=== PATIENT | female | born 1975 | race Caucasian/White ===

== ENCOUNTER 2021-06-25 20:56 | Inpatient (IN) | payer OTHER ==
[~2021-06-25] VITALS: Ht 157.4 cm; Wt 84.7 kg
--- NOTE | 2021-06-25 21:33 | ED Dyspnea ---
General Stated Complaint: COVID POSITIVE Source of Information: Patient Exam Limitations: No Limitations History of Present Illness Date Seen by Provider: Jun 25, 2021 Time Seen by Provider: 21:10 Initial Comments Patient is a 46-year-old female who states that she is Covid positive for the last week and a half presents to the emergency room with increasing shortness of breath, fatigue and weakness. Patient states that she saw her primary care physician, was diagnosed positive and sent home with 2 L of oxygen on a oxygen concentrator. Patient states over the last 2 to 3 days she has had worsening symptoms of shortness of breath. She has had increasing oxygen requirements. She tells me she has a history of diabetes and hyperthyroidism. She apparently has been on prednisone. She has not been checking her blood sugars routinely and does not know what it was today. She denies fevers or chills. She has had a little diarrhea. Mild headache. No earache sore throat or runny nose. Denies chest pain. Does feel profoundly short of breath. As she was being transferred onto a simple facemask she dropped her sats with a good Pleth into the 30 range. Increased work of breathing noted/respiratory distress. Patient states she is allergic to Augmentin. I did discuss intubation with her should that become necessary and she states she would like to try everything prior to that if possible. This will be an option though. All other review of systems reviewed and negative except as stated. Timing/Duration: 1 Week Severity: Severe Prior Episodes/Possible Cause: Illness Exposure Modifying Factors: Improves With Coughing Associated Symptoms: Anxiety, Cough, Lightheadedness Allergies and Home Medications Allergies Coded Allergies: amoxicillin (Verified Allergy, Unknown, 06/25/21) clavulanic acid (Verified Allergy, Unknown, 06/25/21) Patient Home Medication List Home Medication List Reviewed: Yes Review of Systems Review of Systems Constitutional: see HPI EENTM: no symptoms reported Respiratory: cough, short of breath Cardiovascular: no symptoms reported Gastrointestinal: diarrhea Genitourinary: no symptoms reported : No Musculoskeletal: muscle pain (muscle aches) Skin: no symptoms reported Psychiatric/Neurological: Anxiety All Other Systems Reviewed Negative Unless Noted: Yes Physical Exam Vital Signs Vital Signs - First Documented 06/25/21 21:01 Temp 37.2 Pulse 95 Resp 32 B/P (MAP) 176/104 (128) Pulse Ox 34 O2 Delivery Nasal Cannula O2 Flow Rate 5.00 Capillary Refill : Height, Weight, BMI Height: '" Weight: lbs. oz. 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 Norm as Tested Skin: Warm/Dry, Pallor Focused Exam Sepsis Stage: Sepsis Lactate Level 06/25/21 21:20: Lactic Acid Level 2.14*H Time of Focused Exam: 22:00 Respiratory: Lungs Clear, Normal Breath Sounds, Accessory Muscle Use Cardiovascular: Regular Rate, Rhythm, No Murmur Capillary Refill: Less Than 3 Seconds Peripheral Pulses: 2+ Radial Pulses (R), 2+ Radial Pulses (L) Skin: warm/dry, pallor Lactic Acid Level Laboratory Tests Test 06/25/21 21:20 Lactic Acid Level 2.14 MMOL/L (0.50-2.00) *H Within 3hrs of presentation: Admin fluids, Blood cultures prior to ABX's, Lactate level Progress/Results/Core Measures Results/Orders Lab Results Laboratory Tests Test 06/25/21 21:20 06/25/21 21:32 Range/Units White Blood Count 17.4 H 4.3-11.0 10^3/uL Red Blood Count 4.52 3.80-5.11 10^6/uL Hemoglobin 13.2 11.5-16.0 g/dL Hematocrit 41 35-52 % Mean Corpuscular Volume 91 80-99 fL Mean Corpuscular Hemoglobin 29 25-34 pg Mean Corpuscular Hemoglobin Concent 32 32-36 g/dL Red Cell Distribution Width 13.2 10.0-14.5 % Platelet Count 373 130-400 10^3/uL Mean Platelet Volume 10.5 9.0-12.2 fL Immature Granulocyte % (Auto) 5 % Neutrophils (%) (Auto) 87 H 42-75 % Lymphocytes (%) (Auto) 5 L 12-44 % Monocytes (%) (Auto) 3 0-12 % Eosinophils (%) (Auto) 0 0-10 % Basophils (%) (Auto) 0 0-10 % Neutrophils # (Auto) 15.0 H 1.8-7.8 10^3/uL Lymphocytes # (Auto) 0.9 L 1.0-4.0 10^3/uL Monocytes # (Auto) 0.5 0.0-1.0 10^3/uL Eosinophils # (Auto) 0.0 0.0-0.3 10^3/uL Basophils # (Auto) 0.1 0.0-0.1 10^3/uL Immature Granulocyte # (Auto) 0.8 H 0.0-0.1 10^3/uL Neutrophils % (Manual) 91 % Lymphocytes % (Manual) 6 % Monocytes % (Manual) 2 % Eosinophils % (Manual) 1 % Blood Morphology Comment NORMAL D-Dimer >= 20.00 H 0.00-0.49 UG/ML Sodium Level 129 L 135-145 MMOL/L Potassium Level 5.0 3.6-5.0 MMOL/L Chloride Level 92 L 98-107 MMOL/L Carbon Dioxide Level 20 L 21-32 MMOL/L Anion Gap 17 H 5-14 MMOL/L Blood Urea Nitrogen 22 H 7-18 MG/DL Creatinine 1.35 H 0.60-1.30 MG/DL Estimat Glomerular Filtration Rate 42 BUN/Creatinine Ratio 16 Glucose Level 620 *H 70-105 MG/DL Lactic Acid Level 2.14 *H 0.50-2.00 MMOL/L Calcium Level 9.8 8.5-10.1 MG/DL Corrected Calcium 10.2 H 8.5-10.1 MG/DL Total Bilirubin 0.6 0.1-1.0 MG/DL Direct Bilirubin 0.3 0.0-0.3 MG/DL Indirect Bilirubin 0.3 MG/DL Aspartate Amino Transf (AST/SGOT) 23 5-34 U/L Alanine Aminotransferase (ALT/SGPT) 33 0-55 U/L Alkaline Phosphatase 115 40-136 U/L Lactate Dehydrogenase 522 H 125-220 U/L C-Reactive Protein High Sensitivity 20.19 H 0.00-0.50 MG/DL Total Protein 7.0 6.4-8.2 GM/DL Albumin 3.5 3.2-4.5 GM/DL Beta-Hydroxybutyrate (Chem panel) 2.10 H 0.00-0.27 MMOL/L Procalcitonin 0.16 H <0.10 NG/ML Blood Gas Puncture Site R RADIAL Blood Gas Patient Temperature 36 Arterial Blood pH 7.40 7.37-7.43 Arterial Blood Partial Pressure CO2 35 35-45 MMHG Arterial Blood Partial Pressure O2 130 H 79-93 MMHG Arterial Blood HCO3 22 L 23-27 MMOL/L Arterial Blood Total CO2 23.0 21.0-31.0 MMOL/L Arterial Blood Oxygen Saturation 97 94-100 % Arterial Blood Base Excess -2.3 -2.5-2.5 MMOL/L Audi Test NA Blood Gas Ventilator Setting NO Blood Gas Inspired Oxygen NA My Orders Orders - PRISCA OLIVA MD Beta Hydroxybutyrate (06/25/21 22:22) Ns Iv 1000 Ml (Sodium Chloride 0.9%) (06/25/21 22:30) Insulin (Regular) Human (Novolin R (Per (06/25/21 22:22) Insulin (Regular) Human (Novolin R (Per (06/25/21 22:22) Lorazepam Injection (Ativan Injection) (06/25/21 22:34) Accucheck Q1hr Q1HR (06/25/21 22:34) Accucheck Q2hr Q2HR (06/25/21 22:34) Accucheck Q4hr Q4HR (06/25/21 22:34) Insulin Regular Drip (Myxredlin 100 Unit (06/25/21 22:45) Insulin (Regular) Human (Novolin R (Per (06/25/21 22:45) Fsbs Less Than 50mg/Dl (06/25/21 22:34) Fsbs 50-69mg/Dl (06/25/21 22:34) Fsbs Greater Than 70mg/Dl (06/25/21 22:34) Follow Hypoglycemia Protocol (06/25/21 22:34) Enoxaparin Injection (Lovenox Injection) (06/25/21 23:00) Medications Given in ED Current Medications Medications Dose Ordered Sig/Joanne Route Start Time Stop Time Status Last Admin Dose Admin Enoxaparin Sodium 100 mg ONCE ONCE SC 06/25/21 23:00 06/25/21 23:01 DC 8/17/21 23:29 100 MG Insulin Human Regular Bolus and Initial Infus... ONCE ONCE IV 06/25/21 22:45 06/25/21 22:46 DC 06/25/21 22:53 5 UNIT Vital Signs/I&O 06/25/21 06/25/21 21:01 22:28 Temp 37.2 Pulse 95 89 Resp 32 B/P (MAP) 176/104 (128) Pulse Ox 34 92 O2 Delivery Nasal Cannula O2 Flow Rate 5.00 100.00 Progress Progress Note : Time: 22:58 Progress Note Patient's D-dimer is noted to be greater than 20. Will start her on Lovenox at 1 mg per kg subcu twice daily. First dose given in the emergency department. Patient is given 5 units of insulin both IV and subcu and started on the non-DKA insulin drip protocol. She is fluid resuscitated with 2 L of normal saline. She is given half a milligram of Ativan for anxiety while on the BiPAP. Blood gas actually looks really good. Anion gap is 17. She likely will need a CTA once her renal function improves, her GFR is 41. Significant Covid pneumonia noted on her chest x-ray. Case was discussed with Dr. Apple. I did not know her D-dimer at the time of that discussion but we will start her on the Lovenox. Patient looks much much improved on reevaluation with better color, less respiratory distress, good oxygen saturations, not tachycardic not hypotensive. Will be admitted to the intensive care unit for further treatment and management. Initial ECG Impression Date: Jun 25, 2021 Initial ECG Impression Time: 21:41 Initial ECG Rate: 85 Initial ECG Rhythm: Normal Sinus Initial ECG Intervals AL 137 QRS 115 QTc 444 Critical Care Note Critical Care Start Time: 21:10 Stop Time: 23:00 Total Time (minutes) 40 minutes critical care time in the evaluation and management of this patient with profound hypoxia, respiratory distress, Covid pneumonia. Time includes initial evaluation and management, fluid resuscitation, discussion with the patient discussion with family, discussion with admitting physician; starting the insulin drip Departure Communication (Admissions) Time/Spoke to Admitting Phy: 22:[address] Apple accept patient for admission to the ICU, inpatient, request non-DKA insulin drip protocol Impression Primary Impression: Pneumonia due to COVID-19 virus Disposition: ADMITTED INPATIENT Condition: Critical Admissions Decision to Admit Reason: Admit from ER (General) Decision to Admit/Date: Jun 25, 2021 Time/Decision to Admit Time: 22:35 PRISCA OLIVA MD Jun 25, 2021 21:32
[2021-06-25 21:42] LABS: ABG BASE EXCESS -2.3 MMOL/L (-2.5-2.5); ABG OXYGEN SATURATION 97 % (94-100); ABG PCO2 35 MMHG (35-45); ABG PO2 130 MMHG (79-93)
[2021-06-25 21:47] LABS: PATIENT TEMP 36; VENTILATOR NO
[2021-06-25 22:06] LABS: BASOPHILS # (AUTO) 0.1 10^3/uL (0.0-0.1); BASOPHILS % (AUTO) 0 % (0-10); EOSINOPHILS % (AUTO) 0 % (0-10); HEMATOCRIT 41 % (35-52); HEMOGLOBIN 13.2 g/dL (11.5-16.0); LYMPHOCYTES # (AUTO) 0.9 10^3/uL (1.0-4.0); LYMPHOCYTES % (AUTO) 5 % (12-44); MEAN CORPUSCULAR HEMOGLOBIN 29 pg (25-34); MEAN CORPUSCULAR HGB CONC 32 g/dL (32-36); MEAN CORPUSCULAR VOLUME 91 fL (80-99); MEAN PLATELET VOLUME 10.5 fL (9.0-12.2); MONOCYTES # (AUTO) 0.5 10^3/uL (0.0-1.0); MONOCYTES % (AUTO) 3 % (0-12); NEUTROPHILS % (AUTO) 87 % (42-75); PLATELET COUNT 373 10^3/uL (130-400); WHITE BLOOD COUNT 17.4 10^3/uL (4.3-11.0)
[2021-06-25 22:09] LABS: ALBUMIN 3.5 GM/DL (3.2-4.5); BILIRUBIN,DIRECT 0.3 MG/DL (0.0-0.3); BILIRUBIN,INDIRECT 0.3 MG/DL; BILIRUBIN,TOTAL 0.6 MG/DL (0.1-1.0); CALCIUM 9.8 MG/DL (8.5-10.1); CREATININE SERUM 1.35 MG/DL (0.60-1.30)
--- NOTE | 2021-06-25 22:11 | Diagnostic Imaging Report ---
INDICATION: Lower respiratory infection. EXAM: Portable chest at 10:01 PM There are dense patchy alveolar infiltrates scattered throughout both lungs. There are no effusions or pneumothoraces. IMPRESSION: Severe alveolar infiltrates consistent with pneumonia. Dictated by: Dictated on workstation # [id number]
[2021-06-25] MEDS ORDERED: inSUlin (REGULAR) HUMAN 1 UNIT/0.01 ML (CHARGE PER UNIT) IV STA (22:22)
[2021-06-25] MEDS ORDERED: inSUlin (REGULAR) HUMAN 1 UNIT/0.01 ML (CHARGE PER UNIT) SC STA (22:22)
[2021-06-25] MEDS ORDERED: LORazepam INJ 2 MG/ML (ATIVAN) VIAL IVP STA (22:34)
[2021-06-25 22:36] LABS: EOSINOPHILS % (MANUAL) 1 %; LYMPHOCYTES % (MANUAL) 6 %; MONOCYTES % (MANUAL) 2 %; NEUTROPHILS % (MANUAL) 91 %; RBC MORPH NORMAL
[2021-06-25] MEDS ORDERED: inSUlin (REGULAR) HUMAN 1 UNIT/0.01 ML (CHARGE PER UNIT) IV ONE (22:45)
[2021-06-25] MEDS: NS IV 1000 ML 1,000 ML IV SCH (22:53)
[2021-06-25] MEDS ORDERED: ENOXAPARIN 100 MG/1 ML (LOVENOX) SYR SC ONE (23:00)
[2021-06-25] MEDS ORDERED: LORazepam INJ 2 MG/ML (ATIVAN) VIAL IVP PRN (23:45)
[2021-06-26] VITALS (7 sets, daily range): BP systolic 127–176; BP diastolic 68–104
[2021-06-26] MEDS ORDERED: DEXTROSE 50% 50 ML (IMS) SYR IV PRN ×2 (00:15)
[2021-06-26] MEDS ORDERED: RT-ALBUTEROL HFA 8.5 GM INHALER IH PRN (00:15)
--- NOTE | 2021-06-26 00:37 | Tele-ICU Consult ---
History of Present Illness History of Present Illness Date Seen by Provider: Jun 26, 2021 Time Seen by Provider: 00:32 Date of Admission Reason for Visit: NEW ICU ADMISSION ACUTE RESPIRATORY FAILURE History of Present Illness 46 yo F new admit to ICU via ED for acute hypoxemic respiratory failure due to severe COVID19 infection. Requiring NIV. COVID + test approx 1.5 weeks ago complicated by worsening dyspnea and fatigue, was started on prednisone as outpatient. + diarrhea + FERNANDO ? vaccination status Allergies and Home Medications Allergies Coded Allergies: amoxicillin (Verified Allergy, Unknown, 06/25/21) clavulanic acid (Verified Allergy, Unknown, 06/25/21) Past Medical/Social/Family Hx Patient Social History Tobacco Use?: No Smoking Status: Never a Smoker Smokeless Tobacco Frequency: Never a User Use of E-Cig and/or Vaping dev: No Substance use?: No Alcohol Use?: No Pt stated abuse/neglect: No Immunizations Up To Date Influenza Vaccine Up-to-Date: No; Not Current Tetanus Booster (TDap): Less Than 5 Years Hepatitis A: No Hepatitis B: No TB Skin Test: None Current Status status: No status: No Advance Directives: No Communicates: Verbally Primary Language: Mauritanian Preferred Spoken Language: Mauritanian Is interpretation needed?: No Implanted or Applied Medical D: None Past Medical History Obesity DM Hypothyroidism Review of Systems Constitutional: see HPI Respiratory: cough, dyspnea on exertion, short of breath Gastrointestinal: diarrhea Psychiatric/Neurological: Headache Sepsis Event Evaluation Sepsis Stage: Sepsis Possible Source: Other Height, Weight, BMI Height: '" Weight: lbs. oz. kg; 37.82 BMI Method: Exam Exam Patient acknowledged, consented, and participated in this virtual visit which was conducted using real time audio/video Vital Signs Date Time Temp Pulse Resp B/P (MAP) Pulse Ox O2 Delivery O2 Flow Rate FiO2 06/26/21 00:10 87 28 156/85 94 NIV Bilevel 80.00 06/26/21 00:09 37.2 92 35 50 06/26/21 00:05 87 93 80.00 06/26/21 00:00 36.8 85 31 126/72 (90) 96 NIV Bilevel 80.00 06/25/21 22:28 89 92 100.00 06/25/21 21:01 37.2 95 32 176/104 (128) 34 Nasal Cannula 5.00 Height & Weight Height: '" Weight: lbs. oz. 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 Zechariah evans ED note Critical Care: Critically Ill Patient Time spent with patient (mins): 25 ANATOLIY CHEN MD Jun 26, 2021 00:37
[2021-06-26] MEDS: NS IV 1000 ML 1,000 ML IV SCH ×5 (00:42→23:16)
[2021-06-26] MEDS: methylPREDNISolone 40 MG/ML (Solu-MEDROL) VIAL IV SCH ×4 (01:17→20:36)
[2021-06-26] MEDS: PANTOPRAZOLE 40 MG (PROTONIX) VIAL IV SCH ×2 (01:17→08:21)
[2021-06-26 01:32] LABS: BASOPHILS % (AUTO) 0 % (0-10); EOSINOPHILS % (AUTO) 0 % (0-10); HEMATOCRIT 33 % (35-52); HEMOGLOBIN 10.5 g/dL (11.5-16.0); LYMPHOCYTES # (AUTO) 0.9 10^3/uL (1.0-4.0); LYMPHOCYTES % (AUTO) 5 % (12-44); MEAN CORPUSCULAR HEMOGLOBIN 30 pg (25-34); MEAN CORPUSCULAR HGB CONC 32 g/dL (32-36); MEAN CORPUSCULAR VOLUME 92 fL (80-99); MEAN PLATELET VOLUME 10.3 fL (9.0-12.2); MONOCYTES # (AUTO) 0.6 10^3/uL (0.0-1.0); MONOCYTES % (AUTO) 4 % (0-12); NEUTROPHILS # (AUTO) 15.2 10^3/uL (1.8-7.8); NEUTROPHILS % (AUTO) 88 % (42-75); PLATELET COUNT 259 10^3/uL (130-400); WHITE BLOOD COUNT 17.3 10^3/uL (4.3-11.0)
[2021-06-26 01:43] LABS: POTASSIUM 4.1 MMOL/L (3.6-5.0)
[2021-06-26 01:44] LABS: ALBUMIN 2.9 GM/DL (3.2-4.5); CALCIUM 8.3 MG/DL (8.5-10.1)
[2021-06-26 01:47] LABS: TOTAL PROTEIN 5.5 GM/DL (6.4-8.2)
[2021-06-26 01:49] LABS: BILIRUBIN,TOTAL 0.4 MG/DL (0.1-1.0); CREATININE SERUM 1.14 MG/DL (0.60-1.30); PHOSPHORUS 3.3 MG/DL (2.3-4.7)
[2021-06-26 01:51] LABS: MAGNESIUM 1.6 MG/DL (1.6-2.4)
[2021-06-26 01:52] LABS: BILIRUBIN,DIRECT 0.2 MG/DL (0.0-0.3); BILIRUBIN,INDIRECT 0.2 MG/DL
[2021-06-26] MEDS: RT-ALBUTEROL HFA 8.5 GM INHALER IH SCH ×5 (02:08→22:53)
[2021-06-26] MEDS: KCL 20 MEQ TAB (K-DUR) PO SCH (03:40)
[2021-06-26] MEDS: POTASSIUM CL 10MEQ/50ML IVPB 50 ML IV SCH (03:40)
[2021-06-26] MEDS: MAGNESIUM 1 GM/100 ML IVPB 100 ML IV SCH ×2 (03:40→04:17)
[2021-06-26 04:28] LABS: ABG BASE EXCESS 0.1 MMOL/L (-2.5-2.5); ABG OXYGEN SATURATION 94 % (94-100); ABG PCO2 40 MMHG (35-45); ABG PO2 83 MMHG (79-93); ABG TCO2 25.6 MMOL/L (21.0-31.0)
[2021-06-26 04:37] LABS: ALLENS TEST YES-POS; INSPIRED O2 80%; VENTILATOR NO
[2021-06-26 04:38] LABS: PATIENT TEMP 37
[2021-06-26] MEDS ORDERED: REMDESIVIR INJ 200 MG in NS (IVPB) 210 ML IV NR (08:00)
[2021-06-26] MEDS ORDERED: ENOXAPARIN 60 MG/0.6 ML (LOVENOX) SYR SC NR (09:00)
[2021-06-26] MEDS ORDERED: TOCILIZUMAB INJECTION (NON-FOR 800 MG in NS (IVPB) 60 ML IV ONE (09:00)
[2021-06-26] MEDS ORDERED: dexAMETHasone INJECTION 20 MG in NS (IVPB) 50 ML IV SCH (09:00)
[2021-06-26] MEDS ORDERED: ENOXAPARIN 40 MG/0.4 ML (LOVENOX) SYR SC SCH (09:00)
[2021-06-26] MEDS ORDERED: NS 100 ML (IVPB) BAG IV ONE (09:15)
[2021-06-26] MEDS ORDERED: HOLD METFORMIN - RECEIVED CONTRAST 20 ML VIAL IV SCH (09:15)
[2021-06-26] MEDS ORDERED: CATHETER FLUSH 10 ML SYR IV PRN (09:15)
[2021-06-26] MEDS ORDERED: IOHEXOL 350 MG/ML 100 ML (OMNIPAQUE 350) VIAL IV ONE (09:15)
--- NOTE | 2021-06-26 10:12 | Tele-ICU Progress Note ---
Subjective Date Seen by a Provider: Jun 26, 2021 Time Seen by a Provider: 10:12 Sepsis Event Evaluation Height, Weight, BMI Height: '" Weight: lbs. oz. kg; 37.82 BMI Method: Focused Exam Lactate Level 06/25/21 21:20: Lactic Acid Level 2.14*H 06/25/21 23:37: Lactic Acid Level 1.82 Time of Focused Exam: 22:00 Exam Exam Patient acknowledged, consented, and participated in this virtual visit which was conducted using real time audio/video Vital Signs Date Time Temp Pulse Resp B/P (MAP) Pulse Ox O2 Delivery O2 Flow Rate FiO2 06/26/21 10:00 93 141/74 (96) 96 NIV Bilevel 100.00 06/26/21 09:58 NIV Bilevel 100.00 06/26/21 09:55 92 30 92 100.00 06/26/21 09:52 Vapotherm 06/26/21 09:00 81 129/89 (102) 96 Vapotherm 35.00 85.00 06/26/21 08:41 37.2 Vapotherm 35.00 85.00 06/26/21 08:00 74 121/76 (91) 95 Vapotherm 35.00 85.00 06/26/21 07:44 71 06/26/21 07:00 84 130/86 (101) 94 Vapotherm 35.00 85.00 06/26/21 06:00 75 119/87 (98) 93 Vapotherm 35.00 85.00 06/26/21 05:27 Vapotherm 35.00 85.00 06/26/21 05:24 Vapotherm 40.00 90.00 06/26/21 05:00 81 140/78 (98) 94 NIV Bilevel 80.00 06/26/21 04:00 76 147/85 (118) 97 NIV Bilevel 80.00 06/26/21 03:20 37.5 NIV Bilevel 80.00 06/26/21 03:20 94 NIV Bilevel 80 06/26/21 03:00 80 148/87 (109) 94 NIV Bilevel 80.00 06/26/21 02:08 82 28 94 80.00 06/26/21 02:00 75 140/82 (94) 93 NIV Bilevel 80.00 06/26/21 01:00 75 131/71 (100) 93 NIV Bilevel 80.00 06/26/21 01:00 74 06/26/21 00:30 77 96/79 (87) 95 NIV Bilevel 80.00 06/26/21 00:15 85 140/60 (74) 96 NIV Bilevel 80.00 06/26/21 00:10 87 28 156/85 94 NIV Bilevel 80.00 06/26/21 00:09 37.2 92 35 50 06/26/21 00:05 87 93 80.00 06/26/21 00:04 82 06/26/21 00:00 36.8 85 31 126/72 (90) 96 NIV Bilevel 80.00 06/26/21 00:00 NIV Bilevel 80 06/25/21 22:28 89 92 100.00 06/25/21 21:01 37.2 95 32 176/104 (128) 34 Nasal Cannula 5.00 I & O 06/26/21 07:00 Intake Total 3225 ml Output Total 1350 ml Balance 1875 ml Height & Weight Height: '" Weight: lbs. oz. 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 as outpatient ) -Remdesivir- as per local MD ( given sever dz no major clinical benefit ) -Steroids IV - started on high dose -Hypercoagulable state , elev DDIMER -> lovenox full dose , CTA 06/26 pending monitor for superimposed bact PNA -PCT negative , OFF abx - will review CT chest latter Diabetes Mellitus , severe hyperglycemia - insulin gtt , long acting insulin - lose f/up on steroids Lines : (Central Line Necessity Reviewed) Asencio: OG: Nutrition: Po Analgesia: Anxiety/ delirium VTE Prophylaxis: full dose lovenox Stress Ulcer Prophylaxis: ppi Plans in collaboration with bedside consultants and IM MDs. Discussed with RN to reach out if any questions or concerns A total of 35 minutes of critical care time was devoted to this patient today, required to treat and/or prevent further deterioration of critical care condition ( as above) . AZUL DRAPER MD Jun 26, 2021 10:12
[2021-06-26] MEDS ORDERED: ENOXAPARIN 60 MG/0.6 ML (LOVENOX) SYR SC SCH (11:00)
--- NOTE | 2021-06-26 12:04 | Diagnostic Imaging Report ---
PROCEDURE: CT angiography Chest. TECHNIQUE: After intravenous administration of contrast, thin section axial CT angiography of the chest was performed. 3D MIP reconstructions were made. All CT scans use one or more of the following dose optimizing techniques: automated exposure control, MA and/or KvP adjustment based on a patient size and exam type, or iterative reconstruction. INDICATION: COVID pneumonia, hypoxia. COMPARISON: Chest radiograph from 06/25/2021. FINDINGS: Vasculature: No pulmonary emboli. No CT evidence of pulmonary hypertension or right ventricular strain. Thoracic aorta is normal in caliber. No aortic dissection or pseudoaneurysm. Heart and mediastinum: Visualized thyroid is normal. No supraclavicular, axillary, or intra-thoracic lymphadenopathy. The heart is normal in size without pericardial effusion. Pleura: Trace right pleural effusion. No pneumothorax. Lungs and airway: No endoluminal lesion in the trachea or central bronchi. Mixture of bilateral groundglass opacities and consolidations is present. Upper abdomen: Allowing for the phase of contrast, no acute abnormality in the upper abdomen is seen. Musculoskeletal: No concerning osseous lesion. IMPRESSION: 1. No pulmonary emboli or acute aortic syndrome. 2. Bilateral multifocal organizing consolidations are most compatible with multifocal pneumonia secondary to COVID-19. 3. Trace right pleural effusion. Dictated by: Dictated on workstation # [id number]
[2021-06-26 15:24] LABS: POTASSIUM 3.7 MMOL/L (3.6-5.0)
[2021-06-26] MEDS ORDERED: CHOL-34 PO (15:24)
[2021-06-26] MEDS ORDERED: SITA1TAB2 PO (15:24)
[2021-06-26] MEDS ORDERED: ZINC50TA58 PO (15:24)
[2021-06-26] MEDS ORDERED: INSU100I10 SC (15:24)
[2021-06-26] MEDS ORDERED: GUAI600T28 PO (15:24)
[2021-06-26] MEDS ORDERED: PRD50T PO (15:24)
[2021-06-26] MEDS ORDERED: ACET-2267 PO (15:24)
[2021-06-26] MEDS ORDERED: PARO30TA3 PO (15:24)
[2021-06-26] MEDS ORDERED: GLIP10TA13 PO (15:24)
[2021-06-26] MEDS ORDERED: IBUP-2473 PO (15:24)
[2021-06-26] MEDS ORDERED: LEVO175C PO (15:24)
[2021-06-26 15:26] LABS: CALCIUM 8.2 MG/DL (8.5-10.1)
[2021-06-26 15:30] LABS: CREATININE SERUM 0.83 MG/DL (0.60-1.30)
[2021-06-26] MEDS: BARICITINIB 2 MG (OLUMIANT)TABLET PO SCH (16:04)
--- NOTE | 2021-06-26 20:02 | History & Physical-Hospitalist ---
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 She first started having symptoms two weeks ago. A week and a half ago she tested positive for COVID-19. She was not vaccinated. She was started on Prednisone. She continued to worsen with shortness of breath and cough and presented to the ER. Source: patient Exam Limitations: no limitations Date Seen 06/26/21 Time Seen by a Provider: 08:50 Attending Physician Paulette Apple John M MD Referring Physician Date of Admission Jun 25, 2021 at 23:08 Home Medications & Allergies Home Medications Reviewed patient Home Medication Reconciliation performed by pharmacy medication reconciliations textile science technician and/or nursing. Patients Allergies have been reviewed. Allergies Allergies Coded Allergies amoxicillin (Verified Allergy, Unknown, 06/25/21) clavulanic acid (Verified Allergy, Unknown, 06/25/21) Past [id number]-[id number] Hx Patient Social History Tobacco Use?: No Smoking Status: Never a Smoker Smokeless Tobacco Frequency: Never a User Use of E-Cig and/or Vaping dev: No Substance use?: No Alcohol Use?: No Pt feels they are or have been: No Immunizations Up To Date Tetanus Booster (TDap): Less Than 5 Years Hepatitis A: No Hepatitis B: No Current Status status: No status: No Advance Directives: No Communicates: Verbally Primary Language: [place]er Preferred Spoken Language: [place]er Is interpretation needed?: No Implanted or Applied Medical D: None Past Medical History Diabetes, Insulin dep, Hypothyroidsim Obesity DM Hypothyroidism Family Medical History No Pertinent Family Hx Review of Systems Constitutional: no symptoms reported, see HPI Respiratory: cough, short of breath Physical Exam Physical Exam Vital Signs Vital Signs - First Documented 06/25/21 06/26/21 21:01 00:00 Temp 37.2 Pulse 95 Resp 32 B/P (MAP) 176/104 (128) Pulse Ox 34 O2 Delivery Nasal Cannula O2 Flow Rate 5.00 FiO2 80 Capillary Refill : Less Than 3 Seconds Height, Weight, BMI Height: '" Weight: lbs. oz. kg; 37.82 BMI Method: General Appearance: No Apparent Distress, Obese HEENT: PERRL/EOMI, Pharynx Normal Neck: Normal Inspection, Supple Respiratory: Lungs Clear, No Respiratory Distress Cardiovascular: Regular Rate, Rhythm, No Edema, No Murmur Gastrointestinal: Normal Bowel Sounds, Non Tender, Soft Extremity: Normal Inspection, Non Tender, No Pedal Edema Neurologic/Psychiatric: Alert, Oriented x3, No Motor/Sensory Deficits, Normal Mood/Affect Skin: Normal Color, Warm/Dry Lymphatic: No Adenopathy Results Results/Procedures Labs Laboratory Tests 06/25/21 21:20 06/26/21 01:15 06/26/21 15:03 Patient resulted labs reviewed. Imaging: Reviewed Imaging Report Assessment/Plan Admission Diagnosis Acute respiratory failure due to COVID-19 Admission Status: Inpatient Order (span 2 midnights) Reason for Inpatient Admission: Respiratory failure DKA Assessment and Plan Acute respiratory failure due to COVID-19 Hypercoagulable state associated with COVID-19 COVID positive at outside facility Chest xray with diffuse infiltrates D-dimer >20 Procal negative x2 Requiring Vapotherm Obtain CT Chest to rule out PE Started on therapeutic Lovenox IV Solumedrol Started on Remdesivir, stop due to high flow oxygen requirement and two weeks since symptoms began Actemra unavailable Begin Barcitinib, discussed risks/benefits/EUA use and patient agrees TeleICU consulted, appreciate assistance Type 2 diabetes mellitus with ketoacidosis Blood sugar >600 on arrival Beta hydroxybutyrate elevated Started on insulin gtt, DKA protocol Begin Levemir to transition off insulin drip DVT prophylaxis: already receiving therapeutic anticoagulation Diagnosis/Problems Diagnosis/Problems (1) Acute respiratory failure due to COVID-19 Status: Acute (2) Hypercoagulable state associated with COVID-19 Status: Acute (3) T2DM (type 2 diabetes mellitus) Status: Acute Qualifiers: Diabetes mellitus prison insulin use: with prison use Diabetes mellitus complication status: with ketoacidosis Diabetes mellitus complication detail: without coma Qualified Codes: E11.10 - Type 2 diabetes mellitus with ketoacidosis without coma; Z79.4 - snf (current) use of insulin ROXANNA BLEDSOE MD Jun 26, 2021 20:02
[2021-06-26] MEDS: ENOXAPARIN 100 MG/1 ML (LOVENOX) SYR SC SCH (20:36)
[2021-06-26] MEDS: inSUlin ASPART (NovoLOG) 1 UNIT/0.01 ML (CHARGE PER UNIT) SQ SCH (20:37)
[2021-06-27] MEDS ORDERED: REMDESIVIR INJ 100 MG in NS (IVPB) 230 ML IV SCH ×2 (00:45→08:00)
[2021-06-27] MEDS: RT-ALBUTEROL HFA 8.5 GM INHALER IH SCH ×6 (02:39→22:26)
[2021-06-27 02:40] VITALS: BP 152/96
[2021-06-27] MEDS: methylPREDNISolone 40 MG/ML (Solu-MEDROL) VIAL IV SCH ×3 (03:56→21:41)
[2021-06-27 04:49] LABS: BASOPHILS # (AUTO) 0.1 10^3/uL (0.0-0.1); BASOPHILS % (AUTO) 0 % (0-10); EOSINOPHILS % (AUTO) 0 % (0-10); HEMATOCRIT 31 % (35-52); LYMPHOCYTES # (AUTO) 1.5 10^3/uL (1.0-4.0); LYMPHOCYTES % (AUTO) 6 % (12-44); MEAN CORPUSCULAR HEMOGLOBIN 29 pg (25-34); MEAN CORPUSCULAR HGB CONC 32 g/dL (32-36); MEAN CORPUSCULAR VOLUME 92 fL (80-99); MEAN PLATELET VOLUME 10.7 fL (9.0-12.2); MONOCYTES # (AUTO) 0.9 10^3/uL (0.0-1.0); MONOCYTES % (AUTO) 4 % (0-12); NEUTROPHILS # (AUTO) 21.3 10^3/uL (1.8-7.8); NEUTROPHILS % (AUTO) 88 % (42-75); PLATELET COUNT 286 10^3/uL (130-400); WHITE BLOOD COUNT 24.2 10^3/uL (4.3-11.0)
[2021-06-27 04:52] LABS: POTASSIUM 4.1 MMOL/L (3.6-5.0)
[2021-06-27 04:53] LABS: CALCIUM 8.1 MG/DL (8.5-10.1)
[2021-06-27 04:57] LABS: PHOSPHORUS 2.7 MG/DL (2.3-4.7)
[2021-06-27 04:58] LABS: CREATININE SERUM 0.84 MG/DL (0.60-1.30)
[2021-06-27 05:00] LABS: MAGNESIUM 2.1 MG/DL (1.6-2.4)
[2021-06-27] MEDS: POTASSIUM CL 10MEQ/50ML IVPB 50 ML IV SCH (05:14)
[2021-06-27] MEDS: MAGNESIUM 1 GM/100 ML IVPB 100 ML IV SCH (05:15)
[2021-06-27] MEDS: KCL 20 MEQ TAB (K-DUR) PO SCH (05:15)
[2021-06-27] MEDS: inSUlin ASPART (NovoLOG) 1 UNIT/0.01 ML (CHARGE PER UNIT) SQ SCH (05:53)
[2021-06-27 07:30] VITALS: BP 117/67
[2021-06-27] MEDS: PANTOPRAZOLE 40 MG (PROTONIX) VIAL IV SCH (08:03)
[2021-06-27] MEDS: ENOXAPARIN 100 MG/1 ML (LOVENOX) SYR SC SCH ×2 (08:03→21:41)
--- NOTE | 2021-06-27 09:37 | Tele-ICU Progress Note ---
Subjective Date Seen by a Provider: Jun 27, 2021 Time Seen by a Provider: 09:37 Sepsis Event Evaluation Height, Weight, BMI Height: '" Weight: lbs. oz. kg; 37.82 BMI Method: Focused Exam Lactate Level 06/25/21 21:20: Lactic Acid Level 2.14*H 06/25/21 23:37: Lactic Acid Level 1.82 Time of Focused Exam: 22:00 Exam Exam Patient acknowledged, consented, and participated in this virtual visit which was conducted using real time audio/video Vital Signs Date Time Temp Pulse Resp B/P (MAP) Pulse Ox O2 Delivery O2 Flow Rate FiO2 06/27/21 08:40 95 Vapotherm 40.00 100 06/27/21 08:12 Vapotherm 40.00 100.00 06/27/21 08:05 37.2 06/27/21 08:00 81 20 162/88 (112) 93 NIV Bilevel 75.00 06/27/21 07:30 83 22 92 65.00 06/27/21 07:00 78 06/27/21 07:00 78 18 117/67 (84) 95 NIV Bilevel 75.00 06/27/21 06:00 74 22 126/81 (96) 95 NIV Bilevel 75.00 06/27/21 05:00 72 22 111/69 (83) 94 NIV Bilevel 75.00 06/27/21 04:00 73 24 91/56 (68) 95 NIV Bilevel 75.00 06/27/21 03:55 93 NIV Bilevel 75 06/27/21 03:50 36.7 NIV Bilevel 75.00 06/27/21 03:00 74 24 140/87 (104) 94 NIV Bilevel 75.00 06/27/21 02:40 74 23 96 75.00 06/27/21 02:00 80 26 152/93 (112) 96 NIV Bilevel 75.00 06/27/21 01:55 NIV Bilevel 75.00 06/27/21 01:00 76 24 148/96 (113) 92 NIV Bilevel 80.00 06/27/21 01:00 76 06/27/21 00:36 NIV Bilevel 80.00 06/27/21 00:00 77 21 148/86 (106) 97 Vapotherm 40.00 100.00 06/26/21 23:20 Vapotherm 40.00 100.00 06/26/21 23:20 97 Vapotherm 40.00 100 06/26/21 23:17 36.8 NIV Bilevel 80.00 06/26/21 23:00 90 164/96 (118) 92 NIV Bilevel 60.00 06/26/21 22:53 88 29 96 80.00 06/26/21 22:00 93 141/74 (96) 96 NIV Bilevel 60.00 06/26/21 21:33 NIV Bilevel 60.00 06/26/21 21:30 NIV Bilevel 70.00 06/26/21 21:00 81 129/89 (102) 96 NIV Bilevel 80.00 06/26/21 20:00 74 121/76 (91) 95 NIV Bilevel 80.00 06/26/21 19:25 91 NIV Bilevel 80 06/26/21 19:20 36.9 86 28 143/83 (103) 94 NIV Bilevel 80.00 06/26/21 19:18 88 NIV Bilevel 65.00 06/26/21 19:04 73 26 94 65.00 06/26/21 19:00 74 NIV Bilevel 65.00 06/26/21 19:00 84 130/86 (101) 94 NIV Bilevel 65.00 06/26/21 19:00 106 06/26/21 18:54 91 Vapotherm 40.00 90 06/26/21 18:00 85 5 100 Vapotherm 40.00 90.00 06/26/21 17:44 Vapotherm 40.00 90.00 06/26/21 17:00 36.1 06/26/21 16:50 96 NIV Bilevel 70 06/26/21 16:04 97 NIV Bilevel 60.00 06/26/21 16:00 93 12 127/68 (87) 95 NIV Bilevel 70.00 06/26/21 15:54 35.9 89 94 70 06/26/21 15:00 89 94 NIV Bilevel 70.00 06/26/21 14:17 73 26 93 70.00 06/26/21 14:08 99 NIV Bilevel 70.00 06/26/21 14:00 85 91 NIV Bilevel 80.00 06/26/21 13:52 NIV Bilevel 80.00 06/26/21 13:00 74 92 NIV Bilevel 90.00 06/26/21 12:34 NIV Bilevel 90.00 06/26/21 12:17 77 06/26/21 12:04 95 NIV Bilevel 80 06/26/21 12:00 77 97 NIV Bilevel 100.00 06/26/21 11:57 35.9 06/26/21 11:00 90 141/74 (96) 99 NIV Bilevel 100.00 06/26/21 10:00 93 141/74 (96) 96 NIV Bilevel 100.00 06/26/21 09:58 NIV Bilevel 100.00 06/26/21 09:55 92 30 92 100.00 06/26/21 09:52 Vapotherm I & O 06/27/21 07:00 Intake Total 2810 ml Output Total 1725 ml Balance 1085 ml Height & Weight Height: '" Weight: lbs. oz. kg; 37.82 BMI Method: General Appearance: No Apparent Distress, Obese HEENT: PERRL/EOMI, Pharynx Normal Neck: Normal Inspection, Supple Respiratory: Lungs Clear, No Respiratory Distress Cardiovascular: Regular Rate, Rhythm, No Edema, No Murmur Capillary Refill: Less Than 3 Seconds Peripheral Pulses: 2+ Radial Pulses (R), 2+ Radial Pulses (L) Extremity: Normal Inspection, Non Tender, No Pedal Edema Neurologic/Psychiatric: Alert, Oriented x3, No Motor/Sensory Deficits, Normal Mood/Affect Skin: Normal Color, Warm/Dry Lymphatic: No Adenopathy Results Lab Laboratory Tests 06/25/21 21:20 06/26/21 01:15 06/26/21 15:03 06/27/21 04:20 Assessment/Plan Assessment/Plan Tele-ICU Physician , Progress Note ) Available chart/ vitals / labs / Images reviewed Video assessment done using teleICU camera, rest of exam as per RN Discussed wth RN Events overnight : Afebrile I/O = pos 3L Drips: Pressors: , hemodynamically stable EXAM PER RN Consultants: Hospital course: 06/25 to ICU - COVID-NIV.. 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 as outpatient ) -not on Remdesivir -Steroids IV - started on high dose - seems improving - CONSIDER TO TAPER DOWN EVERY DAY - Barcitinib 06/26 -Hypercoagulable state , elev DDIMER -> lovenox full dose , CTA 06/26 neg for PE monitor for superimposed bact PNA -PCT negative , no dense infiltrate on CTchest - OFF abx Diabetes Mellitus , severe hyperglycemia - insulin gtt to stop, long acting insulin -close f/up on steroids Lines : periph (Central Line Necessity Reviewed) Asencio: OG: Nutrition: Po Analgesia: Anxiety/ delirium na VTE Prophylaxis: full dose lovenox Stress Ulcer Prophylaxis: ppi Plans in collaboration with bedside consultants and IM MDs. Discussed with RN to reach out if any questions or concerns A total of 35 minutes of critical care time was devoted to this patient today, required to treat and/or prevent further deterioration of critical care condition ( as above) . AZUL DRAPER MD Jun 27, 2021 09:37
--- NOTE | 2021-06-27 09:54 | Diagnostic Imaging Report ---
INDICATION: Pneumonia. Comparison is made with prior examination from 06/25/2021. FINDINGS: There is diffuse bilateral airspace disease. Heart size is normal. There is no pleural effusion or pneumothorax. The mediastinum is unremarkable. IMPRESSION: Diffuse bilateral airspace disease suspect for pneumonia, possibly Covid. Recommend clinical correlation. Dictated by: Dictated on workstation # [id number]
[2021-06-27 10:42] VITALS: BP 138/79
[2021-06-27] MEDS: inSUlin ASPART (NovoLOG) 1 UNIT/0.01 ML (CHARGE PER UNIT) SC SCH ×3 (11:47→21:41)
--- NOTE | 2021-06-27 14:25 | Progress Note - Hospitalist ---
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 She first started having symptoms two weeks ago. A week and a half a go she tested positive for COVID-19. She was not vaccinated. She was started on Prednisone. She continued to worsen with shortness of breath and cough and presented to the ER. Subjective/Events-last exam She is feeling a bit worse today. She is more short of breath. She feels anxious. She has been eating and drinking. She denies pain. Focused Exam Lactate Level 06/25/21 21:20: Lactic Acid Level 2.14*H 06/25/21 23:37: Lactic Acid Level 1.82 Time of Focused Exam: 22:00 Objective Exam Vital Signs Vital Signs Date Time Temp Pulse Resp B/P (MAP) Pulse Ox O2 Delivery O2 Flow Rate FiO2 06/27/21 14:17 NIV Bilevel 80.00 06/27/21 12:14 36.3 06/27/21 12:00 82 13 156/100 (118) 90 06/27/21 08:40 100 Capillary Refill : Less Than 3 Seconds General Appearance: Mild Distress (Tachypnea), Obese Respiratory: Decreased Breath Sounds, Respiratory Distress (Tachypnea), Other (Wearing Vapotherm) Cardiovascular: Regular Rate, Rhythm, No Edema, No Murmur Gastrointestinal: Normal Bowel Sounds, Non Tender, Soft Extremity: Normal Inspection, Non Tender, No Pedal Edema Neurologic/Psychiatric: Alert, Oriented x3, No Motor/Sensory Deficits, Normal Mood/Affect Skin: Normal Color, Warm/Dry Results/Procedures Lab Laboratory Tests 06/26/21 15:03 06/27/21 04:20 Patient resulted labs reviewed. Imaging: Reviewed Imaging Report Assessment/Plan Assessment and Plan Assess & Plan/Chief Complaint Acute respiratory failure due to COVID-19 Hypercoagulable state associated with COVID-19 COVID positive at outside facility Chest xray with diffuse infiltrates D-dimer >20 Procal negative x2 repeat tomorrow Requiring BiPAP/Vapotherm CT Chest negative for PE Continue therapeutic Lovenox Decrease Solumedrol Remdesivir stopped due to high flow oxygen requirement and two weeks since sy mptoms began Actemra unavailable Continue Barcitinib, discussed risks/benefits/EUA use and patient agrees TeleICU consulted, appreciate assistance High risk for intubation Type 2 diabetes mellitus with ketoacidosis DKA resolved Continue Levemir Increase sliding scale DVT prophylaxis: already receiving therapeutic anticoagulation Critical Care Critically Ill Patient Diagnosis/Problems Diagnosis/Problems (1) Acute respiratory failure due to COVID-19 Status: Acute (2) Hypercoagulable state associated with COVID-19 Status: Acute (3) T2DM (type 2 diabetes mellitus) Status: Acute Qualifiers: Diabetes mellitus long lines operator insulin use: with long lines operator use Diabetes mellitus complication status: with ketoacidosis Diabetes mellitus complication detail: without coma Qualified Codes: E11.10 - Type 2 diabetes mellitus with ketoacidosis without coma; Z79.4 - [facility] (current) use of insulin ROXANNA BLEDSOE MD Jun 27, 2021 14:24
[2021-06-27] MEDS ORDERED: CEFEPIME INJECTION 1,000 MG in WATER (STERILE) FOR INJECTION 10 ML IV NR (14:30)
[2021-06-27 15:03] VITALS: BP 134/109
[2021-06-27] MEDS: BARICITINIB 2 MG (OLUMIANT)TABLET PO SCH (17:52)
[2021-06-27] MEDS: CEFEPIME INJECTION 1,000 MG in WATER (STERILE) FOR INJECTION 10 ML IV SCH (21:41)
[2021-06-27 22:26] VITALS: BP 134/109
[2021-06-28 03:46] VITALS: BP 127/70
[2021-06-28] MEDS: RT-ALBUTEROL HFA 8.5 GM INHALER IH SCH ×6 (03:48→21:57)
[2021-06-28 04:11] LABS: BASOPHILS % (AUTO) 0 % (0-10); EOSINOPHILS % (AUTO) 0 % (0-10); HEMATOCRIT 31 % (35-52); HEMOGLOBIN 9.9 g/dL (11.5-16.0); LYMPHOCYTES % (AUTO) 4 % (12-44); MEAN CORPUSCULAR HEMOGLOBIN 29 pg (25-34); MEAN CORPUSCULAR HGB CONC 32 g/dL (32-36); MEAN CORPUSCULAR VOLUME 92 fL (80-99); MEAN PLATELET VOLUME 10.3 fL (9.0-12.2); MONOCYTES # (AUTO) 0.7 10^3/uL (0.0-1.0); MONOCYTES % (AUTO) 3 % (0-12); NEUTROPHILS # (AUTO) 22.8 10^3/uL (1.8-7.8); NEUTROPHILS % (AUTO) 91 % (42-75); PLATELET COUNT 298 10^3/uL (130-400)
[2021-06-28] MEDS: methylPREDNISolone 40 MG/ML (Solu-MEDROL) VIAL IV SCH ×3 (04:22→21:06)
[2021-06-28] MEDS: CEFEPIME INJECTION 1,000 MG in WATER (STERILE) FOR INJECTION 10 ML IV SCH ×4 (04:23→21:06)
[2021-06-28 04:33] LABS: POTASSIUM 4.1 MMOL/L (3.6-5.0)
[2021-06-28 04:34] LABS: CALCIUM 8.6 MG/DL (8.5-10.1)
[2021-06-28 04:38] LABS: CREATININE SERUM 0.84 MG/DL (0.60-1.30); PHOSPHORUS 2.5 MG/DL (2.3-4.7)
[2021-06-28 04:41] LABS: MAGNESIUM 2.1 MG/DL (1.6-2.4)
[2021-06-28] MEDS: POTASSIUM CL 10MEQ/50ML IVPB 50 ML IV SCH (05:03)
[2021-06-28] MEDS: MAGNESIUM 1 GM/100 ML IVPB 100 ML IV SCH (05:03)
[2021-06-28] MEDS: inSUlin ASPART (NovoLOG) 1 UNIT/0.01 ML (CHARGE PER UNIT) SC SCH ×4 (05:04→21:07)
[2021-06-28] MEDS: KCL 20 MEQ TAB (K-DUR) PO SCH (05:04)
--- NOTE | 2021-06-28 07:10 | Diagnostic Imaging Report ---
EXAMINATION: Chest 1 view HISTORY: Pneumonia COMPARISON: 06/27/2021 FINDINGS: Stable enlargement of cardiac silhouette. Stable diffuse opacification with airspace opacities throughout both lungs. No obvious pleural effusion or pneumothorax. The osseous structures are intact. IMPRESSION: 1. Stable diffuse patchy interstitial and airspace opacities throughout both lungs compatible with history of pneumonia. Dictated by: Dictated on workstation # [id number]
[2021-06-28 07:32] VITALS: BP 133/85
[2021-06-28] MEDS: ENOXAPARIN 100 MG/1 ML (LOVENOX) SYR SC SCH ×2 (07:57→21:07)
[2021-06-28] MEDS: PANTOPRAZOLE 40 MG (PROTONIX) VIAL IV SCH (07:58)
[2021-06-28 10:51] VITALS: BP 139/78
--- NOTE | 2021-06-28 12:05 | Tele-ICU Progress Note ---
Subjective Date Seen by a Provider: Jun 28, 2021 Time Seen by a Provider: 11:25 Subjective/Events-last exam Patient with uncontrolled diabetes mellitus admitted with Covidpneumonia which is not amenable to treatment as an outpatient therapy. She is admitted with bilateral diffuse infiltrates along with a blood sugar of over 600. Currently she is on a long-acting insulin Levemir 60 mL 60 units subcu twice a day but her blood sugars are in the 80s hence her primary care physician today reduced with the Levemir to 30 units subcutaneously twice a day which is appropriate. She is still on IV steroids. Currently on Vapotherm for oxygenation. I have reviewed her chest x-ray which showed bilateral diffuse extensive infiltration. Review of Systems General: Other (per RN) Sepsis Event Evaluation Height, Weight, BMI Height: '" Weight: lbs. oz. kg; 37.82 BMI Method: Focused Exam Lactate Level 06/25/21 21:20: Lactic Acid Level 2.14*H 06/25/21 23:37: Lactic Acid Level 1.82 Time of Focused Exam: 22:00 Exam Exam Patient acknowledged, consented, and participated in this virtual visit which was conducted using real time audio/video Vital Signs Date Time Temp Pulse Resp B/P (MAP) Pulse Ox O2 Delivery O2 Flow Rate FiO2 06/28/21 11:20 36.0 06/28/21 11:00 96 30 141/79 (99) 88 NIV Bilevel 85.00 06/28/21 10:56 NIV Bilevel 85.00 06/28/21 10:51 98 29 88 85.00 06/28/21 10:37 88 Vapotherm 35.00 100 06/28/21 10:15 21 91 Vapotherm 35.00 100.00 06/28/21 10:00 87 27 139/78 (98) 93 Vapotherm 40.00 100.00 06/28/21 09:00 90 14 145/79 (101) 90 Vapotherm 40.00 100.00 06/28/21 08:54 35.8 Vapotherm 40.00 100.00 06/28/21 08:00 79 25 128/68 (110) 94 NIV Bilevel 85.00 06/28/21 08:00 95 NIV Bilevel 85 06/28/21 07:32 81 36 93 90.00 06/28/21 07:00 75 23 133/85 (100) 93 NIV Bilevel 100.00 06/28/21 07:00 73 06/28/21 06:00 89 20 140/82 (101) 94 NIV Bilevel 100.00 06/28/21 05:00 78 25 121/81 (94) 94 NIV Bilevel 100.00 06/28/21 04:00 99 25 141/81 (101) 93 NIV Bilevel 100.00 06/28/21 04:00 94 NIV Bilevel 100 06/28/21 03:46 82 23 97 100.00 06/28/21 03:00 81 21 127/70 (89) 94 NIV Bilevel 100.00 06/28/21 02:00 92 18 139/72 (94) 97 NIV Bilevel 100.00 06/28/21 01:00 86 19 122/87 (99) 95 NIV Bilevel 100.00 06/28/21 01:00 86 06/28/21 00:00 94 23 120/67 (84) 95 NIV Bilevel 100.00 06/27/21 23:59 96 NIV Bilevel 100 06/27/21 23:34 NIV Bilevel 100.00 06/27/21 23:00 89 23 141/71 (94) 100 Vapotherm 40.00 100.00 06/27/21 22:26 88 35 92 100.00 06/27/21 22:00 94 16 144/75 (98) 95 Vapotherm 40.00 100.00 06/27/21 21:00 92 18 140/87 (104) 97 Vapotherm 40.00 100.00 06/27/21 20:38 Vapotherm 40.00 100.00 06/27/21 20:07 36.8 06/27/21 20:00 86 8 127/66 (86) 90 Vapotherm 40.00 80.00 06/27/21 20:00 96 NIV Bilevel 100 06/27/21 19:00 106 17 143/83 (103) 80 Vapotherm 40.00 80.00 06/27/21 19:00 99 06/27/21 18:40 90 Vapotherm 40.00 100 06/27/21 18:27 Vapotherm 40.00 100.00 06/27/21 18:00 85 100 NIV Bilevel 80.00 06/27/21 17:00 81 12 134/66 (88) 98 NIV Bilevel 80.00 06/27/21 16:05 35.3 06/27/21 16:00 92 NIV Bilevel 80 06/27/21 16:00 10 95 NIV Bilevel 80.00 06/27/21 15:03 88 35 92 100.00 06/27/21 15:00 84 0 134/109 (117) 90 NIV Bilevel 80.00 06/27/21 14:17 NIV Bilevel 80.00 06/27/21 14:00 95 135/59 (84) 82 Vapotherm 40.00 100.00 06/27/21 13:00 83 06/27/21 13:00 76 16 127/60 (82) 96 Vapotherm 40.00 100.00 06/27/21 12:15 95 NIV Bilevel 40.00 70 06/27/21 12:14 36.3 I & O 06/28/21 06:59 Intake Total 800 ml Output Total 1700 ml Balance -900 ml Height & Weight Height: '" Weight: lbs. oz. kg; 37.82 BMI Method: General Appearance: Moderate Distress (on vapo therm), Obese HEENT: PERRL/EOMI, Pharynx Normal Neck: Normal Inspection, Supple Respiratory: Decreased Breath Sounds, Respiratory Distress (Tachypnea), Other (Wearing Vapotherm) Cardiovascular: Regular Rate, Rhythm, No Edema, No Murmur Capillary Refill: Less Than 3 Seconds Peripheral Pulses: 2+ Radial Pulses (R), 2+ Radial Pulses (L) Extremity: Normal Inspection, Non Tender, No Pedal Edema Neurologic/Psychiatric: Alert, Oriented x3, No Motor/Sensory Deficits, Normal Mood/Affect Skin: Normal Color, Warm/Dry Lymphatic: No Adenopathy Results Lab Laboratory Tests 06/26/21 15:03 06/27/21 04:20 06/28/21 04:00 Assessment/Plan Assessment/Plan 1. Acute hypoxic respiratory failure secondary to Covid pneumonia. 2. Uncontrolled diabetes mellitus currently controlled. 3. Obesity. 4. Covid19 pneumonia unvaccinated Recommendations agree with decreasing the Levemir insulin to 30 units twice daily 2. Continue oxygenation with Vapotherm 3. Continue IV Solu-Medrol 4. Cefepime IV for superadded bacterial pneumonia 5. DVT prophylaxis. 6. We will check hemoglobin A1c Critical Care: Critically Ill Patient Time spent with patient (mins): 25 GISELLE CATES MD Jun 28, 2021 12:05
[2021-06-28] MEDS: BARICITINIB 2 MG (OLUMIANT)TABLET PO SCH (15:29)
--- NOTE | 2021-06-28 19:03 | Progress Note - Hospitalist ---
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 She first started having symptoms two weeks ago. A week and a half a go she tested positive for COVID-19. She was not vaccinated. She was started on Prednisone. She continued to worsen with shortness of breath and cough and presented to the ER. Subjective/Events-last exam She is feeling a bit better today. She is not as short of breath today. She still has a cough. She still has a good appetite. Focused Exam Lactate Level 06/25/21 21:20: Lactic Acid Level 2.14*H 06/25/21 23:37: Lactic Acid Level 1.82 Time of Focused Exam: 22:00 Objective Exam Vital Signs Vital Signs Date Time Temp Pulse Resp B/P (MAP) Pulse Ox O2 Delivery O2 Flow Rate FiO2 06/28/21 18:00 87 19 141/76 (110) 91 NIV Bilevel 85.00 06/28/21 15:45 85 06/28/21 15:34 36.7 Capillary Refill : Less Than 3 Seconds General Appearance: No Apparent Distress, Obese Respiratory: Lungs Clear, No Respiratory Distress Cardiovascular: Regular Rate, Rhythm, No Edema, No Murmur Gastrointestinal: Normal Bowel Sounds, Non Tender, Soft Extremity: Normal Inspection, Non Tender, No Pedal Edema Neurologic/Psychiatric: Alert, Oriented x3, No Motor/Sensory Deficits, Normal Mood/Affect Skin: Normal Color, Warm/Dry Results/Procedures Lab Laboratory Tests 06/28/21 04:00 Patient resulted labs reviewed. Imaging: Reviewed Imaging Report Assessment/Plan Assessment and Plan Assess & Plan/Chief Complaint Acute respiratory failure due to COVID-19 Hypercoagulable state associated with COVID-19 Requiring BiPAP/Vapotherm Continue therapeutic Lovenox Decrease Solumedrol Continue Barcitinib, discussed risks/benefits/EUA use and patient agrees TeleICU consulted, appreciate assistance High risk for intubation Type 2 diabetes mellitus with ketoacidosis DKA resolved Decrease Levemir Continue sliding scale DVT prophylaxis: already receiving therapeutic anticoagulation Critical Care Critically Ill Patient Diagnosis/Problems Diagnosis/Problems (1) Acute respiratory failure due to COVID-19 Status: Acute (2) Hypercoagulable state associated with COVID-19 Status: Acute (3) T2DM (type 2 diabetes mellitus) Status: Acute Qualifiers: Diabetes mellitus intermediate project manager insulin use: with nursing home use Diabetes me llitus complication status: with ketoacidosis Diabetes mellitus complication detail: without coma Qualified Codes: E11.10 - Type 2 diabetes mellitus with ketoacidosis without coma; Z79.4 - terminal clerk (current) use of insulin ROXANNA BLEDSOE MD Jun 28, 2021 19:03
[2021-06-29] MEDS: RT-ALBUTEROL HFA 8.5 GM INHALER IH SCH ×6 (02:47→21:29)
[2021-06-29] MEDS: CEFEPIME INJECTION 1,000 MG in WATER (STERILE) FOR INJECTION 10 ML IV SCH ×4 (04:03→20:20)
[2021-06-29] MEDS: POTASSIUM CL 10MEQ/50ML IVPB 50 ML IV SCH (05:48)
[2021-06-29] MEDS: KCL 20 MEQ TAB (K-DUR) PO SCH (05:49)
[2021-06-29] MEDS: MAGNESIUM 1 GM/100 ML IVPB 100 ML IV SCH (05:49)
[2021-06-29 06:05] LABS: BASOPHILS % (AUTO) 0 % (0-10); EOSINOPHILS % (AUTO) 0 % (0-10); HEMATOCRIT 32 % (35-52); LYMPHOCYTES # (AUTO) 0.9 10^3/uL (1.0-4.0); LYMPHOCYTES % (AUTO) 4 % (12-44); MEAN CORPUSCULAR HEMOGLOBIN 29 pg (25-34); MEAN CORPUSCULAR HGB CONC 31 g/dL (32-36); MEAN CORPUSCULAR VOLUME 93 fL (80-99); MEAN PLATELET VOLUME 11.5 fL (9.0-12.2); MONOCYTES # (AUTO) 0.8 10^3/uL (0.0-1.0); MONOCYTES % (AUTO) 3 % (0-12); NEUTROPHILS # (AUTO) 20.1 10^3/uL (1.8-7.8); NEUTROPHILS % (AUTO) 91 % (42-75); PLATELET COUNT 288 10^3/uL (130-400); WHITE BLOOD COUNT 22.2 10^3/uL (4.3-11.0)
[2021-06-29 06:12] LABS: POTASSIUM 4.2 MMOL/L (3.6-5.0)
[2021-06-29 06:17] LABS: CREATININE SERUM 0.82 MG/DL (0.60-1.30); PHOSPHORUS 3.1 MG/DL (2.3-4.7)
[2021-06-29 06:20] LABS: MAGNESIUM 2.2 MG/DL (1.6-2.4)
[2021-06-29] MEDS: inSUlin ASPART (NovoLOG) 1 UNIT/0.01 ML (CHARGE PER UNIT) SC SCH ×4 (06:22→20:21)
--- NOTE | 2021-06-29 07:18 | Diagnostic Imaging Report ---
EXAMINATION: Chest 1 view HISTORY: COVID pneumonia COMPARISON: 06/28/2021 FINDINGS: There is severe bilateral airspace opacities consistent with COVID 19 pneumonia. No pleural effusion. Heart size is normal. IMPRESSION: 1. Severe COVID 19 pneumonia. Dictated by: Dictated on workstation # [id number]
[2021-06-29] MEDS: methylPREDNISolone 40 MG/ML (Solu-MEDROL) VIAL IV SCH ×2 (08:32→20:21)
[2021-06-29] MEDS: PANTOPRAZOLE 40 MG (PROTONIX) VIAL IV SCH (08:32)
[2021-06-29] MEDS: ENOXAPARIN 100 MG/1 ML (LOVENOX) SYR SC SCH ×2 (08:33→20:21)
--- NOTE | 2021-06-29 13:16 | Progress Note - Hospitalist ---
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 She first started having symptoms two weeks ago. A week and a half a go she tested positive for COVID-19. She was not vaccinated. She was started on Prednisone. She continued to worsen with shortness of breath and cough and presented to the ER. Subjective/Events-last exam She is now doing well this morning. She is very short of breath. Her oxygen saturations dropped when she turned in bed. She is currently on BiPAP. Focused Exam Time of Focused Exam: 22:00 Objective Exam Vital Signs Vital Signs Date Time Temp Pulse Resp B/P (MAP) Pulse Ox O2 Delivery O2 Flow Rate FiO2 06/29/21 12:00 87 36 145/81 (102) 92 Vapotherm 40.00 100.00 06/29/21 08:28 100 06/29/21 08:26 36.2 Capillary Refill : Less Than 3 Seconds General Appearance: Moderate Distress (Uncomfortable, tachypneic), Obese Respiratory: Decreased Breath Sounds, Respiratory Distress (Tachypneic), Other (Wearing BiPAP) Cardiovascular: Regular Rate, Rhythm, No Edema, No Murmur Gastrointestinal: Normal Bowel Sounds, Non Tender, Soft Extremity: Normal Inspection, Non Tender, No Pedal Edema Neurologic/Psychiatric: Alert, Depressed Affect Skin: Normal Color, Warm/Dry Results/Procedures Lab Laboratory Tests 06/29/21 03:40 Patient resulted labs reviewed. Imaging: Reviewed Imaging Report Assessment/Plan Assessment and Plan Assess & Plan/Chief Complaint Acute respiratory failure due to COVID-19 Hypercoagulable state associated with COVID-19 Requiring BiPAP/Vapotherm Continue therapeutic Lovenox Continue Solumedrol Continue Barcitinib TeleICU consulted, appreciate assistance High risk for intubation Type 2 diabetes mellitus with ketoacidosis DKA resolved Continue Levemir Continue sliding scale DVT prophylaxis: already receiving therapeutic anticoagulation Critical Care Critically Ill Patient Diagnosis/Problems Diagnosis/Problems (1) Acute respiratory failure due to COVID-19 Status: Acute (2) Hypercoagulable state associated with COVID-19 Status: Acute (3) T2DM (type 2 diabetes mellitus) Status: Acute Qualifiers: Diabetes mellitus forest logistics manager insulin use: with forest logistics manager use Diabetes me llitus complication status: with ketoacidosis Diabetes mellitus complication detail: without coma Qualified Codes: E11.10 - Type 2 diabetes mellitus with ketoacidosis without coma; Z79.4 - [facility] (current) use of insulin ROXANNA BLEDSOE MD Jun 29, 2021 13:16
[2021-06-29] MEDS: BARICITINIB 2 MG (OLUMIANT)TABLET PO SCH (15:26)
[2021-06-30] MEDS: RT-ALBUTEROL HFA 8.5 GM INHALER IH SCH ×6 (02:17→21:45)
[2021-06-30 03:48] LABS: BASOPHILS % (AUTO) 0 % (0-10); EOSINOPHILS % (AUTO) 0 % (0-10); HEMATOCRIT 33 % (35-52); HEMOGLOBIN 10.4 g/dL (11.5-16.0); LYMPHOCYTES # (AUTO) 1.1 10^3/uL (1.0-4.0); LYMPHOCYTES % (AUTO) 5 % (12-44); MEAN CORPUSCULAR HEMOGLOBIN 29 pg (25-34); MEAN CORPUSCULAR HGB CONC 32 g/dL (32-36); MEAN CORPUSCULAR VOLUME 92 fL (80-99); MEAN PLATELET VOLUME 10.8 fL (9.0-12.2); MONOCYTES # (AUTO) 0.6 10^3/uL (0.0-1.0); MONOCYTES % (AUTO) 3 % (0-12); NEUTROPHILS # (AUTO) 20.6 10^3/uL (1.8-7.8); NEUTROPHILS % (AUTO) 91 % (42-75); PLATELET COUNT 317 10^3/uL (130-400); WHITE BLOOD COUNT 22.7 10^3/uL (4.3-11.0)
[2021-06-30 03:57] LABS: ALBUMIN 3.2 GM/DL (3.2-4.5); POTASSIUM 4.3 MMOL/L (3.6-5.0)
[2021-06-30 03:59] LABS: CALCIUM 9.4 MG/DL (8.5-10.1)
[2021-06-30 04:00] LABS: TOTAL PROTEIN 6.4 GM/DL (6.4-8.2)
[2021-06-30 04:02] LABS: BILIRUBIN,TOTAL 0.7 MG/DL (0.1-1.0)
[2021-06-30 04:03] LABS: PHOSPHORUS 3.7 MG/DL (2.3-4.7)
[2021-06-30 04:04] LABS: CREATININE SERUM 0.82 MG/DL (0.60-1.30)
[2021-06-30 04:05] LABS: BILIRUBIN,DIRECT 0.3 MG/DL (0.0-0.3); BILIRUBIN,INDIRECT 0.4 MG/DL
[2021-06-30] MEDS: CEFEPIME INJECTION 1,000 MG in WATER (STERILE) FOR INJECTION 10 ML IV SCH ×4 (04:44→20:58)
[2021-06-30] MEDS: POTASSIUM CL 10MEQ/50ML IVPB 50 ML IV SCH (06:40)
[2021-06-30] MEDS: MAGNESIUM 1 GM/100 ML IVPB 100 ML IV SCH (06:40)
[2021-06-30] MEDS: inSUlin ASPART (NovoLOG) 1 UNIT/0.01 ML (CHARGE PER UNIT) SC SCH ×4 (06:41→21:08)
[2021-06-30] MEDS: KCL 20 MEQ TAB (K-DUR) PO SCH (06:41)
--- NOTE | 2021-06-30 07:50 | Diagnostic Imaging Report ---
Portable erect AP chest at 3:25 Indication: Respiratory distress The heart is stable in size when compared to the prior exam of 06/29/2021. As noted previously there are diffuse alveolar/interstitial infiltrates involving both lungs. Overall, there has been no significant change since the prior study. No new abnormality has developed. Impression: Stable chest. There is been no adverse change since the prior exam. A followup study would be recommended for continued evaluation. Dictated by: Dictated on workstation # [id number]
[2021-06-30] MEDS: ENOXAPARIN 100 MG/1 ML (LOVENOX) SYR SC SCH ×2 (08:01→20:58)
[2021-06-30] MEDS: methylPREDNISolone 40 MG/ML (Solu-MEDROL) VIAL IV SCH ×2 (08:01→20:58)
[2021-06-30] MEDS: PANTOPRAZOLE 40 MG (PROTONIX) VIAL IV SCH (08:01)
[2021-06-30 10:50] VITALS: BP 159/125
--- NOTE | 2021-06-30 11:12 | Tele-ICU Progress Note ---
Subjective Date Seen by a Provider: Jun 30, 2021 Time Seen by a Provider: 09:35 Subjective/Events-last exam This virtual visit was conducted using real time audio/video. Thank you for asking us to see this patient for respiratory insufficiency and distress due to Covid pna with respiratory failure. HPC: Recent events: Did not tolerate vapotherm on 2 attempts. PE: VSS O2 sat 93% on BiPAP 20/10. HEENT: No obvious masses, adenopathy or JVD. Chest: clear to auscultation. CV: RRR S1 S2 No murmur or added sounds. Abd: Non-tender. Bowel sounds Y. : Unremarkable. Asencio Y. 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 No obvious focal findings. Extremities: No edema. Capillary refill < 3 seconds. Skin: unremarkable. Results: Elevated WCC 22.7. Decreased Hb 10.4. CXR w B infilts. A/P: Respiratory insufficiency/distress: Cont BiPAP 20/10 with 70% O2. Available chart/ vitals / labs /images reviewed. Video assessment done using teleICU camera, rest of exam as per RN. Monitor for increasing oxygenation needs and/or need for intubation. Critical Care: critically ill patient. Cont Albut., S.medrol, Cefipime, Barb., Baricinitib. Discussed with RN Pilar. Asked RN to reach out to eICU if any questions or concerns later. Time spent with patient/family/coordination of care with other health professionals (mins): 20 Sepsis Event Evaluation Height, Weight, BMI Height: '" Weight: lbs. oz. kg; 37.82 BMI Method: Focused Exam Time of Focused Exam: 22:00 Exam Exam Patient acknowledged, consented, and participated in this virtual visit which was conducted using real time audio/video Vital Signs Date Time Temp Pulse Resp B/P (MAP) Pulse Ox O2 Delivery O2 Flow Rate FiO2 06/30/21 10:50 80 31 91 100.00 06/30/21 10:00 75 22 159/125 (136) 92 NIV Bilevel 95.00 06/30/21 09:00 79 9 145/93 (110) 90 NIV Bilevel 95.00 06/30/21 08:00 80 23 156/91 (112) 91 NIV Bilevel 95.00 06/30/21 07:58 36.0 06/30/21 07:50 87 NIV Bilevel 100 06/30/21 07:17 93 Vapotherm 40.00 100 06/30/21 07:00 72 13 154/92 (112) 92 NIV Bilevel 95.00 06/30/21 07:00 90 06/30/21 06:00 80 22 157/89 (111) 91 NIV Bilevel 95.00 06/30/21 05:00 79 18 151/91 (111) 91 NIV Bilevel 95.00 06/30/21 04:00 77 24 156/86 (109) 91 NIV Bilevel 95.00 06/30/21 04:00 92 NIV Bilevel 30.00 90 06/30/21 03:00 78 31 151/91 (111) 91 NIV Bilevel 95.00 06/30/21 02:13 80 27 93 95.00 06/30/21 02:00 81 32 141/84 (103) 92 NIV Bilevel 95.00 06/30/21 01:00 76 18 146/89 (108) 91 NIV Bilevel 95.00 06/30/21 01:00 80 06/30/21 00:03 36.7 91 NIV Bilevel 95.00 06/30/21 00:00 78 26 142/80 (100) 92 Vapotherm 40.00 100.00 06/29/21 23:58 94 NIV Bilevel 30.00 100 06/29/21 23:00 81 36 151/84 (106) 93 Vapotherm 40.00 100.00 06/29/21 22:00 81 29 151/80 (103) 90 Vapotherm 40.00 100.00 06/29/21 21:24 88 23 95 100.00 06/29/21 21:00 80 16 151/80 (103) 92 Vapotherm 40.00 100.00 06/29/21 20:20 36.6 06/29/21 20:00 82 28 140/64 (89) 92 Vapotherm 40.00 100.00 06/29/21 20:00 94 Vapotherm 30.00 100 06/29/21 19:00 85 14 136/75 (95) 91 Vapotherm 40.00 100.00 06/29/21 19:00 84 06/29/21 18:50 Vapotherm 40.00 100.00 06/29/21 18:12 91 Vapotherm 40.00 100 06/29/21 18:00 78 47 128/67 (75) 94 NIV Bilevel 100.00 06/29/21 17:00 83 11 134/59 (96) 94 NIV Bilevel 100.00 06/29/21 16:17 94 NIV Bilevel 100 06/29/21 16:08 NIV Bilevel 100.00 06/29/21 16:00 36.5 06/29/21 16:00 84 16 129/67 (87) 95 Vapotherm 40.00 100.00 06/29/21 15:04 84 31 93 100.00 06/29/21 15:00 80 21 92 Vapotherm 40.00 100.00 06/29/21 14:00 85 26 97 Vapotherm 40.00 100.00 06/29/21 13:00 83 06/29/21 13:00 89 26 150/81 (107) 94 Vapotherm 40.00 100.00 06/29/21 12:30 94 NIV Bilevel 100 06/29/21 12:00 87 36 145/81 (102) 92 Vapotherm 40.00 100.00 I & O 06/30/21 07:00 Intake Total 675 ml Output Total 2700 ml Balance -2025 ml Height & Weight Height: '" Weight: lbs. oz. kg; 37.82 BMI Method: General Appearance: Moderate Distress (Uncomfortable, tachypneic), Obese HEENT: PERRL/EOMI, Pharynx Normal Neck: Normal Inspection, Supple Respiratory: Decreased Breath Sounds, Respiratory Distress (Tachypneic), Other (Wearing BiPAP) Cardiovascular: Regular Rate, Rhythm, No Edema, No Murmur Capillary Refill: Less Than 3 Seconds Peripheral Pulses: 2+ Radial Pulses (R), 2+ Radial Pulses (L) Extremity: Normal Inspection, Non Tender, No Pedal Edema Neurologic/Psychiatric: Alert, Depressed Affect Skin: Normal Color, Warm/Dry Lymphatic: No Adenopathy Results Lab Laboratory Tests 06/29/21 03:40 06/30/21 03:38 Assessment/Plan Assessment/Plan See free text. Critical Care: Critically Ill Patient Time spent on discussion(mins): 0 MOHSEN BATRES MD Jun 30, 2021 11:12
[2021-06-30 14:51] VITALS: BP 127/76
[2021-06-30] MEDS: BARICITINIB 2 MG (OLUMIANT)TABLET PO SCH (16:09)
--- NOTE | 2021-06-30 18:43 | Progress Note - Hospitalist ---
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 She first started having symptoms two weeks ago. A week and a half a go she tested positive for COVID-19. She was not vaccinated. She was started on Prednisone. She continued to worsen with shortness of breath and cough and presented to the ER. Subjective/Events-last exam She is proning. She is not feeling well. She has been short of breath. Focused Exam Time of Focused Exam: 22:00 Objective Exam Vital Signs Vital Signs Date Time Temp Pulse Resp B/P (MAP) Pulse Ox O2 Delivery O2 Flow Rate FiO2 06/30/21 18:00 85 26 145/84 (104) 90 Vapotherm 40.00 100.00 06/30/21 16:33 36.8 06/30/21 16:32 100 Capillary Refill : Less Than 3 Seconds General Appearance: Moderate Distress (uncomfortable), Obese Respiratory: Decreased Breath Sounds, Respiratory Distress (tachypnea) Cardiovascular: Regular Rate, Rhythm, No Edema, No Murmur Gastrointestinal: Normal Bowel Sounds, Non Tender, Soft Extremity: Normal Inspection, Non Tender, No Pedal Edema Skin: Normal Color, Warm/Dry Results/Procedures Lab Laboratory Tests 06/30/21 03:38 Patient resulted labs reviewed. Imaging: Reviewed Imaging Report Assessment/Plan Assessment and Plan Assess & Plan/Chief Complaint Acute respiratory failure due to COVID-19 Hypercoagulable state associated with COVID-19 Requiring BiPAP/Vapotherm Continue therapeutic Lovenox Continue Solumedrol Continue Barcitinib TeleICU consulted, appreciate assistance High risk for intubation Type 2 diabetes mellitus with ketoacidosis DKA resolved Decrease Levemir Continue sliding scale Morbid obesity Clinically significant, no acute management needs DVT prophylaxis: already receiving therapeutic anticoagulation Critical Care Critically Ill Patient Diagnosis/Problems Diagnosis/Problems (1) Acute respiratory failure due to COVID-19 Status: Acute (2) Hypercoagulable state associated with COVID-19 Status: Acute (3) T2DM (type 2 diabetes mellitus) Status: Acute Qualifiers: Diabetes mellitus shelter insulin use: with shelter use Diabetes mellitus complication status: with ketoacidosis Diabetes mellitus complication detail: without coma Qualified Codes: E11.10 - Type 2 diabetes mellitus with ketoacidosis without coma; Z79.4 - intermediate manager (current) use of insulin (4) Morbid obesity Status: Acute ROXANNA BLEDSOE MD Jun 30, 2021 18:43
[2021-06-30 19:14] VITALS: BP 127/76
[2021-06-30 21:45] VITALS: BP 127/76
[2021-07-01] MEDS: CEFEPIME INJECTION 1,000 MG in WATER (STERILE) FOR INJECTION 10 ML IV SCH ×4 (02:34→21:17)
[2021-07-01 03:13] VITALS: BP 114/59
[2021-07-01] MEDS: RT-ALBUTEROL HFA 8.5 GM INHALER IH SCH ×6 (03:13→21:34)
[2021-07-01 03:48] LABS: BASOPHILS % (AUTO) 0 % (0-10); EOSINOPHILS % (AUTO) 0 % (0-10); HEMATOCRIT 33 % (35-52); HEMOGLOBIN 10.7 g/dL (11.5-16.0); LYMPHOCYTES # (AUTO) 0.8 10^3/uL (1.0-4.0); LYMPHOCYTES % (AUTO) 3 % (12-44); MEAN CORPUSCULAR HEMOGLOBIN 30 pg (25-34); MEAN CORPUSCULAR HGB CONC 33 g/dL (32-36); MEAN CORPUSCULAR VOLUME 91 fL (80-99); MEAN PLATELET VOLUME 10.8 fL (9.0-12.2); MONOCYTES # (AUTO) 0.7 10^3/uL (0.0-1.0); MONOCYTES % (AUTO) 3 % (0-12); NEUTROPHILS # (AUTO) 22.9 10^3/uL (1.8-7.8); NEUTROPHILS % (AUTO) 93 % (42-75); PLATELET COUNT 359 10^3/uL (130-400); WHITE BLOOD COUNT 24.7 10^3/uL (4.3-11.0)
[2021-07-01 04:04] LABS: POTASSIUM 4.6 MMOL/L (3.6-5.0)
[2021-07-01 04:06] LABS: CALCIUM 9.3 MG/DL (8.5-10.1)
[2021-07-01 04:10] LABS: CREATININE SERUM 0.97 MG/DL (0.60-1.30); PHOSPHORUS 3.3 MG/DL (2.3-4.7)
[2021-07-01 04:12] LABS: MAGNESIUM 1.9 MG/DL (1.6-2.4)
[2021-07-01] MEDS: POTASSIUM CL 10MEQ/50ML IVPB 50 ML IV SCH (06:12)
[2021-07-01] MEDS: MAGNESIUM 1 GM/100 ML IVPB 100 ML IV SCH (06:13)
[2021-07-01] MEDS: KCL 20 MEQ TAB (K-DUR) PO SCH (06:13)
[2021-07-01] MEDS: inSUlin ASPART (NovoLOG) 1 UNIT/0.01 ML (CHARGE PER UNIT) SC SCH ×4 (06:42→20:21)
[2021-07-01 07:32] VITALS: BP 137/86
--- NOTE | 2021-07-01 07:35 | Diagnostic Imaging Report ---
INDICATION: Pneumonia. Comparison is made with prior examination from 06/30/2021. FINDINGS: There is diffuse bilateral airspace disease. Heart size is stable. There is no pleural effusion or pneumothorax. IMPRESSION: Persistent diffuse bilateral airspace disease right slightly greater than left. Some underlying central pulmonary venous congestion cannot be excluded. Dictated by: Dictated on workstation # [id number]
[2021-07-01] MEDS: methylPREDNISolone 40 MG/ML (Solu-MEDROL) VIAL IV SCH ×3 (08:10→21:17)
[2021-07-01] MEDS: ENOXAPARIN 100 MG/1 ML (LOVENOX) SYR SC SCH ×2 (08:10→21:17)
[2021-07-01] MEDS: PANTOPRAZOLE 40 MG (PROTONIX) VIAL IV SCH (08:11)
[2021-07-01 10:46] VITALS: BP 105/62
--- NOTE | 2021-07-01 10:49 | Tele-ICU Progress Note ---
Subjective Date Seen by a Provider: Jul 01, 2021 Time Seen by a Provider: 10:48 Sepsis Event Evaluation Height, Weight, BMI Height: '" Weight: lbs. oz. kg; 37.82 BMI Method: Focused Exam Time of Focused Exam: 22:00 Exam Exam Patient acknowledged, consented, and participated in this virtual visit which was conducted using real time audio/video Vital Signs Date Time Temp Pulse Resp B/P (MAP) Pulse Ox O2 Delivery O2 Flow Rate FiO2 07/01/21 10:00 77 18 105/62 (76) 92 NIV Bilevel 100.00 07/01/21 09:00 88 15 152/91 (111) NIV Bilevel 100.00 07/01/21 08:00 35.3 07/01/21 08:00 78 39 147/92 (110) 93 NIV Bilevel 100.00 07/01/21 07:32 80 35 92 100.00 07/01/21 07:00 77 9 137/86 (103) 89 NIV Bilevel 100.00 07/01/21 06:40 80 07/01/21 06:00 74 19 122/81 (95) 94 NIV Bilevel 100.00 07/01/21 05:00 80 25 119/80 (93) 92 NIV Bilevel 100.00 07/01/21 04:00 80 22 128/71 (90) 91 NIV Bilevel 100.00 07/01/21 04:00 91 NIV Bilevel 100 07/01/21 03:33 82 96 100 07/01/21 03:13 82 29 96 100.00 07/01/21 03:00 86 21 114/59 (77) 96 NIV Bilevel 100.00 07/01/21 02:00 82 24 127/70 (89) 90 NIV Bilevel 100.00 07/01/21 01:00 87 24 125/72 (89) 94 NIV Bilevel 100.00 07/01/21 01:00 87 07/01/21 00:00 91 NIV Bilevel 100 07/01/21 00:00 93 41 140/69 (92) 92 NIV Bilevel 100.00 06/30/21 23:00 87 29 147/83 (104) 87 NIV Bilevel 100.00 06/30/21 22:00 89 45 166/78 (107) 91 NIV Bilevel 100.00 06/30/21 21:45 87 34 92 100.00 06/30/21 21:00 85 34 169/99 (122) 93 NIV Bilevel 100.00 06/30/21 20:00 85 25 166/89 (114) 92 NIV Bilevel 100.00 06/30/21 20:00 85 Vapotherm 30.00 100 06/30/21 19:37 36.6 06/30/21 19:14 80 26 91 100.00 06/30/21 19:00 88 06/30/21 19:00 89 28 165/89 (114) 86 NIV Bilevel 100.00 06/30/21 18:00 85 26 145/84 (104) 90 Vapotherm 40.00 100.00 06/30/21 17:00 85 21 142/77 (98) 90 Vapotherm 40.00 100.00 06/30/21 16:33 36.8 06/30/21 16:32 93 NIV Bilevel 100 06/30/21 16:00 83 21 125/73 (90) 93 Vapotherm 40.00 100.00 06/30/21 15:00 89 21 143/79 (100) 92 Vapotherm 40.00 100.00 06/30/21 14:55 Vapotherm 40.00 100.00 06/30/21 14:51 80 26 94 100.00 06/30/21 14:00 79 28 127/76 (93) 96 NIV Bilevel 95.00 06/30/21 13:00 76 20 141/78 (99) 92 NIV Bilevel 95.00 06/30/21 13:00 82 06/30/21 12:15 93 NIV Bilevel 100 06/30/21 12:00 81 24 154/83 (106) 94 NIV Bilevel 95.00 06/30/21 11:19 36.7 06/30/21 11:00 81 28 142/85 (104) 93 NIV Bilevel 95.00 06/30/21 10:50 80 31 91 100.00 I & O 07/01/21 07:00 Intake Total 700 ml Output Total 3125 ml Balance -2425 ml Height & Weight Height: '" Weight: lbs. oz. kg; 37.82 BMI Method: General Appearance: Moderate Distress (uncomfortable), Obese HEENT: PERRL/EOMI, Pharynx Normal Neck: Normal Inspection, Supple Respiratory: Decreased Breath Sounds, Respiratory Distress (tachypnea) Cardiovascular: Regular Rate, Rhythm, No Edema, No Murmur Capillary Refill: Less Than 3 Seconds Peripheral Pulses: 2+ Radial Pulses (R), 2+ Radial Pulses (L) Extremity: Normal Inspection, Non Tender, No Pedal Edema Neurologic/Psychiatric: Alert, Depressed Affect Skin: Normal Color, Warm/Dry Lymphatic: No Adenopathy Results Lab Laboratory Tests 06/30/21 03:38 07/01/21 03:35 Assessment/Plan Assessment/Plan Tele-ICU Physician , Progress Note ) Available chart/ vitals / labs / Images reviewed Video assessment done using teleICU camera, rest of exam as per RN Discussed wth RN Events overnight : disating on vapotherm Afebrile I/O = neg 2 l Drips: Pressors: , hemodynamically stable EXAM PER RN Consultants: Hospital course: 06/25 to ICU - COVID-NIV.. 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 -was started on prednisone as outpatient ) -not on Remdesivir -Steroids IV - started on high dose - SM 40 q 12 - will decrease , NO CLEAR - Barcitinib 06/26 -Hypercoagulable state , elev DDIMER -> lovenox full dose , CTA 06/26 neg for PE suspected superimposed bact PNA - cefepime 06/27 Diabetes Mellitus , severe hyperglycemia - insulin gtt to stop, long acting insulin -close f/up on steroids Lines : periph , WILL PLACE PICC (Central Line Necessity Reviewed) Asencio: + OG: Nutrition: Po Analgesia: Anxiety/ delirium na VTE Prophylaxis: full dose lovenox Stress Ulcer Prophylaxis: ppi Plans in collaboration with bedside consultants and IM MDs. Discussed with RN to reach out if any questions or concerns A total of 35 minutes of critical care time was devoted to this patient today, required to treat and/or prevent further deterioration of critical care condition ( as above) . AZUL DRAPER MD Jul 01, 2021 10:49
[2021-07-01 14:54] VITALS: BP 141/86
--- NOTE | 2021-07-01 15:56 | Progress Note - Hospitalist ---
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 She first started having symptoms two weeks ago. A week and a half a go she tested positive for COVID-19. She was not vaccinated. She was started on Prednisone. She continued to worsen with shortness of breath and cough and presented to the ER. Subjective/Events-last exam She is doing about the same. She thinks she might be getting better. She is proning. Focused Exam Time of Focused Exam: 22:00 Objective Exam Vital Signs Vital Signs Date Time Temp Pulse Resp B/P (MAP) Pulse Ox O2 Delivery O2 Flow Rate FiO2 07/01/21 14:54 80 27 95 100.00 07/01/21 12:00 36.7 07/01/21 12:00 101/53 (69) NIV Bilevel 07/01/21 08:00 100 Capillary Refill : Less Than 3 Seconds General Appearance: No Apparent Distress, Obese Respiratory: No Respiratory Distress, Decreased Breath Sounds, Other (Proning, wearing BiPAP) Cardiovascular: Regular Rate, Rhythm, No Edema, No Murmur Gastrointestinal: Normal Bowel Sounds, Non Tender, Soft Extremity: Normal Inspection, Non Tender, No Pedal Edema Neurologic/Psychiatric: Alert, Oriented x3, No Motor/Sensory Deficits Skin: Normal Color, Warm/Dry Results/Procedures Lab Laboratory Tests 07/01/21 03:35 Patient resulted labs reviewed. Imaging: Reviewed Imaging Report Assessment/Plan Assessment and Plan Assess & Plan/Chief Complaint Acute respiratory failure due to COVID-19 Hypercoagulable state associated with COVID-19 Requiring BiPAP/Vapotherm Continue therapeutic Lovenox Decreasing Solumedrol Continue Barcitinib TeleICU consulted, appreciate assistance High risk for intubation Type 2 diabetes mellitus with ketoacidosis DKA resolved Continue Levemir Continue sliding scale Morbid obesity Clinically significant, no acute management needs DVT prophylaxis: already receiving therapeutic anticoagulation Critical Care Critically Ill Patient Diagnosis/Problems Diagnosis/Problems (1) Acute respiratory failure due to COVID-19 Status: Acute (2) Hypercoagulable state associated with COVID-19 Status: Acute (3) T2DM (type 2 diabetes mellitus) Status: Acute Qualifiers: Diabetes mellitus half-way insulin use: with rodent exterminator use Diabetes mellitus complication status: with ketoacidosis Diabetes mellitus complication detail: without coma Qualified Codes: E11.10 - Type 2 diabetes mellitus with ketoacidosis without coma; Z79.4 - terminal makeup operator (current) use of insulin (4) Morbid obesity Status: Acute ROXANNA BLEDSOE MD Jul 01, 2021 15:56
[2021-07-01] MEDS: BARICITINIB 2 MG (OLUMIANT)TABLET PO SCH (16:20)
[2021-07-02] MEDS: KCL 20 MEQ TAB (K-DUR) PO SCH (01:35)
[2021-07-02] MEDS: POTASSIUM CL 10MEQ/50ML IVPB 50 ML IV SCH (01:35)
[2021-07-02] MEDS: MAGNESIUM 1 GM/100 ML IVPB 100 ML IV SCH (01:35)
[2021-07-02 02:11] VITALS: BP 119/57
[2021-07-02] MEDS: RT-ALBUTEROL HFA 8.5 GM INHALER IH SCH ×6 (02:11→21:17)
[2021-07-02] MEDS: CEFEPIME INJECTION 1,000 MG in WATER (STERILE) FOR INJECTION 10 ML IV SCH ×3 (03:45→15:29)
[2021-07-02 04:04] LABS: BASOPHILS % (AUTO) 0 % (0-10); EOSINOPHILS % (AUTO) 0 % (0-10); HEMATOCRIT 31 % (35-52); LYMPHOCYTES # (AUTO) 1.2 10^3/uL (1.0-4.0); LYMPHOCYTES % (AUTO) 6 % (12-44); MEAN CORPUSCULAR HEMOGLOBIN 30 pg (25-34); MEAN CORPUSCULAR HGB CONC 32 g/dL (32-36); MEAN CORPUSCULAR VOLUME 92 fL (80-99); MEAN PLATELET VOLUME 11.1 fL (9.0-12.2); MONOCYTES # (AUTO) 0.8 10^3/uL (0.0-1.0); MONOCYTES % (AUTO) 4 % (0-12); NEUTROPHILS # (AUTO) 17.6 10^3/uL (1.8-7.8); NEUTROPHILS % (AUTO) 89 % (42-75); PLATELET COUNT 348 10^3/uL (130-400); WHITE BLOOD COUNT 19.9 10^3/uL (4.3-11.0)
[2021-07-02 04:14] LABS: POTASSIUM 4.5 MMOL/L (3.6-5.0)
[2021-07-02 04:15] LABS: CALCIUM 9.2 MG/DL (8.5-10.1)
[2021-07-02 04:20] LABS: CREATININE SERUM 0.89 MG/DL (0.60-1.30); PHOSPHORUS 3.9 MG/DL (2.3-4.7)
[2021-07-02] MEDS: inSUlin ASPART (NovoLOG) 1 UNIT/0.01 ML (CHARGE PER UNIT) SC SCH ×4 (06:06→21:00)
[2021-07-02 07:29] VITALS: BP 101/65
[2021-07-02] MEDS: PANTOPRAZOLE 40 MG (PROTONIX) VIAL IV SCH (08:30)
[2021-07-02] MEDS: ENOXAPARIN 100 MG/1 ML (LOVENOX) SYR SC SCH ×2 (08:30→20:46)
[2021-07-02] MEDS: methylPREDNISolone 40 MG/ML (Solu-MEDROL) VIAL IV SCH ×2 (08:30→20:46)
--- NOTE | 2021-07-02 09:13 | Diagnostic Imaging Report ---
Indication: Pneumonia AP view of the chest is obtained with study compared to exam of one day earlier. There is extensive bilateral airspace disease which is slightly improved compared to previous study. No pneumothorax identified. Left upper extremity PICC is in place with tip projecting over the mid to lower superior vena cava. There is no evidence of pneumothorax. IMPRESSION: Bilateral airspace disease has shown mild improvement. Dictated by: Dictated on workstation # [id number]
--- NOTE | 2021-07-02 09:34 | Progress Note - Hospitalist ---
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 She first started having symptoms two weeks ago. A week and a half a go she tested positive for COVID-19. She was not vaccinated. She was started on Prednisone. She continued to worsen with shortness of breath and cough and presented to the ER. Subjective/Events-last exam Pt reports feeling welll. No complaints. Coming off of BiPAP to eat breakfast. Was able to prone all night per RN. Focused Exam Time of Focused Exam: 22:00 Objective Exam Vital Signs Vital Signs Date Time Temp Pulse Resp B/P (MAP) Pulse Ox O2 Delivery O2 Flow Rate FiO2 07/02/21 08:28 36.1 78 24 105/64 (78) 93 NIV Bilevel 80.00 07/02/21 04:00 85 Capillary Refill : NONE General Appearance: No Apparent Distress, Chronically ill, Obese Respiratory: No Accessory Muscle Use, Decreased Breath Sounds, Other (switched to Vapotherm while I was in room) Cardiovascular: Regular Rate, Rhythm, No Murmur Neurologic/Psychiatric: Alert, Oriented x3 Results/Procedures Lab Laboratory Tests 07/02/21 03:40 Patient resulted labs reviewed. Imaging: Reviewed Imaging Report Assessment/Plan Assessment and Plan Assess & Plan/Chief Complaint Acute respiratory failure due to COVID-19 Hypercoagulable state associated with COVID-19 Requiring BiPAP/Vapotherm Continue therapeutic Lovenox due to elevated d-dimer Tapering Solumedrol Continue Barcitinib TeleICU consulted, appreciate assistance High risk for intubation but doing better today, hopeful she will turn the corner Discussed with eICU Type 2 diabetes mellitus with ketoacidosis DKA resolved Continue Levemir Continue sliding scale Morbid obesity Clinically significant, no acute management needs DVT prophylaxis: already receiving therapeutic anticoagulation Critical Care Critically Ill Patient MARTIN HUNT MD Jul 02, 2021 09:34
[2021-07-02] MEDS ORDERED: SENNA W/DOCUSATE (SENOKOT S) TABLET PO PRN (09:45)
[2021-07-02 14:12] VITALS: BP 109/68
[2021-07-02] MEDS: BARICITINIB 2 MG (OLUMIANT)TABLET PO SCH (15:29)
[2021-07-03 02:30] VITALS: BP 120/73
[2021-07-03] MEDS: RT-ALBUTEROL HFA 8.5 GM INHALER IH SCH ×6 (02:30→22:49)
[2021-07-03 03:28] LABS: BASOPHILS % (AUTO) 0 % (0-10); EOSINOPHILS # (AUTO) 0.2 10^3/uL (0.0-0.3); EOSINOPHILS % (AUTO) 1 % (0-10); HEMATOCRIT 33 % (35-52); HEMOGLOBIN 10.5 g/dL (11.5-16.0); LYMPHOCYTES # (AUTO) 1.6 10^3/uL (1.0-4.0); LYMPHOCYTES % (AUTO) 7 % (12-44); MEAN CORPUSCULAR HEMOGLOBIN 29 pg (25-34); MEAN CORPUSCULAR HGB CONC 32 g/dL (32-36); MEAN CORPUSCULAR VOLUME 91 fL (80-99); MEAN PLATELET VOLUME 10.7 fL (9.0-12.2); MONOCYTES # (AUTO) 0.7 10^3/uL (0.0-1.0); MONOCYTES % (AUTO) 3 % (0-12); NEUTROPHILS # (AUTO) 19.2 10^3/uL (1.8-7.8); NEUTROPHILS % (AUTO) 88 % (42-75); PLATELET COUNT 428 10^3/uL (130-400); WHITE BLOOD COUNT 21.8 10^3/uL (4.3-11.0)
[2021-07-03 03:42] LABS: POTASSIUM 4.5 MMOL/L (3.6-5.0)
[2021-07-03 03:43] LABS: CALCIUM 9.4 MG/DL (8.5-10.1)
[2021-07-03 03:48] LABS: CREATININE SERUM 0.8 MG/DL (0.60-1.30); PHOSPHORUS 2.8 MG/DL (2.3-4.7)
[2021-07-03 03:50] LABS: MAGNESIUM 1.9 MG/DL (1.6-2.4)
[2021-07-03 03:51] LABS: EOSINOPHILS % (MANUAL) 1 %; LYMPHOCYTES % (MANUAL) 8 %; MONOCYTES % (MANUAL) 5 %; NEUTROPHILS % (MANUAL) 86 %; RBC MORPH NORMAL
[2021-07-03] MEDS: inSUlin ASPART (NovoLOG) 1 UNIT/0.01 ML (CHARGE PER UNIT) SC SCH ×4 (05:19→21:26)
[2021-07-03 06:33] VITALS: BP 127/81
--- NOTE | 2021-07-03 06:40 | Diagnostic Imaging Report ---
Indication: Pneumonia Portable chest shows normal heart size and vascularity. There has been partial clearing of the bilateral infiltrates since 07/02/2021. There is no effusion or pneumothorax. IMPRESSION: Improving infiltrates. Dictated by: Dictated on workstation # [id number]
[2021-07-03] MEDS: POTASSIUM CL 10MEQ/50ML IVPB 50 ML IV SCH (07:28)
[2021-07-03] MEDS: MAGNESIUM 1 GM/100 ML IVPB 100 ML IV SCH (07:28)
[2021-07-03] MEDS: KCL 20 MEQ TAB (K-DUR) PO SCH (07:28)
--- NOTE | 2021-07-03 08:19 | Tele-ICU Progress Note ---
Subjective Date Seen by a Provider: Jul 02, 2021 Time Seen by a Provider: 10:04 Sepsis Event Evaluation Height, Weight, BMI Height: '" Weight: lbs. oz. kg; 37.82 BMI Method: Focused Exam Time of Focused Exam: 22:00 Exam Exam Patient acknowledged, consented, and participated in this virtual visit which was conducted using real time audio/video Vital Signs Date Time Temp Pulse Resp B/P (MAP) Pulse Ox O2 Delivery O2 Flow Rate FiO2 07/03/21 06:33 69 35 92 95.00 07/03/21 06:31 75 07/03/21 06:00 75 20 127/81 (96) 93 NIV Bilevel 95.00 07/03/21 05:00 72 28 137/96 (108) 96 NIV Bilevel 95.00 07/03/21 04:00 36.2 96 NIV Bilevel 95.00 07/03/21 04:00 91 NIV Bilevel 100 07/03/21 04:00 71 18 129/85 (97) 93 NIV Bilevel 95.00 07/03/21 03:00 78 134/92 (98) 94 NIV Bilevel 100.00 07/03/21 02:30 84 32 92 100.00 07/03/21 02:00 73 19 120/73 (86) 95 NIV Bilevel 100.00 07/03/21 01:00 77 07/03/21 01:00 77 35 126/70 (86) 95 NIV Bilevel 100.00 07/03/21 00:00 82 10 134/73 (93) 95 NIV Bilevel 100.00 07/03/21 00:00 36.1 07/02/21 23:59 93 NIV Bilevel 100 07/02/21 23:00 92 25 111/64 (80) 89 NIV Bilevel 100.00 07/02/21 22:04 80 36 128/96 (103) 93 NIV Bilevel 100.00 07/02/21 21:17 84 30 97 100.00 07/02/21 21:00 76 29 95 NIV Bilevel 100.00 07/02/21 20:32 NIV Bilevel 100.00 07/02/21 20:00 35.6 07/02/21 20:00 93 NIV Bilevel 95 07/02/21 20:00 77 18 111/93 (105) 94 NIV Bilevel 80.00 07/02/21 19:00 79 11 119/77 (91) 94 NIV Bilevel 80.00 07/02/21 19:00 79 07/02/21 18:40 97 Vapotherm 40.00 100 07/02/21 18:00 78 24 106/81 (89) 98 NIV Bilevel 80.00 07/02/21 17:00 72 26 122/78 (93) 95 NIV Bilevel 80.00 07/02/21 16:37 96 NIV Bilevel 85 07/02/21 16:00 75 25 132/79 (96) 95 NIV Bilevel 80.00 07/02/21 15:58 36.4 07/02/21 15:00 74 32 115/65 (82) 96 NIV Bilevel 80.00 07/02/21 14:12 79 32 94 80.00 07/02/21 14:00 73 18 109/68 (82) 96 NIV Bilevel 80.00 07/02/21 13:00 77 27 130/67 (88) 96 NIV Bilevel 80.00 07/02/21 12:35 96 NIV Bilevel 85 07/02/21 12:28 77 07/02/21 12:00 80 27 130/65 (86) 95 NIV Bilevel 80.00 07/02/21 11:10 NIV Bilevel 80.00 07/02/21 11:00 84 26 159/80 (106) 89 Vapotherm 40.00 100.00 07/02/21 10:00 87 29 147/76 (99) 91 Vapotherm 40.00 100.00 07/02/21 09:44 92 Vapotherm 40.00 100 07/02/21 09:00 77 25 124/71 (88) 93 Vapotherm 40.00 100.00 07/02/21 08:44 Vapotherm 40.00 100.00 07/02/21 08:28 36.1 78 24 105/64 (78) 93 NIV Bilevel 80.00 I & O 07/03/21 07:00 Intake Total 560 ml Output Total 2875 ml Balance -2315 ml Height & Weight Height: '" Weight: lbs. oz. kg; 37.82 BMI Method: General Appearance: No Apparent Distress, Chronically ill, Obese HEENT: PERRL/EOMI, Pharynx Normal Neck: Normal Inspection, Supple Respiratory: No Accessory Muscle Use, Decreased Breath Sounds, Other (switched to Vapotherm while I was in room) Cardiovascular: Regular Rate, Rhythm, No Murmur Capillary Refill: NONE Peripheral Pulses: 2+ Radial Pulses (R), 2+ Radial Pulses (L) Extremity: Normal Inspection, Non Tender, No Pedal Edema Neurologic/Psychiatric: Alert, Oriented x3 Skin: Normal Color, Warm/Dry Lymphatic: No Adenopathy Results Lab Laboratory Tests 07/02/21 03:40 07/03/21 03:10 Assessment/Plan Assessment/Plan Tele-ICU Physician , Progress Note ) Available chart/ vitals / labs / Images reviewed Video assessment done using teleICU camera, rest of exam as per RN Discussed wth RN Events overnight Afebrile I/O = neg 2 l Drips: Pressors: , hemodynamically stable EXAM PER RN Consultants: Hospital course: 06/25 to ICU - COVID-NIV.. 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 ( Central Line Necessity Reviewed) Asencio: + OG: Nutrition: Po Analgesia: Anxiety/ delirium na VTE Prophylaxis: full dose lovenox Stress Ulcer Prophylaxis: ppi Plans in collaboration with bedside consultants and IM MDs. Discussed with RN to reach out if any questions or concerns Discussed with Dr Vazquez A total of 35 minutes of critical care time was devoted to this patient today, required to treat and/or prevent further deterioration of critical care condition ( as above) . AZUL DRAPER MD Jul 03, 2021 08:19
[2021-07-03 09:03] VITALS: BP 136/89
[2021-07-03] MEDS: methylPREDNISolone 40 MG/ML (Solu-MEDROL) VIAL IV SCH ×2 (09:06→21:25)
[2021-07-03] MEDS: ENOXAPARIN 100 MG/1 ML (LOVENOX) SYR SC SCH ×2 (09:06→21:25)
[2021-07-03] MEDS: PANTOPRAZOLE 40 MG (PROTONIX) VIAL IV SCH (09:06)
--- NOTE | 2021-07-03 09:53 | Progress Note - Hospitalist ---
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 She first started having symptoms two weeks ago. A week and a half a go she tested positive for COVID-19. She was not vaccinated. She was started on Prednisone. She continued to worsen with shortness of breath and cough and presented to the ER. Subjective/Events-last exam Pt reports feeling ok. Was off BiPAP for a few hours yesterday but back on BiPAP and up to 95%. Focused Exam Time of Focused Exam: 22:00 Objective Exam Vital Signs Vital Signs Date Time Temp Pulse Resp B/P (MAP) Pulse Ox O2 Delivery O2 Flow Rate FiO2 07/03/21 09:03 71 36 94 95.00 07/03/21 08:00 36.0 07/03/21 08:00 138/93 (108) NIV Bilevel 07/03/21 04:00 100 Capillary Refill : NONE General Appearance: No Apparent Distress, Chronically ill, Obese Respiratory: Decreased Breath Sounds; No Wheezing; Other (on BiPAP) Cardiovascular: Regular Rate, Rhythm, No Murmur Gastrointestinal: Normal Bowel Sounds, Non Tender, Soft Neurologic/Psychiatric: Alert, Oriented x3 Results/Procedures Lab Laboratory Tests 07/03/21 03:10 Patient resulted labs reviewed. Imaging: Reviewed Imaging Report Assessment/Plan Assessment and Plan Assess & Plan/Chief Complaint Acute respiratory failure due to COVID-19 Hypercoagulable state associated with COVID-19 Requiring BiPAP/Vapotherm Continue therapeutic Lovenox due to elevated d-dimer Tapering Solumedrol Continue Barcitinib TeleICU consulted, appreciate assistance High risk for intubation still but has been steady with a high oxygen requirement, consider LTACH referral Discussed with eICU Type 2 diabetes mellitus with ketoacidosis DKA resolved Continue Levemir Continue sliding scale Morbid obesity Clinically significant, no acute management needs Hypothyroidism Resume home synthroid DVT prophylaxis: already receiving therapeutic anticoagulation Critical Care Critically Ill Patient MARTIN HUNT MD Jul 03, 2021 09:53
--- NOTE | 2021-07-03 10:25 | Tele-ICU Progress Note ---
Subjective Date Seen by a Provider: Jul 03, 2021 Time Seen by a Provider: 10:24 Sepsis Event Evaluation Height, Weight, BMI Height: '" Weight: lbs. oz. kg; 37.82 BMI Method: Focused Exam Time of Focused Exam: 22:00 Exam Exam Patient acknowledged, consented, and participated in this virtual visit which was conducted using real time audio/video Vital Signs Date Time Temp Pulse Resp B/P (MAP) Pulse Ox O2 Delivery O2 Flow Rate FiO2 07/03/21 09:03 71 36 94 95.00 07/03/21 08:00 36.0 07/03/21 08:00 70 41 138/93 (108) 95 NIV Bilevel 95.00 07/03/21 07:00 75 30 137/89 (105) 92 NIV Bilevel 95.00 07/03/21 06:33 69 35 92 95.00 07/03/21 06:31 75 07/03/21 06:00 75 20 127/81 (96) 93 NIV Bilevel 95.00 07/03/21 05:00 72 28 137/96 (108) 96 NIV Bilevel 95.00 07/03/21 04:00 36.2 96 NIV Bilevel 95.00 07/03/21 04:00 91 NIV Bilevel 100 07/03/21 04:00 71 18 129/85 (97) 93 NIV Bilevel 95.00 07/03/21 03:00 78 134/92 (98) 94 NIV Bilevel 100.00 07/03/21 02:30 84 32 92 100.00 07/03/21 02:00 73 19 120/73 (86) 95 NIV Bilevel 100.00 07/03/21 01:00 77 07/03/21 01:00 77 35 126/70 (86) 95 NIV Bilevel 100.00 07/03/21 00:00 82 10 134/73 (93) 95 NIV Bilevel 100.00 07/03/21 00:00 36.1 07/02/21 23:59 93 NIV Bilevel 100 07/02/21 23:00 92 25 111/64 (80) 89 NIV Bilevel 100.00 07/02/21 22:04 80 36 128/96 (103) 93 NIV Bilevel 100.00 07/02/21 21:17 84 30 97 100.00 07/02/21 21:00 76 29 95 NIV Bilevel 100.00 07/02/21 20:32 NIV Bilevel 100.00 07/02/21 20:00 35.6 07/02/21 20:00 93 NIV Bilevel 95 07/02/21 20:00 77 18 111/93 (105) 94 NIV Bilevel 80.00 07/02/21 19:00 79 11 119/77 (91) 94 NIV Bilevel 80.00 07/02/21 19:00 79 07/02/21 18:40 97 Vapotherm 40.00 100 07/02/21 18:00 78 24 106/81 (89) 98 NIV Bilevel 80.00 07/02/21 17:00 72 26 122/78 (93) 95 NIV Bilevel 80.00 07/02/21 16:37 96 NIV Bilevel 85 07/02/21 16:00 75 25 132/79 (96) 95 NIV Bilevel 80.00 07/02/21 15:58 36.4 07/02/21 15:00 74 32 115/65 (82) 96 NIV Bilevel 80.00 07/02/21 14:12 79 32 94 80.00 07/02/21 14:00 73 18 109/68 (82) 96 NIV Bilevel 80.00 07/02/21 13:00 77 27 130/67 (88) 96 NIV Bilevel 80.00 07/02/21 12:35 96 NIV Bilevel 85 07/02/21 12:28 77 07/02/21 12:00 80 27 130/65 (86) 95 NIV Bilevel 80.00 07/02/21 11:10 NIV Bilevel 80.00 07/02/21 11:00 84 26 159/80 (106) 89 Vapotherm 40.00 100.00 I & O 07/03/21 07:00 Intake Total 560 ml Output Total 2875 ml Balance -2315 ml Height & Weight Height: '" Weight: lbs. oz. kg; 37.82 BMI Method: General Appearance: No Apparent Distress, Chronically ill, Obese HEENT: PERRL/EOMI, Pharynx Normal Neck: Normal Inspection, Supple Respiratory: Decreased Breath Sounds; No Wheezing; Other (on BiPAP) Cardiovascular: Regular Rate, Rhythm, No Murmur Capillary Refill: NONE Peripheral Pulses: 2+ Radial Pulses (R), 2+ Radial Pulses (L) Extremity: Normal Inspection, Non Tender, No Pedal Edema Neurologic/Psychiatric: Alert, Oriented x3 Skin: Normal Color, Warm/Dry Lymphatic: No Adenopathy Results Lab Laboratory Tests 07/02/21 03:40 07/03/21 03:10 Assessment/Plan Assessment/Plan Tele-ICU Physician , Progress Note ) Available chart/ vitals / labs / Images reviewed Video assessment done using teleICU camera, rest of exam as per RN Discussed wth RN Events overnight : disating on vapotherm Afebrile I/O = neg 1.5 Drips: Pressors: , hemodynamically stable EXAM PER RN Consultants: Hospital course: 06/25 to ICU - COVID-NIV.. + diarrhea + FERNANDO 06/26 -BIPAP16/ 100% rr 33 TV >500 MV 20 06/27 - bipap / FIO2 65% RR 24 mv 15l 07/01 - can not tolerate vapotherm , only on Bipap 07/02 - BIPAP / PRN VAPOTHERM 07/03 - RISING WBC A/P AHRF/ARDS due to severe COVID19 - IMPROVED on bipap /14 FIO2 95% RR 38 tv 400 MV 14 L - VAPOTHEM PRN -prone position if able - CT chest 06/26 - no PE CAN NOT TOLERATE VAPOTHERM NOW - WILL CONT BIPAP , HIGH RISK OF INTUBATION AFJS-Hcclnvzamcd-2/COVID-19 infection (unvaccinated, COVID + test approx 1.5 weeks [employer] -was started on prednisone as outpatient ) -not on Remdesivir -Steroids IV - started on high dose - SM 20 q 12 - TO CONTINUE TODAY - Barcitinib 06/26 -Hypercoagulable state , elev DDIMER on admission CTA 06/26 neg for PE -> lovenox full dose , - REPEATED DDIMER 2 ON 07/03 - CONSIDER TO DECREASE TO PROPH DOSE if clinically improving - keep full dose todty suspected superimposed bact PNA - cefepime 06/27- 07/02 - FOLLOW OFF ABX Diabetes Mellitus , severe hyperglycemia - insulin gtt to stop, long acting insulin -close f/up on steroids Lines : PICC 07/01 (Central Line Necessity Reviewed) Asencio: + OG: Nutrition: Po Analgesia: Anxiety/ delirium na VTE Prophylaxis: full dose lovenox Stress Ulcer Prophylaxis: ppi Plans in collaboration with bedside consultants and IM MDs. Discussed with RN to reach out if any questions or concerns A total of 35 minutes of critical care time was devoted to this patient today, required to treat and/or prevent further deterioration of critical care condition ( as above) . AZUL DRAPER MD Jul 03, 2021 10:25
[2021-07-03] MEDS: LEVOTHYROXINE 75 MCG (LEVOTHROID) TABLET PO SCH (11:07)
[2021-07-03] MEDS: LEVOTHYROXINE 100 MCG (LEVOTHROID) TAB PO SCH (11:07)
[2021-07-03] MEDS: VITAMIN D3 25 MCG (1,000 UNITS) TABLET PO SCH (11:07)
[2021-07-03] MEDS: PARoxetine 10 MG (PAXIL) TAB PO SCH (11:08)
[2021-07-03 14:24] VITALS: BP 123/73
[2021-07-03] MEDS: BARICITINIB 2 MG (OLUMIANT)TABLET PO SCH (15:06)
[2021-07-03 19:21] VITALS: BP 129/78
[2021-07-03 22:49] VITALS: BP 130/87
[2021-07-04 02:15] VITALS: BP 135/80
[2021-07-04] MEDS: RT-ALBUTEROL HFA 8.5 GM INHALER IH SCH ×6 (02:15→22:17)
[2021-07-04 04:19] LABS: BASOPHILS % (AUTO) 0 % (0-10); EOSINOPHILS # (AUTO) 0.2 10^3/uL (0.0-0.3); EOSINOPHILS % (AUTO) 1 % (0-10); HEMATOCRIT 35 % (35-52); HEMOGLOBIN 10.9 g/dL (11.5-16.0); LYMPHOCYTES # (AUTO) 1.9 10^3/uL (1.0-4.0); LYMPHOCYTES % (AUTO) 10 % (12-44); MEAN CORPUSCULAR HEMOGLOBIN 29 pg (25-34); MEAN CORPUSCULAR HGB CONC 31 g/dL (32-36); MEAN CORPUSCULAR VOLUME 93 fL (80-99); MEAN PLATELET VOLUME 10.5 fL (9.0-12.2); MONOCYTES # (AUTO) 0.8 10^3/uL (0.0-1.0); MONOCYTES % (AUTO) 4 % (0-12); NEUTROPHILS # (AUTO) 15.8 10^3/uL (1.8-7.8); NEUTROPHILS % (AUTO) 84 % (42-75); PLATELET COUNT 476 10^3/uL (130-400); WHITE BLOOD COUNT 18.9 10^3/uL (4.3-11.0)
[2021-07-04 04:32] LABS: POTASSIUM 4.8 MMOL/L (3.6-5.0)
[2021-07-04 04:33] LABS: CALCIUM 9.5 MG/DL (8.5-10.1)
[2021-07-04 04:37] LABS: PHOSPHORUS 3.6 MG/DL (2.3-4.7)
[2021-07-04 04:38] LABS: CREATININE SERUM 0.8 MG/DL (0.60-1.30)
[2021-07-04 04:40] LABS: MAGNESIUM 2.1 MG/DL (1.6-2.4)
[2021-07-04] MEDS: MAGNESIUM 1 GM/100 ML IVPB 100 ML IV SCH (05:02)
[2021-07-04] MEDS: POTASSIUM CL 10MEQ/50ML IVPB 50 ML IV SCH (05:02)
[2021-07-04] MEDS: KCL 20 MEQ TAB (K-DUR) PO SCH (05:02)
[2021-07-04] MEDS: LEVOTHYROXINE 75 MCG (LEVOTHROID) TABLET PO SCH (06:03)
[2021-07-04] MEDS: inSUlin ASPART (NovoLOG) 1 UNIT/0.01 ML (CHARGE PER UNIT) SC SCH ×4 (06:03→23:01)
[2021-07-04] MEDS: LEVOTHYROXINE 100 MCG (LEVOTHROID) TAB PO SCH (06:03)
--- NOTE | 2021-07-04 07:53 | Diagnostic Imaging Report ---
INDICATION: Pneumonia. COMPARISON: 07/03/2021 FINDINGS: Single frontal radiographic view of the chest was obtained and again demonstrates diffuse bilateral infiltrate. Overall, aeration is stable. There is no large effusion or pneumothorax. Cardiac silhouette remains mildly enlarged. Left upper extremity PICC line is seen with tip at the cavoatrial junction. Osseous structures show no acute adverse interval change. IMPRESSION: 1. Stable diffuse bilateral infiltrate. Dictated by: Dictated on workstation # [id number]
[2021-07-04 08:12] VITALS: BP 111/66
[2021-07-04] MEDS: methylPREDNISolone 40 MG/ML (Solu-MEDROL) VIAL IV SCH ×2 (08:46→22:59)
[2021-07-04] MEDS: ZINC SULFATE 220 MG CAPSULE PO SCH (08:46)
[2021-07-04] MEDS: VITAMIN D3 25 MCG (1,000 UNITS) TABLET PO SCH (08:46)
[2021-07-04] MEDS: ENOXAPARIN 100 MG/1 ML (LOVENOX) SYR SC SCH ×2 (08:46→23:00)
[2021-07-04] MEDS: PANTOPRAZOLE 40 MG (PROTONIX) TAB PO SCH (08:46)
[2021-07-04] MEDS: PARoxetine 10 MG (PAXIL) TAB PO SCH (08:47)
--- NOTE | 2021-07-04 09:28 | Progress Note - Hospitalist ---
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 She first started having symptoms two weeks ago. A week and a half a go she tested positive for COVID-19. She was not vaccinated. She was started on Prednisone. She continued to worsen with shortness of breath and cough and presented to the ER. Subjective/Events-last exam Pt reports feeling ok. No specfic complaints. Per RN was not really able to come off BiPAP yesterday. Focused Exam Time of Focused Exam: 22:00 Objective Exam Vital Signs Vital Signs Date Time Temp Pulse Resp B/P (MAP) Pulse Ox O2 Delivery O2 Flow Rate FiO2 07/04/21 08:12 70 31 95 85.00 07/04/21 08:00 NIV Bilevel 85 07/04/21 08:00 35.1 07/04/21 06:00 123/77 (92) Capillary Refill : NONE General Appearance: Chronically ill, Obese, Other (laying on side, on BiPAp) Respiratory: Rhonci; No Wheezing Cardiovascular: Regular Rate, Rhythm, No Murmur Gastrointestinal: Normal Bowel Sounds, Non Tender, Soft Extremity: No Calf Tenderness, No Pedal Edema Neurologic/Psychiatric: Alert, Oriented x3 Results/Procedures Lab Laboratory Tests 07/04/21 04:10 Patient resulted labs reviewed. Imaging: Reviewed Imaging Report Assessment/Plan Assessment and Plan Assess & Plan/Chief Complaint Acute respiratory failure due to COVID-19 Hypercoagulable state associated with COVID-19 Requiring BiPAP/Vapotherm Continue therapeutic Lovenox due to elevated d-dimer- now down to 2.12 Tapering Solumedrol Continue Barcitinib TeleICU consulted, appreciate assistance High risk for intubation still but has been steady with a high oxygen requirement, consider LTACH referral though given 100% BiPAP dependance I'm unsure if she could transfer without intubation Discussed with eICU Type 2 diabetes mellitus with ketoacidosis DKA resolved Continue Levemir Continue sliding scale Morbid obesity Clinically significant, no acute management needs Hypothyroidism home synthroid DVT prophylaxis: already receiving therapeutic anticoagulation Critical Care Critically Ill Patient MARTIN HUNT MD Jul 04, 2021 09:28
[2021-07-04 10:53] VITALS: BP 121/72
[2021-07-04 14:22] VITALS: BP 153/91
[2021-07-04] MEDS: BARICITINIB 2 MG (OLUMIANT)TABLET PO SCH (14:32)
--- NOTE | 2021-07-04 15:31 | Tele-ICU Progress Note ---
Subjective Date Seen by a Provider: Jul 04, 2021 Time Seen by a Provider: 08:52 Sepsis Event Evaluation Height, Weight, BMI Height: '" Weight: lbs. oz. kg; 37.82 BMI Method: Focused Exam Time of Focused Exam: 22:00 Exam Exam Patient acknowledged, consented, and participated in this virtual visit which was conducted using real time audio/video Vital Signs Date Time Temp Pulse Resp B/P (MAP) Pulse Ox O2 Delivery O2 Flow Rate FiO2 07/04/21 14:42 NIV Bilevel 70.00 07/04/21 14:32 35.8 07/04/21 14:22 76 31 94 70.00 07/04/21 13:00 86 07/04/21 12:00 94 NIV Bilevel 85 07/04/21 12:00 75 16 116/78 (91) 94 NIV Bilevel 80.00 07/04/21 11:00 75 37 129/78 (95) 95 NIV Bilevel 80.00 07/04/21 10:53 74 36 92 80.00 07/04/21 10:00 80 35 121/72 (88) 98 NIV Bilevel 80.00 07/04/21 09:00 81 38 121/73 (89) 87 NIV Bilevel 80.00 07/04/21 08:12 70 31 95 85.00 07/04/21 08:00 94 NIV Bilevel 85 07/04/21 08:00 35.1 07/04/21 08:00 NIV Bilevel 80.00 07/04/21 08:00 68 18 111/66 (81) 100 NIV Bilevel 80.00 07/04/21 07:00 64 07/04/21 07:00 70 30 132/72 (92) 96 NIV Bilevel 100.00 07/04/21 06:00 68 15 123/77 (92) 98 NIV Bilevel 100.00 07/04/21 05:00 64 17 118/75 (89) 97 NIV Bilevel 100.00 07/04/21 04:00 65 15 134/89 (104) 98 NIV Bilevel 100.00 07/04/21 04:00 94 NIV Bilevel 100 07/04/21 03:00 67 20 139/86 (103) 97 NIV Bilevel 100.00 07/04/21 02:15 70 30 98 100.00 07/04/21 02:00 81 15 135/80 (98) 95 NIV Bilevel 100.00 07/04/21 01:00 69 07/04/21 01:00 69 18 137/90 (106) 98 NIV Bilevel 100.00 07/04/21 00:00 73 27 141/90 (107) 96 NIV Bilevel 100.00 07/03/21 23:59 93 NIV Bilevel 100 07/03/21 23:00 70 26 133/90 (104) 95 NIV Bilevel 100.00 07/03/21 22:49 72 22 95 100.00 07/03/21 22:00 69 20 130/87 (101) 97 NIV Bilevel 100.00 07/03/21 21:00 69 20 133/90 (104) 98 NIV Bilevel 100.00 07/03/21 20:22 35.8 07/03/21 20:00 71 20 128/87 (101) 97 NIV Bilevel 100.00 07/03/21 20:00 93 NIV Bilevel 100 07/03/21 19:21 76 32 96 100.00 07/03/21 19:00 72 07/03/21 19:00 72 17 129/78 (95) 96 NIV Bilevel 100.00 07/03/21 18:00 64 16 115/67 (83) 94 NIV Bilevel 95.00 07/03/21 17:00 65 20 116/75 (89) 96 NIV Bilevel 95.00 07/03/21 16:00 93 NIV Bilevel 100 07/03/21 16:00 78 27 122/84 (97) 97 NIV Bilevel 95.00 I & O 07/04/21 07:00 Intake Total 660 ml Output Total 1475 ml Balance -815 ml Height & Weight Height: '" Weight: lbs. oz. kg; 37.82 BMI Method: General Appearance: Chronically ill, Obese, Other (laying on side, on BiPAp) HEENT: PERRL/EOMI, Pharynx Normal Neck: Normal Inspection, Supple Respiratory: Rhonci; No Wheezing Cardiovascular: Regular Rate, Rhythm, No Murmur Capillary Refill: NONE Peripheral Pulses: 2+ Radial Pulses (R), 2+ Radial Pulses (L) Extremity: No Calf Tenderness, No Pedal Edema Neurologic/Psychiatric: Alert, Oriented x3 Skin: Normal Color, Warm/Dry Lymphatic: No Adenopathy Results Lab Laboratory Tests 07/03/21 03:10 07/04/21 04:10 Assessment/Plan Assessment/Plan Tele-ICU Physician , Progress Note ) Available chart/ vitals / labs / Images reviewed Video assessment done using teleICU camera, rest of exam as per RN Discussed wth RN Events overnight : disating on vapotherm Afebrile I/O = neg 1.5 Drips: Pressors: , hemodynamically stable EXAM PER RN Consultants: Hospital course: 06/25 to ICU - COVID-NIV.. + diarrhea + FERNANDO 06/26 -BIPAP1/ 100% rr 33 TV >500 MV 20 06/27 - bipap 28/08 FIO2 65% RR 24 mv 15l 07/01 - can not tolerate vapotherm , only on Bipap 07/02 - BIPAP / PRN VAPOTHERM 07/03 - RISING WBC A/P AHRF/ARDS due to severe COVID19 - IMPROVED on bipap FIO2 95% RR 38 tv 400 MV 14 L - VAPOTHEM PRN -prone position if able - CT chest 06/26 - no PE CAN NOT TOLERATE VAPOTHERM NOW - WILL CONT BIPAP , HIGH RISK OF INTUBATION NZLY-Xigknxuyoev-0/COVID-19 infection (unvaccinated, COVID + test approx 1.5 weeks [employer] -was started on prednisone as outpatient ) -not on Remdesivir -Steroids IV - started on high dose - SM 20 q 12 - TO CONTINUE TODAY - Barcitinib 06/26 -Hypercoagulable state , elev DDIMER on admission CTA 06/26 neg for PE -> lovenox full dose , - REPEATED DDIMER 2 ON 07/03 - CONSIDER TO DECREASE TO PROPH DOSE if clinically improving - keep full dose todty suspected superimposed bact PNA - cefepime 06/27- 07/02 - FOLLOW OFF ABX Diabetes Mellitus , severe hyperglycemia - insulin gtt to stop, long acting insulin -close f/up on steroids Lines : PICC 07/01 (Central Line Necessity Reviewed) Asencio: + OG: Nutrition: Po Analgesia: Anxiety/ delirium na VTE Prophylaxis: full dose lovenox Stress Ulcer Prophylaxis: ppi Plans in collaboration with bedside consultants and IM MDs. Discussed with RN to reach out if any questions or concerns A total of 35 minutes of critical care time was devoted to this patient today, required to treat and/or prevent further deterioration of critical care condition ( as above) . AZUL DRAPER MD Jul 04, 2021 15:31
[2021-07-05] MEDS: RT-ALBUTEROL HFA 8.5 GM INHALER IH SCH ×6 (02:03→22:10)
[2021-07-05 02:04] VITALS: BP 153/91
[2021-07-05 03:03] LABS: BASOPHILS % (AUTO) 0 % (0-10); EOSINOPHILS # (AUTO) 0.2 10^3/uL (0.0-0.3); EOSINOPHILS % (AUTO) 1 % (0-10); HEMATOCRIT 34 % (35-52); HEMOGLOBIN 10.8 g/dL (11.5-16.0); LYMPHOCYTES # (AUTO) 1.8 10^3/uL (1.0-4.0); LYMPHOCYTES % (AUTO) 9 % (12-44); MEAN CORPUSCULAR HEMOGLOBIN 29 pg (25-34); MEAN CORPUSCULAR HGB CONC 32 g/dL (32-36); MEAN CORPUSCULAR VOLUME 91 fL (80-99); MEAN PLATELET VOLUME 10.8 fL (9.0-12.2); MONOCYTES # (AUTO) 0.8 10^3/uL (0.0-1.0); MONOCYTES % (AUTO) 4 % (0-12); NEUTROPHILS % (AUTO) 85 % (42-75); PLATELET COUNT 414 10^3/uL (130-400); WHITE BLOOD COUNT 18.9 10^3/uL (4.3-11.0)
[2021-07-05 03:12] LABS: POTASSIUM 4.6 MMOL/L (3.6-5.0)
[2021-07-05 03:13] LABS: CALCIUM 9.5 MG/DL (8.5-10.1)
[2021-07-05 03:17] LABS: CREATININE SERUM 0.99 MG/DL (0.60-1.30); PHOSPHORUS 2.9 MG/DL (2.3-4.7)
[2021-07-05] MEDS: MAGNESIUM 1 GM/100 ML IVPB 100 ML IV SCH (03:28)
[2021-07-05] MEDS: KCL 20 MEQ TAB (K-DUR) PO SCH (03:28)
[2021-07-05] MEDS: POTASSIUM CL 10MEQ/50ML IVPB 50 ML IV SCH (03:28)
[2021-07-05] MEDS: inSUlin ASPART (NovoLOG) 1 UNIT/0.01 ML (CHARGE PER UNIT) SC SCH ×4 (05:16→21:24)
[2021-07-05] MEDS: LEVOTHYROXINE 100 MCG (LEVOTHROID) TAB PO SCH (05:17)
[2021-07-05] MEDS: LEVOTHYROXINE 75 MCG (LEVOTHROID) TABLET PO SCH (05:17)
--- NOTE | 2021-07-05 06:42 | Diagnostic Imaging Report ---
Reason for examination: Pneumonia. Upright AP portable chest was obtained and compared to yesterday. Left PICC line remains in place. Stable cardiomediastinal silhouette. Bilateral pulmonary infiltrates are about the same. No effusion, cavitation or pneumothorax. Impression: 1. Bilateral pulmonary infiltrates consistent with pneumonia. Not much overall change since yesterday. Dictated by: Dictated on workstation # [id number]
[2021-07-05 07:43] VITALS: BP 117/70
[2021-07-05] MEDS: PARoxetine 10 MG (PAXIL) TAB PO SCH (08:39)
[2021-07-05] MEDS: methylPREDNISolone 40 MG/ML (Solu-MEDROL) VIAL IV SCH (08:39)
[2021-07-05] MEDS: ENOXAPARIN 100 MG/1 ML (LOVENOX) SYR SC SCH ×2 (08:40→21:24)
[2021-07-05] MEDS: ZINC SULFATE 220 MG CAPSULE PO SCH (08:40)
[2021-07-05] MEDS: PANTOPRAZOLE 40 MG (PROTONIX) TAB PO SCH (08:40)
[2021-07-05] MEDS: VITAMIN D3 25 MCG (1,000 UNITS) TABLET PO SCH (08:40)
--- NOTE | 2021-07-05 10:25 | Progress Note - Hospitalist ---
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 She first started having symptoms two weeks ago. A week and a half a go she tested positive for COVID-19. She was not vaccinated. She was started on Prednisone. She continued to worsen with shortness of breath and cough and presented to the ER. Subjective/Events-last exam pt reports feeling ok today. Was just taking off BiPAP to eat breakfast. Satting 90%. States she feels well and is happy to be off BiPAP. Focused Exam Time of Focused Exam: 22:00 Objective Exam Vital Signs Vital Signs Date Time Temp Pulse Resp B/P (MAP) Pulse Ox O2 Delivery O2 Flow Rate FiO2 07/05/21 10:00 91 35 123/80 (94) 95 NIV Bilevel 100.00 07/05/21 07:56 35.2 07/05/21 07:48 90 Capillary Refill : Less Than 3 Seconds General Appearance: No Apparent Distress, Chronically ill Respiratory: No Accessory Muscle Use, Decreased Breath Sounds; No Wheezing Cardiovascular: Regular Rate, Rhythm, No Murmur Gastrointestinal: Normal Bowel Sounds, Non Tender, Soft Neurologic/Psychiatric: Alert, Oriented x3 Results/Procedures Lab Laboratory Tests 07/05/21 02:51 Patient resulted labs reviewed. Imaging: Reviewed Imaging Report Assessment/Plan Assessment and Plan Assess & Plan/Chief Complaint Acute respiratory failure due to COVID-19 Hypercoagulable state associated with COVID-19 Requiring BiPAP/Vapotherm Continue therapeutic Lovenox due to elevated d-dimer- now down to 2.12 Tapering Solumedrol Continue Barcitinib TeleICU consulted, appreciate assistance High risk for intubation still but has been steady with a high oxygen requirement, consider LTACH referral though given 100% BiPAP dependance I'm unsure if she could transfer without intubation Discussed with eICU Type 2 diabetes mellitus with ketoacidosis DKA resolved Continue Levemir Continue sliding scale Morbid obesity Clinically significant, no acute management needs Hypothyroidism home synthroid DVT prophylaxis: already receiving therapeutic anticoagulation Critical Care Critically Ill Patient MARTIN HUNT MD Jul 05, 2021 10:25
[2021-07-05 11:05] VITALS: BP 123/75
--- NOTE | 2021-07-05 11:33 | Tele-ICU Progress Note ---
Subjective Date Seen by a Provider: Jul 05, 2021 Time Seen by a Provider: 11:33 Sepsis Event Evaluation Height, Weight, BMI Height: '" Weight: lbs. oz. kg; 37.82 BMI Method: Focused Exam Time of Focused Exam: 22:00 Exam Exam Patient acknowledged, consented, and participated in this virtual visit which was conducted using real time audio/video Vital Signs Date Time Temp Pulse Resp B/P (MAP) Pulse Ox O2 Delivery O2 Flow Rate FiO2 07/05/21 11:05 91 35 99 90.00 07/05/21 11:00 87 23 123/75 (91) 98 NIV Bilevel 100.00 07/05/21 10:00 91 35 123/80 (94) 95 NIV Bilevel 100.00 07/05/21 09:41 NIV Bilevel 100.00 07/05/21 09:00 80 14 124/78 (93) 91 Vapotherm 40.00 100.00 07/05/21 08:48 14 92 Vapotherm 40.00 100.00 07/05/21 08:00 78 16 119/71 (85) 89 NIV Bilevel 85.00 07/05/21 07:56 35.2 07/05/21 07:48 94 NIV Bilevel 90 07/05/21 07:43 70 23 94 75.00 07/05/21 07:00 68 07/05/21 07:00 70 29 117/70 (85) 96 NIV Bilevel 80.00 07/05/21 06:00 73 22 115/70 (85) 95 NIV Bilevel 80.00 07/05/21 05:10 NIV Bilevel 80.00 07/05/21 05:00 71 20 113/71 (85) 97 NIV Bilevel 90.00 07/05/21 04:00 75 17 117/74 (88) 99 NIV Bilevel 90.00 07/05/21 04:00 97 NIV Bilevel 90 07/05/21 03:00 80 28 135/82 (99) 97 NIV Bilevel 90.00 07/05/21 02:59 36.2 NIV Bilevel 90.00 07/05/21 02:04 76 31 95 90.00 07/05/21 02:00 71 26 123/75 (91) 95 NIV Bilevel 90.00 07/05/21 01:00 74 8/27/21 01:00 74 19 129/87 (101) 92 NIV Bilevel 90.00 07/05/21 00:00 74 124/71 (88) 95 NIV Bilevel 90.00 07/04/21 23:51 95 NIV Bilevel 90 07/04/21 23:00 NIV Bilevel 90.00 07/04/21 23:00 82 20 140/88 (105) 95 NIV Bilevel 90.00 07/04/21 22:36 36.4 Vapotherm 40.00 100.00 07/04/21 22:17 91 Vapotherm 40.00 100 07/04/21 22:00 82 122/78 (93) 94 Vapotherm 40.00 100.00 07/04/21 21:00 Vapotherm 40.00 100.00 07/04/21 21:00 82 139/82 (101) 96 Vapotherm 40.00 100.00 07/04/21 20:14 92 NIV Bilevel 90 07/04/21 20:00 86 146/81 (102) 96 NIV Bilevel 90.00 07/04/21 19:00 84 138/97 (111) 95 NIV Bilevel 90.00 07/04/21 19:00 36.2 NIV Bilevel 90.00 07/04/21 19:00 84 07/04/21 18:40 94 Vapotherm 40.00 100 07/04/21 18:00 76 131/83 (99) 95 NIV Bilevel 70.00 07/04/21 17:00 74 139/94 (109) 95 NIV Bilevel 70.00 07/04/21 16:00 96 NIV Bilevel 70 07/04/21 16:00 73 138/85 (102) 92 NIV Bilevel 70.00 07/04/21 15:00 73 21 139/86 (103) 94 NIV Bilevel 70.00 07/04/21 14:42 NIV Bilevel 70.00 07/04/21 14:32 35.8 07/04/21 14:22 76 31 94 70.00 07/04/21 14:00 74 33 153/91 (111) 98 NIV Bilevel 80.00 07/04/21 13:00 86 26 119/71 (87) 94 NIV Bilevel 80.00 07/04/21 13:00 86 07/04/21 12:00 94 NIV Bilevel 85 07/04/21 12:00 75 16 116/78 (48) 94 NIV Bilevel 80.00 I & O 07/05/21 07:00 Intake Total 1200 ml Output Total 2375 ml Balance -1175 ml Height & Weight Height: '" Weight: lbs. oz. kg; 37.82 BMI Method: General Appearance: No Apparent Distress, Chronically ill HEENT: PERRL/EOMI, Pharynx Normal Neck: Normal Inspection, Supple Respiratory: No Accessory Muscle Use, Decreased Breath Sounds; No Wheezing Cardiovascular: Regular Rate, Rhythm, No Murmur Capillary Refill: Less Than 3 Seconds Peripheral Pulses: 2+ Radial Pulses (R), 2+ Radial Pulses (L) Extremity: No Calf Tenderness, No Pedal Edema Neurologic/Psychiatric: Alert, Oriented x3 Skin: Normal Color, Warm/Dry Lymphatic: No Adenopathy Results Lab Laboratory Tests 07/04/21 04:10 07/05/21 02:51 Assessment/Plan Assessment/Plan Tele-ICU Physician , Progress Note ) Available chart/ vitals / labs / Images reviewed Video assessment done using teleICU camera, rest of exam as per RN Discussed wth RN Events overnight : disating on vapotherm Afebrile I/O = neg 500 Drips: Pressors: , hemodynamically stable EXAM PER RN Consultants: Hospital course: 06/25 to ICU - COVID-NIV.. + diarrhea + FERNANDO 06/26 -BIPAP16/10 100% rr 33 TV >500 MV 20 06/27 - bipap 20/10 FIO2 65% RR 24 mv 15l 07/01 - can not tolerate vapotherm , only on Bipap 07/02 - BIPAP / PRN VAPOTHERM 07/03 - RISING WBC 07/06 - BIPAP A/P AHRF/ARDS due to severe COVID19 - IMPROVED on bipap 20/14 FIO2 95% RR 38 tv 400 MV 14 L - VAPOTHEM PRN -prone position if able - CT chest 06/26 - no PE CAN NOT TOLERATE VAPOTHERM NOW - WILL CONT BIPAP , HIGH RISK OF INTUBATION PPWA-Fcaufvlglyu-6/COVID-19 infection (unvaccinated, COVID + test approx 1.5 weeks [employer] -was started on prednisone as outpatient ) -not on Remdesivir -Steroids IV - started on high dose - SM 20 q 12 - taper down - Barcitinib 06/26 -Hypercoagulable state , elev DDIMER on admission CTA 06/26 neg for PE -> lovenox full dose , - REPEATED DDIMER 2 ON 07/03 - CONSIDER TO DECREASE TO PROPH DOSE if clinically improving - keep full dose todty suspected superimposed bact PNA - cefepime 06/27- 07/02 - FOLLOW OFF ABX Diabetes Mellitus , severe hyperglycemia - insulin gtt to stop, long acting insulin -close f/up on steroids Lines : PICC 07/01 (Central Line Necessity Reviewed) Asencio: + OG: Nutrition: Po Analgesia: Anxiety/ delirium na VTE Prophylaxis: full dose lovenox Stress Ulcer Prophylaxis: ppi Plans in collaboration with bedside consultants and IM MDs. Discussed with RN to reach out if any questions or concerns Discussed with Dr Vazquez A total of 35 minutes of critical care time was devoted to this patient today, required to treat and/or prevent further deterioration of critical care condition ( as above) . AZUL DRAPER MD Jul 05, 2021 11:33
[2021-07-05 15:56] VITALS: BP 128/86
[2021-07-05] MEDS: BARICITINIB 2 MG (OLUMIANT)TABLET PO SCH (16:18)
[2021-07-05 22:11] VITALS: BP 136/87
[2021-07-06 02:11] VITALS: BP 126/81
[2021-07-06] MEDS: RT-ALBUTEROL HFA 8.5 GM INHALER IH SCH ×6 (02:11→22:15)
[2021-07-06 03:30] LABS: BASOPHILS % (AUTO) 0 % (0-10); EOSINOPHILS # (AUTO) 0.4 10^3/uL (0.0-0.3); EOSINOPHILS % (AUTO) 2 % (0-10); HEMATOCRIT 33 % (35-52); HEMOGLOBIN 10.5 g/dL (11.5-16.0); LYMPHOCYTES # (AUTO) 3.6 10^3/uL (1.0-4.0); LYMPHOCYTES % (AUTO) 18 % (12-44); MEAN CORPUSCULAR HEMOGLOBIN 29 pg (25-34); MEAN CORPUSCULAR HGB CONC 31 g/dL (32-36); MEAN CORPUSCULAR VOLUME 92 fL (80-99); MEAN PLATELET VOLUME 10.7 fL (9.0-12.2); MONOCYTES # (AUTO) 0.9 10^3/uL (0.0-1.0); MONOCYTES % (AUTO) 5 % (0-12); NEUTROPHILS # (AUTO) 15.1 10^3/uL (1.8-7.8); NEUTROPHILS % (AUTO) 75 % (42-75); PLATELET COUNT 451 10^3/uL (130-400); WHITE BLOOD COUNT 20.2 10^3/uL (4.3-11.0)
[2021-07-06 03:45] LABS: CALCIUM 9.6 MG/DL (8.5-10.1)
[2021-07-06 03:49] LABS: CREATININE SERUM 0.82 MG/DL (0.60-1.30); PHOSPHORUS 3.3 MG/DL (2.3-4.7)
[2021-07-06] MEDS: KCL 20 MEQ TAB (K-DUR) PO SCH (04:54)
[2021-07-06] MEDS: POTASSIUM CL 10MEQ/50ML IVPB 50 ML IV SCH (04:54)
[2021-07-06] MEDS: MAGNESIUM 1 GM/100 ML IVPB 100 ML IV SCH (04:54)
[2021-07-06] MEDS: inSUlin ASPART (NovoLOG) 1 UNIT/0.01 ML (CHARGE PER UNIT) SC SCH ×4 (04:54→20:55)
[2021-07-06] MEDS: LEVOTHYROXINE 100 MCG (LEVOTHROID) TAB PO SCH (05:13)
[2021-07-06] MEDS: LEVOTHYROXINE 75 MCG (LEVOTHROID) TABLET PO SCH (05:13)
[2021-07-06 07:11] VITALS: BP 131/94
--- NOTE | 2021-07-06 08:40 | Diagnostic Imaging Report ---
INDICATION: Pneumonia. COMPARISON: 07/05/2021. FINDINGS: The heart size is normal. There is diffuse bilateral airspace disease. There is no pleural effusion or pneumothorax. The mediastinum is unremarkable. Left upper extremity PICC line has its tip in the superior vena cava. IMPRESSION: Essentially unchanged diffuse bilateral airspace disease. Dictated by: Dictated on workstation # [id number]
--- NOTE | 2021-07-06 08:52 | Tele-ICU Progress Note ---
Subjective Date Seen by a Provider: Jul 06, 2021 Time Seen by a Provider: 08:00 Subjective/Events-last exam Patient with Covid19 pneumonia and uncontrolled diabetes mellitus until this a.m. she is on a BiPAP ventilation currently changed to Vapotherm. I have made a video visit and discussed with the RN. Blood sugars are improving. Currently she is on Vapotherm with 40 per 40 L and 100% FiO2 with oxygen saturation of 94% and tolerating well.Patient with Covid19 pneumonia and uncontrolled diabetes mellitus until this a.m. she is on a BiPAP ventilation currently changed to Vapotherm. I have made a video visit and discussed with the RN. Blood sugars are improving. Currently she is on Vapotherm with 40 L and 100% FiO2 with oxygen saturation of 94% and tolerating well. Sepsis Event Evaluation Height, Weight, BMI Height: '" Weight: lbs. oz. kg; 37.82 BMI Method: Focused Exam Time of Focused Exam: 22:00 Exam Exam Patient acknowledged, consented, and participated in this virtual visit which w as conducted using real time audio/video Vital Signs Date Time Temp Pulse Resp B/P (MAP) Pulse Ox O2 Delivery O2 Flow Rate FiO2 07/06/21 08:00 75 31 135/86 (102) 97 NIV Bilevel 90.00 07/06/21 08:00 35.8 07/06/21 07:11 76 30 97 90.00 07/06/21 07:00 73 07/06/21 07:00 74 23 131/94 (106) 97 NIV Bilevel 100.00 07/06/21 06:00 74 25 125/91 (102) 96 NIV Bilevel 100.00 07/06/21 05:13 91 NIV Bilevel 100.00 07/06/21 05:00 74 15 118/75 (89) 95 NIV Bilevel 90.00 07/06/21 04:00 79 26 127/84 (98) 94 NIV Bilevel 90.00 07/06/21 04:00 95 NIV Bilevel 90 07/06/21 03:34 36.2 NIV Bilevel 90.00 07/06/21 03:00 77 16 121/77 (92) 94 NIV Bilevel 90.00 07/06/21 02:11 80 23 93 90.00 07/06/21 02:00 80 26 126/81 (96) 97 NIV Bilevel 90.00 07/06/21 01:00 79 18 123/78 (93) 96 NIV Bilevel 90.00 07/06/21 01:00 80 07/06/21 00:00 80 25 127/70 (89) 96 NIV Bilevel 90.00 07/06/21 00:00 36.4 95 NIV Bilevel 90.00 07/06/21 00:00 96 NIV Bilevel 90 07/05/21 23:00 80 24 132/75 (94) 96 NIV Bilevel 100.00 07/05/21 22:35 NIV Bilevel 100.00 07/05/21 22:11 78 36 93 100.00 07/05/21 22:00 78 24 136/87 (103) 94 NIV Bilevel 100.00 07/05/21 21:32 100.00 07/05/21 21:00 80 24 106/98 (101) 94 NIV Bilevel 90.00 07/05/21 20:45 NIV Bilevel 90.00 07/05/21 20:00 92 Vapotherm 40.00 100 07/05/21 20:00 79 15 123/82 (96) 91 Vapotherm 40.00 100.00 07/05/21 19:29 35.4 07/05/21 19:00 Vapotherm 40.00 100.00 07/05/21 19:00 84 14 113/88 (96) 90 Vapotherm 40.00 100.00 07/05/21 19:00 82 07/05/21 18:24 88 Vapotherm 40.00 100 07/05/21 18:00 81 29 116/83 (94) 93 NIV Bilevel 100.00 07/05/21 17:00 77 34 118/72 (87) 96 NIV Bilevel 100.00 07/05/21 16:35 94 NIV Bilevel 90 07/05/21 16:04 35.0 07/05/21 16:00 77 29 123/74 (90) 98 NIV Bilevel 100.00 07/05/21 15:56 85 28 92 90.00 07/05/21 15:00 76 19 128/86 (100) 100 NIV Bilevel 100.00 07/05/21 14:00 75 19 137/84 (98) 98 NIV Bilevel 100.00 07/05/21 13:00 81 27 131/84 (101) 98 NIV Bilevel 100.00 07/05/21 13:00 87 07/05/21 12:35 94 NIV Bilevel 90 07/05/21 12:00 36.0 07/05/21 12:00 87 22 135/76 (95) 97 NIV Bilevel 100.00 07/05/21 11:05 91 35 99 90.00 07/05/21 11:00 87 23 123/75 (91) 98 NIV Bilevel 100.00 07/05/21 10:00 91 35 123/80 (94) 95 NIV Bilevel 100.00 07/05/21 09:41 NIV Bilevel 100.00 07/05/21 09:00 80 14 124/78 (93) 91 Vapotherm 40.00 100.00 I & O 07/06/21 07:00 Intake Total 420 ml Output Total 1925 ml Balance -1505 ml Height & Weight Height: '" Weight: lbs. oz. kg; 37.82 BMI Method: General Appearance: No Apparent Distress, Chronically ill HEENT: PERRL/EOMI, Pharynx Normal Neck: Normal Inspection, Supple Respiratory: No Accessory Muscle Use, Decreased Breath Sounds; No Wheezing Cardiovascular: Regular Rate, Rhythm, No Murmur Capillary Refill: Less Than 3 Seconds Peripheral Pulses: 2+ Radial Pulses (R), 2+ Radial Pulses (L) Extremity: No Calf Tenderness, No Pedal Edema Neurologic/Psychiatric: Alert, Oriented x3 Skin: Normal Color, Warm/Dry Lymphatic: No Adenopathy Other comments Anahi RAINES Results Lab Laboratory Tests 07/05/21 02:51 07/06/21 03:10 Meds reviewed Radiology cxr reviewed Assessment/Plan Assessment/Plan 1. Acute hypoxic respiratory failure due to Covid19 pneumonia. 2. Type 2 diabetes mellitus with diabetic ketoacidosis. Diabetic ketoacidosis resolved. 3. Morbid obesity 4. Hypothyroidism Recommendations 1. Continue BiPAP/Vapotherm as needed 2. We will continue therapeutic Lovenox due to elevated D-dimer 3. Taper Solu-Medrol 4. Continue Barcitinib 5. Continue DVT prophylaxis and ulcer prophylaxis. 6. Insulin with sliding scale coverage. Critical Care: Critically Ill Patient Time spent with patient (mins): 35 GISELLE CATES MD Jul 06, 2021 08:52
[2021-07-06] MEDS: ENOXAPARIN 100 MG/1 ML (LOVENOX) SYR SC SCH ×2 (08:57→20:54)
[2021-07-06] MEDS: VITAMIN D3 25 MCG (1,000 UNITS) TABLET PO SCH (08:58)
[2021-07-06] MEDS: ZINC SULFATE 220 MG CAPSULE PO SCH (08:58)
[2021-07-06] MEDS: PARoxetine 10 MG (PAXIL) TAB PO SCH (08:58)
[2021-07-06] MEDS: PANTOPRAZOLE 40 MG (PROTONIX) TAB PO SCH (08:58)
[2021-07-06] MEDS: methylPREDNISolone 40 MG/ML (Solu-MEDROL) VIAL IV SCH (08:58)
--- NOTE | 2021-07-06 09:05 | Progress Note - Hospitalist ---
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 She first started having symptoms two weeks ago. A week and a half a go she tested positive for COVID-19. She was not vaccinated. She was started on Prednisone. She continued to worsen with shortness of breath and cough and presented to the ER. Subjective/Events-last exam Pt reports feeling ok. Still on BiPAP. Asked about her CXR- discussed how they will show scarring for a while and some of this may never resolve and that we will monitor her clinical status more than her XR for improvement. XR will help us define worsening. Focused Exam Time of Focused Exam: 22:00 Objective Exam Vital Signs Vital Signs Date Time Temp Pulse Resp B/P (MAP) Pulse Ox O2 Delivery O2 Flow Rate FiO2 07/06/21 08:00 75 31 135/86 (102) 97 NIV Bilevel 90.00 07/06/21 08:00 35.8 07/06/21 04:00 90 Capillary Refill : Less Than 3 Seconds General Appearance: No Apparent Distress, Chronically ill, Obese Respiratory: No Accessory Muscle Use, Decreased Breath Sounds; No Wheezing; Other (on BiPAP) Cardiovascular: Regular Rate, Rhythm, No Murmur Gastrointestinal: Normal Bowel Sounds, Soft Neurologic/Psychiatric: Alert, Oriented x3 Results/Procedures Lab Laboratory Tests 07/06/21 03:10 Patient resulted labs reviewed. Imaging: Reviewed Imaging Report Assessment/Plan Assessment and Plan Assess & Plan/Chief Complaint Acute respiratory failure due to COVID-19 Hypercoagulable state associated with COVID-19 Requiring BiPAP/Vapotherm Continue therapeutic Lovenox due to elevated d-dimer- now down to 2.12 Tapering Solumedrol Continue Barcitinib TeleICU consulted, appreciate assistance High risk for intubation still but has been steady with a high oxygen requirement, consider LTACH referral though given 100% BiPAP dependance I'm unsure if she could transfer without intubation Discussed with eICU Type 2 diabetes mellitus with ketoacidosis DKA resolved Continue Levemir Continue sliding scale Morbid obesity Clinically significant, no acute management needs Hypothyroidism home synthroid DVT prophylaxis: already receiving therapeutic anticoagulation Critical Care Critically Ill Patient MARTIN HUNT MD Jul 06, 2021 09:05
--- NOTE | 2021-07-06 13:31 | Physical Therapy Evaluation ---
PT Evaluation-General Medical Diagnosis Admission Date Jun 25, 2021 at 23:08 Medical Diagnosis: Covid Onset Date: Jun 25, 2021 Therapy Diagnosis Therapy Diagnosis: debility Precautions Precautions/Isolations: Airborne Isolation, Droplet Isolation Weight Bear Status Right Lower Extremity: Right Weight Bearing/Tolerated Left Lower Extremity: Left Weight Bearing/Tolerated Referral Physician: Parth Reason for Referral: Evaluation/Treatment Prior Prior Level of Function SCALE: Activities may be completed with or without assistive devices. 4-Kwjjqesxsq-ulsixgd completes the activity by him/herself with no assistance from a helper. 5-Set-up or Clean-up Assistance-helper sets up or cleans up; patient completes activity. [place] assists only prior to or following the activity. 4-Supervision or Touching Assistance-helper provides verbal cues and/or touching/steadying and/or contact guard assistance as patient completes activity. Assistance may be provided throughout the activity or intermittently. 3-Partial/Moderate Assistance-helper does LESS THAN HALF the effort. [place] lif ts, holds or supports trunk or limbs, but provides less than half the effort. 2-Substantial/Maximal Assistance-helper does MORE THAN HALF the effort. [place] lifts or holds trunk or limbs and provides more than half the effort. 9-Txxqopcbz-lbaesk does ALL the effort. Patient does none of the effort to complete the activity. Or, the assistance of 2 or more helpers is required for the patient to complete the activity. If activity was not attempted, code reason: 7-Patient Refused. 9-Not Applicable-not attempted and the patient did not perform the activity before the current illness, exacerbation or injury. 10-Not Attempted due to Environmental Limitations-(lack of equipment, weather restraints, etc.). 88-Not Attempted due to Medical Conditions or Safety Concerns. Bed Mobility: 6 Transfers (B,C,W/C): 6 Gait: 6 Stairs: 6 Indoor Mobility (Ambulation): Independent Stairs: Independent PT Evaluation-Current Subjective States that she is tired but she will try to do therapy. ROM/Strength ROM Lower Extremities WFL Strength Lower Extremities 4+/5 Transfers Roll Left to Right (QC): 4 Sit to Lying (QC): 4 Lying to Sitting/Side of Bed(Q: 4 Sit to Stand (QC): 88 Patient not able to stand secondary to O2 sats dropping while sitting EOB. Gait Does the Patient Walk?: No and Walking Goal IS indicated Mode of Locomotion: Walk Walk 10 feet (QC): 88 Walk 50 ft with 2 Turns(QC): 88 Walk 150 ft (QC): 88 Walking 10ft/uneven surface-QC: 88 Assessment/Needs 46 y.o. female with severe debility. She should do well with skilled therapy. Rehab Potential: Good PT Short Term Goals Short Term Goals Time Frame: Jul 13, 2021 Roll Left & Right: 5 Sit to lyin Lying to sitting on side of be: 5 Sit to stand: 5 Chair/pvj-ht-rsiok transfer: 5 Toilet transfer: 5 Car transfer: 5 Walk 10 feet: 5 Walk 50 feet with two turns: 5 Walk 150 feet: 5 Walking 10ft on uneven surface: 5 1 step (curb): 5 4 steps: 5 12 steps: 5 Picking up objects: 5 PT Senior Living Goals [employer] Goals PT Senior Living Goals Time Frame: Jul 20, 2021 Roll Left & Right (QC): 6 Sit to Lying (QC): 6 Lying-Sitting on Side/Bed(QC): 6 Sit to Stand (QC): 6 Chair/Ulq-sa-Ocwke Xfer(QC): 6 Toilet Transfer (QC): 6 Car Transfer (QC): 6 Does the Patient Walk: No and Walking Goal IS indicated Walk 10 feet (QC): 6 Walk 50ft with 2 Turns (QC): 6 Walk 150 ft (QC): 6 Walking 10ft on Uneven Surface: 6 1 Step (curb) (QC): 6 4 Steps (QC): 6 12 Steps (QC): 6 Picking up an Object (QC): 6 PT Plan Problem List Problem List: Activity Tolerance, Functional Strength, Safety, Balance, Gait, Transfer, Bed Mobility, ROM Treatment/Plan Treatment Plan: Continue Plan of Care Treatment Plan: Bed Mobility, Functional Activity Yanni, Functional Strength, Gait, Safety, Therapeutic Exercise, Transfers Treatment Duration: Jul 20, 2021 Frequency: 11 times per week Time/GCodes Time In: 1300 Time Out: 1315 Total Billed Treatment Time: 15 Total Billed Treatment 1CASS x 15' JANE JAIMES PT Jul 06, 2021 13:31
[2021-07-06 14:42] VITALS: BP 138/92
[2021-07-06] MEDS: BARICITINIB 2 MG (OLUMIANT)TABLET PO SCH (14:46)
[2021-07-06 22:17] VITALS: BP 127/75
[2021-07-07 01:47] VITALS: BP 120/75
[2021-07-07] MEDS: RT-ALBUTEROL HFA 8.5 GM INHALER IH SCH ×6 (01:47→22:33)
[2021-07-07 04:40] LABS: ABG OXYGEN SATURATION 95 % (94-100); ABG PCO2 49 MMHG (35-45); ABG PH 7.43 (7.37-7.43); ABG PO2 79 MMHG (79-93); ABG TCO2 34.1 MMOL/L (21.0-31.0)
[2021-07-07 04:47] LABS: ALLENS TEST YES-POS
[2021-07-07 04:48] LABS: INSPIRED O2 90% BIPAP; PATIENT TEMP 36.6; VENTILATOR NO
[2021-07-07 04:49] LABS: POTASSIUM 4.2 MMOL/L (3.6-5.0)
[2021-07-07 04:51] LABS: CALCIUM 9.5 MG/DL (8.5-10.1)
[2021-07-07 04:55] LABS: CREATININE SERUM 0.81 MG/DL (0.60-1.30)
[2021-07-07 04:56] LABS: BASOPHILS % (AUTO) 0 % (0-10); EOSINOPHILS # (AUTO) 0.5 10^3/uL (0.0-0.3); EOSINOPHILS % (AUTO) 3 % (0-10); HEMATOCRIT 34 % (35-52); HEMOGLOBIN 10.8 g/dL (11.5-16.0); LYMPHOCYTES # (AUTO) 3.2 10^3/uL (1.0-4.0); LYMPHOCYTES % (AUTO) 17 % (12-44); MEAN CORPUSCULAR HEMOGLOBIN 29 pg (25-34); MEAN CORPUSCULAR HGB CONC 32 g/dL (32-36); MEAN CORPUSCULAR VOLUME 92 fL (80-99); MONOCYTES % (AUTO) 5 % (0-12); NEUTROPHILS # (AUTO) 13.8 10^3/uL (1.8-7.8); NEUTROPHILS % (AUTO) 74 % (42-75); PLATELET COUNT 421 10^3/uL (130-400); WHITE BLOOD COUNT 18.6 10^3/uL (4.3-11.0)
[2021-07-07] MEDS: POTASSIUM CL 10MEQ/50ML IVPB 50 ML IV SCH (04:56)
[2021-07-07] MEDS: KCL 20 MEQ TAB (K-DUR) PO SCH (04:57)
[2021-07-07] MEDS: MAGNESIUM 1 GM/100 ML IVPB 100 ML IV SCH (04:57)
[2021-07-07 04:58] LABS: MAGNESIUM 2.1 MG/DL (1.6-2.4)
[2021-07-07] MEDS: inSUlin ASPART (NovoLOG) 1 UNIT/0.01 ML (CHARGE PER UNIT) SC SCH ×4 (04:58→21:45)
[2021-07-07] MEDS: LEVOTHYROXINE 100 MCG (LEVOTHROID) TAB PO SCH (06:38)
[2021-07-07] MEDS: LEVOTHYROXINE 75 MCG (LEVOTHROID) TABLET PO SCH (06:38)
[2021-07-07 07:34] VITALS: BP 115/78
--- NOTE | 2021-07-07 07:59 | Diagnostic Imaging Report ---
INDICATION: Pneumonia. COMPARISON: 07/06/2021 FINDINGS: The heart size is normal. There are diffuse bilateral pulmonary infiltrates. There is no pleural effusion or pneumothorax. The mediastinum is unremarkable. A left upper extremity PICC line has its tip in the superior vena cava. IMPRESSION: Unchanged diffuse bilateral airspace disease suspect for underlying pneumonia, possibly Covid. Dictated by: Dictated on workstation # [id number]
--- NOTE | 2021-07-07 08:22 | Progress Note - Hospitalist ---
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 She first started having symptoms two weeks ago. A week and a half a go she tested positive for COVID-19. She was not vaccinated. She was started on Prednisone. She continued to worsen with shortness of breath and cough and presented to the ER. Subjective/Events-last exam Pt reports feeling ok. No complaints. We discussed potential [facility] transfer this week as she is persistently requiring high bipap settings. She is very receptive to this and even states she feels bad taking up a n ICU bed this long. Reassured her to not worry about her bed status. Focused Exam Time of Focused Exam: 22:00 Objective Exam Vital Signs Vital Signs Date Time Temp Pulse Resp B/P (MAP) Pulse Ox O2 Delivery O2 Flow Rate FiO2 07/07/21 08:00 79 38 137/83 (111) 95 NIV Bilevel 90.00 07/07/21 07:37 35.3 07/07/21 04:00 100 Capillary Refill : Less Than 3 Seconds General Appearance: No Apparent Distress, Obese Respiratory: No Accessory Muscle Use, Decreased Breath Sounds; No Wheezing Cardiovascular: Regular Rate, Rhythm, No Murmur Gastrointestinal: Normal Bowel Sounds, Non Tender, Soft Neurologic/Psychiatric: Alert, Oriented x3 Results/Procedures Lab Laboratory Tests 07/07/21 04:30 Patient resulted labs reviewed. Imaging: Reviewed Imaging Report Assessment/Plan Assessment and Plan Assess & Plan/Chief Complaint Acute respiratory failure due to COVID-19 Hypercoagulable state associated with COVID-19 Requiring BiPAP/Vapotherm- remains dependent on these and has not weaned much Continue therapeutic Lovenox due to elevated d-dimer- down to 2.12 Tapering Solumedrol still Continue Barcitinib TeleICU consulted, appreciate assistance Very stable on BiPAP and Vapotherm, [place] referral Type 2 diabetes mellitus with ketoacidosis DKA resolved Continue Levemir Continue sliding scale Morbid obesity Clinically significant, no acute management needs Hypothyroidism home synthroid DVT prophylaxis: already receiving therapeutic anticoagulation Critical Care Critically Ill Patient MARTIN HUNT MD Jul 07, 2021 08:22
[2021-07-07] MEDS: ENOXAPARIN 100 MG/1 ML (LOVENOX) SYR SC SCH ×2 (08:48→21:44)
[2021-07-07] MEDS: ZINC SULFATE 220 MG CAPSULE PO SCH (08:50)
[2021-07-07] MEDS: PANTOPRAZOLE 40 MG (PROTONIX) TAB PO SCH (08:50)
[2021-07-07] MEDS: VITAMIN D3 25 MCG (1,000 UNITS) TABLET PO SCH (08:50)
--- NOTE | 2021-07-07 08:50 | Tele-ICU Progress Note ---
Subjective Date Seen by a Provider: Jul 07, 2021 Time Seen by a Provider: 08:45 Subjective/Events-last exam 46 yo F with COVID PNA, on vapotherm 40 lpm/FiO2 100%, SpO2 93-95% At times on AVAPS, On Medrol 20 mg/d, Oluminat, CXR 07/07 still shows diffuse infiltrates, pt is morbidly obese. Pt getting pronning Has IDDM on Detemir 20 bid, glu in 300's but 101 this am. Had d dimer > 20 on admission, on Lovenox 100 bid, Also hx of hypothroidism, on replacement-100 mcg/d, on IV PPI Sepsis Event Evaluation Height, Weight, BMI Height: '" Weight: lbs. oz. kg; 37.82 BMI Method: Focused Exam Time of Focused Exam: 22:00 Exam Exam Patient acknowledged, consented, and participated in this virtual visit which was conducted using real time audio/video Vital Signs Date Time Temp Pulse Resp B/P (MAP) Pulse Ox O2 Delivery O2 Flow Rate FiO2 07/07/21 08:32 NIV Bilevel 85.00 07/07/21 08:00 79 38 137/83 (111) 95 NIV Bilevel 90.00 07/07/21 07:37 35.3 07/07/21 07:34 81 33 94 85.00 07/07/21 07:00 73 23 115/78 (91) 98 NIV Bilevel 90.00 07/07/21 07:00 80 07/07/21 06:00 72 18 112/64 (80) 96 NIV Bilevel 90.00 07/07/21 05:00 75 18 112/62 (79) 96 NIV Bilevel 90.00 07/07/21 04:00 92 NIV Bilevel 100 07/07/21 04:00 76 25 123/74 (90) 98 NIV Bilevel 90.00 07/07/21 03:00 74 20 119/69 (86) 95 NIV Bilevel 90.00 07/07/21 02:00 74 20 125/73 (90) 97 NIV Bilevel 90.00 07/07/21 01:56 NIV Bilevel 90.00 07/07/21 01:47 80 38 96 90.00 07/07/21 01:00 74 07/07/21 01:00 74 22 120/75 (90) 95 NIV Bilevel 100.00 07/07/21 00:00 76 26 123/71 (88) 95 NIV Bilevel 100.00 07/06/21 23:59 93 NIV Bilevel 100 07/06/21 23:30 NIV Bilevel 100.00 07/06/21 23:00 80 28 153/86 (108) 92 NIV Bilevel 85.00 07/06/21 22:24 NIV Bilevel 85.00 07/06/21 22:17 80 38 94 90.00 07/06/21 22:00 82 24 127/75 (92) 92 Vapotherm 40.00 100.00 07/06/21 21:00 81 18 125/74 (91) 96 Vapotherm 40.00 100.00 07/06/21 20:00 86 23 108/81 (90) 93 Vapotherm 40.00 100.00 07/06/21 20:00 90 Vapotherm 40.00 100 07/06/21 19:00 90 07/06/21 19:00 90 13 114/69 (84) 87 Vapotherm 40.00 100.00 07/06/21 18:24 95 Vapotherm 40.00 100 07/06/21 18:00 75 14 107/86 (93) 96 Vapotherm 40.00 100.00 07/06/21 17:00 75 34 126/89 (101) 98 Vapotherm 40.00 100.00 07/06/21 16:00 94 Vapotherm 40.00 100 07/06/21 16:00 75 30 132/82 (99) 97 Vapotherm 40.00 100.00 07/06/21 15:00 77 25 129/79 (96) 96 NIV Bilevel 95.00 07/06/21 14:42 80 36 95 90.00 07/06/21 14:00 76 28 138/92 (107) 98 NIV Bilevel 95.00 07/06/21 13:00 75 30 134/83 (100) 99 NIV Bilevel 95.00 07/06/21 12:45 77 07/06/21 12:00 77 116/73 (87) 99 NIV Bilevel 95.00 07/06/21 11:34 93 NIV Bilevel 90 07/06/21 11:27 35.5 07/06/21 11:00 80 20 112/73 (86) 94 Vapotherm 40.00 100.00 07/06/21 10:00 85 21 115/78 (90) 91 Vapotherm 40.00 100.00 07/06/21 09:37 Vapotherm 40.00 100.00 07/06/21 09:00 78 11 113/66 (82) 93 NIV Bilevel 90.00 I & O 07/07/21 07:00 Intake Total 875 ml Output Total 2050 ml Balance -1175 ml Height & Weight Height: '" Weight: lbs. oz. kg; 37.82 BMI Method: General Appearance: No Apparent Distress, WD/WN, Obese HEENT: PERRL/EOMI, Pharynx Normal Neck: Normal Inspection, Supple Respiratory: No Accessory Muscle Use, Crackles (crackles RUL), Decreased Breath Sounds; No Wheezing Cardiovascular: Regular Rate, Rhythm, No Murmur Capillary Refill: Less Than 3 Seconds Peripheral Pulses: 2+ Radial Pulses (R), 2+ Radial Pulses (L) Gastrointestinal: normal bowel sounds, non tender Extremity: No Calf Tenderness, No Pedal Edema Neurologic/Psychiatric: Alert, Oriented x3 Skin: Normal Color, Warm/Dry Lymphatic: No Adenopathy Results Lab Laboratory Tests 07/06/21 03:10 07/07/21 04:30 Assessment/Plan Assessment/Plan COVID PNA, continue on vapotherm, try to lower FiO2, has been in MICU since 06/26 IDDM, may need higher insulin dose if glucose becomes high again. Hypothyroid-will continue replacement Critical Care: Critically Ill Patient Time spent with patient (mins): 25 SARAH MENCHACA MD Jul 07, 2021 08:50
[2021-07-07] MEDS: PARoxetine 10 MG (PAXIL) TAB PO SCH (08:51)
[2021-07-07] MEDS: methylPREDNISolone 40 MG/ML (Solu-MEDROL) VIAL IV SCH (08:51)
[2021-07-07] MEDS: BARICITINIB 2 MG (OLUMIANT)TABLET PO SCH (14:30)
[2021-07-07 15:17] VITALS: BP 139/78
[2021-07-07 22:35] VITALS: BP 132/86
[2021-07-08 03:00] VITALS: BP 135/81
[2021-07-08] MEDS: RT-ALBUTEROL HFA 8.5 GM INHALER IH SCH ×6 (03:00→22:37)
[2021-07-08] MEDS: KCL 20 MEQ TAB (K-DUR) PO SCH (04:23)
[2021-07-08] MEDS: MAGNESIUM 1 GM/100 ML IVPB 100 ML IV SCH (04:23)
[2021-07-08] MEDS: POTASSIUM CL 10MEQ/50ML IVPB 50 ML IV SCH (04:23)
[2021-07-08 05:44] LABS: BASOPHILS % (AUTO) 0 % (0-10); EOSINOPHILS # (AUTO) 0.5 10^3/uL (0.0-0.3); EOSINOPHILS % (AUTO) 3 % (0-10); HEMATOCRIT 34 % (35-52); HEMOGLOBIN 10.6 g/dL (11.5-16.0); LYMPHOCYTES # (AUTO) 3.2 10^3/uL (1.0-4.0); LYMPHOCYTES % (AUTO) 18 % (12-44); MEAN CORPUSCULAR HEMOGLOBIN 29 pg (25-34); MEAN CORPUSCULAR HGB CONC 32 g/dL (32-36); MEAN CORPUSCULAR VOLUME 93 fL (80-99); MEAN PLATELET VOLUME 10.7 fL (9.0-12.2); MONOCYTES # (AUTO) 0.8 10^3/uL (0.0-1.0); MONOCYTES % (AUTO) 5 % (0-12); NEUTROPHILS # (AUTO) 12.9 10^3/uL (1.8-7.8); NEUTROPHILS % (AUTO) 74 % (42-75); PLATELET COUNT 433 10^3/uL (130-400); WHITE BLOOD COUNT 17.6 10^3/uL (4.3-11.0)
[2021-07-08 05:57] LABS: POTASSIUM 4.4 MMOL/L (3.6-5.0)
[2021-07-08 05:58] LABS: CALCIUM 9.7 MG/DL (8.5-10.1)
[2021-07-08 06:02] LABS: PHOSPHORUS 3.3 MG/DL (2.3-4.7)
[2021-07-08 06:03] LABS: CREATININE SERUM 0.99 MG/DL (0.60-1.30)
[2021-07-08 06:05] LABS: MAGNESIUM 2.1 MG/DL (1.6-2.4)
[2021-07-08] MEDS: inSUlin ASPART (NovoLOG) 1 UNIT/0.01 ML (CHARGE PER UNIT) SC SCH ×4 (06:05→20:15)
[2021-07-08] MEDS: LEVOTHYROXINE 75 MCG (LEVOTHROID) TABLET PO SCH (06:17)
[2021-07-08] MEDS: LEVOTHYROXINE 100 MCG (LEVOTHROID) TAB PO SCH (06:17)
[2021-07-08 07:17] VITALS: BP 137/81
--- NOTE | 2021-07-08 07:25 | Diagnostic Imaging Report ---
INDICATION: Pneumonia Portable AP upright view of chest is obtained with comparison made to study of one day earlier. Bilateral airspace disease has a similar appearance without evidence of pneumothorax or significant pleural fluid. Left upper extremity PICC reaches the right atrium. No adverse change is seen. IMPRESSION: Extensive bilateral airspace disease which may represent edema and/or pneumonitis. Dictated by: Dictated on workstation # [id number]
[2021-07-08] MEDS: ZINC SULFATE 220 MG CAPSULE PO SCH (08:15)
[2021-07-08] MEDS: ENOXAPARIN 100 MG/1 ML (LOVENOX) SYR SC SCH ×2 (08:15→20:13)
[2021-07-08] MEDS: PANTOPRAZOLE 40 MG (PROTONIX) TAB PO SCH (08:15)
[2021-07-08] MEDS: PARoxetine 10 MG (PAXIL) TAB PO SCH (08:16)
[2021-07-08] MEDS: VITAMIN D3 25 MCG (1,000 UNITS) TABLET PO SCH (08:16)
[2021-07-08] MEDS: methylPREDNISolone 40 MG/ML (Solu-MEDROL) VIAL IV SCH (08:16)
--- NOTE | 2021-07-08 11:06 | Physical Therapy Daily Note ---
PT Daily Note-Current Subjective Patient in bed pre tx, agrees to PT, has no complaints of pain. Appearance Patient in bed post tx with nurse call, phone, tray, all needs met. Mental Status Patient Orientation: Person, Place, Situation Attachments: Oxygen (vapotherm), Asencio Catheter, IV Transfers SCALE: Activities may be completed with or without assistive devices. 3-Yfbshfdszx-ykhowim completes the activity by him/herself with no assistance from a helper. 5-Set-up or Clean-up Assistance-helper sets up or cleans up; patient completes activity. [place] assists only prior to or following the activity. 4-Supervision or Touching Assistance-helper provides verbal cues and/or touching/steadying and/or contact guard assistance as patient completes activity. Assistance may be provided throughout the activity or intermittently. 3-Partial/Moderate Assistance-helper does LESS THAN HALF the effort. [place] lifts, holds or supports trunk or limbs, but provides less than half the effort. 2-Substantial/Maximal Assistance-helper does MORE THAN HALF the effort. [place] lifts or holds trunk or limbs and provides more than half the effort. 4-Utmugotdw-zkhcch does ALL the effort. Patient does none of the effort to complete the activity. Or, the assistance of 2 or more helpers is required for the patient to complete the activity. If activity was not attempted, code reason: 7-Patient Refused. 9-Not Applicable-not attempted and the patient did not perform the activity before the current illness, exacerbation or injury. 10-Not Attempted due to Environmental Limitations-(lack of equipment, weather restraints, etc.). 88-Not Attempted due to Medical Conditions or Safety Concerns. Roll Left & Right (QC): 6 Sit to Lying (QC): 6 Lying to Sitting/Side of Bed(Q: 6 Patient sat on the side of the bed and her O2 dropped almost immediately into the lower 80's, layed back down and performed purse lip breathing and it took a significant amount of time to get back up to 90%. Weight Bearing Right Lower Extremity: Right Weight Bearing/Tolerated Left Lower Extremity: Left Weight Bearing/Tolerated Exercises Supine Ex: Ankle pumps, Quad Set, Glut sets, Knee to chest Supine Reps: 20 Patient got a cramp in her left calf during ankle pumps but it resolved after a few seconds with a light massage. Treatments sitting, LE strengthening Assessment Current Status: Poor Progress patient still cannot tolerate sitting on the side of the bed PT Short Term Goals Short Term Goals Time Frame: Jul 13, 2021 Roll Left & Right: 5 Sit to lyin Lying to sitting on side of be: 5 Sit to stand: 5 Chair/hxh-my-vxkic transfer: 5 Toilet transfer: 5 Car transfer: 5 Walk 10 feet: 5 Walk 50 feet with two turns: 5 Walk 150 feet: 5 Walking 10ft on uneven surface: 5 1 step (curb): 5 4 steps: 5 12 steps: 5 Picking up objects: 5 PT Powder Coat Painter Goals Halfway Goals PT Powder Coat Painter Goals Time Frame: Jul 20, 2021 Roll Left & Right (QC): 6 Sit to Lying (QC): 6 Lying-Sitting on Side/Bed(QC): 6 Sit to Stand (QC): 6 Chair/Nzx-xh-Uxyxy Xfer(QC): 6 Toilet Transfer (QC): 6 Car Transfer (QC): 6 Does the Patient Walk: No and Walking Goal IS indicated Walk 10 feet (QC): 6 Walk 50ft with 2 Turns (QC): 6 Walk 150 ft (QC): 6 Walking 10ft on Uneven Surface: 6 1 Step (curb) (QC): 6 4 Steps (QC): 6 12 Steps (QC): 6 Picking up an Object (QC): 6 Wheel 50 feet with 2 turns (QC: 9 Wheel 150 feet: 9 PT Plan Problem List Problem List: Activity Tolerance, Functional Strength, Safety, Balance, Gait, Transfer, Bed Mobility, ROM Treatment/Plan Treatment Plan: Continue Plan of Care Treatment Plan: Bed Mobility, Functional Activity Yanni, Functional Strength, Gait, Safety, Therapeutic Exercise, Transfers Treatment Duration: Jul 20, 2021 Frequency: 11 times per week Safety Risks/Education Patient Education: Correct Positioning, Safety Issues Teaching Recipient: Patient Teaching Methods: Demonstration, Discussion Response to Teaching: Reinforcement Needed Time/GCodes Time In: 1015 Time Out: 1027 Total Billed Treatment Time: 12 Total Billed Treatment 1 visit EX LANDON HORTON PT Jul 08, 2021 11:06
[2021-07-08] MEDS: BARICITINIB 2 MG (OLUMIANT)TABLET PO SCH (13:07)
--- NOTE | 2021-07-08 13:11 | Tele-ICU Progress Note ---
Subjective Date Seen by a Provider: Jul 08, 2021 Time Seen by a Provider: 13:03 Sepsis Event Evaluation Height, Weight, BMI Height: '" Weight: lbs. oz. kg; 37.82 BMI Method: Focused Exam Time of Focused Exam: 22:00 Exam Exam Patient acknowledged, consented, and participated in this virtual visit which was conducted using real time audio/video Vital Signs Date Time Temp Pulse Resp B/P (MAP) Pulse Ox O2 Delivery O2 Flow Rate FiO2 07/08/21 12:56 91 07/08/21 12:00 90 21 114/72 (86) 95 Vapotherm 40.00 100.00 07/08/21 11:30 36.0 07/08/21 11:00 86 16 129/77 (94) 92 Vapotherm 40.00 100.00 07/08/21 10:00 85 15 120/70 (87) 89 Vapotherm 40.00 100.00 07/08/21 09:47 Vapotherm 40.00 100.00 07/08/21 09:00 81 25 130/87 (101) 93 NIV Bilevel 80.00 07/08/21 08:00 80 23 133/81 (98) 92 NIV Bilevel 80.00 07/08/21 08:00 94 NIV Bilevel 65 07/08/21 08:00 36.2 07/08/21 07:17 80 31 97 65.00 07/08/21 07:00 84 18 137/81 (99) 96 NIV Bilevel 80.00 07/08/21 07:00 NIV Bilevel 65.00 07/08/21 06:54 83 07/08/21 06:15 NIV Bilevel 75.00 07/08/21 06:00 80 23 126/85 (99) 96 NIV Bilevel 80.00 07/08/21 05:00 79 13 119/81 (94) 97 NIV Bilevel 80.00 07/08/21 04:00 77 21 120/85 (96) 96 NIV Bilevel 80.00 07/08/21 04:00 94 NIV Bilevel 80 07/08/21 04:00 36.0 07/08/21 03:00 81 21 135/81 (103) 95 NIV Bilevel 80.00 07/08/21 03:00 81 23 95 80.00 07/08/21 02:00 82 17 134/71 (107) 91 NIV Bilevel 80.00 07/08/21 01:00 83 26 129/75 (85) 93 NIV Bilevel 80.00 07/08/21 01:00 83 07/08/21 00:00 83 28 136/75 (93) 91 NIV Bilevel 80.00 07/08/21 00:00 36.4 07/07/21 23:59 93 NIV Bilevel 80 07/07/21 23:00 84 25 149/88 (106) 89 NIV Bilevel 80.00 07/07/21 22:35 86 38 91 80.00 07/07/21 22:00 84 132/86 (106) 97 NIV Bilevel 80.00 07/07/21 21:00 87 21 123/72 (87) 88 NIV Bilevel 80.00 07/07/21 20:00 93 Vapotherm 40.00 100 07/07/21 20:00 87 25 124/71 (81) 88 NIV Bilevel 80.00 07/07/21 19:43 36.1 07/07/21 19:00 92 07/07/21 19:00 92 14 119/69 (86) 96 NIV Bilevel 80.00 07/07/21 18:30 92 Vapotherm 40.00 95 07/07/21 18:00 81 22 97/67 (77) 97 NIV Bilevel 80.00 07/07/21 17:00 82 11 122/79 (93) 95 NIV Bilevel 80.00 07/07/21 16:00 85 19 124/67 (86) 94 NIV Bilevel 80.00 07/07/21 16:00 95 NIV Bilevel 90 07/07/21 15:47 NIV Bilevel 80.00 07/07/21 15:29 36.0 07/07/21 15:17 85 36 95 80.00 07/07/21 15:00 82 17 139/78 (98) 95 NIV Bilevel 90.00 07/07/21 14:41 NIV Bilevel 90.00 07/07/21 14:00 90 14 127/77 (94) 94 Vapotherm 40.00 100.00 I & O 07/08/21 07:00 Intake Total 1325 ml Output Total 2000 ml Balance -675 ml Height & Weight Height: '" Weight: lbs. oz. kg; 37.82 BMI Method: General Appearance: No Apparent Distress, WD/WN, Obese HEENT: PERRL/EOMI, Pharynx Normal Neck: Normal Inspection, Supple Respiratory: No Accessory Muscle Use, Crackles (crackles RUL), Decreased Breath Sounds; No Wheezing Cardiovascular: Regular Rate, Rhythm, No Murmur Capillary Refill: Less Than 3 Seconds Peripheral Pulses: 2+ Radial Pulses (R), 2+ Radial Pulses (L) Gastrointestinal: normal bowel sounds, non tender Extremity: No Calf Tenderness, No Pedal Edema Neurologic/Psychiatric: Alert, Oriented x3 Skin: Normal Color, Warm/Dry Lymphatic: No Adenopathy Results Lab Laboratory Tests 07/07/21 04:30 07/08/21 05:30 Assessment/Plan Assessment/Plan Tele-ICU Physician , Progress Note ) Available chart/ vitals / labs / Images reviewed Video assessment done using teleICU camera, rest of exam as per RN Discussed [facility] RN Events overnight : disating on vapotherm Afebrile I/O = neg 500 Drips: Pressors: , hemodynamically stable EXAM PER RN Consultants: Hospital course: 06/25 to ICU - COVID-NIV.. 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 ) -not on Remdesivir -Steroids IV - started on high dose - SM 20 q 12 - taper down slowly - Barcitinib 06/26 -Hypercoagulable state , elev DDIMER on admission CTA 06/26 neg for PE -> lovenox full dose , - REPEATED DDIMER 2 ON 07/03 - CONSIDER TO DECREASE TO PROPH DOSE if clinically improving - keep full dose todty suspected superimposed bact PNA - cefepime 06/27- 07/02 - FOLLOW OFF ABX Diabetes Mellitus , severe hyperglycemia - insulin gtt to stop, long acting insulin -close f/up on steroids Lines : PICC 07/01 (Central Line Necessity Reviewed) Asencio: + OG: Nutrition: Po Analgesia: Anxiety/ delirium na VTE Prophylaxis: full dose lovenox Stress Ulcer Prophylaxis: ppi Plans in collaboration with bedside consultants and IM MDs. Discussed with RN to reach out if any questions or concerns A total of 35 minutes of critical care time was devoted to this patient today, required to treat and/or prevent further deterioration of critical care condition ( as above) . AZUL DRAPER MD Jul 08, 2021 13:11
--- NOTE | 2021-07-08 14:48 | Progress Note - Hospitalist ---
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 She first started having symptoms two weeks ago. A week and a half a go she tested positive for COVID-19. She was not vaccinated. She was started on Prednisone. She continued to worsen with shortness of breath and cough and presented to the ER. Subjective/Events-last exam She is feeling better. She is still on Vapotherm. She has an appetite. She has been eating and drinking without issue. She has been doing physical therapy. Focused Exam Time of Focused Exam: 22:00 Objective Exam Vital Signs Vital Signs Date Time Temp Pulse Resp B/P (MAP) Pulse Ox O2 Delivery O2 Flow Rate FiO2 07/08/21 14:40 Vapotherm 35.00 100.00 07/08/21 14:15 92 100 07/08/21 12:56 91 07/08/21 12:00 21 114/72 (86) 07/08/21 11:30 36.0 Capillary Refill : Less Than 3 Seconds General Appearance: No Apparent Distress, Obese Respiratory: Lungs Clear, Normal Breath Sounds, No Respiratory Distress Cardiovascular: Regular Rate, Rhythm, No Edema, No Murmur Gastrointestinal: Normal Bowel Sounds, Non Tender, Soft Extremity: Normal Inspection, Non Tender, No Pedal Edema Neurologic/Psychiatric: Alert, Oriented x3, No Motor/Sensory Deficits, Normal Mood/Affect Skin: Normal Color, Warm/Dry Results/Procedures Lab Laboratory Tests 07/08/21 05:30 Patient resulted labs reviewed. Imaging: Reviewed Imaging Report Assessment/Plan Assessment and Plan Assess & Plan/Chief Complaint Acute respiratory failure due to COVID-19 Hypercoagulable state associated with COVID-19 Requiring BiPAP/Vapotherm Continue therapeutic Lovenox Tapering Solumedrol Continue Ly TeleICU consulted, appreciate assistance [place] referral Type 2 diabetes mellitus with ketoacidosis DKA resolved Continue Levemir Continue sliding scale Obesity Clinically significant, no acute management needs DVT prophylaxis: already receiving therapeutic anticoagulation Critical Care Critically Ill Patient Diagnosis/Problems Diagnosis/Problems (1) Acute respiratory failure due to COVID-19 Status: Acute (2) Hypercoagulable state associated with COVID-19 Status: Acute (3) T2DM (type 2 diabetes mellitus) Status: Acute Qualifiers: 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
[2021-07-08 23:07] VITALS: BP 129/80
[2021-07-09 02:37] VITALS: BP 141/89
[2021-07-09] MEDS: RT-ALBUTEROL HFA 8.5 GM INHALER IH SCH ×6 (02:37→21:40)
[2021-07-09 02:52] LABS: BASOPHILS # (AUTO) 0.1 10^3/uL (0.0-0.1); BASOPHILS % (AUTO) 0 % (0-10); EOSINOPHILS # (AUTO) 0.6 10^3/uL (0.0-0.3); EOSINOPHILS % (AUTO) 3 % (0-10); HEMATOCRIT 32 % (35-52); HEMOGLOBIN 10.2 g/dL (11.5-16.0); LYMPHOCYTES # (AUTO) 3.6 10^3/uL (1.0-4.0); LYMPHOCYTES % (AUTO) 17 % (12-44); MEAN CORPUSCULAR HEMOGLOBIN 29 pg (25-34); MEAN CORPUSCULAR HGB CONC 32 g/dL (32-36); MEAN CORPUSCULAR VOLUME 92 fL (80-99); MEAN PLATELET VOLUME 10.8 fL (9.0-12.2); MONOCYTES # (AUTO) 0.9 10^3/uL (0.0-1.0); MONOCYTES % (AUTO) 4 % (0-12); NEUTROPHILS # (AUTO) 15.4 10^3/uL (1.8-7.8); NEUTROPHILS % (AUTO) 74 % (42-75); PLATELET COUNT 417 10^3/uL (130-400); WHITE BLOOD COUNT 20.7 10^3/uL (4.3-11.0)
[2021-07-09 03:19] LABS: POTASSIUM 4.4 MMOL/L (3.6-5.0)
[2021-07-09 03:20] LABS: CALCIUM 9.6 MG/DL (8.5-10.1)
[2021-07-09 03:25] LABS: CREATININE SERUM 1.03 MG/DL (0.60-1.30); PHOSPHORUS 3.4 MG/DL (2.3-4.7)
[2021-07-09 03:27] LABS: MAGNESIUM 1.8 MG/DL (1.6-2.4)
[2021-07-09] MEDS: POTASSIUM CL 10MEQ/50ML IVPB 50 ML IV SCH (03:53)
[2021-07-09] MEDS: MAGNESIUM 1 GM/100 ML IVPB 100 ML IV SCH (03:54)
[2021-07-09] MEDS: KCL 20 MEQ TAB (K-DUR) PO SCH (03:54)
[2021-07-09] MEDS: LEVOTHYROXINE 75 MCG (LEVOTHROID) TABLET PO SCH (06:16)
[2021-07-09] MEDS: LEVOTHYROXINE 100 MCG (LEVOTHROID) TAB PO SCH (06:16)
[2021-07-09] MEDS: inSUlin ASPART (NovoLOG) 1 UNIT/0.01 ML (CHARGE PER UNIT) SC SCH ×5 (06:16→20:17)
[2021-07-09 06:27] VITALS: BP 134/84
[2021-07-09] MEDS: PANTOPRAZOLE 40 MG (PROTONIX) TAB PO SCH (08:37)
[2021-07-09] MEDS: ZINC SULFATE 220 MG CAPSULE PO SCH (08:37)
[2021-07-09] MEDS: VITAMIN D3 25 MCG (1,000 UNITS) TABLET PO SCH (08:37)
[2021-07-09] MEDS: methylPREDNISolone 40 MG/ML (Solu-MEDROL) VIAL IV SCH (08:37)
[2021-07-09] MEDS: ENOXAPARIN 100 MG/1 ML (LOVENOX) SYR SC SCH ×2 (08:37→20:17)
[2021-07-09] MEDS: PARoxetine 10 MG (PAXIL) TAB PO SCH (08:37)
[2021-07-09] MEDS ORDERED: ACETAMINOPHEN 500 MG TAB (TYLENOL) ONE (09:35)
[2021-07-09] MEDS: ACETAMINOPHEN 500 MG TAB (TYLENOL) PO PRN (09:37)
--- NOTE | 2021-07-09 10:45 | Tele-ICU Progress Note ---
Subjective Date Seen by a Provider: Jul 09, 2021 Time Seen by a Provider: 10:45 Sepsis Event Evaluation Height, Weight, BMI Height: '" Weight: lbs. oz. kg; 37.82 BMI Method: Focused Exam Time of Focused Exam: 22:00 Exam Exam Patient acknowledged, consented, and participated in this virtual visit which was conducted using real time audio/video Vital Signs Date Time Temp Pulse Resp B/P (MAP) Pulse Ox O2 Delivery O2 Flow Rate FiO2 07/09/21 10:42 92 Vapotherm 35.00 100 07/09/21 08:34 36.2 Vapotherm 35.00 100.00 07/09/21 08:00 92 Vapotherm 35.00 100 07/09/21 06:27 78 33 96 80.00 07/09/21 06:27 79 07/09/21 06:00 79 23 134/84 (101) 98 NIV Bilevel 80.00 07/09/21 05:00 79 25 124/86 (103) 97 NIV Bilevel 80.00 07/09/21 04:20 36.0 07/09/21 04:00 81 26 133/83 (98) 97 NIV Bilevel 80.00 07/09/21 03:01 94 NIV Bilevel 65 07/09/21 03:00 85 34 136/77 (96) 96 NIV Bilevel 80.00 07/09/21 02:37 80 25 95 100.00 07/09/21 02:00 86 21 141/89 (102) 96 NIV Bilevel 80.00 07/09/21 01:00 83 07/09/21 01:00 83 25 134/87 (103) 96 NIV Bilevel 80.00 07/09/21 00:00 87 143/83 (103) 89 NIV Bilevel 80.00 07/08/21 23:53 36.3 07/08/21 23:13 94 NIV Bilevel 65 07/08/21 23:07 91 43 92 80.00 07/08/21 23:00 92 129/80 (96) 94 Vapotherm 35.00 100.00 07/08/21 22:38 95 Vapotherm 35.00 100 07/08/21 22:00 86 14 120/74 (87) 98 Vapotherm 35.00 100.00 07/08/21 21:00 90 27 141/84 (98) 91 Vapotherm 35.00 100.00 07/08/21 20:21 35.4 07/08/21 20:17 89 31 134/76 (93) 93 Vapotherm 35.00 100.00 07/08/21 20:00 92 Vapotherm 35.00 100 07/08/21 19:00 89 07/08/21 19:00 89 11 98 Vapotherm 35.00 100.00 07/08/21 18:28 94 Vapotherm 35.00 100 07/08/21 18:00 89 21 107/74 (85) 97 Vapotherm 35.00 100.00 07/08/21 17:00 90 20 114/57 (76) 92 Vapotherm 35.00 100.00 07/08/21 16:08 36.1 07/08/21 16:00 92 12 135/73 (93) 94 Vapotherm 35.00 100.00 07/08/21 16:00 92 Vapotherm 35.00 100 07/08/21 15:00 95 16 114/73 (87) 93 Vapotherm 35.00 100.00 07/08/21 15:00 95 16 114/73 (87) 93 Vapotherm 35.00 100.00 07/08/21 14:40 Vapotherm 35.00 100.00 07/08/21 14:15 92 Vapotherm 35.00 100 07/08/21 14:15 Vapotherm 35.00 100.00 07/08/21 14:00 97 24 133/84 (100) 86 Vapotherm 40.00 100.00 07/08/21 13:00 87 16 129/73 (91) 94 Vapotherm 40.00 100.00 07/08/21 12:56 91 07/08/21 12:00 94 Vapotherm 40.00 100 07/08/21 12:00 90 21 114/72 (86) 95 Vapotherm 40.00 100.00 07/08/21 11:30 36.0 07/08/21 11:00 86 16 129/77 (94) 92 Vapotherm 40.00 100.00 I & O 07/09/21 07:00 Intake Total 1835 ml Output Total 1300 ml Balance 535 ml Height & Weight Height: '" Weight: lbs. oz. kg; 37.82 BMI Method: General Appearance: No Apparent Distress, Obese HEENT: PERRL/EOMI, Pharynx Normal Neck: Normal Inspection, Supple Respiratory: Lungs Clear, Normal Breath Sounds, No Respiratory Distress Cardiovascular: Regular Rate, Rhythm, No Edema, No Murmur Capillary Refill: Less Than 3 Seconds Peripheral Pulses: 2+ Radial Pulses (R), 2+ Radial Pulses (L) Gastrointestinal: normal bowel sounds, non tender Extremity: Normal Inspection, Non Tender, No Pedal Edema Neurologic/Psychiatric: Alert, Oriented x3, No Motor/Sensory Deficits, Normal Mood/Affect Skin: Normal Color, Warm/Dry Lymphatic: No Adenopathy Results Lab Laboratory Tests 07/08/21 05:30 07/09/21 02:45 Assessment/Plan Assessment/Plan Tele-ICU Physician , Progress Note ) Available chart/ vitals / labs / Images reviewed Video assessment done using teleICU camera, rest of exam as per RN Discussed [facility] RN Events overnight : disating on vapotherm Afebrile I/O = neg 500 Drips: Pressors: , hemodynamically stable EXAM PER RN Consultants: Hospital course: 06/25 to ICU - COVID-NIV.. 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 increase dose -close f/up on steroids Lines : PICC 07/01 (Central Line Necessity Reviewed) Asencio: + OG: Nutrition: Po Analgesia: Anxiety/ delirium na VTE Prophylaxis: full dose lovenox Stress Ulcer Prophylaxis: ppi Plans in collaboration with bedside consultants and IM MDs. Discussed with RN to reach out if any questions or concerns A total of 35 minutes of critical care time was devoted to this patient today, required to treat and/or prevent further deterioration of critical care condition ( as above) . AZUL DRAPER MD Jul 09, 2021 10:45
--- NOTE | 2021-07-09 11:51 | Progress Note - Hospitalist ---
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 She first started having symptoms two weeks ago. A week and a half a go she tested positive for COVID-19. She was not vaccinated. She was started on Prednisone. She continued to worsen with shortness of breath and cough and presented to the ER. Subjective/Events-last exam She is feeling better today. She is not short of breath. She has been eating and drinking. She has been recommended physical therapy. She has not been out of bed. Focused Exam Time of Focused Exam: 22:00 Objective Exam Vital Signs Vital Signs Date Time Temp Pulse Resp B/P (MAP) Pulse Ox O2 Delivery O2 Flow Rate FiO2 07/09/21 11:00 86 22 126/76 (93) 93 NIV Bilevel 70.00 07/09/21 10:42 100 07/09/21 08:34 36.2 Capillary Refill : Less Than 3 Seconds General Appearance: No Apparent Distress, Obese Respiratory: Lungs Clear, Normal Breath Sounds, No Respiratory Distress Cardiovascular: Regular Rate, Rhythm, No Edema, No Murmur Gastrointestinal: Normal Bowel Sounds, Non Tender, Soft Extremity: Normal Inspection, Non Tender, No Pedal Edema Neurologic/Psychiatric: Alert, Oriented x3, No Motor/Sensory Deficits, Normal Mood/Affect Skin: Normal Color, Warm/Dry Results/Procedures Lab Laboratory Tests 07/09/21 02:45 Patient resulted labs reviewed. Imaging: Reviewed Imaging Report Assessment/Plan Assessment and Plan Assess & Plan/Chief Complaint Acute respiratory failure due to COVID-19 Hypercoagulable state associated with COVID-19 Requiring BiPAP/Vapotherm Continue therapeutic Lovenox Tapering Solumedrol Continue Barcitinib TeleICU consulted, appreciate assistance [place] referral, pending Type 2 diabetes mellitus with ketoacidosis DKA resolved Continue Levemir Continue sliding scale Obesity Clinically significant, no acute management needs DVT prophylaxis: already receiving therapeutic anticoagulation Critical Care Critically Ill Patient Diagnosis/Problems Diagnosis/Problems (1) Acute respiratory failure due to COVID-19 Status: Acute (2) Hypercoagulable state associated with COVID-19 Status: Acute (3) T2DM (type 2 diabetes mellitus) Status: Acute Qualifiers: Diabetes mellitus assisted insulin use: with assisted use Diabetes mellitus complication status: with ketoacidosis Diabetes mellitus complication detail: without coma Qualified Codes: E11.10 - Type 2 diabetes mellitus with ketoacidosis without coma; 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
--- NOTE | 2021-07-09 12:48 | Physical Therapy Daily Note ---
PT Daily Note-Current Subjective Patient in bed pre tx, agrees to PT, has no complaints of pain Appearance Patient in bed post tx with nurse call, phone, tray, all needs met. Mental Status Patient Orientation: Person, Place, Situation Attachments: Oxygen, Asencio Catheter, IV Transfers SCALE: Activities may be completed with or without assistive devices. 5-Xmyerbfvda-euzyoty completes the activity by him/herself with no assistance from a helper. 5-Set-up or Clean-up Assistance-helper sets up or cleans up; patient completes activity. [place] assists only prior to or following the activity. 4-Supervision or Touching Assistance-helper provides verbal cues and/or touching/steadying and/or contact guard assistance as patient completes activity . Assistance may be provided throughout the activity or intermittently. 3-Partial/Moderate Assistance-helper does LESS THAN HALF the effort. [place] lifts, holds or supports trunk or limbs, but provides less than half the effort. 2-Substantial/Maximal Assistance-helper does MORE THAN HALF the effort. [place] lifts or holds trunk or limbs and provides more than half the effort. 8-Ssjrvzlwq-yagvpo does ALL the effort. Patient does none of the effort to complete the activity. Or, the assistance of 2 or more helpers is required for the patient to complete the activity. If activity was not attempted, code reason: 7-Patient Refused. 9-Not Applicable-not attempted and the patient did not perform the activity before the current illness, exacerbation or injury. 10-Not Attempted due to Environmental Limitations-(lack of equipment, weather restraints, etc.). 88-Not Attempted due to Medical Conditions or Safety Concerns. Roll Left & Right (QC): 6 Sit to Lying (QC): 6 Lying to Sitting/Side of Bed(Q: 6 Patient sits on the side of the bed and her O2 goes down to mid 80's within about 15 seconds. Lay back down, O2 goes down to 80% and takes a significant amount of time to come back up to 90%, with purse lip breathing, however, not as long as it took to recover yesterday. Weight Bearing Right Lower Extremity: Right Weight Bearing/Tolerated Left Lower Extremity: Left Weight Bearing/Tolerated Exercises Supine Ex: Ankle pumps, Quad Set, Heel Slides Supine Reps: 20 Treatments sitting, LE exercise Assessment Current Status: Poor Progress patient cannot tolerate sitting EOB yet PT Short Term Goals Short Term Goals Time Frame: Jul 13, 2021 Roll Left & Right: 5 Sit to lyin Lying to sitting on side of be: 5 Sit to stand: 5 Chair/akg-co-pthjf transfer: 5 Toilet transfer: 5 Car transfer: 5 Walk 10 feet: 5 Walk 50 feet with two turns: 5 Walk 150 feet: 5 Walking 10ft on uneven surface: 5 1 step (curb): 5 4 steps: 5 12 steps: 5 Picking up objects: 5 PT Waiter/Waitress Room Service Goals Mcfp Goals PT Mcfp Goals Time Frame: Jul 20, 2021 Roll Left & Right (QC): 6 Sit to Lying (QC): 6 Lying-Sitting on Side/Bed(QC): 6 Sit to Stand (QC): 6 Chair/Wii-cg-Giwfn Xfer(QC): 6 Toilet Transfer (QC): 6 Car Transfer (QC): 6 Does the Patient Walk: No and Walking Goal IS indicated Walk 10 feet (QC): 6 Walk 50ft with 2 Turns (QC): 6 Walk 150 ft (QC): 6 Walking 10ft on Uneven Surface: 6 1 Step (curb) (QC): 6 4 Steps (QC): 6 12 Steps (QC): 6 Picking up an Object (QC): 6 Wheel 50 feet with 2 turns (QC: 9 Wheel 150 feet: 9 PT Plan Problem List Problem List: Activity Tolerance, Functional Strength, Safety, Balance, Gait, Transfer, Bed Mobility, ROM Treatment/Plan Treatment Plan: Continue Plan of Care Treatment Plan: Bed Mobility, Functional Activity Yanni, Functional Strength, Gait, Safety, Therapeutic Exercise, Transfers Treatment Duration: Jul 20, 2021 Frequency: 11 times per week Safety Risks/Education Patient Education: Correct Positioning, Safety Issues Teaching Recipient: Patient Teaching Methods: Demonstration, Discussion Response to Teaching: Reinforcement Needed Time/GCodes Time In: 1134 Time Out: 1144 Total Billed Treatment Time: 10 Total Billed Treatment 1 visit EX LANDON CHICAS PT Jul 09, 2021 12:48
[2021-07-09] MEDS: BARICITINIB 2 MG (OLUMIANT)TABLET PO SCH (15:59)
[2021-07-10 02:26] VITALS: BP 122/71
[2021-07-10] MEDS: RT-ALBUTEROL HFA 8.5 GM INHALER IH SCH ×6 (02:26→21:06)
[2021-07-10 02:27] LABS: BASOPHILS # (AUTO) 0.1 10^3/uL (0.0-0.1); BASOPHILS % (AUTO) 0 % (0-10); EOSINOPHILS # (AUTO) 0.7 10^3/uL (0.0-0.3); EOSINOPHILS % (AUTO) 4 % (0-10); HEMATOCRIT 33 % (35-52); HEMOGLOBIN 10.4 g/dL (11.5-16.0); LYMPHOCYTES # (AUTO) 3.6 10^3/uL (1.0-4.0); LYMPHOCYTES % (AUTO) 19 % (12-44); MEAN CORPUSCULAR HEMOGLOBIN 29 pg (25-34); MEAN CORPUSCULAR HGB CONC 32 g/dL (32-36); MEAN CORPUSCULAR VOLUME 92 fL (80-99); MEAN PLATELET VOLUME 10.9 fL (9.0-12.2); MONOCYTES # (AUTO) 0.9 10^3/uL (0.0-1.0); MONOCYTES % (AUTO) 5 % (0-12); NEUTROPHILS # (AUTO) 13.4 10^3/uL (1.8-7.8); NEUTROPHILS % (AUTO) 71 % (42-75); PLATELET COUNT 414 10^3/uL (130-400); WHITE BLOOD COUNT 18.9 10^3/uL (4.3-11.0)
[2021-07-10 02:37] LABS: POTASSIUM 4.3 MMOL/L (3.6-5.0)
[2021-07-10 02:38] LABS: CALCIUM 9.9 MG/DL (8.5-10.1)
[2021-07-10 02:42] LABS: PHOSPHORUS 3.5 MG/DL (2.3-4.7)
[2021-07-10 02:43] LABS: CREATININE SERUM 0.94 MG/DL (0.60-1.30)
[2021-07-10] MEDS: POTASSIUM CL 10MEQ/50ML IVPB 50 ML IV SCH (02:51)
[2021-07-10] MEDS: KCL 20 MEQ TAB (K-DUR) PO SCH (02:51)
[2021-07-10] MEDS: MAGNESIUM 1 GM/100 ML IVPB 100 ML IV SCH (02:51)
[2021-07-10 03:00] LABS: EOSINOPHILS % (MANUAL) 4 %; LYMPHOCYTES % (MANUAL) 23 %; METAMYELOCYTES % 1 %; MONOCYTES % (MANUAL) 3 %; NEUTROPHILS % (MANUAL) 69 %
[2021-07-10] MEDS: inSUlin ASPART (NovoLOG) 1 UNIT/0.01 ML (CHARGE PER UNIT) SC SCH ×7 (06:25→20:20)
[2021-07-10] MEDS: LEVOTHYROXINE 75 MCG (LEVOTHROID) TABLET PO SCH (06:26)
[2021-07-10] MEDS: LEVOTHYROXINE 100 MCG (LEVOTHROID) TAB PO SCH (06:26)
[2021-07-10 07:02] VITALS: BP 126/79
[2021-07-10] MEDS: ZINC SULFATE 220 MG CAPSULE PO SCH (08:18)
[2021-07-10] MEDS: ENOXAPARIN 100 MG/1 ML (LOVENOX) SYR SC SCH ×2 (08:18→20:13)
[2021-07-10] MEDS: PANTOPRAZOLE 40 MG (PROTONIX) TAB PO SCH (08:18)
[2021-07-10] MEDS: methylPREDNISolone 40 MG/ML (Solu-MEDROL) VIAL IV SCH (08:18)
[2021-07-10] MEDS: ACETAMINOPHEN 500 MG TAB (TYLENOL) PO PRN ×2 (08:19→20:13)
[2021-07-10] MEDS: VITAMIN D3 25 MCG (1,000 UNITS) TABLET PO SCH (08:19)
[2021-07-10] MEDS: PARoxetine 10 MG (PAXIL) TAB PO SCH (08:19)
--- NOTE | 2021-07-10 10:43 | Progress Note - Hospitalist ---
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 She first started having symptoms two weeks ago. A week and a half ag o she tested positive for COVID-19. She was not vaccinated. She was started on Prednisone. She continued to worsen with shortness of breath and cough and presented to the ER. Subjective/Events-last exam She is feeling about the same. She is not feeling short of breath. She has no complaints or concerns. Focused Exam Time of Focused Exam: 22:00 Objective Exam Vital Signs Vital Signs Date Time Temp Pulse Resp B/P (MAP) Pulse Ox O2 Delivery O2 Flow Rate FiO2 07/10/21 10:07 90 Vapotherm 35.00 90 07/10/21 07:40 36.9 07/10/21 07:02 76 21 07/10/21 06:00 131/78 Capillary Refill : Less Than 3 Seconds General Appearance: No Apparent Distress, Obese Respiratory: Lungs Clear, Normal Breath Sounds, No Respiratory Distress Cardiovascular: Regular Rate, Rhythm, No Edema, No Murmur Gastrointestinal: Normal Bowel Sounds, Non Tender, Soft Extremity: Normal Inspection, Non Tender, No Pedal Edema Neurologic/Psychiatric: Alert, Oriented x3, No Motor/Sensory Deficits, Normal Mood/Affect Skin: Normal Color, Warm/Dry Results/Procedures Lab Laboratory Tests 07/10/21 02:13 Patient resulted labs reviewed. Imaging: Reviewed Imaging Report Assessment/Plan Assessment and Plan Assess & Plan/Chief Complaint Acute respiratory failure due to COVID-19 Hypercoagulable state associated with COVID-19 Requiring BiPAP/Vapotherm Continue therapeutic Lovenox Tapering Solumedrol Continue Barcodin TeleICU consulted, appreciate assistance [place] referral, pending Type 2 diabetes mellitus with ketoacidosis DKA resolved Continue Levemir Continue sliding scale Obesity Clinically significant, no acute management needs DVT prophylaxis: already receiving therapeutic anticoagulation Critical Care Critically Ill Patient Diagnosis/Problems Diagnosis/Problems (1) Acute respiratory failure due to COVID-19 Status: Acute (2) Hypercoagulable state associated with COVID-19 Status: Acute (3) T2DM (type 2 diabetes mellitus) Status: Acute Qualifiers: Diabetes mellitus mcfp insulin use: with long term care pharmacist use Diabetes mellitus complication status: with ketoacidosis Diabetes mellitus complication detail: without coma Qualified Codes: E11.10 - Type 2 diabetes mellitus with ketoacidosis without coma; 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
--- NOTE | 2021-07-10 11:47 | Tele-ICU Progress Note ---
Subjective Date Seen by a Provider: Jul 10, 2021 Time Seen by a Provider: 10:00 Subjective/Events-last exam This virtual visit was conducted using real time audio/video. Thank you for asking us to see this patient for respiratory insufficiency and distress due to B Covid pna. Still on VT 100% , 40 LPM. PE: Obese. VSS O2 sat 93% on VT HEENT: No obvious masses, adenopathy or JVD. Chest: clear to auscultation. CV: RRR S1 S2 No murmur or added sounds. Abd: Non-tender. Bowel sounds Y. : Unremarkable. Asencio Y. OFFICE HELPER CLERICAL/psychiatric: Alert and oriented, grossly intact. No obvious focal findings. Extremities: No edema. Capillary refill < 3 seconds. Skin: unremarkable. Results: Elevated WCC 18.4 but decreasing. BUN 21 BG 311. Decreased Hb 10.4. CXR w B infilts.. A/P: Respiratory insufficiency/distress: Cont Medrol., Baricitinib. Available chart/ vitals / labs /images reviewed. Video assessment done using teleICU camera, rest of exam as per RN. Respiratory: Continue present management with medrol, Albuterol, VT Monitor for increasing oxygenation needs and/or need for intubation. Critical Care: critically ill patient. Cont insulin, Lovenox. Discussed with OLU Hur[facility]. Asked RN to reach out to eICU if any questions or concerns later. Time spent with patient/coordination of care with other health professionals (mins): 25. Review of Systems General: Other Sepsis Event Evaluation Height, Weight, BMI Height: '" Weight: lbs. oz. kg; 37.82 BMI Method: Focused Exam Time of Focused Exam: 22:00 Exam Exam Patient acknowledged, consented, and participated in this virtual visit which was conducted using real time audio/video Vital Signs Date Time Temp Pulse Resp B/P (MAP) Pulse Ox O2 Delivery O2 Flow Rate FiO2 07/10/21 11:20 36.3 07/10/21 11:00 97 20 145/81 93 NIV Bilevel 80.00 07/10/21 10:07 90 Vapotherm 35.00 90 07/10/21 10:00 93 28 88 NIV Bilevel 80.00 07/10/21 09:00 89 15 85 NIV Bilevel 80.00 07/10/21 08:00 81 23 135/87 96 NIV Bilevel 80.00 07/10/21 08:00 92 Vapotherm 90 07/10/21 07:40 36.9 07/10/21 07:02 76 21 95 80.00 07/10/21 07:00 75 21 125/79 96 NIV Bilevel 80.00 07/10/21 06:00 82 26 131/78 96 NIV Bilevel 80.00 07/10/21 05:00 80 23 133/86 95 NIV Bilevel 80.00 07/10/21 04:00 95 NIV Bilevel 65 07/10/21 04:00 82 37 130/84 94 NIV Bilevel 80.00 07/10/21 03:00 87 36 143/87 91 NIV Bilevel 80.00 07/10/21 02:26 80 25 92 80.00 07/10/21 02:00 82 33 122/71 92 NIV Bilevel 80.00 07/10/21 01:00 87 07/10/21 01:00 87 29 140/85 93 NIV Bilevel 80.00 07/10/21 00:00 86 140/80 94 NIV Bilevel 80.00 07/09/21 23:00 87 37 151/96 90 Vapotherm 35.00 80.00 07/09/21 22:17 98 Vapotherm 35.00 100 07/09/21 22:00 90 23 134/75 92 Vapotherm 35.00 80.00 07/09/21 21:39 94 Vapotherm 35.00 80 07/09/21 21:00 84 8 109/68 96 Vapotherm 35.00 80.00 07/09/21 20:00 87 19 118/91 94 Vapotherm 35.00 80.00 07/09/21 20:00 98 Vapotherm 35.00 100 07/09/21 20:00 35.9 07/09/21 19:00 89 15 126/77 94 Vapotherm 35.00 80.00 07/09/21 19:00 89 07/09/21 18:48 94 Vapotherm 35.00 80 07/09/21 18:00 Vapotherm 35.00 80.00 07/09/21 18:00 87 25 114/77 91 Vapotherm 35.00 80.00 07/09/21 17:00 87 12 143/89 96 Vapotherm 35.00 100.00 07/09/21 16:00 98 13 129/77 92 Vapotherm 35.00 100.00 07/09/21 16:00 98 Vapotherm 35.00 100 07/09/21 16:00 36.3 07/09/21 15:00 88 12 133/75 99 Vapotherm 35.00 100.00 07/09/21 14:42 95 Vapotherm 35.00 100 07/09/21 14:00 92 19 111/69 (83) 91 NIV Bilevel 70.00 07/09/21 13:00 93 34 128/83 (98) 90 NIV Bilevel 70.00 07/09/21 13:00 90 17 128/83 97 Vapotherm 35.00 100.00 07/09/21 12:45 82 07/09/21 12:00 83 15 124/78 (93) 95 NIV Bilevel 70.00 07/09/21 12:00 94 Vapotherm 35.00 100 07/09/21 11:55 36.3 I & O 07/10/21 07:00 Intake Total 1460 ml Output Total 2550 ml Balance -1090 ml Height & Weight Height: '" Weight: lbs. oz. kg; 37.82 BMI Method: General Appearance: No Apparent Distress, Obese HEENT: PERRL/EOMI, Pharynx Normal Neck: Normal Inspection, Supple Respiratory: Lungs Clear, Normal Breath Sounds, No Respiratory Distress Cardiovascular: Regular Rate, Rhythm, No Edema, No Murmur Capillary Refill: Less Than 3 Seconds Peripheral Pulses: 2+ Radial Pulses (R), 2+ Radial Pulses (L) Gastrointestinal: normal bowel sounds, non tender Extremity: Normal Inspection, Non Tender, No Pedal Edema Neurologic/Psychiatric: Alert, Oriented x3, No Motor/Sensory Deficits, Normal Mood/Affect Skin: Normal Color, Warm/Dry Lymphatic: No Adenopathy Results Lab Laboratory Tests 07/09/21 02:45 07/10/21 02:13 Assessment/Plan Assessment/Plan See free text. Critical Care: Critically Ill Patient Time spent on discussion(mins): 0 MOHSEN BATRES MD Jul 10, 2021 11:47
--- NOTE | 2021-07-10 14:10 | Physical Therapy Daily Note ---
PT Daily Note-Current Subjective Patient in bed pre tx, agrees to PT, has no complaints of pain. Appearance Patient in bed post tx with nurse call, phone, tray, all needs met. Mental Status Patient Orientation: Person, Place, Situation Attachments: Oxygen, Asencio Catheter, IV Transfers SCALE: Activities may be completed with or without assistive devices. 8-Ckpedfceoy-foxtgop completes the activity by him/herself with no assistance from a helper. 5-Set-up or Clean-up Assistance-helper sets up or cleans up; patient completes activity. [place] assists only prior to or following the activity. 4-Supervision or Touching Assistance-helper provides verbal cues and/or touching/steadying and/or contact guard assistance as patient completes activit y. Assistance may be provided throughout the activity or intermittently. 3-Partial/Moderate Assistance-helper does LESS THAN HALF the effort. [place] lifts, holds or supports trunk or limbs, but provides less than half the effort. 2-Substantial/Maximal Assistance-helper does MORE THAN HALF the effort. [place] lifts or holds trunk or limbs and provides more than half the effort. 1-Drgbbqjjw-epukoz does ALL the effort. Patient does none of the effort to complete the activity. Or, the assistance of 2 or more helpers is required for the patient to complete the activity. If activity was not attempted, code reason: 7-Patient Refused. 9-Not Applicable-not attempted and the patient did not perform the activity before the current illness, exacerbation or injury. 10-Not Attempted due to Environmental Limitations-(lack of equipment, weather restraints, etc.). 88-Not Attempted due to Medical Conditions or Safety Concerns. Roll Left & Right (QC): 6 Sit to Lying (QC): 6 Lying to Sitting/Side of Bed(Q: 6 Patient was able to sit on the side of the bed without assist, her O2 usually drops immediately into the mid to low 80's but today it takes a couple of minutes to drop to 87% and holds there. She sits for a few minutes and her O2 gradually goes back up to 90%. Patient attempts to stand but is only able to get her feet on the floor before she gets very dizzy and her O2 at this time drops to 84%. Patient lays back down and her O2 takes a while to come back up to 90% but still, more rapidly than the last 2 days. Weight Bearing Right Lower Extremity: Right Weight Bearing/Tolerated Left Lower Extremity: Left Weight Bearing/Tolerated Exercises Supine Ex: Ankle pumps, Quad Set, Heel Slides Supine Reps: 20 Treatments bed mobility, sitting, LE strengthening Assessment Current Status: Fair Progress slightly improved oxygen desat with activity PT Short Term Goals Short Term Goals Time Frame: Jul 13, 2021 Roll Left & Right: 5 Sit to lyin Lying to sitting on side of be: 5 Sit to stand: 5 Chair/bhb-wr-ecrws transfer: 5 Toilet transfer: 5 Car transfer: 5 Walk 10 feet: 5 Walk 50 feet with two turns: 5 Walk 150 feet: 5 Walking 10ft on uneven surface: 5 1 step (curb): 5 4 steps: 5 12 steps: 5 Picking up objects: 5 PT [facility] Goals In Room Dining Server Goals PT [facility] Goals Time Frame: Jul 20, 2021 Roll Left & Right (QC): 6 Sit to Lying (QC): 6 Lying-Sitting on Side/Bed(QC): 6 Sit to Stand (QC): 6 Chair/Gsr-xu-Ogmhf Xfer(QC): 6 Toilet Transfer (QC): 6 Car Transfer (QC): 6 Does the Patient Walk: No and Walking Goal IS indicated Walk 10 feet (QC): 6 Walk 50ft with 2 Turns (QC): 6 Walk 150 ft (QC): 6 Walking 10ft on Uneven Surface: 6 1 Step (curb) (QC): 6 4 Steps (QC): 6 12 Steps (QC): 6 Picking up an Object (QC): 6 Wheel 50 feet with 2 turns (QC: 9 Wheel 150 feet: 9 PT Plan Problem List Problem List: Activity Tolerance, Functional Strength, Safety, Balance, Gait, Transfer, Bed Mobility, ROM Treatment/Plan Treatment Plan: Continue Plan of Care Treatment Plan: Bed Mobility, Functional Activity Yanni, Functional Strength, Gait, Safety, Therapeutic Exercise, Transfers Treatment Duration: Jul 20, 2021 Frequency: 11 times per week Safety Risks/Education Patient Education: Correct Positioning, Safety Issues Teaching Recipient: Patient Teaching Methods: Demonstration, Discussion Response to Teaching: Reinforcement Needed Time/GCodes Time In: 1332 Time Out: 1347 Total Billed Treatment Time: 15 Total Billed Treatment 1 visit FA LANDON GUAJARDO PT Jul 10, 2021 14:10
[2021-07-11] MEDS: guaiFENesin/DM (ROBITUSSIN DM) 10 ML UDC PO PRN ×3 (00:52→20:46)
[2021-07-11 02:00] VITALS: BP 137/86
[2021-07-11] MEDS: RT-ALBUTEROL HFA 8.5 GM INHALER IH SCH ×6 (02:00→22:17)
[2021-07-11 02:34] LABS: BASOPHILS # (AUTO) 0.1 10^3/uL (0.0-0.1); BASOPHILS % (AUTO) 1 % (0-10); EOSINOPHILS # (AUTO) 0.8 10^3/uL (0.0-0.3); EOSINOPHILS % (AUTO) 3 % (0-10); HEMATOCRIT 32 % (35-52); LYMPHOCYTES # (AUTO) 2.8 10^3/uL (1.0-4.0); LYMPHOCYTES % (AUTO) 12 % (12-44); MEAN CORPUSCULAR HEMOGLOBIN 29 pg (25-34); MEAN CORPUSCULAR HGB CONC 31 g/dL (32-36); MEAN CORPUSCULAR VOLUME 93 fL (80-99); MEAN PLATELET VOLUME 10.6 fL (9.0-12.2); MONOCYTES # (AUTO) 0.9 10^3/uL (0.0-1.0); MONOCYTES % (AUTO) 4 % (0-12); NEUTROPHILS # (AUTO) 18.1 10^3/uL (1.8-7.8); NEUTROPHILS % (AUTO) 79 % (42-75); PLATELET COUNT 318 10^3/uL (130-400); WHITE BLOOD COUNT 22.9 10^3/uL (4.3-11.0)
[2021-07-11 02:56] LABS: CALCIUM 9.6 MG/DL (8.5-10.1); CREATININE SERUM 0.99 MG/DL (0.60-1.30); MAGNESIUM 1.8 MG/DL (1.6-2.4); PHOSPHORUS 3.5 MG/DL (2.3-4.7); POTASSIUM 4.2 MMOL/L (3.6-5.0)
[2021-07-11] MEDS: POTASSIUM CL 10MEQ/50ML IVPB 50 ML IV SCH (05:13)
[2021-07-11] MEDS: KCL 20 MEQ TAB (K-DUR) PO SCH (05:13)
[2021-07-11] MEDS: MAGNESIUM 1 GM/100 ML IVPB 100 ML IV SCH (05:13)
[2021-07-11] MEDS: LEVOTHYROXINE 75 MCG (LEVOTHROID) TABLET PO SCH (06:02)
[2021-07-11] MEDS: LEVOTHYROXINE 100 MCG (LEVOTHROID) TAB PO SCH (06:02)
[2021-07-11] MEDS: inSUlin ASPART (NovoLOG) 1 UNIT/0.01 ML (CHARGE PER UNIT) SC SCH ×7 (06:02→20:49)
[2021-07-11 07:25] VITALS: BP 137/89
[2021-07-11] MEDS: PANTOPRAZOLE 40 MG (PROTONIX) TAB PO SCH (08:18)
[2021-07-11] MEDS: methylPREDNISolone 40 MG/ML (Solu-MEDROL) VIAL IV SCH (08:18)
[2021-07-11] MEDS: ENOXAPARIN 100 MG/1 ML (LOVENOX) SYR SC SCH ×2 (08:18→20:46)
[2021-07-11] MEDS: PARoxetine 10 MG (PAXIL) TAB PO SCH (08:18)
[2021-07-11] MEDS: VITAMIN D3 25 MCG (1,000 UNITS) TABLET PO SCH (08:18)
[2021-07-11] MEDS: ZINC SULFATE 220 MG CAPSULE PO SCH (08:18)
--- NOTE | 2021-07-11 10:14 | Physical Therapy Daily Note ---
PT Daily Note-Current Subjective Patient in bed pre tx, agrees to PT, has no complaints of pain. Patient has a worse cough, she states she had to have cough medicine in order to be able to breathe in her bipap last night, states some other illness has settled into her lungs on top of the covid. Appearance Patient in bed post tx with nurse call, phone, tray, all needs met. Mental Status Patient Orientation: Person, Place, Situation Attachments: Oxygen, Asencio Catheter, IV Transfers SCALE: Activities may be completed with or without assistive devices. 0-Bnmcjyuimo-rxvwwml completes the activity by him/herself with no assistance from a helper. 5-Set-up or Clean-up Assistance-helper sets up or cleans up; patient completes activity. Lane assists only prior to or following the activity. 4-Supervision or Touching Assistance-helper provides verbal cues and/or touchin g/steadying and/or contact guard assistance as patient completes activity. Assistance may be provided throughout the activity or intermittently. 3-Partial/Moderate Assistance-helper does LESS THAN HALF the effort. Lane lifts, holds or supports trunk or limbs, but provides less than half the effort. 2-Substantial/Maximal Assistance-helper does MORE THAN HALF the effort. Lane lifts or holds trunk or limbs and provides more than half the effort. 1-Hscoygypb-culphn does ALL the effort. Patient does none of the effort to complete the activity. Or, the assistance of 2 or more helpers is required for the patient to complete the activity. If activity was not attempted, code reason: 7-Patient Refused. 9-Not Applicable-not attempted and the patient did not perform the activity before the current illness, exacerbation or injury. 10-Not Attempted due to Environmental Limitations-(lack of equipment, weather restraints, etc.). 88-Not Attempted due to Medical Conditions or Safety Concerns. Weight Bearing Right Lower Extremity: Right Weight Bearing/Tolerated Left Lower Extremity: Left Weight Bearing/Tolerated Exercises Supine Ex: Ankle pumps, Quad Set, Glut sets, Heel Slides Supine Reps: 20 Treatments LE strengthening Assessment Current Status: Poor Progress Patient was not able to even sit on the side of the bed today. Patient's O2 drops into upper 80's with just performing ankle pumps, she is able to complete some exercises with rest and purse lip breathing. Patient eventually has a coughing fit and her O2 drops to mid 70's and takes a significant amount of time to come back up to 90% with purse lip breathing. She cannot tolerate sitting at this time. PT Short Term Goals Short Term Goals Time Frame: Jul 13, 2021 Roll Left & Right: 5 Sit to lyin Lying to sitting on side of be: 5 Sit to stand: 5 Chair/oay-vw-fstqn transfer: 5 Toilet transfer: 5 Car transfer: 5 Walk 10 feet: 5 Walk 50 feet with two turns: 5 Walk 150 feet: 5 Walking 10ft on uneven surface: 5 1 step (curb): 5 4 steps: 5 12 steps: 5 Picking up objects: 5 PT Penitentiary Goals Penitentiary Goals PT Ad Trafficker Goals Time Frame: Jul 20, 2021 Roll Left & Right (QC): 6 Sit to Lying (QC): 6 Lying-Sitting on Side/Bed(QC): 6 Sit to Stand (QC): 6 Chair/Xwx-tb-Jbyqy Xfer(QC): 6 Toilet Transfer (QC): 6 Car Transfer (QC): 6 Does the Patient Walk: No and Walking Goal IS indicated Walk 10 feet (QC): 6 Walk 50ft with 2 Turns (QC): 6 Walk 150 ft (QC): 6 Walking 10ft on Uneven Surface: 6 1 Step (curb) (QC): 6 4 Steps (QC): 6 12 Steps (QC): 6 Picking up an Object (QC): 6 Wheel 50 feet with 2 turns (QC: 9 Wheel 150 feet: 9 PT Plan Problem List Problem List: Activity Tolerance, Functional Strength, Safety, Balance, Gait, Transfer, Bed Mobility, ROM Treatment/Plan Treatment Plan: Continue Plan of Care Treatment Plan: Bed Mobility, Functional Activity Yanni, Functional Strength, Gait, Safety, Therapeutic Exercise, Transfers Treatment Duration: Jul 20, 2021 Frequency: 11 times per week Safety Risks/Education Patient Education: Correct Positioning, Safety Issues Teaching Recipient: Patient Teaching Methods: Demonstration, Discussion Response to Teaching: Reinforcement Needed Time/GCodes Time In: 948 Time Out: 957 Total Billed Treatment Time: 9 Total Billed Treatment 1 visit EX LANDON PÉREZ PT Jul 11, 2021 10:14
--- NOTE | 2021-07-11 10:18 | Diagnostic Imaging Report ---
INDICATION: Covid pneumonia. TIME OF EXAM: 9:16 a.m. Correlation is made with prior chest from 07/08/2021. Heart appears enlarged but stable. Bilateral infiltrates show some mild improvement however do remain. There is no effusion or pneumothorax. Left upper extremity PICC line has tip overlying the right atrium. IMPRESSION: There has been some mild improvement in bilateral infiltrates when compared to the examination 3 days earlier. Dictated by: Dictated on workstation # [id number]
--- NOTE | 2021-07-11 14:05 | Progress Note - Hospitalist ---
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 She first started having symptoms two weeks ago. A week and a half ag o she tested positive for COVID-19. She was not vaccinated. She was started on Prednisone. She continued to worsen with shortness of breath and cough and presented to the ER. Subjective/Events-last exam She is feeling a bit worse today. She is coughing. She feels short of breath. She has been eating and drinking. Focused Exam Time of Focused Exam: 22:00 Objective Exam Vital Signs Vital Signs Date Time Temp Pulse Resp B/P (MAP) Pulse Ox O2 Delivery O2 Flow Rate FiO2 07/11/21 12:00 92 21 129/87 95 NIV Bilevel 70.00 07/11/21 11:03 100 07/11/21 08:00 35.9 Capillary Refill : Less Than 3 Seconds General Appearance: No Apparent Distress, Obese Respiratory: Lungs Clear, Normal Breath Sounds, No Respiratory Distress Cardiovascular: Regular Rate, Rhythm, No Edema, No Murmur Gastrointestinal: Normal Bowel Sounds, Non Tender, Soft Extremity: Normal Inspection, Non Tender, No Pedal Edema Neurologic/Psychiatric: Alert, Oriented x3, Normal Mood/Affect, Motor Weakness Skin: Normal Color, Warm/Dry Results/Procedures Lab Laboratory Tests 07/11/21 02:20 Patient resulted labs reviewed. Imaging: Reviewed Imaging Report Assessment/Plan Assessment and Plan Assess & Plan/Chief Complaint Acute respiratory failure due to COVID-19 Hypercoagulable state associated with COVID-19 Requiring BiPAP/Vapotherm Continue therapeutic Lovenox Transition to Prednisone, taper Continue Ly TeleICU consulted, appreciate assistance Discussed case with [place], submitting to insurance Type 2 diabetes mellitus with ketoacidosis DKA resolved Continue Levemir Continue sliding scale Obesity Clinically significant, no acute management needs DVT prophylaxis: already receiving therapeutic anticoagulation Critical Care Critically Ill Patient Diagnosis/Problems Diagnosis/Problems (1) Acute respiratory failure due to COVID-19 Status: Acute (2) Hypercoagulable state associated with COVID-19 Status: Acute (3) T2DM (type 2 diabetes mellitus) Status: Acute Qualifiers: Diabetes mellitus 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
--- NOTE | 2021-07-11 15:53 | Occupational Therapy Eval ---
OT Evaluation-General/PLF Medical Diagnosis Admission Date Jun 25, 2021 at 23:08 Medical Diagnosis: Covid Onset Date: Jun 25, 2021 Therapy Diagnosis Therapy Diagnosis: decreased ADL Status Precautions Precautions/Isolations: Airborne Isolation, Droplet Isolation Referral Physician: Flaco Morgan Reason: Evaluation/Treatment Medical History Pertinent Medical History: DM, Hypothroidism Additional Medical History obesity Current History ED due to SOB ADL-Prior Level of Function SCALE: Activities may be completed with or without assistive devices. 4-Ekfykevrkc-rzpsuda completes the activity by him/herself with no assistance from a helper. 5-Set-up or Clean-up Assistance-helper sets up or cleans up; patient completes activity. [place] assists only prior to or following the activity. 4-Supervision or Touching Assistance-helper provides verbal cues and/or touching/steadying and/or contact guard assistance as patient completes activity. Assistance may be provided throughout the activity or intermittently. 3-Partial/Moderate Assistance-helper does LESS THAN HALF the effort. [place] lifts, holds or supports trunk or limbs, but provides less than half the effort. 2-Substantial/Maximal Assistance-helper does MORE THAN HALF the effort. [place] lifts or holds trunk or limbs and provides more than half the effort. 2-Odgmyxjmk-hbmfmq does ALL the effort. Patient does none of the effort to complete the activity. Or, the assistance of 2 or more helpers is required for the patient to complete the activity. If activity was not attempted, code reason: 7-Patient Refused. 9-Not Applicable-not attempted and the patient did not perform the activity before the current illness, exacerbation or injury. 10-Not Attempted due to Environmental Limitations-(lack of equipment, weather restraints, etc.). 88-Not Attempted due to Medical Conditions or Safety Concerns. ADL PLOF Comments Pt reports IND with ADLs at PLOF, no AD/AE Self Care: Independent Functional Cognition: Independent OT Current Status Subjective Pt up in recliner, nurse present. Agreeable to OT tx. Mental Status/Objective Patient Orientation: Person, Place, Situation Attachments: Oxygen Current Glasses/Contacts: Yes Upper Extremity ROM WFL Upper Extremity Strength grossly 3+/5 BUEs ADL-Treatment Eating (QC): 6 (per pt report) Oral Hygiene (QC): 5 (set up assist) Shower/Bathe Self (QC): 2 (per nursing report, max A due to SOB with task.) Other Treatments Pt seated in recliner. OT educated pt on purpose and benefit of OT, she verbalized understanding. Pt provided information about PLOF and home set up. Pt brushed her teeth with set up assistance. Nurse had assisted pt with shower cap, OT removed shower cap and assisted pt with brushing her long hair (max A), then OT put hair in braid in order to decrease future tangles. Pt's O2 saturation remained in 90%'s throughout tx. Post session, pt up in recliner, call light in reach and all needs met. Education OT Patient Education: Correct positioning, Modified ADL techniques, Progress toward Goal/Update tx plan, Purpose of tx/functional activities Teaching Recipient: Patient Teaching Methods: Discussion Response to Teaching: Verbalize Understanding OT Front Man Goals Fpc Goals Time Frame: Jul 26, 2021 Eating (QC): 6 Oral Hygiene (QC): 6 Toileting Hygiene (QC): 4 Shower/Bathe Self (QC): 4 Upper Body Dressing (QC): 5 Lower Body Dressing (QC): 4 On/Off Footwear (QC): 4 Additional Goals: 1-Demonstrate ADL Tasks, 2-Verbalize Understanding, 3-ImproveStrength/Yanni 1=Demonstrate adherence to instructed precautions during ADL tasks. 2=Patient will verbalize/demonstrate understanding of assistive devices/modifications for ADL. 3=Patient will improve strength/tolerance for activity to enable patient to perform ADL's. OT Education/Plan Problem List/Assessment Assessment: Decreased Activ Tolerance, Decreased UE Strength, Impaired Funct Balance, Impaired I ADL's, Impaired Self-Care Skills, Restricted Funct UE ROM Discharge Recommendations Plan/Recommendations: Continue POC Treatment Plan/Plan of Care Patient would benefit from OT for education, treatment and training to promote independence in ADL's, mobility, safety and/or upper extremity function for ADL's. Plan of Care: ADL Retraining, Functional Mobility, UE Funct Exercise/Act Treatment Duration: Jul 26, 2021 Frequency: 5 times per week Estimated Hrs Per Day: .25 hour per day Rehab Potential: Good Time/GCodes Start Time: 15:15 Stop Time: 15:35 Total Time Billed (hr/min): 20 Billed Treatment Time 1, ARAM MARTIN OT Jul 11, 2021 15:53
[2021-07-12 03:31] VITALS: BP 129/93
[2021-07-12] MEDS: RT-ALBUTEROL HFA 8.5 GM INHALER IH SCH ×6 (03:31→23:04)
[2021-07-12 04:15] LABS: BASOPHILS # (AUTO) 0.1 10^3/uL (0.0-0.1); BASOPHILS % (AUTO) 1 % (0-10); EOSINOPHILS % (AUTO) 5 % (0-10); HEMATOCRIT 34 % (35-52); HEMOGLOBIN 10.7 g/dL (11.5-16.0); LYMPHOCYTES # (AUTO) 2.5 10^3/uL (1.0-4.0); LYMPHOCYTES % (AUTO) 13 % (12-44); MEAN CORPUSCULAR HEMOGLOBIN 30 pg (25-34); MEAN CORPUSCULAR HGB CONC 32 g/dL (32-36); MEAN CORPUSCULAR VOLUME 93 fL (80-99); MEAN PLATELET VOLUME 10.7 fL (9.0-12.2); MONOCYTES % (AUTO) 5 % (0-12); NEUTROPHILS # (AUTO) 15.4 10^3/uL (1.8-7.8); NEUTROPHILS % (AUTO) 76 % (42-75); PLATELET COUNT 363 10^3/uL (130-400); WHITE BLOOD COUNT 20.2 10^3/uL (4.3-11.0)
[2021-07-12 04:26] LABS: CALCIUM 9.8 MG/DL (8.5-10.1)
[2021-07-12 04:30] LABS: PHOSPHORUS 3.8 MG/DL (2.3-4.7)
[2021-07-12 04:31] LABS: CREATININE SERUM 0.82 MG/DL (0.60-1.30)
[2021-07-12 04:33] LABS: MAGNESIUM 1.9 MG/DL (1.6-2.4)
[2021-07-12] MEDS: KCL 20 MEQ TAB (K-DUR) PO SCH (05:39)
[2021-07-12] MEDS: MAGNESIUM 1 GM/100 ML IVPB 100 ML IV SCH (05:39)
[2021-07-12] MEDS: POTASSIUM CL 10MEQ/50ML IVPB 50 ML IV SCH (05:39)
[2021-07-12] MEDS: inSUlin ASPART (NovoLOG) 1 UNIT/0.01 ML (CHARGE PER UNIT) SC SCH ×7 (06:08→20:36)
[2021-07-12] MEDS: LEVOTHYROXINE 75 MCG (LEVOTHROID) TABLET PO SCH (06:08)
[2021-07-12] MEDS: LEVOTHYROXINE 100 MCG (LEVOTHROID) TAB PO SCH (06:08)
[2021-07-12] MEDS: predniSONE 20 MG TAB PO SCH (06:09)
[2021-07-12 08:02] VITALS: BP 135/85
--- NOTE | 2021-07-12 08:48 | Tele-ICU Progress Note ---
Subjective Date Seen by a Provider: Jul 11, 2021 Time Seen by a Provider: 10:04 Sepsis Event Evaluation Height, Weight, BMI Height: '" Weight: lbs. oz. kg; 37.82 BMI Method: Focused Exam Time of Focused Exam: 22:00 Exam Exam Patient acknowledged, consented, and participated in this virtual visit which was conducted using real time audio/video Vital Signs Date Time Temp Pulse Resp B/P (MAP) Pulse Ox O2 Delivery O2 Flow Rate FiO2 07/12/21 08:02 84 31 96 85.00 07/12/21 08:00 82 21 135/88 95 NIV Bilevel 85.00 07/12/21 07:00 82 07/12/21 07:00 86 20 136/92 95 NIV Bilevel 85.00 07/12/21 06:00 81 19 128/85 96 NIV Bilevel 85.00 07/12/21 05:00 81 20 137/92 94 NIV Bilevel 85.00 07/12/21 04:00 94 NIV Bilevel 85 07/12/21 04:00 86 20 130/90 94 NIV Bilevel 85.00 07/12/21 03:31 87 30 91 85.00 07/12/21 03:00 85 24 129/93 93 NIV Bilevel 85.00 07/12/21 02:00 87 21 133/96 96 NIV Bilevel 85.00 07/12/21 02:00 NIV Bilevel 85.00 07/12/21 01:00 87 07/12/21 01:00 87 24 127/89 94 NIV Bilevel 100.00 07/12/21 00:00 89 28 136/89 95 NIV Bilevel 100.00 07/11/21 23:30 94 NIV Bilevel 100 07/11/21 23:30 36.8 NIV Bilevel 100.00 07/11/21 23:00 88 24 138/83 91 Vapotherm 35.00 100.00 07/11/21 22:17 95 Vapotherm 35.00 100 07/11/21 22:00 90 24 132/81 94 Vapotherm 35.00 100.00 07/11/21 21:00 90 18 115/75 97 Vapotherm 35.00 100.00 07/11/21 20:45 Vapotherm 35.00 100.00 07/11/21 20:00 91 30 111/75 95 Vapotherm 30.00 85.00 07/11/21 19:30 85 Vapotherm 30 07/11/21 19:25 36.0 96 27 131/68 95 Vapotherm 30.00 85.00 07/11/21 19:00 98 36 131/68 97 Vapotherm 35.00 90.00 07/11/21 19:00 Vapotherm 35.00 90.00 07/11/21 19:00 98 07/11/21 18:21 100 Vapotherm 35.00 95 07/11/21 18:00 89 33 33/99 99 NIV Bilevel 70.00 07/11/21 17:00 94 27 124/81 99 NIV Bilevel 70.00 07/11/21 16:00 93 9 125/76 98 NIV Bilevel 70.00 07/11/21 15:49 35.7 07/11/21 15:49 95 Vapotherm 35.00 90 07/11/21 15:00 101 28 133/89 89 NIV Bilevel 70.00 07/11/21 14:42 100 Vapotherm 35.00 100 07/11/21 14:00 101 30 134/77 83 NIV Bilevel 70.00 07/11/21 13:00 97 07/11/21 13:00 96 39 152/99 94 NIV Bilevel 70.00 07/11/21 12:00 92 21 129/87 95 NIV Bilevel 70.00 07/11/21 11:03 94 Vapotherm 35.00 100 07/11/21 11:00 94 23 135/83 94 NIV Bilevel 70.00 07/11/21 10:44 94 Vapotherm 36.00 100 07/11/21 10:00 94 22 129/71 89 NIV Bilevel 70.00 07/11/21 09:00 87 20 98 NIV Bilevel 70.00 I & O 07/12/21 07:00 Intake Total 1495 ml Output Total 2125 ml Balance -630 ml Height & Weight Height: '" Weight: lbs. oz. kg; 37.82 BMI Method: General Appearance: No Apparent Distress, Obese HEENT: PERRL/EOMI, Pharynx Normal Neck: Normal Inspection, Supple Respiratory: Lungs Clear, Normal Breath Sounds, No Respiratory Distress Cardiovascular: Regular Rate, Rhythm, No Edema, No Murmur Capillary Refill: Less Than 3 Seconds Peripheral Pulses: 2+ Radial Pulses (R), 2+ Radial Pulses (L) Gastrointestinal: normal bowel sounds, non tender Extremity: Normal Inspection, Non Tender, No Pedal Edema Neurologic/Psychiatric: Alert, Oriented x3, Normal Mood/Affect, Motor Weakness Skin: Normal Color, Warm/Dry Lymphatic: No Adenopathy Results Lab Laboratory Tests 07/11/21 02:20 07/12/21 04:10 Assessment/Plan Assessment/Plan Tele-ICU Physician , Progress Note ) Available chart/ vitals / labs / Images reviewed Video assessment done using teleICU camera, rest of exam as per RN Discussed wt RN Events overnight : disating on vapotherm Afebrile I/O = neg 500 Drips: Pressors: , hemodynamically stable EXAM PER RN Consultants: Hospital course: 06/25 to ICU - COVID-NIV.. 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 increase dose -close f/up on steroids Lines : PICC 8/23 (Central Line Necessity Reviewed) Asencio: + OG: Nutrition: Po Analgesia: Anxiety/ delirium na VTE Prophylaxis: full dose lovenox Stress Ulcer Prophylaxis: ppi Plans in collaboration with bedside consultants and IM MDs. Discussed with RN to reach out if any questions or concerns A total of 35 minutes of critical care time was devoted to this patient today, required to treat and/or prevent further deterioration of critical care condition ( as above) . AZUL DRAPER MD Jul 12, 2021 08:48
[2021-07-12] MEDS ORDERED: methylPREDNISolone 40 MG/ML (Solu-MEDROL) VIAL IV SCH (09:00)
[2021-07-12] MEDS: VITAMIN D3 25 MCG (1,000 UNITS) TABLET PO SCH (09:14)
[2021-07-12] MEDS: ZINC SULFATE 220 MG CAPSULE PO SCH (09:15)
[2021-07-12] MEDS: PANTOPRAZOLE 40 MG (PROTONIX) TAB PO SCH (09:15)
[2021-07-12] MEDS: ENOXAPARIN 100 MG/1 ML (LOVENOX) SYR SC SCH ×2 (09:15→20:32)
[2021-07-12] MEDS: PARoxetine 10 MG (PAXIL) TAB PO SCH (09:16)
--- NOTE | 2021-07-12 09:19 | Progress Note ---
Subjective Date Seen by a Provider: Jul 12, 2021 Time Seen by a Provider: 08:50 Subjective/Events-last exam Kamille Miller is doing well compared to yesterday. HGB has stabilized at 8 from 7.7 yesterday, no visible external bleeding. The patient was extubated yesterday morning and is on bipap, FiO2 70% PIP 16 expiratory pressure 10. She is tachypneic on this with RR over 20 but is not currently showing signs of respiratory fatigue. Focused Exam Time of Focused Exam: 22:00 Objective Exam Last Set of Vital Signs Vital Signs Date Time Temp Pulse Resp B/P (MAP) Pulse Ox O2 Delivery O2 Flow Rate FiO2 07/12/21 09:01 35.9 07/12/21 08:02 84 31 96 85.00 07/12/21 08:00 135/88 NIV Bilevel 07/12/21 04:00 85 Capillary Refill : Less Than 3 Seconds I&O Intake and Output 07/12/21 00:00 Intake Total 1470 ml Output Total 2275 ml Balance -805 ml Intake Oral 1470 ml Output Urine Total 2275 ml General: Alert, Other (breathing through bipap. Looks at provider when in the room but not attempting to speak. ) HEENT: EOMI Neck: Other (bandage over prior left central line site without seepage of blood.) Lungs: Clear to Auscultation, Normal Air Movement Heart: Regular Rate Abdomen: Soft, No Tenderness Skin: No Rashes (no rashes to face, chest, upper extremities) Results Lab Laboratory Tests 07/11/21 10:00: Glucometer 281H 07/11/21 15:32: Glucometer 366H 07/11/21 20:39: Glucometer 282H 07/12/21 04:10: White Blood Count 20.2H, Red Blood Count 3.63L, Hemoglobin 10.7L, Hematocrit 34L , Mean Corpuscular Volume 93, Mean Corpuscular Hemoglobin 30, Mean Corpuscular Hemoglobin Concent 32, Red Cell Distribution Width 14.4, Platelet Count 363, Mean Platelet Volume 10.7, Immature Granulocyte % (Auto) 1, Neutrophils (%) (Auto) 76H, Lymphocytes (%) (Auto) 13, Monocytes (%) (Auto) 5, Eosinophils (%) (Auto) 5, Basophils (%) (Auto) 1, Neutrophils # (Auto) 15.4H, Lymphocytes # (Auto) 2.5, Monocytes # (Auto) 1.0, Eosinophils # (Auto) 1.0H, Basophils # (Auto) 0.1, Immature Granulocyte # (Auto) 0.2H, Sodium Level 135, Potassium Level 4.0, Chloride Level 96L, Carbon Dioxide Level 26, Anion Gap 13, Blood Urea Nitrogen 19H, Creatinine 0.82, Estimat Glomerular Filtration Rate 74, BUN/Creatinine Ratio 23, Glucose Level 115H, Calcium Level 9.8, Phosphorus Level 3.8, Magnesium Level 1.9 07/12/21 06:07: Glucometer 142H Microbiology 06/26/21 Blood Culture - Final, Complete No growth 06/26/21 MRSA Screen - Final, Complete MRSA not isolated Assessment/Plan Assessment/Plan Assess & Plan/Chief Complaint recent anemia, external bleed -HGB stabilized, external bleeding controlled. No obvious intra-oral blood. -lovenox restarted. COVID 19 -extubated, tolerating bipap -continue to monitor ABGs for worsening hypercapnia and acidosis -continue aggressive supportive care measures -prognosis guarded JESSIE GENAO Jul 12, 2021 09:19
--- NOTE | 2021-07-12 09:46 | Tele-ICU Progress Note ---
Subjective Date Seen by a Provider: Jul 12, 2021 Time Seen by a Provider: 09:46 Sepsis Event Evaluation Height, Weight, BMI Height: '" Weight: lbs. oz. kg; 37.82 BMI Method: Focused Exam Time of Focused Exam: 22:00 Exam Exam Patient acknowledged, consented, and participated in this virtual visit which was conducted using real time audio/video Vital Signs Date Time Temp Pulse Resp B/P (MAP) Pulse Ox O2 Delivery O2 Flow Rate FiO2 07/12/21 09:19 90 Vapotherm 40.00 100.00 07/12/21 09:01 35.9 07/12/21 09:00 89 13 137/91 94 NIV Bilevel 85.00 07/12/21 09:00 95 NIV Bilevel 85 07/12/21 08:02 84 31 96 85.00 07/12/21 08:00 82 21 135/88 95 NIV Bilevel 85.00 07/12/21 07:00 82 07/12/21 07:00 86 20 136/92 95 NIV Bilevel 85.00 07/12/21 06:00 81 19 128/85 96 NIV Bilevel 85.00 07/12/21 05:00 81 20 137/92 94 NIV Bilevel 85.00 07/12/21 04:00 94 NIV Bilevel 85 07/12/21 04:00 86 20 130/90 94 NIV Bilevel 85.00 07/12/21 03:31 87 30 91 85.00 07/12/21 03:00 85 24 129/93 93 NIV Bilevel 85.00 07/12/21 02:00 87 21 133/96 96 NIV Bilevel 85.00 07/12/21 02:00 NIV Bilevel 85.00 07/12/21 01:00 87 07/12/21 01:00 87 24 127/89 94 NIV Bilevel 100.00 07/12/21 00:00 89 28 136/89 95 NIV Bilevel 100.00 07/11/21 23:30 94 NIV Bilevel 100 07/11/21 23:30 36.8 NIV Bilevel 100.00 07/11/21 23:00 88 24 138/83 91 Vapotherm 35.00 100.00 07/11/21 22:17 95 Vapotherm 35.00 100 07/11/21 22:00 90 24 132/81 94 Vapotherm 35.00 100.00 07/11/21 21:00 90 18 115/75 97 Vapotherm 35.00 100.00 07/11/21 20:45 Vapotherm 35.00 100.00 07/11/21 20:00 91 30 111/75 95 Vapotherm 30.00 85.00 07/11/21 19:30 85 Vapotherm 30 07/11/21 19:25 36.0 96 27 131/68 95 Vapotherm 30.00 85.00 07/11/21 19:00 98 36 131/68 97 Vapotherm 35.00 90.00 07/11/21 19:00 Vapotherm 35.00 90.00 07/11/21 19:00 98 07/11/21 18:21 100 Vapotherm 35.00 95 07/11/21 18:00 89 33 33/99 99 NIV Bilevel 70.00 07/11/21 17:00 94 27 124/81 99 NIV Bilevel 70.00 07/11/21 16:00 93 9 125/76 98 NIV Bilevel 70.00 07/11/21 15:49 35.7 07/11/21 15:49 95 Vapotherm 35.00 90 07/11/21 15:00 101 28 133/89 89 NIV Bilevel 70.00 07/11/21 14:42 100 Vapotherm 35.00 100 07/11/21 14:00 101 30 134/77 83 NIV Bilevel 70.00 07/11/21 13:00 97 07/11/21 13:00 96 39 152/99 94 NIV Bilevel 70.00 07/11/21 12:00 92 21 129/87 95 NIV Bilevel 70.00 07/11/21 11:03 94 Vapotherm 35.00 100 07/11/21 11:00 94 23 135/83 94 NIV Bilevel 70.00 07/11/21 10:44 94 Vapotherm 36.00 100 07/11/21 10:00 94 22 129/71 89 NIV Bilevel 70.00 I & O 07/12/21 07:00 Intake Total 1495 ml Output Total 2125 ml Balance -630 ml Height & Weight Height: '" Weight: lbs. oz. kg; 37.82 BMI Method: General Appearance: No Apparent Distress, Obese HEENT: PERRL/EOMI, Pharynx Normal Neck: Normal Inspection, Supple Respiratory: Lungs Clear, Normal Breath Sounds, No Respiratory Distress Cardiovascular: Regular Rate, Rhythm, No Edema, No Murmur Capillary Refill: Less Than 3 Seconds Peripheral Pulses: 2+ Radial Pulses (R), 2+ Radial Pulses (L) Gastrointestinal: normal bowel sounds, non tender Extremity: Normal Inspection, Non Tender, No Pedal Edema Neurologic/Psychiatric: Alert, Oriented x3, Normal Mood/Affect, Motor Weakness Skin: Normal Color, Warm/Dry Lymphatic: No Adenopathy Results Lab Laboratory Tests 07/11/21 02:20 07/12/21 04:10 Assessment/Plan Assessment/Plan Tele-ICU Physician , Progress Note ) Available chart/ vitals / labs / Images reviewed Video assessment done using teleICU camera, rest of exam as per RN Discussed wt RN Events overnight : disating on vapotherm Afebrile I/O = neg 800 Drips: Pressors: , hemodynamically stable EXAM PER RN Consultants: Hospital course: 06/25 to ICU - COVID-NIV.. 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 increase dose -close f/up on steroids Lines : PICC 07/01 (Central Line Necessity Reviewed) Asencio: + OG: Nutrition: Po Analgesia: Anxiety/ delirium na VTE Prophylaxis: full dose lovenox Stress Ulcer Prophylaxis: ppi Plans in collaboration with bedside consultants and IM MDs. Discussed with RN to reach out if any questions or concerns A total of 35 minutes of critical care time was devoted to this patient today, required to treat and/or prevent further deterioration of critical care condition ( as above) . AZUL DRAPER MD Jul 12, 2021 09:46
--- NOTE | 2021-07-12 10:53 | Physical Therapy Daily Note ---
PT Daily Note-Current Subjective Patient in bed pre tx, agrees to PT, has no complaints of pain. Appearance Patient in recliner post tx with nurse call, phone, tray, all needs met. Mental Status Patient Orientation: Person, Place, Situation Attachments: Oxygen, Asencio Catheter Transfers SCALE: Activities may be completed with or without assistive devices. 2-Suhidfttyo-ovykxfd completes the activity by him/herself with no assistance from a helper. 5-Set-up or Clean-up Assistance-helper sets up or cleans up; patient completes activity. [place] assists only prior to or following the activity. 4-Supervision or Touching Assistance-helper provides verbal cues and/or touching/steadying and/or contact guard assistance as patient completes activi ty. Assistance may be provided throughout the activity or intermittently. 3-Partial/Moderate Assistance-helper does LESS THAN HALF the effort. [place] lifts, holds or supports trunk or limbs, but provides less than half the effort. 2-Substantial/Maximal Assistance-helper does MORE THAN HALF the effort. [place] lifts or holds trunk or limbs and provides more than half the effort. 8-Btelrndkj-bvcium does ALL the effort. Patient does none of the effort to complete the activity. Or, the assistance of 2 or more helpers is required for the patient to complete the activity. If activity was not attempted, code reason: 7-Patient Refused. 9-Not Applicable-not attempted and the patient did not perform the activity before the current illness, exacerbation or injury. 10-Not Attempted due to Environmental Limitations-(lack of equipment, weather restraints, etc.). 88-Not Attempted due to Medical Conditions or Safety Concerns. Roll Left & Right (QC): 6 Lying to Sitting/Side of Bed(Q: 6 Sit to Stand (QC): 4 Chair/Ldv-pn-Fzjlf Xfer(QC): 4 patient transfers to recliner from bed, has to take several steps, CGA Weight Bearing Right Lower Extremity: Right Weight Bearing/Tolerated Left Lower Extremity: Left Weight Bearing/Tolerated Exercises Seated Therapy Exercises: Ankle pumps, Long arc quads Seated Reps: 20 Treatments transfers, LE strengthening Assessment Current Status: Fair Progress Patient's O2 drops into the low 70's with the transfer from bed to recliner, after sitting and purse lip breathing her O2 comes back up to 90% after about a minute to a minute and a half. PT Short Term Goals Short Term Goals Time Frame: Jul 13, 2021 Roll Left & Right: 5 Sit to lyin Lying to sitting on side of be: 5 Sit to stand: 5 Chair/zyd-dp-uxhry transfer: 5 Toilet transfer: 5 Car transfer: 5 Walk 10 feet: 5 Walk 50 feet with two turns: 5 Walk 150 feet: 5 Walking 10ft on uneven surface: 5 1 step (curb): 5 4 steps: 5 12 steps: 5 Picking up objects: 5 PT Community Outreach Coordinator Goals Community Outreach Coordinator Goals PT Custodial Goals Time Frame: Jul 20, 2021 Roll Left & Right (QC): 6 Sit to Lying (QC): 6 Lying-Sitting on Side/Bed(QC): 6 Sit to Stand (QC): 6 Chair/Glr-qy-Vzdvc Xfer(QC): 6 Toilet Transfer (QC): 6 Car Transfer (QC): 6 Does the Patient Walk: No and Walking Goal IS indicated Walk 10 feet (QC): 6 Walk 50ft with 2 Turns (QC): 6 Walk 150 ft (QC): 6 Walking 10ft on Uneven Surface: 6 1 Step (curb) (QC): 6 4 Steps (QC): 6 12 Steps (QC): 6 Picking up an Object (QC): 6 Wheel 50 feet with 2 turns (QC: 9 Wheel 150 feet: 9 PT Plan Problem List Problem List: Activity Tolerance, Functional Strength, Safety, Balance, Gait, Transfer, Bed Mobility, ROM Treatment/Plan Treatment Plan: Continue Plan of Care Treatment Plan: Bed Mobility, Functional Activity Yanni, Functional Strength, Gait, Safety, Therapeutic Exercise, Transfers Treatment Duration: Jul 20, 2021 Frequency: 11 times per week Safety Risks/Education Patient Education: Transfer Techniques, Correct Positioning, Safety Issues Teaching Recipient: Patient Teaching Methods: Demonstration, Discussion Response to Teaching: Reinforcement Needed Time/GCodes Time In: 1032 Time Out: 1043 Total Billed Treatment Time: 11 Total Billed Treatment 1 visit FA Kristie' LANDON BUTCHER PT Jul 12, 2021 10:53
[2021-07-12] MEDS: guaiFENesin/DM (ROBITUSSIN DM) 10 ML UDC PO PRN ×2 (11:55→22:40)
--- NOTE | 2021-07-12 12:25 | Occupational Ther Daily Note ---
OT Current Status-Daily Note Subjective Pt up in chair, requests to return to bed. O2 saturation at 82% upon OT entry, dropping to low 60%'s with transfer to bed. Nurse present and switched pt to BiPAP. Mental Status/Objective Patient Orientation: Person, Place, Situation Attachments: Asencio Catheter, IV, Oxygen, Telemetry ADL-Treatment Therapy Code Descriptions/Definitions Functional [place] Measure: 0=Not Assessed/NA 4=Minimal Assistance 1=Total Assistance 5=Supervision or Setup 2=Maximal Assistance 6=Modified [place] 3=Moderate Assistance 7=Complete IndependenceSCALE: Activities may be completed with or without assistive devices. 7-Nmrywbjfnf-qqwbxmn completes the activity by him/herself with no assistance from a helper. 5-Set-up or Clean-up Assistance-helper sets up or cleans up; patient completes a ctivity. [place] assists only prior to or following the activity. 4-Supervision or Touching Assistance-helper provides verbal cues and/or touching/steadying and/or contact guard assistance as patient completes activity. Assistance may be provided throughout the activity or intermittently. 3-Partial/Moderate Assistance-helper does LESS THAN HALF the effort. [place] lifts, holds or supports trunk or limbs, but provides less than half the effort. 2-Substantial/Maximal Assistance-helper does MORE THAN HALF the effort. [place] lifts or holds trunk or limbs and provides more than half the effort. 4-Idhjjsfja-zabdww does ALL the effort. Patient does none of the effort to complete the activity. Or, the assistance of 2 or more helpers is required for the patient to complete the activity. If activity was not attempted, code reason: 7-Patient Refused. 9-Not Applicable-not attempted and the patient did not perform the activity before the current illness, exacerbation or injury. 10-Not Attempted due to Environmental Limitations-(lack of equipment, weather restraints, etc.). 88-Not Attempted due to Medical Conditions or Safety Concerns. Other Treatment Pt up in chair O2 saturation at 82%, OT encouraged pursed lip breathing, O2 saturation increased to 84% after several minutes. Pt transferred from recliner to bed, min A with hand held assistance. Pt transferred supine and boosted towards HOB with assist x2. O2 saturation in low 60%'s with shallow breaths noted, pt encouraged to complete pursed lip breathing, but pt states difficulty breathing with vapotherm. Nurse present and switched pt to BiPAP, O2 saturation increased to 92% after a couple minutes. Post tx, pt in bed, call light in reach and all needs met. Education OT Patient Education: Correct positioning, Modified ADL techniques, Progress toward Goal/Update tx plan, Purpose of tx/functional activities, Rehab process Teaching Recipient: Patient Teaching Methods: Discussion Response to Teaching: Verbalize Understanding OT Long-Term Goals Long-Term Goals Time Frame: Jul 26, 2021 Eating (QC): 6 Oral Hygiene (QC): 6 Toileting Hygiene (QC): 4 Shower/Bathe Self (QC): 4 Upper Body Dressing (QC): 5 Lower Body Dressing (QC): 4 On/Off Footwear (QC): 4 Additional Goals: 1-Demonstrate ADL Tasks, 2-Verbalize Understanding, 3- ImproveStrength/Yanni 1=Demonstrate adherence to instructed precautions during ADL tasks. 2=Patient will verbalize/demonstrate understanding of assistive devices/ modifications for ADL. 3=Patient will improve strength/tolerance for activity to enable patient to perform ADL's. OT Education/Plan Problem List/Assessment Assessment: Decreased Activ Tolerance, Decreased UE Strength, Impaired Bed Mobility, Impaired Funct Balance, Impaired I ADL's, Impaired Self-Care Skills Discharge Recommendations Plan/Recommendations: Continue POC Treatment Plan/Plan of Care Patient would benefit from OT for education, treatment and training to promote independence in ADL's, mobility, safety and/or upper extremity function for ADL's. Plan of Care: ADL Retraining, Functional Mobility, UE Funct Exercise/Act Treatment Duration: Jul 26, 2021 Frequency: 5 times per week Estimated Hrs Per Day: .25 hour per day Rehab Potential: Good Time/GCodes Start Time: 11:40 Stop Time: 11:52 Total Time Billed (hr/min): 12 Billed Treatment Time 1, FA ARAM COLLAZO OT Jul 12, 2021 12:25
--- NOTE | 2021-07-12 15:02 | Progress Note - Hospitalist ---
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 She first started having symptoms two weeks ago. A week and a half ag o she tested positive for COVID-19. She was not vaccinated. She was started on Prednisone. She continued to worsen with shortness of breath and cough and presented to the ER. Subjective/Events-last exam She is not short of breath. She is eating breakfast. She denies fevers. Focused Exam Time of Focused Exam: 22:00 Objective Exam Vital Signs Vital Signs Date Time Temp Pulse Resp B/P (MAP) Pulse Ox O2 Delivery O2 Flow Rate FiO2 07/12/21 14:00 98 16 126/82 93 NIV Bilevel 85.00 07/12/21 13:38 100 07/12/21 12:00 36.5 Capillary Refill : Less Than 3 Seconds General Appearance: No Apparent Distress, Obese Respiratory: No Respiratory Distress, Decreased Breath Sounds, Other (wearing Vapotherm) Cardiovascular: Regular Rate, Rhythm, No Edema, No Murmur Gastrointestinal: Normal Bowel Sounds, Non Tender, Soft Extremity: Normal Inspection, Non Tender, No Pedal Edema Neurologic/Psychiatric: Alert, Oriented x3, Normal Mood/Affect, Motor Weakness Skin: Normal Color, Warm/Dry Results/Procedures Lab Laboratory Tests 07/12/21 04:10 Patient resulted labs reviewed. Imaging: Reviewed Imaging Report Assessment/Plan Assessment and Plan Assess & Plan/Chief Complaint Acute respiratory failure due to COVID-19 Hypercoagulable state associated with COVID-19 Requiring BiPAP/Vapotherm Continue therapeutic Lovenox Prednisone taper Continue Ly TeleICU consulted, appreciate assistance Pending transfer to [place], awaiting insurance authorization Type 2 diabetes mellitus with ketoacidosis DKA resolved Continue Levemir Continue sliding scale Obesity Clinically significant, no acute management needs DVT prophylaxis: already receiving therapeutic anticoagulation Critical Care Critically Ill Patient Diagnosis/Problems Diagnosis/Problems (1) Acute respiratory failure due to COVID-19 Status: Acute (2) Hypercoagulable state associated with COVID-19 Status: Acute (3) T2DM (type 2 diabetes mellitus) Status: Acute Qualifiers: Diabetes mellitus termite treater helper insulin use: with termite treater helper use Diabetes mellitus complication status: with ketoacidosis Diabetes mellitus complication detail: without coma Qualified Codes: E11.10 - Type 2 diabetes mellitus with ketoacidosis without coma; Z79.4 - termite treater helper (current) use of insulin (4) Morbid obesity Status: Acute ROXANNA BLEDSOE MD Jul 12, 2021 15:02
[2021-07-12 23:04] VITALS: BP 133/83
[2021-07-13] MEDS: RT-ALBUTEROL HFA 8.5 GM INHALER IH SCH ×4 (02:10→21:24)
[2021-07-13 02:12] VITALS: BP 128/81
[2021-07-13 04:07] LABS: BASOPHILS # (AUTO) 0.1 10^3/uL (0.0-0.1); BASOPHILS % (AUTO) 1 % (0-10); EOSINOPHILS # (AUTO) 0.7 10^3/uL (0.0-0.3); EOSINOPHILS % (AUTO) 4 % (0-10); HEMATOCRIT 32 % (35-52); HEMOGLOBIN 10.1 g/dL (11.5-16.0); LYMPHOCYTES # (AUTO) 3.1 10^3/uL (1.0-4.0); LYMPHOCYTES % (AUTO) 16 % (12-44); MEAN CORPUSCULAR HEMOGLOBIN 29 pg (25-34); MEAN CORPUSCULAR HGB CONC 32 g/dL (32-36); MEAN CORPUSCULAR VOLUME 93 fL (80-99); MEAN PLATELET VOLUME 11.1 fL (9.0-12.2); MONOCYTES % (AUTO) 5 % (0-12); NEUTROPHILS # (AUTO) 14.6 10^3/uL (1.8-7.8); NEUTROPHILS % (AUTO) 74 % (42-75); PLATELET COUNT 391 10^3/uL (130-400); WHITE BLOOD COUNT 19.6 10^3/uL (4.3-11.0)
[2021-07-13 04:17] LABS: POTASSIUM 4.1 MMOL/L (3.6-5.0)
[2021-07-13 04:18] LABS: CALCIUM 10.1 MG/DL (8.5-10.1)
[2021-07-13 04:23] LABS: CREATININE SERUM 0.77 MG/DL (0.60-1.30); PHOSPHORUS 3.9 MG/DL (2.3-4.7)
[2021-07-13] MEDS: POTASSIUM CL 10MEQ/50ML IVPB 50 ML IV SCH (04:58)
[2021-07-13] MEDS: MAGNESIUM 1 GM/100 ML IVPB 100 ML IV SCH (04:58)
[2021-07-13] MEDS: KCL 20 MEQ TAB (K-DUR) PO SCH (04:59)
[2021-07-13] MEDS: inSUlin ASPART (NovoLOG) 1 UNIT/0.01 ML (CHARGE PER UNIT) SC SCH ×7 (04:59→20:27)
[2021-07-13 06:42] VITALS: BP 124/86
[2021-07-13] MEDS: LEVOTHYROXINE 100 MCG (LEVOTHROID) TAB PO SCH (06:57)
[2021-07-13] MEDS: predniSONE 20 MG TAB PO SCH (06:57)
[2021-07-13] MEDS: LEVOTHYROXINE 75 MCG (LEVOTHROID) TABLET PO SCH (06:57)
[2021-07-13] MEDS: VITAMIN D3 25 MCG (1,000 UNITS) TABLET PO SCH (07:39)
[2021-07-13] MEDS: PARoxetine 10 MG (PAXIL) TAB PO SCH (07:39)
[2021-07-13] MEDS: ZINC SULFATE 220 MG CAPSULE PO SCH (07:39)
[2021-07-13] MEDS: PANTOPRAZOLE 40 MG (PROTONIX) TAB PO SCH (07:39)
[2021-07-13] MEDS: ENOXAPARIN 100 MG/1 ML (LOVENOX) SYR SC SCH ×2 (07:40→20:25)
[2021-07-13 09:06] VITALS: BP 136/83
--- NOTE | 2021-07-13 14:30 | Progress Note - Hospitalist ---
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 She first started having symptoms two weeks ago. A week and a half ag o she tested positive for COVID-19. She was not vaccinated. She was started on Prednisone. She continued to worsen with shortness of breath and cough and presented to the ER. Subjective/Events-last exam She is feeling a little bit worse today. She is short of breath while eating breakfast. She says she feels tired. She has not been sleeping well. Focused Exam Time of Focused Exam: 22:00 Objective Exam Vital Signs Vital Signs Date Time Temp Pulse Resp B/P (MAP) Pulse Ox O2 Delivery O2 Flow Rate FiO2 07/13/21 14:00 79 20 132/87 96 Vapotherm 40.00 90.00 07/13/21 12:01 35.1 07/13/21 09:06 100 Capillary Refill : Less Than 3 Seconds General Appearance: No Apparent Distress, Obese Respiratory: Lungs Clear, Normal Breath Sounds, No Respiratory Distress Cardiovascular: Regular Rate, Rhythm, No Edema, No Murmur Gastrointestinal: Normal Bowel Sounds, Non Tender, Soft Extremity: Normal Inspection, Non Tender, No Pedal Edema Neurologic/Psychiatric: Alert, Oriented x3, Depressed Affect Skin: Normal Color, Warm/Dry Results/Procedures Lab Laboratory Tests 07/13/21 03:35 Patient resulted labs reviewed. Imaging: Reviewed Imaging Report Assessment/Plan Assessment and Plan Assess & Plan/Chief Complaint Acute respiratory failure due to COVID-19 Hypercoagulable state associated with COVID-19 Requiring BiPAP/Vapotherm Continue therapeutic Lovenox Prednisone taper s/p Ly TeleICU consulted, appreciate assistance Pending transfer to [place], awaiting insurance authorization Type 2 diabetes mellitus with ketoacidosis DKA resolved Continue Levemir Continue sliding scale Obesity Clinically significant, no acute management needs DVT prophylaxis: already receiving therapeutic anticoagulation Critical Care Critically Ill Patient Diagnosis/Problems Diagnosis/Problems (1) Acute respiratory failure due to COVID-19 Status: Acute (2) Hypercoagulable state associated with COVID-19 Status: Acute (3) T2DM (type 2 diabetes mellitus) Status: Acute Qualifiers: Diabetes mellitus penitentiary insulin use: with penitentiary use Diabetes mellitus complication status: with ketoacidosis Diabetes mellitus complication detail: without coma Qualified Codes: E11.10 - Type 2 diabetes mellitus with ketoacidosis without coma; Z79.4 - group home (current) use of insulin (4) Morbid obesity Status: Acute ROXANNA BLEDSOE MD Jul 13, 2021 14:30
[2021-07-14] MEDS: RT-ALBUTEROL HFA 8.5 GM INHALER IH SCH ×4 (03:18→18:36)
[2021-07-14 03:19] VITALS: BP 141/83
[2021-07-14 04:21] LABS: BASOPHILS # (AUTO) 0.1 10^3/uL (0.0-0.1); BASOPHILS % (AUTO) 0 % (0-10); EOSINOPHILS # (AUTO) 0.7 10^3/uL (0.0-0.3); EOSINOPHILS % (AUTO) 4 % (0-10); HEMATOCRIT 30 % (35-52); HEMOGLOBIN 9.3 g/dL (11.5-16.0); LYMPHOCYTES # (AUTO) 3.1 10^3/uL (1.0-4.0); LYMPHOCYTES % (AUTO) 20 % (12-44); MEAN CORPUSCULAR HEMOGLOBIN 29 pg (25-34); MEAN CORPUSCULAR HGB CONC 31 g/dL (32-36); MEAN CORPUSCULAR VOLUME 93 fL (80-99); MEAN PLATELET VOLUME 10.8 fL (9.0-12.2); MONOCYTES # (AUTO) 0.9 10^3/uL (0.0-1.0); MONOCYTES % (AUTO) 6 % (0-12); NEUTROPHILS # (AUTO) 10.9 10^3/uL (1.8-7.8); NEUTROPHILS % (AUTO) 70 % (42-75); PLATELET COUNT 373 10^3/uL (130-400); WHITE BLOOD COUNT 15.7 10^3/uL (4.3-11.0)
[2021-07-14 04:29] LABS: POTASSIUM 4.2 MMOL/L (3.6-5.0)
[2021-07-14 04:30] LABS: CALCIUM 9.9 MG/DL (8.5-10.1)
[2021-07-14 04:34] LABS: CREATININE SERUM 0.92 MG/DL (0.60-1.30); PHOSPHORUS 3.8 MG/DL (2.3-4.7)
[2021-07-14 04:37] LABS: MAGNESIUM 1.9 MG/DL (1.6-2.4)
[2021-07-14] MEDS: POTASSIUM CL 10MEQ/50ML IVPB 50 ML IV SCH (05:29)
[2021-07-14] MEDS: KCL 20 MEQ TAB (K-DUR) PO SCH (05:30)
[2021-07-14] MEDS: MAGNESIUM 1 GM/100 ML IVPB 100 ML IV SCH (05:30)
[2021-07-14] MEDS: predniSONE 20 MG TAB PO SCH (06:31)
[2021-07-14] MEDS: inSUlin ASPART (NovoLOG) 1 UNIT/0.01 ML (CHARGE PER UNIT) SC SCH ×7 (06:31→21:18)
[2021-07-14] MEDS: LEVOTHYROXINE 100 MCG (LEVOTHROID) TAB PO SCH (06:31)
[2021-07-14] MEDS: LEVOTHYROXINE 75 MCG (LEVOTHROID) TABLET PO SCH (06:31)
[2021-07-14 07:44] VITALS: BP 122/83
[2021-07-14] MEDS: ZINC SULFATE 220 MG CAPSULE PO SCH (09:07)
[2021-07-14] MEDS: VITAMIN D3 25 MCG (1,000 UNITS) TABLET PO SCH (09:07)
[2021-07-14] MEDS: ENOXAPARIN 100 MG/1 ML (LOVENOX) SYR SC SCH ×2 (09:07→21:18)
[2021-07-14] MEDS: PANTOPRAZOLE 40 MG (PROTONIX) TAB PO SCH (09:07)
[2021-07-14] MEDS: PARoxetine 10 MG (PAXIL) TAB PO SCH (09:07)
--- NOTE | 2021-07-14 10:05 | Tele-ICU Progress Note ---
Subjective Date Seen by a Provider: Jul 14, 2021 Time Seen by a Provider: 10:01 Subjective/Events-last exam She is a 46-year-old female with past medical history of type 2 diabetes mellitus requiring insulin, obesity and hypothyroidism admitted with Covid19 pneumonia. Currently she is on a BiPAP ventilation. She is receiving prednisone. She is feeling somewhat short of breath today when compared to yesterday Sepsis Event Evaluation Height, Weight, BMI Height: '" Weight: lbs. oz. kg; 37.82 BMI Method: Focused Exam Time of Focused Exam: 22:00 Exam Exam Patient acknowledged, consented, and participated in this virtual visit which was conducted using real time audio/video Vital Signs Date Time Temp Pulse Resp B/P (MAP) Pulse Ox O2 Delivery O2 Flow Rate FiO2 07/14/21 09:00 20 117/76 93 NIV Bilevel 75.00 07/14/21 08:03 36.5 07/14/21 08:00 94 29 118/91 89 NIV Bilevel 75.00 07/14/21 07:44 80 37 93 70.00 07/14/21 07:00 79 07/14/21 07:00 80 15 122/83 94 NIV Bilevel 75.00 07/14/21 06:34 93 NIV Bilevel 75.00 07/14/21 06:00 81 22 131/88 94 NIV Bilevel 80.00 07/14/21 05:00 82 15 125/90 94 NIV Bilevel 80.00 07/14/21 04:03 35.9 94 NIV Bilevel 80.00 07/14/21 04:00 94 NIV Bilevel 80 07/14/21 04:00 81 20 123/82 95 NIV Bilevel 80.00 07/14/21 03:19 85 34 95 80.00 07/14/21 03:00 88 20 141/83 95 NIV Bilevel 80.00 07/14/21 02:00 84 22 120/77 92 NIV Bilevel 80.00 07/14/21 01:00 94 21 149/87 93 NIV Bilevel 80.00 07/14/21 01:00 90 07/14/21 00:00 88 19 145/82 95 NIV Bilevel 80.00 07/13/21 23:36 96 NIV Bilevel 80.00 07/13/21 23:15 95 NIV Bilevel 80 07/13/21 23:13 36.4 91 32 96 NIV Bilevel 90.00 07/13/21 23:00 92 16 90/83 95 Vapotherm 40.00 100.00 07/13/21 22:30 NIV Bilevel 100.00 07/13/21 22:00 98 29 129/68 94 Vapotherm 40.00 100.00 07/13/21 21:25 94 Vapotherm 40.00 100 07/13/21 21:00 94 28 132/85 93 Vapotherm 40.00 100.00 07/13/21 20:45 95 Vapotherm 40.00 100.00 07/13/21 20:00 92 28 131/79 94 NIV Bilevel 100.00 07/13/21 19:45 36.5 07/13/21 19:41 90 Vapotherm 40.00 100 07/13/21 19:40 91 NIV Bilevel 100 07/13/21 19:30 94 NIV Bilevel 100.00 07/13/21 19:00 91 07/13/21 19:00 92 20 148/94 99 Vapotherm 40.00 100.00 07/13/21 19:00 Vapotherm 40.00 100.00 07/13/21 18:00 89 15 160/92 93 Vapotherm 40.00 90.00 07/13/21 17:00 96 18 125/71 91 Vapotherm 40.00 90.00 07/13/21 16:00 36.4 07/13/21 16:00 94 NIV Bilevel 85 07/13/21 16:00 92 27 125/59 91 Vapotherm 40.00 90.00 07/13/21 15:00 97 17 124/72 98 Vapotherm 40.00 90.00 07/13/21 14:59 94 Vapotherm 40.00 90 07/13/21 14:00 79 20 132/87 96 Vapotherm 40.00 90.00 07/13/21 13:00 90 07/13/21 13:00 80 22 120/81 96 Vapotherm 40.00 90.00 07/13/21 12:01 35.1 07/13/21 12:00 94 NIV Bilevel 85 07/13/21 12:00 85 21 123/77 97 Vapotherm 40.00 90.00 07/13/21 11:00 93 22 131/79 94 Vapotherm 40.00 90.00 I & O 07/14/21 07:00 Intake Total 1525 ml Output Total 2650 ml Balance -1125 ml Height & Weight Height: '" Weight: lbs. oz. kg; 37.82 BMI Method: General Appearance: No Apparent Distress, Obese HEENT: PERRL/EOMI, Pharynx Normal Neck: Normal Inspection, Supple Respiratory: Lungs Clear, Normal Breath Sounds, No Respiratory Distress Cardiovascular: Regular Rate, Rhythm, No Edema, No Murmur Capillary Refill: Less Than 3 Seconds Peripheral Pulses: 2+ Radial Pulses (R), 2+ Radial Pulses (L) Gastrointestinal: normal bowel sounds, non tender Extremity: Normal Inspection, Non Tender, No Pedal Edema Neurologic/Psychiatric: Alert, Oriented x3, Depressed Affect Skin: Normal Color, Warm/Dry Lymphatic: No Adenopathy Other comments PE per attending Results Lab Laboratory Tests 07/13/21 03:35 07/14/21 04:03 Meds reviewed Radiology cxr reviewed Assessment/Plan Assessment/Plan 1. Acute hypoxic respiratory failure requiring noninvasive ventilation with BiPAP. 2. Covid19 pneumonia with ARDS. 3. Suspected superimposed bacterial pneumonia. 4. Diabetes mellitus with severe hyperglycemia. Recommendations 1. Continue BiPAP ventilation and wean FiO2 as tolerated. 2. Steroids with prednisone. 3. Full dose Lovenox for DVT prophylaxis. 4. Levemir insulin twice a day and insulin with a sliding scale coverage. 5. Continue levothyroxine. 6. We will continue monitor her blood glucose, electrolytes and as needed blood gases. Critical Care: Critically Ill Patient Time spent with patient (mins): 25 GISELLE CATES MD Jul 14, 2021 10:05
[2021-07-14] MEDS ORDERED: LORATADINE (CLARITIN) 10 MG TAB ONE (20:54)
[2021-07-14] MEDS: LORATADINE (CLARITIN) 10 MG TAB PO SCH (21:18)
--- NOTE | 2021-07-14 21:36 | Progress Note - Hospitalist ---
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 She first started having symptoms two weeks ago. A week and a half ag o she tested positive for COVID-19. She was not vaccinated. She was started on Prednisone. She continued to worsen with shortness of breath and cough and presented to the ER. Subjective/Events-last exam She is feeling better today. She is not as short of breath. She continues to have a positive attitude. Focused Exam Time of Focused Exam: 22:00 Objective Exam Vital Signs Vital Signs Date Time Temp Pulse Resp B/P (MAP) Pulse Ox O2 Delivery O2 Flow Rate FiO2 07/14/21 20:00 36.5 07/14/21 19:57 93 24 112/76 97 Vapotherm 40.00 100.00 07/14/21 18:36 100 Capillary Refill : Less Than 3 Seconds General Appearance: No Apparent Distress, Obese Respiratory: Lungs Clear, Normal Breath Sounds, No Respiratory Distress Cardiovascular: Regular Rate, Rhythm, No Edema, No Murmur Gastrointestinal: Normal Bowel Sounds, Non Tender, Soft Extremity: Normal Inspection, Non Tender, No Pedal Edema Neurologic/Psychiatric: Alert, Oriented x3, No Motor/Sensory Deficits, Normal Mood/Affect Skin: Normal Color, Warm/Dry Results/Procedures Lab Laboratory Tests 07/14/21 04:03 Patient resulted labs reviewed. Imaging: Reviewed Imaging Report Assessment/Plan Assessment and Plan Assess & Plan/Chief Complaint Acute respiratory failure due to COVID-19 Hypercoagulable state associated with COVID-19 Requiring BiPAP/Vapotherm Continue therapeutic Lovenox Prednisone taper s/p Ly TeleICU consulted, appreciate assistance Pending transfer to [place], awaiting insurance authorization Type 2 diabetes mellitus with ketoacidosis DKA resolved Continue Levemir Continue sliding scale Obesity Clinically significant, no acute management needs DVT prophylaxis: already receiving therapeutic anticoagulation Critical Care Critically Ill Patient Diagnosis/Problems Diagnosis/Problems (1) Acute respiratory failure due to COVID-19 Status: Acute (2) Hypercoagulable state associated with COVID-19 Status: Acute (3) T2DM (type 2 diabetes mellitus) Status: Acute Qualifiers: Diabetes mellitus longshore equipment operator insulin use: with mcfp use Diabetes mellitus complication status: with ketoacidosis Diabetes mellitus complication detail: without coma Qualified Codes: E11.10 - Type 2 diabetes mellitus with ketoacidosis without coma; Z79.4 - vermin exterminator (current) use of insulin (4) Morbid obesity Status: Acute ROXANNA BLEDSOE MD Jul 14, 2021 21:36
[2021-07-14 22:21] VITALS: BP 122/83
[2021-07-15 02:33] VITALS: BP 129/89
[2021-07-15] MEDS: RT-ALBUTEROL HFA 8.5 GM INHALER IH SCH ×4 (02:33→18:43)
[2021-07-15 04:24] LABS: BASOPHILS # (AUTO) 0.1 10^3/uL (0.0-0.1); BASOPHILS % (AUTO) 1 % (0-10); EOSINOPHILS # (AUTO) 0.7 10^3/uL (0.0-0.3); EOSINOPHILS % (AUTO) 4 % (0-10); HEMATOCRIT 30 % (35-52); HEMOGLOBIN 9.4 g/dL (11.5-16.0); LYMPHOCYTES # (AUTO) 3.4 10^3/uL (1.0-4.0); LYMPHOCYTES % (AUTO) 21 % (12-44); MEAN CORPUSCULAR HEMOGLOBIN 29 pg (25-34); MEAN CORPUSCULAR HGB CONC 31 g/dL (32-36); MEAN CORPUSCULAR VOLUME 93 fL (80-99); MEAN PLATELET VOLUME 10.7 fL (9.0-12.2); MONOCYTES % (AUTO) 6 % (0-12); NEUTROPHILS % (AUTO) 68 % (42-75); PLATELET COUNT 398 10^3/uL (130-400); WHITE BLOOD COUNT 16.3 10^3/uL (4.3-11.0)
[2021-07-15 04:47] LABS: POTASSIUM 4.2 MMOL/L (3.6-5.0)
[2021-07-15 04:48] LABS: CALCIUM 10.1 MG/DL (8.5-10.1)
[2021-07-15 04:52] LABS: PHOSPHORUS 4.3 MG/DL (2.3-4.7)
[2021-07-15 04:53] LABS: CREATININE SERUM 0.91 MG/DL (0.60-1.30)
[2021-07-15 04:55] LABS: MAGNESIUM 1.9 MG/DL (1.6-2.4)
[2021-07-15] MEDS: POTASSIUM CL 10MEQ/50ML IVPB 50 ML IV SCH (05:04)
[2021-07-15] MEDS: inSUlin ASPART (NovoLOG) 1 UNIT/0.01 ML (CHARGE PER UNIT) SC SCH ×7 (05:05→21:00)
[2021-07-15] MEDS: KCL 20 MEQ TAB (K-DUR) PO SCH (05:05)
[2021-07-15] MEDS: MAGNESIUM 1 GM/100 ML IVPB 100 ML IV SCH (05:05)
[2021-07-15] MEDS: predniSONE 10 MG TAB PO SCH (06:13)
[2021-07-15] MEDS: LEVOTHYROXINE 75 MCG (LEVOTHROID) TABLET PO SCH (06:13)
[2021-07-15] MEDS: LEVOTHYROXINE 100 MCG (LEVOTHROID) TAB PO SCH (06:13)
[2021-07-15 07:30] VITALS: BP 122/87
[2021-07-15] MEDS: PARoxetine 10 MG (PAXIL) TAB PO SCH (08:06)
[2021-07-15] MEDS: VITAMIN D3 25 MCG (1,000 UNITS) TABLET PO SCH (08:06)
[2021-07-15] MEDS: ZINC SULFATE 220 MG CAPSULE PO SCH (08:06)
[2021-07-15] MEDS: PANTOPRAZOLE 40 MG (PROTONIX) TAB PO SCH (08:06)
[2021-07-15] MEDS: guaiFENesin/DM (ROBITUSSIN DM) 10 ML UDC PO PRN (08:10)
--- NOTE | 2021-07-15 08:21 | Progress Note - Hospitalist ---
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 She first started having symptoms two weeks ago. A week and a half ag o she tested positive for COVID-19. She was not vaccinated. She was started on Prednisone. She continued to worsen with shortness of breath and cough and presented to the ER. Subjective/Events-last exam Patient doing pretty well day in hospital Alternating between BiPAP and Vapotherm Senna and MiraLAX ordered since it has been 3 days since last BM Desats with any activity Discontinue isolation since it has been a month + since Covid swab Review of Systems General: Fatigue Pulmonary: Dyspnea Focused Exam Time of Focused Exam: 22:00 Objective Exam Vital Signs Vital Signs Date Time Temp Pulse Resp B/P (MAP) Pulse Ox O2 Delivery O2 Flow Rate FiO2 07/15/21 16:15 Vapotherm 37.00 100 07/15/21 16:00 101 20 133/76 91 07/15/21 15:51 35.8 Capillary Refill : Less Than 3 Seconds General Appearance: No Apparent Distress, WD/WN, Anxious, Chronically ill Respiratory: No Accessory Muscle Use, No Respiratory Distress, Decreased Breath Sounds Neurologic/Psychiatric: Alert, Oriented x3, No Motor/Sensory Deficits, Normal Mood/Affect Results/Procedures Lab Laboratory Tests 07/15/21 04:15 Patient resulted labs reviewed. Imaging: Reviewed Imaging Report Assessment/Plan Assessment and Plan Assess & Plan/Chief Complaint Assessment: Acute respiratory failure due to COVID-19 Hypercoagulable state associated with COVID-19 Requiring BiPAP/Vapotherm Continue therapeutic Lovenox Prednisone taper s/p Barcodin TeleICU consulted, appreciate assistance Pending transfer to [place], awaiting insurance authorization Type 2 diabetes mellitus with ketoacidosis DKA resolved Continue Levemir Continue sliding scale Obesity Clinically significant, no acute management needs DVT prophylaxis: already receiving therapeutic anticoagulation Critical Care Critically Ill Patient JENSEN,VALARIE KU Jul 15, 2021 08:21
--- NOTE | 2021-07-15 08:57 | Tele-ICU Progress Note ---
Subjective Date Seen by a Provider: Jul 15, 2021 Time Seen by a Provider: 08:57 Subjective/Events-last exam she is hemodynamically stable, going back and forth between vapotherm and bipap with high settings. on full dose anti coagulation Review of Systems ros per rn Sepsis Event Evaluation Height, Weight, BMI Height: '" Weight: lbs. oz. kg; 37.82 BMI Method: Focused Exam Time of Focused Exam: 22:00 Exam Exam Patient acknowledged, consented, and participated in this virtual visit which was conducted using real time audio/video Vital Signs Date Time Temp Pulse Resp B/P (MAP) Pulse Ox O2 Delivery O2 Flow Rate FiO2 07/15/21 08:12 NIV Bilevel 100.00 07/15/21 08:00 84 24 117/82 92 NIV Bilevel 65.00 07/15/21 07:55 35.8 07/15/21 07:30 81 24 95 65.00 07/15/21 07:00 NIV Bilevel 65.00 07/15/21 07:00 90 07/15/21 07:00 85 19 122/87 96 NIV Bilevel 70.00 07/15/21 06:00 87 20 124/91 96 NIV Bilevel 70.00 07/15/21 05:00 83 22 124/90 96 NIV Bilevel 70.00 07/15/21 04:35 NIV Bilevel 70.00 07/15/21 04:00 87 25 132/88 93 NIV Bilevel 75.00 07/15/21 04:00 36.3 07/15/21 03:48 NIV Bilevel 75 07/15/21 03:00 83 22 125/93 95 NIV Bilevel 75.00 07/15/21 02:33 86 37 93 70.00 07/15/21 02:00 86 25 129/89 93 NIV Bilevel 75.00 07/15/21 01:00 97 07/15/21 01:00 97 11 132/85 92 NIV Bilevel 75.00 07/15/21 00:04 NIV Bilevel 75 07/15/21 00:00 87 33 135/84 96 NIV Bilevel 75.00 07/15/21 00:00 36.6 07/14/21 23:00 93 36 129/78 93 NIV Bilevel 75.00 07/14/21 22:21 80 37 91 70.00 07/14/21 22:00 89 38 127/76 95 NIV Bilevel 75.00 07/14/21 21:33 NIV Bilevel 75.00 07/14/21 21:00 92 20 126/78 96 Vapotherm 40.00 100.00 07/14/21 20:00 96 Vapotherm 40.00 100 07/14/21 20:00 36.5 07/14/21 20:00 96 18 120/79 92 Vapotherm 40.00 100.00 07/14/21 19:57 93 24 112/76 97 Vapotherm 40.00 100.00 07/14/21 19:00 100 07/14/21 19:00 Vapotherm 40.00 100.00 07/14/21 19:00 100 16 112/76 98 Vapotherm 40.00 100.00 07/14/21 18:36 95 Vapotherm 40.00 100 07/14/21 18:00 89 19 123/81 97 NIV Bilevel 75.00 07/14/21 17:00 96 12 121/74 97 NIV Bilevel 75.00 07/14/21 16:35 94 Vapotherm 40.00 100 07/14/21 16:00 36.4 07/14/21 16:00 94 Vapotherm 40.00 100 07/14/21 16:00 93 33 133/76 94 NIV Bilevel 75.00 07/14/21 15:00 95 42 124/79 94 NIV Bilevel 75.00 07/14/21 14:00 93 32 124/76 94 NIV Bilevel 75.00 07/14/21 13:00 96 32 127/72 90 NIV Bilevel 75.00 07/14/21 13:00 93 07/14/21 12:35 94 Vapotherm 40.00 100 07/14/21 12:19 36.0 07/14/21 12:00 90 30 109/70 93 NIV Bilevel 75.00 07/14/21 11:13 94 Vapotherm 35.00 100 07/14/21 11:00 90 25 117/71 97 NIV Bilevel 75.00 07/14/21 10:00 89 29 107/75 97 NIV Bilevel 75.00 07/14/21 09:00 20 117/76 93 NIV Bilevel 75.00 I & O 07/15/21 07:00 Intake Total 700 ml Output Total 2015 ml Balance -1315 ml Height & Weight Height: '" Weight: lbs. oz. kg; 37.82 BMI Method: General Appearance: No Apparent Distress, Obese HEENT: PERRL/EOMI, Pharynx Normal Neck: Normal Inspection, Supple Respiratory: Lungs Clear, Normal Breath Sounds, No Respiratory Distress Cardiovascular: Regular Rate, Rhythm, No Edema, No Murmur Capillary Refill: Less Than 3 Seconds Peripheral Pulses: 2+ Radial Pulses (R), 2+ Radial Pulses (L) Gastrointestinal: normal bowel sounds, non tender Extremity: Normal Inspection, Non Tender, No Pedal Edema Neurologic/Psychiatric: Alert, Oriented x3, No Motor/Sensory Deficits, Normal Mood/Affect Skin: Normal Color, Warm/Dry Lymphatic: No Adenopathy Other comments PE PER ATTENDING PHYSICIAN Results Lab Laboratory Tests 07/14/21 04:03 07/15/21 04:15 Meds REVIEWED Radiology CXR REVIEWED Assessment/Plan Assessment/Plan 1. Acute hypoxic respiratory failure requiring noninvasive ventilation with BiPAP. 2. Covid19 pneumonia with ARDS. 3. Suspected superimposed bacterial pneumonia. 4. Diabetes mellitus with severe hyperglycemia. Recommendations 1. Continue BiPAP ventilation and wean FiO2 as tolerated. 2. Steroids with prednisone. 3. Full dose Lovenox for DVT prophylaxis. 4. Levemir insulin twice a day and insulin with a sliding scale coverage. 5. Continue levothyroxine. 6. We will continue monitor her blood glucose, electrolytes and as needed blood gases. 7. WILL REPEAT CXR IN AM Critical Care: Critically Ill Patient Time spent with patient (mins): 35 GISELLE CATES MD Jul 15, 2021 08:57
[2021-07-15] MEDS: ENOXAPARIN 100 MG/1 ML (LOVENOX) SYR SC SCH ×2 (09:02→20:00)
--- NOTE | 2021-07-15 10:23 | Occupational Ther Daily Note ---
OT Current Status-Daily Note Subjective Pt in bed, agreeable to OT tx. Pt's nurse states pt OK for therapy. Mental Status/Objective Patient Orientation: Person, Place, Situation Attachments: Asencio Catheter, IV, Oxygen (vapotherm) ADL-Treatment Therapy Code Descriptions/Definitions Functional [place] Measure: 0=Not Assessed/NA 4=Minimal Assistance 1=Total Assistance 5=Supervision or Setup 2=Maximal Assistance 6=Modified [place] 3=Moderate Assistance 7=Complete IndependenceSCALE: Activities may be completed with or without assistive devices. 0-[id number]-[id number] completes the activity by him/herself with no assistance from a helper. 5-Set-up or Clean-up Assistance-helper sets up or cleans up; patient completes activity. [place] assists only prior to or following the activity. 4-Supervision or Touching Assistance-helper provides verbal cues and/or touching/steadying and/or contact guard assistance as patient completes activit y. Assistance may be provided throughout the activity or intermittently. 3-Partial/Moderate Assistance-helper does LESS THAN HALF the effort. [place] lifts, holds or supports trunk or limbs, but provides less than half the effort. 2-Substantial/Maximal Assistance-helper does MORE THAN HALF the effort. [place] lifts or holds trunk or limbs and provides more than half the effort. 5-[id number]-clgmpc does ALL the effort. Patient does none of the effort to complete the activity. Or, the assistance of 2 or more helpers is required for the patient to complete the activity. If activity was not attempted, code reason: 7-Patient Refused. 9-Not Applicable-not attempted and the patient did not perform the activity before the current illness, exacerbation or injury. 10-Not Attempted due to Environmental Limitations-(lack of equipment, weather restraints, etc.). 88-Not Attempted due to Medical Conditions or Safety Concerns. Eating (QC): 6 (Per pt report.) Oral Hygiene (QC): 5 (set up) Other Treatment Pt in bed, agreeable to OT tx. Pt's O2 saturation at 89% upon OT entry. Pt finished with breakfast, IND per report, then completed oral care with set up assistance. In order to increase BUE strength and activity tolerance, pt completed BUE exercises x10 reps each of the following: shoulder flexion, elbow flexion/extension and finger flexion/extension. Pt's O2 saturation dropped to 82% with activity, returned to 89-90% with pursed lip breathing after a couple of minutes. Pt took rest breaks between each exercise. OT instructed pt to complete exercises throughout the day as able, increasing reps to tolerance, she verbalized understanding. post tx, pt in bed, call light in reach and all needs met. Education OT Patient Education: Correct positioning, Energy conservation, Exercise program, Modified ADL techniques, Progress toward Goal/Update tx plan, Purpose of tx/functional activities, Rehab process Teaching Recipient: Patient Teaching Methods: Discussion Response to Teaching: Verbalize Understanding OT Artist Relationship Manager Goals Artist Relationship Manager Goals Time Frame: Jul 26, 2021 Eating (QC): 6 Oral Hygiene (QC): 6 Toileting Hygiene (QC): 4 Shower/Bathe Self (QC): 4 Upper Body Dressing (QC): 5 Lower Body Dressing (QC): 4 On/Off Footwear (QC): 4 Additional Goals: 1-Demonstrate ADL Tasks, 2-Verbalize Understanding, 3- ImproveStrength/Yanni 1=Demonstrate adherence to instructed precautions during ADL tasks. 2=Patient will verbalize/demonstrate understanding of assistive devices/modifications for ADL. 3=Patient will improve strength/tolerance for activity to enable patient to perform ADL's. OT Education/Plan Problem List/Assessment Assessment: Decreased Activ Tolerance, Decreased UE Strength, Impaired I ADL's, Impaired Self-Care Skills Discharge Recommendations Plan/Recommendations: Continue POC Treatment Plan/Plan of Care Patient would benefit from OT for education, treatment and training to promote independence in ADL's, mobility, safety and/or upper extremity function for ADL's. Plan of Care: ADL Retraining, Functional Mobility, UE Funct Exercise/Act Treatment Duration: Jul 26, 2021 Frequency: 5 times per week Estimated Hrs Per Day: .25 hour per day Rehab Potential: Good Time/GCodes Start Time: 10:00 Stop Time: 10:16 Total Time Billed (hr/min): 16 Billed Treatment Time 1, EX ARAM COLALZO OT Jul 15, 2021 10:23
--- NOTE | 2021-07-15 12:10 | Physical Therapy Daily Note ---
PT Daily Note-Current Subjective Patient in bed pre tx, agrees to PT, has no complaints of pain. Appearance Patient in bed post tx with nurse call, phone, tray, all needs met. Mental Status Patient Orientation: Person, Place, Situation Attachments: Oxygen (vapotherm), Asencio Catheter, IV Transfers SCALE: Activities may be completed with or without assistive devices. 4-Cyhbzqgwaj-zqspguk completes the activity by him/herself with no assistance from a helper. 5-Set-up or Clean-up Assistance-helper sets up or cleans up; patient completes activity. [place] assists only prior to or following the activity. 4-Supervision or Touching Assistance-helper provides verbal cues and/or touching/steadying and/or contact guard assistance as patient completes activity. Assistance may be provided throughout the activity or intermittently. 3-Partial/Moderate Assistance-helper does LESS THAN HALF the effort. [place] lifts, holds or supports trunk or limbs, but provides less than half the effort. 2-Substantial/Maximal Assistance-helper does MORE THAN HALF the effort. [place] lifts or holds trunk or limbs and provides more than half the effort. 5-Bessufbib-iaqfqs does ALL the effort. Patient does none of the effort to complete the activity. Or, the assistance of 2 or more helpers is required for the patient to complete the activity. If activity was not attempted, code reason: 7-Patient Refused. 9-Not Applicable-not attempted and the patient did not perform the activity before the current illness, exacerbation or injury. 10-Not Attempted due to Environmental Limitations-(lack of equipment, weather restraints, etc.). 88-Not Attempted due to Medical Conditions or Safety Concerns. Roll Left & Right (QC): 6 Sit to Lying (QC): 6 Lying to Sitting/Side of Bed(Q: 6 Attempted to get patient into recliner but as soon as she sat on the side of the bed she got light headed, O2 dropped to 70%. Layed back down and O2 came back up to 90% with purse lip breathing after a few minutes. Perfomed bed exercises. Weight Bearing Right Lower Extremity: Right Weight Bearing/Tolerated Left Lower Extremity: Left Weight Bearing/Tolerated Exercises Supine Ex: Ankle pumps, Quad Set, Heel Slides Supine Reps: 20 Treatments sitting LE strengthening Assessment Current Status: Poor Progress O2 drops with minimal activity PT Short Term Goals Short Term Goals Time Frame: Jul 13, 2021 Roll Left & Right: 5 Sit to lyin Lying to sitting on side of be: 5 Sit to stand: 5 Chair/fqx-fd-aeanz transfer: 5 Toilet transfer: 5 Car transfer: 5 Walk 10 feet: 5 Walk 50 feet with two turns: 5 Walk 150 feet: 5 Walking 10ft on uneven surface: 5 1 step (curb): 5 4 steps: 5 12 steps: 5 Picking up objects: 5 PT [facility] Goals Manager [employer] Goals PT [facility] Goals Time Frame: Jul 20, 2021 Roll Left & Right (QC): 6 Sit to Lying (QC): 6 Lying-Sitting on Side/Bed(QC): 6 Sit to Stand (QC): 6 Chair/Cfi-pn-Ylsli Xfer(QC): 6 Toilet Transfer (QC): 6 Car Transfer (QC): 6 Does the Patient Walk: No and Walking Goal IS indicated Walk 10 feet (QC): 6 Walk 50ft with 2 Turns (QC): 6 Walk 150 ft (QC): 6 Walking 10ft on Uneven Surface: 6 1 Step (curb) (QC): 6 4 Steps (QC): 6 12 Steps (QC): 6 Picking up an Object (QC): 6 Wheel 50 feet with 2 turns (QC: 9 Wheel 150 feet: 9 PT Plan Problem List Problem List: Activity Tolerance, Functional Strength, Safety, Balance, Gait, Transfer, Bed Mobility, ROM Treatment/Plan Treatment Plan: Continue Plan of Care Treatment Plan: Bed Mobility, Functional Activity Yanni, Functional Strength, Gait, Safety, Therapeutic Exercise, Transfers Treatment Duration: Jul 20, 2021 Frequency: 11 times per week Safety Risks/Education Patient Education: Correct Positioning, Safety Issues Teaching Recipient: Patient Teaching Methods: Demonstration, Discussion Response to Teaching: Reinforcement Needed Time/GCodes Time In: 1120 Time Out: 1130 Total Billed Treatment Time: 10 Total Billed Treatment 1 visit EX LANODN CHIACS PT Jul 15, 2021 12:10
[2021-07-15] MEDS: DOCUSATE SODIUM 100 MG (COLACE) CAP PO SCH ×2 (14:11→20:00)
[2021-07-15] MEDS: SENNA W/DOCUSATE (SENOKOT S) TABLET PO SCH ×2 (14:11→20:00)
[2021-07-15] MEDS: polyethylene glycoL POWDER 17 GM (MIRALAX) PACK PO SCH ×2 (14:11→20:23)
[2021-07-15] MEDS: LORATADINE (CLARITIN) 10 MG TAB PO SCH (20:00)
[2021-07-15] MEDS ORDERED: LORATADINE (CLARITIN) 10 MG TAB PO SCH (21:00)
[2021-07-16 02:42] VITALS: BP 122/87
[2021-07-16] MEDS: RT-ALBUTEROL HFA 8.5 GM INHALER IH SCH ×4 (02:42→21:41)
[2021-07-16 04:33] LABS: BASOPHILS # (AUTO) 0.1 10^3/uL (0.0-0.1); BASOPHILS % (AUTO) 1 % (0-10); EOSINOPHILS # (AUTO) 0.8 10^3/uL (0.0-0.3); EOSINOPHILS % (AUTO) 5 % (0-10); HEMATOCRIT 30 % (35-52); HEMOGLOBIN 9.5 g/dL (11.5-16.0); LYMPHOCYTES # (AUTO) 3.5 10^3/uL (1.0-4.0); LYMPHOCYTES % (AUTO) 23 % (12-44); MEAN CORPUSCULAR HEMOGLOBIN 30 pg (25-34); MEAN CORPUSCULAR HGB CONC 32 g/dL (32-36); MEAN CORPUSCULAR VOLUME 94 fL (80-99); MEAN PLATELET VOLUME 10.5 fL (9.0-12.2); MONOCYTES % (AUTO) 6 % (0-12); NEUTROPHILS # (AUTO) 9.9 10^3/uL (1.8-7.8); NEUTROPHILS % (AUTO) 65 % (42-75); PLATELET COUNT 372 10^3/uL (130-400); WHITE BLOOD COUNT 15.4 10^3/uL (4.3-11.0)
[2021-07-16 04:51] LABS: POTASSIUM 4.3 MMOL/L (3.6-5.0)
[2021-07-16 04:52] LABS: CALCIUM 9.9 MG/DL (8.5-10.1)
[2021-07-16 04:56] LABS: PHOSPHORUS 3.7 MG/DL (2.3-4.7)
[2021-07-16 04:57] LABS: CREATININE SERUM 0.93 MG/DL (0.60-1.30)
[2021-07-16] MEDS: POTASSIUM CL 10MEQ/50ML IVPB 50 ML IV SCH (05:52)
[2021-07-16] MEDS: MAGNESIUM 1 GM/100 ML IVPB 100 ML IV SCH (05:52)
[2021-07-16] MEDS: inSUlin ASPART (NovoLOG) 1 UNIT/0.01 ML (CHARGE PER UNIT) SC SCH ×7 (05:53→20:41)
[2021-07-16] MEDS: KCL 20 MEQ TAB (K-DUR) PO SCH (05:53)
[2021-07-16] MEDS: LEVOTHYROXINE 100 MCG (LEVOTHROID) TAB PO SCH (06:17)
[2021-07-16] MEDS: predniSONE 10 MG TAB PO SCH (06:17)
[2021-07-16] MEDS: LEVOTHYROXINE 75 MCG (LEVOTHROID) TABLET PO SCH (06:17)
--- NOTE | 2021-07-16 07:40 | Diagnostic Imaging Report ---
EXAMINATION: Chest radiograph, portable AP view. DATE: 07/16/2021 4:48 AM INDICATION: 46-year-old female, shortness of breath. Evaluation for pneumonia. COMPARISON: July 11, 2021. FINDINGS: There is a left-sided PICC line with tip overlying the mid SVC. Heart size and mediastinal contours are unchanged. There is no identified pneumothorax. There is no large pleural effusion. There is extensive multifocal bilateral lung consolidation which is unchanged. IMPRESSION: 1. Unchanged extensive multifocal bilateral lung consolidation. 2. Stable positioning of left-sided PICC line. Dictated by: Dictated on workstation # [id number]
[2021-07-16 09:57] VITALS: BP 126/86
[2021-07-16 10:34] LABS: ALBUMIN 3.8 GM/DL (3.2-4.5); BILIRUBIN,DIRECT 0.2 MG/DL (0.0-0.3); BILIRUBIN,INDIRECT 0.1 MG/DL; BILIRUBIN,TOTAL 0.3 MG/DL (0.1-1.0); TOTAL PROTEIN 6.6 GM/DL (6.4-8.2)
--- NOTE | 2021-07-16 10:53 | Tele-ICU Progress Note ---
Subjective Date Seen by a Provider: Jul 16, 2021 Time Seen by a Provider: 10:53 Sepsis Event Evaluation Height, Weight, BMI Height: '" Weight: lbs. oz. kg; 37.82 BMI Method: Focused Exam Time of Focused Exam: 22:00 Exam Exam Patient acknowledged, consented, and participated in this virtual visit which was conducted using real time audio/video Vital Signs Date Time Temp Pulse Resp B/P (MAP) Pulse Ox O2 Delivery O2 Flow Rate FiO2 07/16/21 09:57 84 23 97 60.00 07/16/21 08:00 NIV Bilevel 70 07/16/21 08:00 35.8 07/16/21 06:00 84 25 115/80 96 NIV Bilevel 70.00 07/16/21 05:00 81 25 130/80 96 NIV Bilevel 70.00 07/16/21 04:25 36.5 NIV Bilevel 70.00 07/16/21 04:00 84 22 120/83 97 NIV Bilevel 75.00 07/16/21 03:42 NIV Bilevel 75 07/16/21 03:00 84 23 120/78 96 NIV Bilevel 75.00 07/16/21 02:42 81 24 95 70.00 07/16/21 02:00 87 19 133/83 97 NIV Bilevel 75.00 07/16/21 01:00 91 07/16/21 01:00 90 27 125/78 97 NIV Bilevel 75.00 07/16/21 00:12 NIV Bilevel 75.00 07/16/21 00:11 36.4 07/16/21 00:10 NIV Bilevel 85 07/16/21 00:00 98 22 126/79 94 Vapotherm 35.00 90.00 07/15/21 23:00 91 23 124/77 97 Vapotherm 35.00 90.00 07/15/21 22:02 91 Vapotherm 35.00 95 07/15/21 22:00 92 24 131/81 96 Vapotherm 35.00 90.00 07/15/21 21:00 90 24 135/92 98 Vapotherm 35.00 90.00 07/15/21 20:00 Vapotherm 35.00 95 07/15/21 19:58 36.5 96 23 126/85 96 Vapotherm 35.00 90.00 07/15/21 19:56 36.3 07/15/21 19:00 95 07/15/21 19:00 96 17 126/85 97 Vapotherm 35.00 95.00 07/15/21 18:44 94 Vapotherm 35.00 95 07/15/21 18:00 94 Vapotherm 35.00 95.00 07/15/21 18:00 94 23 130/79 96 Vapotherm 35.00 95.00 07/15/21 17:00 93 23 96 Vapotherm 37.00 100.00 07/15/21 16:15 Vapotherm 37.00 100 07/15/21 16:00 101 20 133/76 91 Vapotherm 37.00 100.00 07/15/21 15:56 92 Vapotherm 38.00 100 07/15/21 15:51 35.8 07/15/21 15:00 89 14 128/86 97 Vapotherm 37.00 100.00 07/15/21 14:12 Vapotherm 37.00 100.00 07/15/21 14:00 92 20 120/75 98 Vapotherm 40.00 100.00 07/15/21 13:00 93 07/15/21 13:00 86 18 111/77 97 Vapotherm 40.00 100.00 07/15/21 12:00 90 15 116/73 97 Vapotherm 40.00 100.00 07/15/21 12:00 Vapotherm 37.00 100 07/15/21 11:56 35.8 07/15/21 11:00 95 18 119/73 96 Vapotherm 40.00 100.00 I & O 07/16/21 07:00 Intake Total 1360 ml Output Total 1400 ml Balance -40 ml Height & Weight Height: '" Weight: lbs. oz. kg; 37.82 BMI Method: General Appearance: No Apparent Distress, WD/WN, Anxious, Chronically ill HEENT: PERRL/EOMI, Pharynx Normal Neck: Normal Inspection, Supple Respiratory: No Accessory Muscle Use, No Respiratory Distress, Decreased Breath Sounds Cardiovascular: Regular Rate, Rhythm, No Edema, No Murmur Capillary Refill: Less Than 3 Seconds Peripheral Pulses: 2+ Radial Pulses (R), 2+ Radial Pulses (L) Gastrointestinal: normal bowel sounds, non tender Extremity: Normal Inspection, Non Tender, No Pedal Edema Neurologic/Psychiatric: Alert, Oriented x3, No Motor/Sensory Deficits, Normal Mood/Affect Skin: Normal Color, Warm/Dry Lymphatic: No Adenopathy Results Lab Laboratory Tests 07/15/21 04:15 07/16/21 04:25 Assessment/Plan Assessment/Plan Tele-ICU Physician , Progress Note ) Available chart/ vitals / labs / Images reviewed Video assessment done using teleICU camera, rest of exam as per RN Discussed wt RN Events overnight : disating on vapotherm Afebrile I/O = neg 800 Drips: Pressors: , hemodynamically stable EXAM PER RN Consultants: Hospital course: 06/25 to ICU - COVID-NIV.. 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 increase dose -close f/up on steroids Lines : PICC 07/01 (Central Line Necessity Reviewed) Asencio: + OG: Nutrition: Po Analgesia: Anxiety/ delirium na VTE Prophylaxis: full dose lovenox Stress Ulcer Prophylaxis: ppi Plans in collaboration with bedside consultants and IM MDs. Discussed with RN to reach out if any questions or concerns A total of 20 minutes of critical care time was devoted to this patient today, required to treat and/or prevent further deterioration of critical care condition ( as above) . AZUL DRAPER MD Jul 16, 2021 10:53
[2021-07-16] MEDS: PARoxetine 10 MG (PAXIL) TAB PO SCH (11:13)
[2021-07-16] MEDS: polyethylene glycoL POWDER 17 GM (MIRALAX) PACK PO SCH ×2 (11:13→20:42)
[2021-07-16] MEDS: SENNA W/DOCUSATE (SENOKOT S) TABLET PO SCH ×2 (11:14→20:42)
[2021-07-16] MEDS: VITAMIN D3 25 MCG (1,000 UNITS) TABLET PO SCH (11:14)
[2021-07-16] MEDS: PANTOPRAZOLE 40 MG (PROTONIX) TAB PO SCH (11:15)
[2021-07-16] MEDS: ENOXAPARIN 100 MG/1 ML (LOVENOX) SYR SC SCH ×2 (11:15→20:41)
[2021-07-16] MEDS: DOCUSATE SODIUM 100 MG (COLACE) CAP PO SCH ×2 (11:15→20:41)
[2021-07-16] MEDS: ZINC SULFATE 220 MG CAPSULE PO SCH (11:15)
--- NOTE | 2021-07-16 12:32 | Progress Note - Hospitalist ---
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 She first started having symptoms two weeks ago. A week and a half ago she tested positive for COVID-19. She was not vaccinated. She was started on Prednisone. She continued to worsen with shortness of breath and cough and presented to the ER. Subjective/Events-last exam Kamille is on bipap and states she continues to have a cough productive of clear sputum but shortness of breath is improving. She denies chest pain, abdominal pain, and leg pain. Focused Exam Time of Focused Exam: 22:00 Objective Exam Vital Signs Vital Signs Date Time Temp Pulse Resp B/P (MAP) Pulse Ox O2 Delivery O2 Flow Rate FiO2 07/16/21 12:05 NIV Bilevel 70 07/16/21 11:12 60.00 07/16/21 09:57 84 23 97 07/16/21 08:00 35.8 07/16/21 06:00 115/80 Capillary Refill : Less Than 3 Seconds General Appearance: No Apparent Distress, Obese, Other (on bipap. No acute respiratory distress.) HEENT: PERRL/EOMI Neck: Full Range of Motion, Normal Inspection Respiratory: Chest Non Tender, Lungs Clear, No Accessory Muscle Use; No Crackles; Decreased Breath Sounds (diffuse); No Rhonci, No Wheezing; Other (on bipap) Cardiovascular: Regular Rate, Rhythm, Normal Peripheral Pulses Gastrointestinal: Non Tender, Soft Extremity: No Calf Tenderness, Pedal Edema (bilateral) Neurologic/Psychiatric: Alert, Oriented x3 Skin: Normal Color, Warm/Dry Results/Procedures Lab Laboratory Tests 07/16/21 04:25 Patient resulted labs reviewed. Imaging: Reviewed Imaging Report Assessment/Plan Assessment and Plan Assess & Plan/Chief Complaint COVID-19, possible PNA -CXR today shows continued consolidation -respiratory status improving, cough produces clear mucous. Will hold antibiotics with improving clinical picture Acute Respiratory Failure -on Bipap -per PT/OT note yesterday, orthostatic desaturation to 70% with cyanosis. Maintains 90+% lying supine with bipap. Anemia -no acute change compared to yesterday DM2 -continue glycemic control PAULETTE JENSEN DO 07/17/21 0537: Subjective Subjective/Events-last exam Pt still on BiPAP and Vapotherm Ativan made her sleepy Desats with any type of activity Poor prognosis Review of Systems General: Fatigue, Malaise Pulmonary: Dyspnea Objective Exam General Appearance: No Apparent Distress, WD/WN, Chronically ill, Obese Respiratory: No Respiratory Distress, Accessory Muscle Use, Decreased Breath Sounds (diffuse) Cardiovascular: Regular Rate, Rhythm Neurologic/Psychiatric: Alert, Oriented x3 Assessment/Plan Assessment and Plan Assess & Plan/Chief Complaint Continue supportive care Guarded prognosis Supervisory-Addendum Brief Verification & Attestation Participated in pt care: history, MDM, physical Personally performed: exam, history, MDM, supervision of care Care discussed with: Medical Student Procedures: n/a Results interpretation: Verified all documentation Verification and Attestation of Medical Student E/M Service A medical student performed and documented this service in my presence. I reviewed and verified all information documented by the medical student and made modifications to such information, when appropriate. I personally performed the physical exam and medical decision making. Paulette Jensen, Jul 17, 2021,05:36 HECTOR LIMA MED STUDENT Jul 16, 2021 12:32 PAULETTE JENSEN DO Jul 17, 2021 05:37
--- NOTE | 2021-07-16 14:00 | Physical Therapy Daily Note ---
PT Daily Note-Current Subjective Patient in bed pre tx, agrees to PT, has no complaints of pain. Appearance Patient in bedside chair post tx with nurse call, phone, tray, all needs met. Mental Status Patient Orientation: Person, Place, Situation Attachments: Oxygen (vapotherm) Transfers SCALE: Activities may be completed with or without assistive devices. 9-Tyigvshvfd-nxfpevs completes the activity by him/herself with no assistance from a helper. 5-Set-up or Clean-up Assistance-helper sets up or cleans up; patient completes activity. [place] assists only prior to or following the activity. 4-Supervision or Touching Assistance-helper provides verbal cues and/or touching/steadying and/or contact guard assistance as patient completes activ ity. Assistance may be provided throughout the activity or intermittently. 3-Partial/Moderate Assistance-helper does LESS THAN HALF the effort. [place] lifts, holds or supports trunk or limbs, but provides less than half the effort. 2-Substantial/Maximal Assistance-helper does MORE THAN HALF the effort. [place] lifts or holds trunk or limbs and provides more than half the effort. 0-Pdzhthsow-pqadac does ALL the effort. Patient does none of the effort to complete the activity. Or, the assistance of 2 or more helpers is required for the patient to complete the activity. If activity was not attempted, code reason: 7-Patient Refused. 9-Not Applicable-not attempted and the patient did not perform the activity before the current illness, exacerbation or injury. 10-Not Attempted due to Environmental Limitations-(lack of equipment, weather restraints, etc.). 88-Not Attempted due to Medical Conditions or Safety Concerns. Roll Left & Right (QC): 6 Lying to Sitting/Side of Bed(Q: 6 Sit to Stand (QC): 4 Chair/Ele-pw-Mrpxb Xfer(QC): 4 CGA for sit to stand and transfer, no dizziness with trying to stand this afternoon, after transferring to chair her O2 went down to 80% but came back up to 90% after a couple of minutes of purse lip breathing and her nurse turned the vapotherm up to 100% Weight Bearing Right Lower Extremity: Right Weight Bearing/Tolerated Left Lower Extremity: Left Weight Bearing/Tolerated Exercises Seated Therapy Exercises: Ankle pumps, Long arc quads Seated Reps: 20 Treatments bed mobility and transfers, LE ROM Assessment Current Status: Fair Progress improved performance with transfers and O2 recovery PT Short Term Goals Short Term Goals Time Frame: Jul 13, 2021 Roll Left & Right: 5 Sit to lyin Lying to sitting on side of be: 5 Sit to stand: 5 Chair/rcf-am-kryda transfer: 5 Toilet transfer: 5 Car transfer: 5 Walk 10 feet: 5 Walk 50 feet with two turns: 5 Walk 150 feet: 5 Walking 10ft on uneven surface: 5 1 step (curb): 5 4 steps: 5 12 steps: 5 Picking up objects: 5 PT Network Operations Manager Goals Network Operations Manager Goals PT Network Operations Manager Goals Time Frame: Jul 20, 2021 Roll Left & Right (QC): 6 Sit to Lying (QC): 6 Lying-Sitting on Side/Bed(QC): 6 Sit to Stand (QC): 6 Chair/Tkt-nj-Wrlmv Xfer(QC): 6 Toilet Transfer (QC): 6 Car Transfer (QC): 6 Does the Patient Walk: No and Walking Goal IS indicated Walk 10 feet (QC): 6 Walk 50ft with 2 Turns (QC): 6 Walk 150 ft (QC): 6 Walking 10ft on Uneven Surface: 6 1 Step (curb) (QC): 6 4 Steps (QC): 6 12 Steps (QC): 6 Picking up an Object (QC): 6 Wheel 50 feet with 2 turns (QC: 9 Wheel 150 feet: 9 PT Plan Problem List Problem List: Activity Tolerance, Functional Strength, Safety, Balance, Gait, Transfer, Bed Mobility, ROM Treatment/Plan Treatment Plan: Continue Plan of Care Treatment Plan: Bed Mobility, Functional Activity Yanni, Functional Strength, Gait, Safety, Therapeutic Exercise, Transfers Treatment Duration: Jul 20, 2021 Frequency: 11 times per week Safety Risks/Education Patient Education: Transfer Techniques, Correct Positioning, Safety Issues Teaching Recipient: Patient Teaching Methods: Demonstration, Discussion Response to Teaching: Reinforcement Needed Time/GCodes Time In: 1336 Time Out: 1347 Total Billed Treatment Time: 11 Total Billed Treatment 1 visit FA 11' LANDON BUTCHER PT Jul 16, 2021 14:00
--- NOTE | 2021-07-16 14:14 | Occupational Ther Daily Note ---
OT Current Status-Daily Note Subjective Pt in bed eating lunch, agreeable to OT tx. Mental Status/Objective Patient Orientation: Person, Place, Time, Situation Attachments: Oxygen (Vapotherm) ADL-Treatment Therapy Code Descriptions/Definitions Functional [place] Measure: 0=Not Assessed/NA 4=Minimal Assistance 1=Total Assistance 5=Supervision or Setup 2=Maximal Assistance 6=Modified [place] 3=Moderate Assistance 7=Complete IndependenceSCALE: Activities may be completed with or without assistive devices. 0-Rqqllcaewd-orjouvn completes the activity by him/herself with no assistance from a helper. 5-Set-up or Clean-up Assistance-helper sets up or cleans up; patient completes activity. [place] assists only prior to or following the activity. 4-Supervision or Touching Assistance-helper provides verbal cues and/or touching/steadying and/or contact guard assistance as patient completes activity. Assistance may be provided throughout the activity or intermittently. 3-Partial/Moderate Assistance-helper does LESS THAN HALF the effort. [place] lifts, holds or supports trunk or limbs, but provides less than half the effort. 2-Substantial/Maximal Assistance-helper does MORE THAN HALF the effort. [place] lifts or holds trunk or limbs and provides more than half the effort. 9-Kxoqtdqfq-qrhcjg does ALL the effort. Patient does none of the effort to complete the activity. Or, the assistance of 2 or more helpers is required for the patient to complete the activity. If activity was not attempted, code reason: 7-Patient Refused. 9-Not Applicable-not attempted and the patient did not perform the activity before the current illness, exacerbation or injury. 10-Not Attempted due to Environmental Limitations-(lack of equipment, weather restraints, etc.). 88-Not Attempted due to Medical Conditions or Safety Concerns. Eating (QC): 5 (set up assistance with meal) Other Treatment Pt in bed, agreeable to transferring to recliner to eat lunch. Pt transferred supine to sit EOB, then CGA to transfer to recliner. Pt declines dizziness during transfer. Once in recliner, O2 decreased to 80%, but increased back to 90% after a couple of minutes of purse lip breathing and nursing staff turning vapotherm to 100%. In order to increase BUE strength, activity tolerance, and pulmonary function, pt completed x10 reps shoulder flexion. Pt's O2 decreased to 87%, recovered into the 90%s after a couple minutes of pursed lip breathing. Post tx, pt up in chair, call light in reach and all needs met. Education OT Patient Education: Correct positioning, Energy conservation, Exercise program, Modified ADL techniques, Progress toward Goal/Update tx plan, Purpose of tx/functional activities, Rehab process Teaching Recipient: Patient Teaching Methods: Discussion Response to Teaching: Verbalize Understanding OT Core Measures Abstractor Goals Core Measures Abstractor Goals Time Frame: Jul 26, 2021 Eating (QC): 6 Oral Hygiene (QC): 6 Toileting Hygiene (QC): 4 Shower/Bathe Self (QC): 4 Upper Body Dressing (QC): 5 Lower Body Dressing (QC): 4 On/Off Footwear (QC): 4 Additional Goals: 1-Demonstrate ADL Tasks, 2-Verbalize Understanding, 3-ImproveStrength/Yanni 1=Demonstrate adherence to instructed precautions during ADL tasks. 2=Patient will verbalize/demonstrate understanding of assistive devices/modifications for ADL. 3=Patient will improve strength/tolerance for activity to enable patient to perform ADL's. OT Education/Plan Problem List/Assessment Assessment: Decreased Activ Tolerance, Decreased UE Strength, Impaired Funct Balance, Impaired I ADL's, Impaired Self-Care Skills Discharge Recommendations Plan/Recommendations: Continue POC Treatment Plan/Plan of Care Patient would benefit from OT for education, treatment and training to promote independence in ADL's, mobility, safety and/or upper extremity function for ADL's. Plan of Care: ADL Retraining, Functional Mobility, UE Funct Exercise/Act Treatment Duration: Jul 26, 2021 Frequency: 5 times per week Estimated Hrs Per Day: .25 hour per day Rehab Potential: Good Time/GCodes Start Time: 13:36 Stop Time: 13:47 Total Time Billed (hr/min): 11 Billed Treatment Time 1, FA ARAM COLLAZO OT Jul 16, 2021 14:14
[2021-07-16] MEDS ORDERED: BISACODYL 10 MG SUPP (DULCOLAX) PR NR (18:30)
[2021-07-16] MEDS: LORATADINE (CLARITIN) 10 MG TAB PO SCH (20:41)
[2021-07-16 21:41] VITALS: BP 135/87
[2021-07-17 01:52] VITALS: BP 135/87
[2021-07-17] MEDS: RT-ALBUTEROL HFA 8.5 GM INHALER IH SCH ×4 (01:52→22:05)
[2021-07-17 04:27] LABS: BASOPHILS # (AUTO) 0.1 10^3/uL (0.0-0.1); BASOPHILS % (AUTO) 1 % (0-10); EOSINOPHILS # (AUTO) 0.7 10^3/uL (0.0-0.3); EOSINOPHILS % (AUTO) 5 % (0-10); HEMATOCRIT 30 % (35-52); HEMOGLOBIN 9.4 g/dL (11.5-16.0); LYMPHOCYTES # (AUTO) 3.3 10^3/uL (1.0-4.0); LYMPHOCYTES % (AUTO) 25 % (12-44); MEAN CORPUSCULAR HEMOGLOBIN 29 pg (25-34); MEAN CORPUSCULAR HGB CONC 31 g/dL (32-36); MEAN CORPUSCULAR VOLUME 94 fL (80-99); MEAN PLATELET VOLUME 10.6 fL (9.0-12.2); MONOCYTES # (AUTO) 0.9 10^3/uL (0.0-1.0); MONOCYTES % (AUTO) 6 % (0-12); NEUTROPHILS # (AUTO) 8.3 10^3/uL (1.8-7.8); NEUTROPHILS % (AUTO) 62 % (42-75); PLATELET COUNT 382 10^3/uL (130-400); WHITE BLOOD COUNT 13.4 10^3/uL (4.3-11.0)
[2021-07-17 04:40] LABS: POTASSIUM 4.7 MMOL/L (3.6-5.0)
[2021-07-17 04:42] LABS: CALCIUM 9.8 MG/DL (8.5-10.1)
[2021-07-17 04:46] LABS: CREATININE SERUM 0.85 MG/DL (0.60-1.30); PHOSPHORUS 4.1 MG/DL (2.3-4.7)
[2021-07-17] MEDS: MAGNESIUM 1 GM/100 ML IVPB 100 ML IV SCH (05:14)
[2021-07-17] MEDS: KCL 20 MEQ TAB (K-DUR) PO SCH (05:14)
[2021-07-17] MEDS: POTASSIUM CL 10MEQ/50ML IVPB 50 ML IV SCH (05:14)
[2021-07-17] MEDS: inSUlin ASPART (NovoLOG) 1 UNIT/0.01 ML (CHARGE PER UNIT) SC SCH ×7 (05:14→20:24)
[2021-07-17] MEDS: predniSONE 5 MG TAB PO SCH (05:19)
[2021-07-17] MEDS: LEVOTHYROXINE 75 MCG (LEVOTHROID) TABLET PO SCH (05:19)
[2021-07-17] MEDS: LEVOTHYROXINE 100 MCG (LEVOTHROID) TAB PO SCH (05:19)
--- NOTE | 2021-07-17 08:41 | Physical Therapy Daily Note ---
PT Daily Note-Current Subjective Patient in bed pre tx, agrees to PT, has no complaints of pain. Appearance Patient in recliner post tx with nurse call, phone, tray, all needs met. Mental Status Patient Orientation: Person, Place, Situation Attachments: Oxygen Transfers SCALE: Activities may be completed with or without assistive devices. 1-Xwmdotsxmz-iyavalk completes the activity by him/herself with no assistance from a helper. 5-Set-up or Clean-up Assistance-helper sets up or cleans up; patient completes activity. [place] assists only prior to or following the activity. 4-Supervision or Touching Assistance-helper provides verbal cues and/or touching/steadying and/or contact guard assistance as patient completes activity. Assistance may be provided throughout the activity or intermittently. 3-Partial/Moderate Assistance-helper does LESS THAN HALF the effort. [place] lifts, holds or supports trunk or limbs, but provides less than half the effort. 2-Substantial/Maximal Assistance-helper does MORE THAN HALF the effort. [place] lifts or holds trunk or limbs and provides more than half the effort. 0-Cxbnqtalo-miaime does ALL the effort. Patient does none of the effort to complete the activity. Or, the assistance of 2 or more helpers is required for the patient to complete the activity. If activity was not attempted, code reason: 7-Patient Refused. 9-Not Applicable-not attempted and the patient did not perform the activity before the current illness, exacerbation or injury. 10-Not Attempted due to Environmental Limitations-(lack of equipment, weather restraints, etc.). 88-Not Attempted due to Medical Conditions or Safety Concerns. Roll Left & Right (QC): 6 Lying to Sitting/Side of Bed(Q: 6 Sit to Stand (QC): 4 Chair/Rtj-do-Ozbnq Xfer(QC): 4 Patient stood from bed with CGA, after turning and taking a couple of steps to the chair she was able to medicaid billing specialist front of it for about 30-40 seconds and perform some heel raises before her O2 started dropping. Weight Bearing Right Lower Extremity: Right Weight Bearing/Tolerated Left Lower Extremity: Left Weight Bearing/Tolerated Exercises Standing: Heel/toe raises Standing Reps: 10 Treatments bed mobility and transfers, LE strengthening Assessment Current Status: Fair Progress slowly improving endurance, O2 eventually dropped to 79%, sat down and it started to come back up pretty rapidly but she then had a coughing fit, O2 dropped to about 77% and it took about 2 min to come back up to 90% with purse lip breathing PT Short Term Goals Short Term Goals Time Frame: Jul 13, 2021 Roll Left & Right: 5 Sit to lyin Lying to sitting on side of be: 5 Sit to stand: 5 Chair/vea-lm-zelds transfer: 5 Toilet transfer: 5 Car transfer: 5 Walk 10 feet: 5 Walk 50 feet with two turns: 5 Walk 150 feet: 5 Walking 10ft on uneven surface: 5 1 step (curb): 5 4 steps: 5 12 steps: 5 Picking up objects: 5 PT Detention Goals Industrial Machinery Mechanic Goals PT Industrial Machinery Mechanic Goals Time Frame: Jul 20, 2021 Roll Left & Right (QC): 6 Sit to Lying (QC): 6 Lying-Sitting on Side/Bed(QC): 6 Sit to Stand (QC): 6 Chair/Ksm-lb-Tmwqq Xfer(QC): 6 Toilet Transfer (QC): 6 Car Transfer (QC): 6 Does the Patient Walk: No and Walking Goal IS indicated Walk 10 feet (QC): 6 Walk 50ft with 2 Turns (QC): 6 Walk 150 ft (QC): 6 Walking 10ft on Uneven Surface: 6 1 Step (curb) (QC): 6 4 Steps (QC): 6 12 Steps (QC): 6 Picking up an Object (QC): 6 Wheel 50 feet with 2 turns (QC: 9 Wheel 150 feet: 9 PT Plan Problem List Problem List: Activity Tolerance, Functional Strength, Safety, Balance, Gait, Transfer, Bed Mobility, ROM Treatment/Plan Treatment Plan: Continue Plan of Care Treatment Plan: Bed Mobility, Functional Activity Yanni, Functional Strength, Gait, Safety, Therapeutic Exercise, Transfers Treatment Duration: Jul 20, 2021 Frequency: 11 times per week Safety Risks/Education Patient Education: Transfer Techniques, Correct Positioning, Safety Issues Teaching Recipient: Patient Teaching Methods: Demonstration, Discussion Response to Teaching: Reinforcement Needed Time/GCodes Time In: 813 Time Out: 823 Total Billed Treatment Time: 10 Total Billed Treatment 1 visit FA Jose TERELANDON MCCARTY PT Jul 17, 2021 08:41
[2021-07-17] MEDS: DOCUSATE SODIUM 100 MG (COLACE) CAP PO SCH ×2 (09:00→20:17)
[2021-07-17] MEDS: SENNA W/DOCUSATE (SENOKOT S) TABLET PO SCH ×2 (09:00→20:24)
[2021-07-17] MEDS: polyethylene glycoL POWDER 17 GM (MIRALAX) PACK PO SCH ×2 (09:00→20:24)
[2021-07-17] MEDS: ENOXAPARIN 100 MG/1 ML (LOVENOX) SYR SC SCH ×2 (09:14→20:17)
[2021-07-17] MEDS: PARoxetine 10 MG (PAXIL) TAB PO SCH (09:15)
[2021-07-17] MEDS: ZINC SULFATE 220 MG CAPSULE PO SCH (09:15)
[2021-07-17] MEDS: PANTOPRAZOLE 40 MG (PROTONIX) TAB PO SCH (09:15)
[2021-07-17] MEDS: VITAMIN D3 25 MCG (1,000 UNITS) TABLET PO SCH (09:15)
--- NOTE | 2021-07-17 10:58 | Occupational Ther Daily Note ---
OT Current Status-Daily Note Subjective Pt up in recliner, agreeable to OT tx. Mental Status/Objective Patient Orientation: Person, Place, Time, Situation Attachments: Oxygen ADL-Treatment Therapy Code Descriptions/Definitions Functional [place] Measure: 0=Not Assessed/NA 4=Minimal Assistance 1=Total Assistance 5=Supervision or Setup 2=Maximal Assistance 6=Modified [place] 3=Moderate Assistance 7=Complete IndependenceSCALE: Activities may be completed with or without assistive devices. 4-Nqanalfqky-bdsolyp completes the activity by him/herself with no assistance from a helper. 5-Set-up or Clean-up Assistance-helper sets up or cleans up; patient completes activity. [place] assists only prior to or following the activity. 4-Supervision or Touching Assistance-helper provides verbal cues and/or touchi ng/steadying and/or contact guard assistance as patient completes activity. Assistance may be provided throughout the activity or intermittently. 3-Partial/Moderate Assistance-helper does LESS THAN HALF the effort. Kirby lifts, holds or supports trunk or limbs, but provides less than half the effort. 2-Substantial/Maximal Assistance-helper does MORE THAN HALF the effort. [place] lifts or holds trunk or limbs and provides more than half the effort. 3-Hamftkgno-aqraps does ALL the effort. Patient does none of the effort to complete the activity. Or, the assistance of 2 or more helpers is required for the patient to complete the activity. If activity was not attempted, code reason: 7-Patient Refused. 9-Not Applicable-not attempted and the patient did not perform the activity before the current illness, exacerbation or injury. 10-Not Attempted due to Environmental Limitations-(lack of equipment, weather restraints, etc.). 88-Not Attempted due to Medical Conditions or Safety Concerns. Oral Hygiene (QC): 5 (set up assist) Other Treatment Pt up in recliner, agreeable to OT tx. Pt brushed her teeth and washed her face with set up assistance. Shower cap placed on her head, pt able to use UEs to scrub her head, OT assisted (mod A overall with washing). Pt took rest breaks as needed. OT combed pt's hair, max A overall due to length of pt's hair, then braided hair for pt. During session, pt's O2 saturation dropped to 85%, increased back to low 90%s with pursed lip breathing after several minutes. Post tx, pt up in recliner, call light in reach and all needs met. Education OT Patient Education: Correct positioning, Energy conservation, Modified ADL techniques, Progress toward Goal/Update tx plan, Purpose of tx/functional activities, Rehab process Teaching Recipient: Patient Teaching Methods: Discussion Response to Teaching: Verbalize Understanding OT Mcc Goals Dial Polisher Goals Time Frame: Jul 26, 2021 Eating (QC): 6 Oral Hygiene (QC): 6 Toileting Hygiene (QC): 4 Shower/Bathe Self (QC): 4 Upper Body Dressing (QC): 5 Lower Body Dressing (QC): 4 On/Off Footwear (QC): 4 Additional Goals: 1-Demonstrate ADL Tasks, 2-Verbalize Understanding, 3-ImproveStrength/Yanni 1=Demonstrate adherence to instructed precautions during ADL tasks. 2=Patient will verbalize/demonstrate understanding of assistive devices/modifications for ADL. 3=Patient will improve strength/tolerance for activity to enable patient to perform ADL's. OT Education/Plan Problem List/Assessment Assessment: Decreased Activ Tolerance, Decreased UE Strength, Impaired I ADL's, Impaired Self-Care Skills Discharge Recommendations Plan/Recommendations: Continue POC Treatment Plan/Plan of Care Patient would benefit from OT for education, treatment and training to promote independence in ADL's, mobility, safety and/or upper extremity function for ADL's. Plan of Care: ADL Retraining, Functional Mobility, UE Funct Exercise/Act Treatment Duration: Jul 26, 2021 Frequency: 5 times per week Estimated Hrs Per Day: .25 hour per day Rehab Potential: Good Time/GCodes Start Time: 09:35 Stop Time: 09:58 Total Time Billed (hr/min): 23 Billed Treatment Time 1, ADL 2 ARAM COLLAZO OT Jul 17, 2021 10:58
--- NOTE | 2021-07-17 12:34 | Progress Note - Hospitalist ---
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 She first started having symptoms two weeks ago. A week and a half ago she tested positive for COVID-19. She was not vaccinated. She was started on Prednisone. She continued to worsen with shortness of breath and cough and presented to the ER. Subjective/Events-last exam Kamille is improving compared to yesterday. She states she feels less short of breath and has been getting up and sitting in her chair. She has moved from BIPAP to vapotherm and says she is doing well. She states her cough has not worsened. Focused Exam Time of Focused Exam: 22:00 Objective Exam Vital Signs Vital Signs Date Time Temp Pulse Resp B/P (MAP) Pulse Ox O2 Delivery O2 Flow Rate FiO2 07/17/21 11:56 35.8 07/17/21 09:58 91 Vapotherm 30.00 85 07/17/21 09:00 101 20 134/102 Capillary Refill : Less Than 3 Seconds General Appearance: Mild Distress (tachypneic), Obese HEENT: PERRL/EOMI Neck: Full Range of Motion, Normal Inspection Respiratory: Chest Non Tender, Lungs Clear, No Accessory Muscle Use; No Crackles; Decreased Breath Sounds; No Stridor, No Wheezing; Other (tachypneic) Cardiovascular: No JVD, No Murmur, Other (regular rhythm. Borderline tachycardic) Gastrointestinal: Non Tender, Soft Extremity: No Pedal Edema; No Calf Tenderness Neurologic/Psychiatric: Alert, Oriented x3, Normal Mood/Affect, Other (pleasant) Skin: Normal Color, Warm/Dry Results/Procedures Lab Laboratory Tests 07/17/21 04:20 Patient resulted labs reviewed. Imaging: Reviewed Imaging Report Assessment/Plan Assessment and Plan Assess & Plan/Chief Complaint COVID-19, possible PNA -respiratory status improving, cough produces clear mucous. Will hold antibiotics with improving clinical picture Acute Respiratory Failure -on vapotherm -working with PT/OT. Still desats when standing up and moving -will likely transfer to hospital floor tomorrow provided patient continues to improve Anemia -no acute change compared to yesterday DM2 -continue glycemic control PAULETTE JENSEN DO 07/18/21 0511: Subjective Subjective/Events-last exam Pt doing pretty well Desats with any activity Remains on Vapotherm Off BiPAP used at night Pt doing much better Review of Systems General: Fatigue, Malaise Pulmonary: Dyspnea Objective Exam General Appearance: No Apparent Distress, WD/WN, Anxious Respiratory: No Respiratory Distress, Accessory Muscle Use, Decreased Breath Sounds Cardiovascular: Regular Rate, Rhythm Neurologic/Psychiatric: Alert, Oriented x3 Assessment/Plan Assessment and Plan Assess & Plan/Chief Complaint Continue ICU status BiPAP and Vapotherm Supervisory-Addendum Brief Verification & Attestation Participated in pt care: history, MDM, physical Personally performed: exam, history, MDM, supervision of care Care discussed with: Medical Student Procedures: n/a Results interpretation: Verified all documentation Verification and Attestation of Medical Student E/M Service A medical student performed and documented this service in my presence. I reviewed and verified all information documented by the medical student and made modifications to such information, when appropriate. I personally performed the physical exam and medical decision making. Paulette Jensen, Jul 18, 2021,05:11 HECTOR LIMA MED STUDENT Jul 17, 2021 12:33 PAULETTE JENSEN DO Jul 18, 2021 05:11
[2021-07-17] MEDS: LORATADINE (CLARITIN) 10 MG TAB PO SCH (20:17)
[2021-07-17 22:05] VITALS: BP 131/106
[2021-07-18] MEDS: RT-ALBUTEROL HFA 8.5 GM INHALER IH SCH ×2 (02:15→07:03)
[2021-07-18 02:16] VITALS: BP 132/83
[2021-07-18 04:26] LABS: BASOPHILS # (AUTO) 0.1 10^3/uL (0.0-0.1); BASOPHILS % (AUTO) 1 % (0-10); EOSINOPHILS # (AUTO) 0.7 10^3/uL (0.0-0.3); EOSINOPHILS % (AUTO) 6 % (0-10); HEMATOCRIT 30 % (35-52); HEMOGLOBIN 9.3 g/dL (11.5-16.0); LYMPHOCYTES # (AUTO) 3.2 10^3/uL (1.0-4.0); LYMPHOCYTES % (AUTO) 26 % (12-44); MEAN CORPUSCULAR HEMOGLOBIN 30 pg (25-34); MEAN CORPUSCULAR HGB CONC 31 g/dL (32-36); MEAN CORPUSCULAR VOLUME 95 fL (80-99); MEAN PLATELET VOLUME 10.7 fL (9.0-12.2); MONOCYTES # (AUTO) 0.9 10^3/uL (0.0-1.0); MONOCYTES % (AUTO) 8 % (0-12); NEUTROPHILS # (AUTO) 7.1 10^3/uL (1.8-7.8); NEUTROPHILS % (AUTO) 59 % (42-75); PLATELET COUNT 363 10^3/uL (130-400); WHITE BLOOD COUNT 12.1 10^3/uL (4.3-11.0)
[2021-07-18 04:40] LABS: CALCIUM 9.7 MG/DL (8.5-10.1)
[2021-07-18 04:45] LABS: CREATININE SERUM 0.92 MG/DL (0.60-1.30)
[2021-07-18] MEDS: MAGNESIUM 1 GM/100 ML IVPB 100 ML IV SCH (04:45)
[2021-07-18] MEDS: POTASSIUM CL 10MEQ/50ML IVPB 50 ML IV SCH (04:45)
[2021-07-18] MEDS: KCL 20 MEQ TAB (K-DUR) PO SCH (04:45)
[2021-07-18] MEDS: inSUlin ASPART (NovoLOG) 1 UNIT/0.01 ML (CHARGE PER UNIT) SC SCH ×4 (04:46→11:53)
[2021-07-18 04:47] LABS: MAGNESIUM 1.9 MG/DL (1.6-2.4)
[2021-07-18] MEDS: LEVOTHYROXINE 100 MCG (LEVOTHROID) TAB PO SCH (06:29)
[2021-07-18] MEDS: predniSONE 5 MG TAB PO SCH (06:29)
[2021-07-18] MEDS: LEVOTHYROXINE 75 MCG (LEVOTHROID) TABLET PO SCH (06:29)
[2021-07-18 07:03] VITALS: BP 131/78
[2021-07-18] MEDS: polyethylene glycoL POWDER 17 GM (MIRALAX) PACK PO SCH (07:29)
[2021-07-18] MEDS: DOCUSATE SODIUM 100 MG (COLACE) CAP PO SCH (07:29)
[2021-07-18] MEDS: SENNA W/DOCUSATE (SENOKOT S) TABLET PO SCH (07:30)
[2021-07-18] MEDS: ENOXAPARIN 100 MG/1 ML (LOVENOX) SYR SC SCH (08:47)
[2021-07-18] MEDS: ZINC SULFATE 220 MG CAPSULE PO SCH (08:48)
[2021-07-18] MEDS: VITAMIN D3 25 MCG (1,000 UNITS) TABLET PO SCH (08:48)
[2021-07-18] MEDS: PARoxetine 10 MG (PAXIL) TAB PO SCH (08:48)
[2021-07-18] MEDS: PANTOPRAZOLE 40 MG (PROTONIX) TAB PO SCH (08:48)
--- NOTE | 2021-07-18 10:11 | Tele-ICU Progress Note ---
Subjective Date Seen by a Provider: Jul 17, 2021 Time Seen by a Provider: 13:00 Sepsis Event Evaluation Height, Weight, BMI Height: '" Weight: lbs. oz. kg; 37.82 BMI Method: Focused Exam Time of Focused Exam: 22:00 Exam Exam Patient acknowledged, consented, and participated in this virtual visit which was conducted using real time audio/video Vital Signs Date Time Temp Pulse Resp B/P (MAP) Pulse Ox O2 Delivery O2 Flow Rate FiO2 07/18/21 08:04 36.5 07/18/21 07:03 87 32 94 55.00 07/18/21 06:00 86 22 121/79 95 NIV Bilevel 55.00 07/18/21 05:00 87 21 116/82 94 NIV Bilevel 55.00 07/18/21 04:00 36.6 07/18/21 04:00 87 24 113/73 95 NIV Bilevel 55.00 07/18/21 03:49 94 NIV Bilevel 55 07/18/21 03:00 NIV Bilevel 55.00 07/18/21 03:00 87 25 113/76 94 NIV Bilevel 55.00 07/18/21 02:16 91 27 96 60.00 07/18/21 02:00 90 28 132/83 96 NIV Bilevel 60.00 07/18/21 01:00 90 24 127/80 95 NIV Bilevel 60.00 07/18/21 01:00 90 07/18/21 00:28 95 NIV Bilevel 60 07/18/21 00:00 NIV Bilevel 60.00 07/18/21 00:00 92 22 136/79 95 NIV Bilevel 60.00 07/17/21 23:07 36.5 07/17/21 23:00 97 35 130/81 94 NIV Bilevel 65.00 07/17/21 22:05 98 40 95 65.00 07/17/21 22:01 NIV Bilevel 65.00 07/17/21 22:00 99 31 131/106 94 Vapotherm 30.00 85.00 07/17/21 21:00 98 20 121/75 94 Vapotherm 30.00 85.00 07/17/21 20:00 98 20 133/81 97 Vapotherm 25.00 80.00 07/17/21 19:49 93 Vapotherm 25.00 80 07/17/21 19:43 36.6 07/17/21 19:40 100 22 121/86 92 Vapotherm 25.00 80.00 07/17/21 19:00 98 20 121/86 98 Vapotherm 25.00 80.00 07/17/21 19:00 98 07/17/21 18:00 98 97 NIV Bilevel 60.00 07/17/21 17:00 93 100 NIV Bilevel 60.00 07/17/21 16:35 36.4 07/17/21 16:00 95 Vapotherm 30.00 85 07/17/21 16:00 99 NIV Bilevel 60.00 07/17/21 15:00 28 112/69 94 NIV Bilevel 60.00 07/17/21 14:39 91 Vapotherm 30.00 85 07/17/21 14:00 27 119/68 96 NIV Bilevel 60.00 07/17/21 13:00 98 07/17/21 13:00 108 24 81 NIV Bilevel 60.00 07/17/21 12:00 95 Vapotherm 30.00 85 07/17/21 12:00 90 139/82 97 NIV Bilevel 60.00 07/17/21 11:56 35.8 07/17/21 11:00 94 20 93/73 98 NIV Bilevel 60.00 I & O 07/18/21 07:00 Intake Total 1610 ml Balance 1610 ml Height & Weight Height: '" Weight: lbs. oz. kg; 37.82 BMI Method: General Appearance: No Apparent Distress, WD/WN, Anxious HEENT: PERRL/EOMI Neck: Full Range of Motion, Normal Inspection Respiratory: No Respiratory Distress, Accessory Muscle Use, Decreased Breath Sounds Cardiovascular: Regular Rate, Rhythm Capillary Refill: Less Than 3 Seconds Peripheral Pulses: 2+ Radial Pulses (R), 2+ Radial Pulses (L) Gastrointestinal: normal bowel sounds, non tender Extremity: No Pedal Edema; No Calf Tenderness Neurologic/Psychiatric: Alert, Oriented x3 Skin: Normal Color, Warm/Dry Lymphatic: No Adenopathy Results Lab Laboratory Tests 07/17/21 04:20 07/18/21 04:00 Assessment/Plan Assessment/Plan Tele-ICU Physician , Progress Note ) Available chart/ vitals / labs / Images reviewed Video assessment done using teleICU camera, rest of exam as per RN Discussed wth RN Events overnight : disating on vapotherm Afebrile I/O = neg 800 Drips: Pressors: , hemodynamically stable EXAM PER RN Consultants: Hospital course: 06/25 to ICU - COVID-NIV.. + diarrhea + FERNANDO 06/26 -BIPAP16/10 100% rr 33 TV >500 MV 20 06/27 - bipap / FIO2 65% RR 24 mv 15l 07/01 - can not tolerate vapotherm , only on Bipap 07/02 - BIPAP / PRN VAPOTHERM 07/03 - RISING WBC 07/06 - BIPAP 07/09 - TOLERATES VAPOTHERM 35L , still on Bipap at night 07/16 - OFF isolation , Pending transfer to [place], awaiting insurance authorization, still on vptherm A/P AHRF/ARDS due to severe COVID19 - CT chest 06/26 - no PE VAPOTHERM NOW 30L 95% - WILL CONT BIPAP NIGHT UENX-Henfwcqvbkj-1/COVID-19 infection (unvaccinated, COVID + test approx 1.5 weeks [employer] -was started on prednisone as outpatient ) -Steroids IV - started on high dose 06/25 - SM 20 q 12 - tapering off ( on prednison ) - Barcitinib 06/26 - 07/10 -Hypercoagulable state , elev DDIMER on admission CTA 06/26 neg for PE -> lovenox full dose , - REPEAT DDIMER - CONSIDER TO DECREASE TO PROPH DOSE - as per PCP suspected superimposed bact PNA - cefepime 06/27- 07/02 - FOLLOW OFF ABX Diabetes Mellitus , severe hyperglycemia -insulin gtt to stop, long acting insulin - ? increase dose -close f/up on steroids Lines : PICC 07/01 (Central Line Necessity Reviewed) Asencio: + OG: Nutrition: Po Analgesia: Anxiety/ delirium na VTE Prophylaxis: full dose lovenox Stress Ulcer Prophylaxis: ppi Plans in collaboration with bedside consultants and IM MDs. Discussed with RN to reach out if any questions or concerns A total of 20 minutes of critical care time was devoted to this patient today, required to treat and/or prevent further deterioration of critical care condition ( as above) . AZUL DRAPER MD Jul 18, 2021 10:11
--- NOTE | 2021-07-18 10:15 | Tele-ICU Progress Note ---
Subjective Date Seen by a Provider: Jul 18, 2021 Time Seen by a Provider: 10:15 Sepsis Event Evaluation Height, Weight, BMI Height: '" Weight: lbs. oz. kg; 37.82 BMI Method: Focused Exam Time of Focused Exam: 22:00 Exam Exam Patient acknowledged, consented, and participated in this virtual visit which was conducted using real time audio/video Vital Signs Date Time Temp Pulse Resp B/P (MAP) Pulse Ox O2 Delivery O2 Flow Rate FiO2 07/18/21 08:04 36.5 07/18/21 07:03 87 32 94 55.00 07/18/21 06:00 86 22 121/79 95 NIV Bilevel 55.00 07/18/21 05:00 87 21 116/82 94 NIV Bilevel 55.00 07/18/21 04:00 36.6 07/18/21 04:00 87 24 113/73 95 NIV Bilevel 55.00 07/18/21 03:49 94 NIV Bilevel 55 07/18/21 03:00 NIV Bilevel 55.00 07/18/21 03:00 87 25 113/76 94 NIV Bilevel 55.00 07/18/21 02:16 91 27 96 60.00 07/18/21 02:00 90 28 132/83 96 NIV Bilevel 60.00 07/18/21 01:00 90 24 127/80 95 NIV Bilevel 60.00 07/18/21 01:00 90 07/18/21 00:28 95 NIV Bilevel 60 07/18/21 00:00 NIV Bilevel 60.00 07/18/21 00:00 92 22 136/79 95 NIV Bilevel 60.00 07/17/21 23:07 36.5 07/17/21 23:00 97 35 130/81 94 NIV Bilevel 65.00 07/17/21 22:05 98 40 95 65.00 07/17/21 22:01 NIV Bilevel 65.00 07/17/21 22:00 99 31 131/106 94 Vapotherm 30.00 85.00 07/17/21 21:00 98 20 121/75 94 Vapotherm 30.00 85.00 07/17/21 20:00 98 20 133/81 97 Vapotherm 25.00 80.00 07/17/21 19:49 93 Vapotherm 25.00 80 07/17/21 19:43 36.6 07/17/21 19:40 100 22 121/86 92 Vapotherm 25.00 80.00 07/17/21 19:00 98 20 121/86 98 Vapotherm 25.00 80.00 07/17/21 19:00 98 07/17/21 18:00 98 97 NIV Bilevel 60.00 07/17/21 17:00 93 100 NIV Bilevel 60.00 07/17/21 16:35 36.4 07/17/21 16:00 95 Vapotherm 30.00 85 07/17/21 16:00 99 NIV Bilevel 60.00 07/17/21 15:00 28 112/69 94 NIV Bilevel 60.00 07/17/21 14:39 91 Vapotherm 30.00 85 07/17/21 14:00 27 119/68 96 NIV Bilevel 60.00 07/17/21 13:00 98 07/17/21 13:00 108 24 81 NIV Bilevel 60.00 07/17/21 12:00 95 Vapotherm 30.00 85 07/17/21 12:00 90 139/82 97 NIV Bilevel 60.00 07/17/21 11:56 35.8 07/17/21 11:00 94 20 93/73 98 NIV Bilevel 60.00 I & O 07/18/21 07:00 Intake Total 1610 ml Balance 1610 ml Height & Weight Height: '" Weight: lbs. oz. kg; 37.82 BMI Method: General Appearance: No Apparent Distress, WD/WN, Anxious HEENT: PERRL/EOMI Neck: Full Range of Motion, Normal Inspection Respiratory: No Respiratory Distress, Accessory Muscle Use, Decreased Breath Sounds Cardiovascular: Regular Rate, Rhythm Capillary Refill: Less Than 3 Seconds Peripheral Pulses: 2+ Radial Pulses (R), 2+ Radial Pulses (L) Gastrointestinal: normal bowel sounds, non tender Extremity: No Pedal Edema; No Calf Tenderness Neurologic/Psychiatric: Alert, Oriented x3 Skin: Normal Color, Warm/Dry Lymphatic: No Adenopathy Results Lab Laboratory Tests 07/17/21 04:20 07/18/21 04:00 Assessment/Plan Assessment/Plan Tele-ICU Physician , Progress Note ) Available chart/ vitals / labs / Images reviewed Video assessment done using teleICU camera, rest of exam as per RN Discussed wth RN Events overnight : disating on vapotherm Afebrile I/O = neg 800 Drips: Pressors: , hemodynamically stable EXAM PER RN Consultants: Hospital course: 06/25 to ICU - COVID-NIV.. + diarrhea + FERNANDO 06/26 -BIPAP16/10 100% rr 33 TV >500 MV 20 06/27 - bipap / FIO2 65% RR 24 mv 15l 07/01 - can not tolerate vapotherm , only on Bipap 07/02 - BIPAP / PRN VAPOTHERM 07/03 - RISING WBC 07/06 - BIPAP 07/09 - TOLERATES VAPOTHERM 35L , still on Bipap at night 07/16 - OFF isolation , Pending transfer to [place], awaiting insurance authorization, still on vptherm 07/18 changed lovenocx to proph dose A/P AHRF/ARDS due to severe COVID19 - CT chest 06/26 - no PE VAPOTHERM NOW 30L 95% - WILL CONT BIPAP NIGHT RVDO-Tmheymejjgj-8/COVID-19 infection (unvaccinated, COVID + test approx 1.5 weeks [employer] -was started on prednisone as outpatient ) -Steroids IV - started on high dose 06/25 - SM 20 q 12 - tapering off ( on prednison ) - Barcitinib 06/26 - 07/10 -Hypercoagulable state , elev DDIMER on admission CTA 06/26 neg for PE -> l ovenox full dose , - REPEATED DDIMER -07/18 -> DECREASED TO PROPH DOSE suspected superimposed bact PNA - cefepime 06/27- 07/02 - FOLLOW OFF ABX Diabetes Mellitus , severe hyperglycemia -insulin gtt to stop, long acting insulin - ? increase dose -close f/up on steroids Lines : PICC 07/01 (Central Line Necessity Reviewed) Asencio: + OG: Nutrition: Po Analgesia: Anxiety/ delirium na VTE Prophylaxis: full dose lovenox Stress Ulcer Prophylaxis: ppi Plans in collaboration with bedside consultants and IM MDs. Discussed with RN to reach out if any questions or concerns A total of 20 minutes of critical care time was devoted to this patient today, required to treat and/or prevent further deterioration of critical care condition ( as above) . AZUL DRAPER MD Jul 18, 2021 10:15
[2021-07-18] MEDS ORDERED: LORA10TA7 PO (12:50)
[2021-07-18] MEDS ORDERED: Albuterol Inhaler IH (12:50)
[2021-07-18] MEDS ORDERED: PANT40TA52 PO (12:50)
[2021-07-18] MEDS ORDERED: ENOX40DI8 SC (12:50)
[2021-07-18] MEDS ORDERED: SENN1TAB76 PO (12:50)
[2021-07-18] MEDS ORDERED: INSU100V5 SQ (12:50)
--- NOTE | 2021-07-18 12:51 | Discharge Summary ---
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 F with PMH DM2 and morbid obesity who presented to the ER on 06/25/21 with complaint of SOB and mild diarrhea since 06/22/21. She repor radha at that time a prior positive COVID diagnosis around 06/15/21 and compained of SOB unimproved with home oxygen. The patient was brought to the ICU for acute respiratory distress related to COVID-19 and given antibiotics for possible PNA, decadron, and Remdisivir. The patient's oxygenation was managed with Vapotherm and BIPAP without needing intubation. She improved to the point of maintaining oxygen when at rest but continued to desaturate with activity, despite several weeks of supportive therapy. Her diarrhea has resolved, cough has improved substantially, but the patient will be discharged to [facility] due to continued oxygen demands. HECTOR LIMA STUDENT Labs and Pending Lab Test: Laboratory Tests 07/17/21 15:48: Glucometer 223H 07/17/21 20:12: Glucometer 146H 07/18/21 04:00: White Blood Count 12.1H, Red Blood Count 3.14L, Hemoglobin 9.3L, Hematocrit 30L, Mean Corpuscular Volume 95, Mean Corpuscular Hemoglobin 30, Mean Corpuscular Hemoglobin Concent 31L, Red Cell Distribution Width 15.2H, Platelet Count 363, Mean Platelet Volume 10.7, Immature Granulocyte % (Auto) 1, Neutrophils (%) (Auto) 59, Lymphocytes (%) (Auto) 26, Monocytes (%) (Auto) 8, Eosinophils (%) (Auto) 6, Basophils (%) (Auto) 1, Neutrophils # (Auto) 7.1, Lymphocytes # (Auto) 3.2, Monocytes # (Auto) 0.9, Eosinophils # (Auto) 0.7H, Basophils # (Auto) 0.1, Immature Granulocyte # (Auto) 0.1, D-Dimer 0.43, Sodium Level 137, Potassium Level 4.0, Chloride Level 96L, Carbon Dioxide Level 27, Anion Gap 14, Blood Urea Nitrogen 19H, Creatinine 0.92, Estimat Glomerular Filtration Rate 65, BUN/Creatinine Ratio 21, Glucose Level 117H, Calcium Level 9.7, Phosphorus Level 4.0, Magnesium Level 1.9 07/18/21 11:40: Glucometer 198H Microbiology 06/26/21 Blood Culture - Final, Complete No growth 06/26/21 MRSA Screen - Final, Complete MRSA not isolated Home Meds Active Levemir (Insulin Determir) 1,000 Units/10 Ml Soln 30 Unit SQ BID 7 Days Pantoprazole Sodium 40 Mg Tablet.dr 40 Mg PO DAILY 7 Days Stool Softener-Laxative Tablet (Sennosides/Docusate Sodium) 1 Each Tablet 1 Ea PO BID PRN 7 Days Enoxaparin Sodium 40 Mg/0.4 Ml Syringe 40 Mg SC Q24H 7 Days [Albuterol Inhaler] 8.5 GM Hfa.aer.ad 0 Gm IH RTQ6HR 7 Days Loratadine 10 Mg Tablet 10 Mg PO DAILY@2100 7 Days Reported Ibuprofen 200 Mg Tablet 400-600 Mg PO Q8H PRN Tylenol Extra Strength (Acetaminophen) 500 Mg Tablet 500-1,000 Mg PO Q8H PRN Mucus ER (Guaifenesin) 600 Mg Tab.er.12h 600 Mg PO Q12H PRN Vitamin D3 (Cholecalciferol (Vitamin D3)) 25 Mcg Tablet 25 Mcg PO DAILY Zinc 50 Mg Tablet 50 Mg PO DAILY Lantus Solostar (Insulin Glargine,Hum.rec.anlog) 100 Unit/1 Ml Insuln.pen 60 Units SC BID Tirosint (Levothyroxine Sodium) 175 Mcg Capsule 175 Mcg PO DAILY Janumet 50-500 mg Tablet (Sitagliptin Phos/Metformin HCl) 1 Tab Tablet 1 Ea PO BID Paroxetine HCl 30 Mg Tablet 30 Mg PO DAILY Glipizide 10 Mg Tablet 10 Mg PO BID Prednisone 50 Mg Tab 50 Mg PO DAILY FILLED 08-12-2021 #7 DAY SUPPLY Assessment/Pt Instructions Transferred to [facility] Discharge Planning: <30 minutes discharge planning Discharge Instructions Discharge Diet: No Restrictions Activity as Tolerated: Yes Discharge Physical Examination Vital Signs Vital Signs Date Time Temp Pulse Resp B/P (MAP) Pulse Ox O2 Delivery O2 Flow Rate FiO2 07/18/21 12:00 94 23 134/81 98 NIV Bilevel 55.00 07/18/21 10:34 90 07/18/21 08:04 36.5 General Appearance: No Apparent Distress, WD/WN, Chronically ill, Obese Respiratory: No Accessory Muscle Use, No Respiratory Distress, Decreased Breath Sounds Cardiovascular: Regular Rate, Rhythm Neurologic/Psychiatric: Alert, Oriented x3 Allergies: Coded Allergies: amoxicillin (Verified Allergy, Unknown, 06/25/21) clavulanic acid (Verified Allergy, Unknown, 06/25/21) Discharge Summary Date of Admission Jun 25, 2021 at 23:08 Date of Discharge Discharge Date: Jul 18, 2021 Admission Diagnosis Acute respiratory failure due to COVID-19 Comfort Measures/ Time spent on discussion (min): 0 Discharge Diagnosis Continue ICU status BiPAP and Vapotherm (1) Acute respiratory failure due to COVID-19 Status: Acute (2) Hypercoagulable state associated with COVID-19 Status: Acute (3) T2DM (type 2 diabetes mellitus) Status: Acute Qualifiers: Qualified Codes: E11.10 - Type 2 diabetes mellitus with ketoacidosis without coma; Z79.4 - termite treater 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
--- NOTE | 2021-07-18 13:14 | Progress Note ---
THONG GOODMAN MED STUDENT 07/18/21 1314: Subjective Date Seen by a Provider: Jul 18, 2021 Time Seen by a Provider: 08:00 Subjective/Events-last exam Reports sleeping fairly well overnight. Tolerated BIPAP well with no complaints. States has been on vapotherm during wakeful hours. Denies fevers, chills, chest pain, headache, nausea, vomiting, and pain. States is a little SOB, but is no worse or no better than yesterday. Tolerating po intake well. Denies urinary or bowel issues. Plan is to transfer to [facility] today. Review of Systems General: No Chills, No Night Sweats HEENT: No Head Aches, No Visual Changes Pulmonary: Dyspnea, Cough; No Pleuritic Chest Pain Cardiovascular: No: Chest Pain, Palpitations, Edema Gastrointestinal: No: Nausea, Vomiting, Abdominal Pain Genitourinary: No Dysuria, No Frequency Musculoskeletal: No: neck pain, back pain Neurological: No: Weakness, Numbness Focused Exam Time of Focused Exam: 22:00 Objective Exam Last Set of Vital Signs Vital Signs Date Time Temp Pulse Resp B/P (MAP) Pulse Ox O2 Delivery O2 Flow Rate FiO2 07/18/21 12:00 36.6 07/18/21 12:00 94 23 134/81 98 NIV Bilevel 55.00 07/18/21 10:34 90 Capillary Refill : Less Than 3 Seconds I&O Intake and Output 07/18/21 00:00 Intake Total 1660 ml Output Total 350 ml Balance 1310 ml Intake Oral 1660 ml Output Urine Total 350 ml # Voids 12 # Bowel Movements 1 General: Alert, Oriented X3, Cooperative, No Acute Distress HEENT: Atraumatic, PERRLA, EOMI, Mucous Memb Moist/[place] Neck: Supple, No JVD, No LAD Lungs: Clear to Auscultation (End expiratory wheezes) Heart: Regular Rate, Normal S1, Normal S2, No Murmurs Abdomen: Normal Bowel Sounds, Soft, No Tenderness Extremities: No Clubbing, No Cyanosis, No Edema, Normal Pulses Skin: No Rashes, No Significant Lesion Neuro: Normal Speech, Normal Tone, Sensation Intact, Cranial Nerves 3-12 NL Psych/Mental Status: Mental Status NL, Mood NL Results Lab Laboratory Tests 07/17/21 15:48: Glucometer 223H 07/17/21 20:12: Glucometer 146H 07/18/21 04:00: White Blood Count 12.1H, Red Blood Count 3.14L, Hemoglobin 9.3L, Hematocrit 30L, Mean Corpuscular Volume 95, Mean Corpuscular Hemoglobin 30, Mean Corpuscular Hemoglobin Concent 31L, Red Cell Distribution Width 15.2H, Platelet Count 363, Mean Platelet Volume 10.7, Immature Granulocyte % (Auto) 1, Neutrophils (%) (Auto) 59, Lymphocytes (%) (Auto) 26, Monocytes (%) (Auto) 8, Eosinophils (%) (Auto) 6, Basophils (%) (Auto) 1, Neutrophils # (Auto) 7.1, Lymphocytes # (Auto) 3.2, Monocytes # (Auto) 0.9, Eosinophils # (Auto) 0.7H, Basophils # (Auto) 0.1, Immature Granulocyte # (Auto) 0.1, D-Dimer 0.43, Sodium Level 137, Potassium Level 4.0, Chloride Level 96L, Carbon Dioxide Level 27, Anion Gap 14, Blood Urea Nitrogen 19H, Creatinine 0.92, Estimat Glomerular Filtration Rate 65, BUN/Creatinine Ratio 21, Glucose Level 117H, Calcium Level 9.7, Phosphorus Level 4.0, Magnesium Level 1.9 07/18/21 11:40: Glucometer 198H Microbiology 06/26/21 Blood Culture - Final, Complete No growth 06/26/21 MRSA Screen - Final, Complete MRSA not isolated Assessment/Plan Assessment/Plan Assess & Plan/Chief Complaint Acute hypoxic respiratory failure/ARDS due to COVID-19 -Alternating between vapotherm and BIPAP -currently on vapotherm at 30L and 80% COVID-19 PNA -s/p decadron treatment -s/p barcitinib treatment 06-26 to 07-10 Hypercoagulable state associated with COVID-19 -d dimer >20 on 06-25, down to 0.43 on 07-18 -lovenox 40mg q24hrs Anemia -stable, continue to monitor Diabetes mellitus type 2 with ketoacidosis -resolved -accuchecks achs -SSI novolog, scheduled levemir GI ppx -protonix Hypothyroidism -synthroid Obesity Plan to transfer to [facility] today. PAULETTE JENSEN DO 07/19/21 0543: Supervisory-Addendum Brief Verification & Attestation Participated in pt care: history, MDM, physical Personally performed: exam, history, MDM, supervision of care Care discussed with: Medical Student Procedures: n/a Results interpretation: Verified all documentation Verification and Attestation of Medical Student E/M Service A medical student performed and documented this service in my presence. I reviewed and verified all information documented by the medical student and made modifications to such information, when appropriate. I personally performed the physical exam and medical decision making. Paulette Jensen, Jul 19, 2021,05:43 THNOG GOODMAN MED STUDENT Jul 18, 2021 13:14 PAULETTE JENSEN DO Jul 19, 2021 05:43
--- NOTE | 2021-07-18 14:00 | Progress Note ---
HECTOR LIMA MED STUDENT 07/18/21 1400: Progress Note Hospital Course: Kamille Miller is a 46 y.o. F with PMH DM2 and morbid obesity who presented to the ER on 06/25/21 with complaint of SOB and mild diarrhea since 06/22/21. She reported at that time a prior positive COVID diagnosis around 06/15/21 and compained of SOB unimproved with home oxygen. The patient was brought to the ICU for acute respiratory distress related to COVID-19 and given antibiotics for possible PNA, decadron, and Remdisivir. The patient's oxygenation was managed with Vapotherm and BIPAP without needing intubation. She improved to the point of maintaining oxygen when at rest but continued to desaturate with activity, despite several weeks of supportive therapy. Her diarrhea has resolved, cough has improved substantially, but the patient will be discharged to [facility] due to continued oxygen demands. PAULETTE JENSEN DO 07/19/21 0544: Supervisory-Addendum Brief Verification & Attestation Participated in pt care: history, MDM, physical Personally performed: exam, history, MDM, supervision of care Care discussed with: Medical Student Procedures: n/a Results interpretation: Verified all documentation Verification and Attestation of Medical Student E/M Service A medical student performed and documented this service in my presence. I reviewed and verified all information documented by the medical student and made modifications to such information, when appropriate. I personally performed the physical exam and medical decision making. Paulette Jensen, Jul 19, 2021,05:44 HECTOR LIMA MED STUDENT Jul 18, 2021 14:00 PAULETTE JENSEN DO Jul 19, 2021 05:44
[2021-07-19] MEDS ORDERED: ENOXAPARIN 40 MG/0.4 ML (LOVENOX) SYR SC SCH (09:00)
== END 2021-07-18 14:00 | DRG 177 ==
LOC: EDUNIT# 20:56 → ER 20:58 → ICU 23:08
PROVIDERS: ADMIT Internal Medicine; ATTEND Internal Medicine
PROC: XW033E5 Introduction of Remdesivir Anti-infective into Peripheral Vein, Percutaneous Approach, New Technology Group 5 (ICD-10-PCS; principal; 2021-06-26)
PROC: 5A09557 Assistance with Respiratory Ventilation, Greater than 96 Consecutive Hours, Continuous Positive Airway Pressure (ICD-10-PCS; 2021-06-26)
DX: U07.1 COVID-19 (principal); E11.10 Type 2 diabetes mellitus with ketoacidosis without coma; J12.82 Pneumonia due to coronavirus disease 2019; J80 Acute respiratory distress syndrome; J15.9 Unspecified bacterial pneumonia; E66.01 Morbid (severe) obesity due to excess calories; E03.9 Hypothyroidism, unspecified; F41.9 Anxiety disorder, unspecified; Z68.39 Body mass index [BMI] 39.0-39.9, adult; Z79.4 Long term (current) use of insulin; Z88.1 Allergy status to other antibiotic agents; Z73.0 Burn-out
CPT/HCPCS: 36415; 36569; 36600; 71045; 71275; 76937; 80048; 80053; 80076; 82010; 82805; 82947; 83036; 83605; 83615; 83735; 84100; 84145; 84443; 85007; 85025; 85027; 85379; 86141; 87040; 87081; 93005; 94640; 94660; 96372; 96374; 96375

== ENCOUNTER 2021-08-22 10:50 | Inpatient (IN) | payer OTHER ==
[~2021-08-22] VITALS: Ht 157.4 cm; Wt 84.3 kg
[~2021-08-22 10:50] MED LIST: ACET-2267 PO; ACHD5005 PO; ALPRAZolam 0.25 MG (XANAX) TAB PO PRN; Albuterol Inhaler IH; BISA10SU8 RC; BISACODYL 10 MG SUPP (DULCOLAX) PR PRN; BUDE0.5A7 IH; BUME1TAB8 PO; CALCIUM CARBONATE 500 MG (TUMS) TAB.CHEW PO PRN; CHOL-34 PO; CLON0.5T4 PO; DOCU100C37 PO; DOCUSATE SODIUM 100 MG (COLACE) CAP PO PRN; DULO20CA19 PO; ENOX40DI8 SC; FLEET ENEMA ADULT 1 EA BTL PR PRN; GLIP10TA13 PO; GUAI600T28 PO; GUAI600T43 PO; IBUP-2473 PO; INSU100I10 SC; INSU100V39 SQ; INSU100V5 SQ; IPRA3AMP31 IH; LACTULOSE SYRUP 10GM/15ML (ENULOSE) 30ML UDC PO PRN; LEVO175C PO; LEVO88TA54 PO; LOPERAMIDE 2 MG (IMODIUM) TABLET PO PRN; LORA10TA7 PO; METF-397 PO; ONDANSETRON 4 MG (ZOFRAN) ORAL DISSOLVE TAB PO PRN; PANT40TA52 PO; PARO30TA3 PO; PRD50T PO; SENN1TAB76 PO; SITA1TAB2 PO; SITA50TA PO; ZINC50TA58 PO; diphenhydrAMINE 25 MG TAB (BENADRYL) PO PRN; guaiFENesin/CODEINE (ROBITUSSIN AC) 10ML UDC PO PRN
[2021-08-22] MEDS ORDERED: ACETAMINOPHEN 325 MG TABLET PO PRN (11:15)
[2021-08-22] MEDS ORDERED: HYDROcodone/APAP 5 MG/325 MG (LORTAB) TAB PO PRN (11:30)
[2021-08-22] MEDS ORDERED: guaiFENesin (MUCINEX) 600 MG TAB PO PRN (11:30)
--- NOTE | 2021-08-22 11:42 | PM&R Post Admission Assessment ---
PM&R HP Date of Visit: Aug 22, 2021 Time of Visit: 11:30 History of Present Illness Chief complaint: Post Covid syndrome with severe hypoxemia History of present illness: This is a 46-year-old white female known to me from discharge from this hospital on 07/18/2021 post Covid requiring BiPAP and Vapotherm who has a history of diabetes and anxiety who presents from [facility] after a long hospital course of nearly 1 month due to continued hypoxia and slow recovery. Patient still has significant hypoxia when conversing and exerting herself. She will require / therapy schedule due to significant hypoxia in need of long recovery after activity. Currently her bowels are still very slu ggish so will continue laxatives and suppository as needed. Her is at the bedside. Patient denies any pain. I have reviewed [facility] hospital course. Previous hospital stay at [facility] from /07/2021 Kamille Miller is a 46 y.o. F with PMH DM2 and morbid obesity who presented to the ER on 06/25/21 with complaint of SOB and mild diarrhea since 06/22/21. She reported at that time a prior positive COVID diagnosis around 06/15/21 and compained of SOB unimproved with home oxygen. The patient was brought to the ICU for acute respiratory distress related to COVID-19 and given antibiotics for possible PNA, decadron, and Remdisivir. The patient's oxygenation was managed with Vapotherm and BIPAP without needing intubation. She improved to the point of maintaining oxygen when at rest but continued to desaturate with activity, despite several weeks of supportive therapy. Her diarrhea has resolved, cough has improved substantially, but the patient will be discharged to [facility] due to continued oxygen demands. H&P by SHARAD GILBERT 08/22/21 1211: CC: [id number] debility HPI: Kamille Miller is a 46 yo female with a history of COVID-19 PNA, ARDS, and hypercoagulable state, insulin dependent T2DM, DKA, hypothyroidism, and morbid obesity, who presents for evaluation and management of post-COVID syndrome and related debility. Kamille tested positive for COVID-19 on 06/15/21, and presented to the ER 10 days later for SOB (08/25/2021), which was unimproved from home oxygen. She was admitted the same day to the ICU for ARDS. Due to ongoing hypoxic episodes and continued oxygen demands, Kamille was transferred to [facility]. Today (08/22/2021), Kamille presents to inpatient rehab and is alert and pleasant to talk to. Though, after conversing she became noticeably short of breath and desatted to 77%; this quickly improved to 90% with rest; she states she is used to this happening, and is in tune with when she needs to rest. She is currently on nasal cannula with 6 L/min of O2. Kamille denies any pain, and has a good appetite. She states she has not had a bowel movement today, but has had flatus, and says this may be normal for her. Kamille is motivated and states she will do what she needs to do in order to improve her lung function, overall strength, and endurance. Her accompanied her today. 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 PSH: Incision and drainage of abscess Allergies: Amoxicillin, clavulanic acid H/o morphine intolerance MEDS: Item Value Date Time Linagliptin 5 mg 08/23/21899 (Tradjenta DAILY/PO Tablet) Pantoprazole 40 mg 08/23/21 0900 Sodium DAILY/PO (Protonix Tablet) Duloxetine HCl 20 mg 08/23/21899 (Cymbalta DAILY/PO Capsule) Bumetanide 0.5 mg 08/23/21899 (Bumex Tablet) DAILY/PO Bisacodyl 10 mg 08/23/21899 (Dulcolax DAILY/RC Suppository) Levothyroxine 176 mcg 08/23/21 0600 Sodium 0600/PO (Synthroid Tablet) Insulin Detemir 37 unit 08/22/212099 (LeveMIR (PER BID/SQ UNIT)) Loratadine 10 mg 08/22/212099 (Claritin Tablet) HS/PO Docusate Sodium 100 mg 08/22/212099 (Colace Capsule) BID/PO Budesonide 0.5 mg 08/22/212099 (Pulmicort BID/IH Inalation Solution) Senna 1 ea 10/14/21 2100 (Senokot S BID/PO Tablet) Polyethylene 17 gm 08/22/21 2100 Glycol BID/PO (Miralax 17 Gm Packet) Docusate Sodium 100 mg 08/22/21 2100 (Colace Capsule) BID/PO Glipizide 10 mg 08/22/21 1800 (Glucotrol BID WITH MEALS/PO Tablet) Metformin HCl 500 mg 08/22/21 1800 (Glucophage BID WITH MEALS/PO Tablet) Insulin Aspart INSULIN SLIDING SCALE ... 08/22/21 1600 (NovoLOG (CHARGE ACHS/SC PER UNIT)) Albuterol/ 3 ml 08/22/21 1300 Ipratropium QID/IH (Duoneb Inhalation Solution) Acetaminophen/ 1 ea 08/22/21 1130 Hydrocodone Bitart Q6H PRN/PO (Lortab 5 Mg Tablet) Guaifenesin 600 mg 08/22/21 1130 (Mucinex Tablet) Q12H PRN/PO Clonazepam 0.5 mg 08/22/21 1130 (KlonoPIN TABLET) Q12H/PO Acetaminophen 650 mg 08/22/21 1115 (Tylenol Tablet) Q4H PRN/PO Ondansetron HCl 4 mg 08/22/21 1015 (Zofran Oral Q6H PRN/PO Dissolve Tablet) Melatonin 3 mg 08/22/21 1015 (Melatonin HS PRN/PO Tablet) Loperamide HCl 2 mg 08/22/21 1015 (Imodium Tablet) PRN PRN/PO Guaifenesin/ 10 ml 08/22/21 1015 Codeine Phosphate Q4H PRN/PO (Robitussin Ac (Codeine) Syrup) Sodium 1 ea 08/22/21 1015 Biphosphate/ BID PRN/VA Sodium Phosphate (Fleet Enema Adult) Lactulose 10 gm 08/22/21 1015 (Enulose Oral BID PRN/PO Solution) Bisacodyl 10 mg 08/22/21 1015 (Dulcolax DAILY PRN/VA Suppository) Docusate Sodium 100 mg 08/22/21 1015 (Colace Capsule) BID PRN/PO Diphenhydramine 25 mg 08/22/21 1015 HCl Q6H PRN/PO (Benadryl Tablet) Calcium Carbonate 500 mg 08/22/21 1015 (Antacid TID PRN/PO Chewable Tablet) Alprazolam 0.25 mg 08/22/21 1015 (Xanax Tablet) Q8H PRN/PO SH: 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 She has been for 25 years. She enjoys to read. FH: Father: . T2DM, poorly managed ROS: Constitutional: Denies any FERNANDO or dizziness CV: Denies any chest pain Resp: Has some SOB, has cough Objective: Vitals: 08/22/21 14:31 O2 Delivery High Flow N/C O2 Flow Rate 6.00 PE: General: WD/WN, A&O x3, appropriate affect, and conversational CV: RRR, no MRG Resp: Rales are present bilaterally in the lower lungs. Congested with cough. SOB. Assessment and Plan: 1. Post-Covid Syndrome and debility, with episodes of hypoxia: PT and OT to evaluate and manage Pulmonology has been consulted, and will see Kamille tomorrow (08/23/21) Continue high flow NC 2. Type 2 Diabetes Mellitus, insulin dependent Continue current regimen Plans to get a DEXCOM device for continuous monitoring 3. Hypothyroidism Continue synthroid regimen Past Bwxvfma-Cubzai-Fwbqct Hx Past Med/Social Hx: Reviewed Nursing Past Med/Soc Hx, Reviewed and Corrections made Patient Social History Marrital Status: Employed/Student: unemployed Alcohol Use: Denies Use Smoking Status: Never a Smoker Past Medical History Respiratory: Pneumonia (COVID-19 06/25/2021) Endocrine: Diabetes, Insulin dep, Hypothyroidsim Psychosocial: Anxiety, Depression Family History No Pertinent Family Hx PM&R Allergy/Meds/Data Review Allergies Coded Allergies: amoxicillin (Verified Allergy, Unknown, 06/25/21) clavulanic acid (Verified Allergy, Unknown, 06/25/21) Home Medications Scheduled Bisacodyl (Bisacodyl), 10 MG RC DAILY, (Reported) Budesonide (Pulmicort), 0.5 MG IH BID, (Reported) Bumetanide (Bumetanide), 0.5 MG PO DAILY, (Reported) Clonazepam (Clonazepam), 0.5 MG PO Q12H, (Reported) Docusate Sodium (Docusate Sodium), 100 MG PO BID, (Reported) Duloxetine HCl (Duloxetine HCl), 20 MG PO DAILY, (Reported) Glipizide (Glipizide), 10 MG PO BID WITH MEALS, (Reported) Insulin Glargine,Hum.rec.anlog (Lantus Solostar), 37 UNITS SC BID, (Reported) Insulin Lispro (Insulin Lispro), 0-14 UNIT SQ TIDAC, (Reported) Ipratropium/Albuterol Sulfate (Iprat-Albut 0.5-3(2.5) mg/3 ml), 3 ML IH QID, (Reported) Levothyroxine Sodium (Levothyroxine Sodium), 176 MCG PO 0600, (Reported) Loratadine (Loratadine), 10 MG PO HS, (Reported) Metformin HCl (Metformin HCl), 500 MG PO BID WITH MEALS, (Reported) Pantoprazole Sodium (Pantoprazole Sodium), 40 MG PO DAILY, (Reported) Sitagliptin Phosphate (Januvia), 50 MG PO BID WITH MEALS, (Reported) Scheduled PRN Guaifenesin (Mucinex), 600 MG PO Q12H PRN for COUGH, (Reported) Hydrocodone/Acetaminophen (Hydrocodone-Acetamin 5-325 mg), 1 TAB PO Q6H PRN for PAIN-MODERATE (5-7), (Reported) Discontinued Medications Acetaminophen (Tylenol Extra Strength), 500-1,000 MG PO Q8H PRN for PAIN-MILD (1-4), (Reported) Discontinued Reason: No Longer Taking Cholecalciferol (Vitamin D3) (Vitamin D3), 25 MCG PO DAILY, (Reported) Discontinued Reason: No Longer Taking Enoxaparin Sodium (Enoxaparin Sodium), 40 MG SC Q24H Discontinued Reason: No Longer Taking Guaifenesin (Mucus ER), 600 MG PO Q12H PRN for CONGESTION, (Reported) Discontinued Reason: Duplicate Order Ibuprofen (Ibuprofen), 400-600 MG PO Q8H PRN for PAIN-MILD (1-4), (Reported) Discontinued Reason: No Longer Taking Insulin Determir (Levemir), 30 UNIT SQ BID Discontinued Reason: No Longer Taking Levothyroxine Sodium (Tirosint), 175 MCG PO DAILY, (Reported) Discontinued Reason: No Longer Taking Loratadine (Loratadine), 10 MG PO DAILY@2100 Discontinued Reason: No Longer Taking Pantoprazole Sodium (Pantoprazole Sodium), 40 MG PO DAILY Discontinued Reason: No Longer Taking Paroxetine HCl (Paroxetine HCl), 30 MG PO DAILY, (Reported) Discontinued Reason: No Longer Taking Prednisone (Prednisone), 50 MG PO DAILY, (Reported) Discontinued Reason: No Longer Taking Sennosides/Docusate Sodium (Stool Softener-Laxative Tablet), 1 EA PO BID PRN for CONSTIPATION-6TH LINE Discontinued Reason: No Longer Taking Sitagliptin Phos/Metformin HCl (Janumet 50-500 mg Tablet), 1 EA PO BID, (Reported) Discontinued Reason: No Longer Taking Zinc (Zinc), 50 MG PO DAILY, (Reported) Discontinued Reason: No Longer Taking [Albuterol Inhaler], 0 GM IH RTQ6HR Discontinued Reason: No Longer Taking Current Medications Current Medications Reviewed Review of Systems Constitutional: see HPI, dizziness, malaise, weakness EENTM: no symptoms reported Respiratory: dyspnea on exertion, short of breath Cardiovascular: no symptoms reported Gastrointestinal: constipation Genitourinary: no symptoms reported Musculoskeletal: back pain Skin: no symptoms reported Psychiatric/Neurological: Anxiety, Depressed, Emotional Problems All Other Systems Reviewed Negative Unless Noted: Yes Physical Exam Physical Exam Vital Signs Capillary Refill : Height, Weight, BMI Height: '" Weight: lbs. oz. kg; 34.51 BMI Method: General Appearance: No Apparent Distress, WD/WN, Anxious, Chronically ill Eyes: Bilateral Eye Normal Inspection, Bilateral Eye PERRL HEENT: PERRL/EOMI, Normal ENT Inspection, Pharynx Normal Neck: Full Range of Motion, Normal Inspection, Non Tender, Supple, Carotid Bruit Respiratory: Chest Non Tender, Lungs Clear, No Accessory Muscle Use, No Respiratory Distress, Decreased Breath Sounds Cardiovascular: Regular Rate, Rhythm, No Edema, No Gallop, No JVD, No Murmur, Normal Peripheral Pulses Gastrointestinal: Normal Bowel Sounds, No Organomegaly, No Pulsatile Mass, Non Tender, Soft Back: Normal Inspection, No CVA Tenderness, No Vertebral Tenderness Extremity: Normal Capillary Refill, Normal Inspection, Normal Range of Motion, Non Tender, No Calf Tenderness, No Pedal Edema Neurologic/Psychiatric: Alert, Oriented x3, No Motor/Sensory Deficits, Normal Mood/Affect, raimann machine operator II-XII Norm as Tested, Motor Weakness (Generalized 4/5 all extremities) Skin: Normal Color, Warm/Dry Lymphatic: No Adenopathy PM&R Medical Assessment & Plan REHAB/MEDICAL ASSESSMENT AND PLAN: REHAB IMPAIRMENT GROUP: Post Covid syndrome with hypoxia ETIOLOGIC DIAGNOSIS: Post Covid syndrome with hypoxia The comorbidities that impact the patients function and/or functional outcome by: Severe hypoxia with any activity and conversing, diabetes, anemia REHAB PLAN: The patient is being admitted to our comprehensive inpatient rehabilitation facility and can tolerate the intensity of service consisting of at least: 180 minutes of therapy a day, 5 out of 7 days a week Rehab treatment will consist of: PT and OT will focus on increasing stamina to ultimately decrease oxygen requirements during activity with the use of a ssistive devices and help increase independence with ADLs. The patient/family has a good understanding of our discharge process and will benefit from an interdisciplinary inpatient rehabilitation program. The patient has potential to make improvement and is in need of at least two of the following multidisciplinary therapies including but not limited to physical, occupational, speech, and prosthetics and orthotics. Additionally the patient will need services from respiratory, nutritional services, wound care, psychology, etc. (Customize this to each patient). Given the patients complex condition and risk of further medical complications, rehabilitation services cannot be safely or effectively provided at a lower level of care such as a fdc facility. BARRIERS TO DISCHARGE: Severe hypoxia with activity ESTIMATED LOS: 14 days DISPOSITION: Home with RELEVANT CHANGES SINCE PREADMISSION SCREENING: I have compared the patients medical and functional status at the time of the preadmission screening and there are: No changes PROGNOSIS: Good REHABILITATION GOALS: 1. PT and OT will focus on increasing stamina to ultimately decrease oxygen requirements during activity with the use of assistive devices and help increase independence with ADLs All the above goals were reviewed with the patient and he/she is in agreement. By signing this document, I acknowledge that I have personally performed a full physical examination on this patient within 24 hours of admission to this inpatient rehabilitation facility and have determined the patient to be able to tolerate the above course of treatment at an intensive level for a reasonable period of time. I will be completing a detailed individualized Plan of Care for this patient by day #4 of the patients stay based upon the Preadmission Screen, the Post-Admission Evaluation, and the therapy evaluations. Admission Dx/Comorbidities: (1) Anemia ICD Codes: D64.9 - Anemia, unspecified (2) Hypothyroidism ICD Codes: E03.9 - Hypothyroidism, unspecified (3) Weight loss ICD Codes: R63.4 - Abnormal weight loss (4) Hypoxemia ICD Codes: R09.02 - Hypoxemia (5) Oxygen dependent ICD Codes: Z99.81 - Dependence on supplemental oxygen (6) Anxiety ICD Codes: F41.9 - Anxiety disorder, unspecified (7) Post-COVID syndrome ICD Codes: B94.8 - Sequelae of other specified infectious and parasitic diseases (8) T2DM (type 2 diabetes mellitus) Status: Acute ICD Codes: E11.9 - Type 2 diabetes mellitus without complications Assessment/Plan Assessment and Plan Assess & Plan/Chief Complaint Assessment: Post Covid syndrome Severe hypoxia with exertion Diabetes Anemia Hypothyroidism Recent weight loss Constipation Plan: Oxygen supplementation Rehab protocol 23/05 due to hypoxia Home meds Monitor sugar Pulmonary consult VALARIE JENSEN DO Aug 22, 2021 11:42
--- NOTE | 2021-08-22 12:00 | Physical Therapy Evaluation ---
PT Evaluation-General Medical Diagnosis Admission Date Aug 22, 2021 at 10:50 Medical Diagnosis: post covid debility Onset Date: Jul 26, 2021 Therapy Diagnosis Therapy Diagnosis: impaired mobility, strength, endurance Precautions Precautions/Isolations: Fall Prevention, Standard Precautions Referral Physician: Paulette Apple DO Reason for Referral: Evaluation/Treatment Medical History Pertinent Medical History: DM, Hypothroidism Social History Home: Multilevel Current Living Status: Spouse Entry Into Home: Stairs With Railing PT Steps Into Home: 2 PT Steps Inside Home: 13 Prior Prior Level of Function SCALE: Activities may be completed with or without assistive devices. 6-Xhaqbokeck-gnksvwy completes the activity by him/herself with no assistance from a helper. 5-Set-up or Clean-up Assistance-helper sets up or cleans up; patient completes activity. [place] assists only prior to or following the activity. 4-Supervision or Touching Assistance-helper provides verbal cues and/or t ouching/steadying and/or contact guard assistance as patient completes activity. Assistance may be provided throughout the activity or intermittently. 3-Partial/Moderate Assistance-helper does LESS THAN HALF the effort. [place] lifts, holds or supports trunk or limbs, but provides less than half the effort. 2-Substantial/Maximal Assistance-helper does MORE THAN HALF the effort. [place] lifts or holds trunk or limbs and provides more than half the effort. 7-Ymupshafz-htnvky does ALL the effort. Patient does none of the effort to complete the activity. Or, the assistance of 2 or more helpers is required for the patient to complete the activity. If activity was not attempted, code reason: 7-Patient Refused. 9-Not Applicable-not attempted and the patient did not perform the activity before the current illness, exacerbation or injury. 10-Not Attempted due to Environmental Limitations-(lack of equipment, weather restraints, etc.). 88-Not Attempted due to Medical Conditions or Safety Concerns. Bed Mobility: 6 Transfers (B,C,W/C): 6 Gait: 6 Stairs: 6 Indoor Mobility (Ambulation): Independent Stairs: Independent PT Evaluation-Current Subjective Patient in bed pre tx, agrees to PT, has no complaints of pain. Will be co-t reating with OT for part of tx due to poor patient mobility, strength, endurance, drop in O2 with activity, coordinate UE and LE with activity, safety and reduce risk of falls. Pt/Family Goals to be independent at home Objective Patient Orientation: Person, Place, Situation Attachments: Oxygen ROM/Strength ROM Lower Extremities WNL Strength Lower Extremities LLE (hip flexion 4/5, knee flexion 5/5, knee extension 5/5, dorsiflexion 5/5), RLE (hip flexion 4/5, knee flexion 5/5, knee extension 5/5, dorsiflexion 5/5) Sensory Vision: Wears Glasses Hearing: Functional Sensation Right Lower Extremit: Intact Sensation Left Lower Extremity: Intact Transfers Roll Left & Right (QC): 6 Sit to Lying (QC): 6 Lying to Sitting/Side of Bed(Q: 6 Sit to Stand (QC): 4 Chair/Ifg-zp-Lwgfm Xfer(QC): 4 Toilet Transfer (QC): 4 Car Transfer (QC): 4 Patient performs bed mobility and supine <-> sit with independence, sit <-> stand and transfers CGA, car transfer CGA. Occasional cue for safety or positioning. Gait Does the Patient Walk?: Yes Mode of Locomotion: Walk Anticipated Mode of Locomotion: Walk Walk 10 feet (QC): 4 Walk 50 ft with 2 Turns(QC): 4 Walk 150 ft (QC): 88 Walking 10ft/uneven surface-QC: 4 Distance: 50', 70' Gait Assistive Device: FWW Comments/Gait Description Patient can ambulate 70' with a rolling walker with CGA (including 50' with at least 2 turns of 90 degrees and 10' over an uneven surface). Patient ambulates slow but steady, O2 drops and she needs to rest and recover. Wheelchair Training Does the Pt Use a Wheelchair?: Yes Distance: 150' Wheel 50 ft with 2 turns (QC): 4 Wheel 150 ft (QC): 4 Type of Wheelchair: Manual Stairs #of Steps: 1 1 Step (curb) (QC): 4 4 Steps (QC): 88 12 Steps (QC): 88 Walking Assistive Device: Walker Balance Sitting Static: Normal Sitting Dynamic: Normal Standing Static: Good Standing Dynamic: Good Picking up an Object (QC): 88 Treatment PT performed bed mobility and transfers, ambulation, stair training, gait training, standing balance and trunk strengthening in ball catching activity, OT performed dressing, UE positioning and safety during activity, ball catching activity. Assessment/Needs Patient in WC at bedside post tx with nurse call, phone, tray, all needs met. Patient has impaired mobility, strength, endurance. Patient is CGA for transfers and ambulation. Rehab Potential: Fair PT Short Term Goals Short Term Goals Time Frame: Aug 29, 2021 Roll Left & Right: 6 Sit to lyin Lying to sitting on side of be: 6 Sit to stand: 4 (SBA) Chair/hwa-wv-kqtam transfer: 4 (SBA) Walk 10 feet: 4 (SBA) Walk 50 feet with two turns: 4 (SBA) PT Long-Term Goals Bursar Goals PT Long-Term Goals Time Frame: Sep 12, 2021 Roll Left & Right (QC): 6 Sit to Lying (QC): 6 Lying-Sitting on Side/Bed(QC): 6 Sit to Stand (QC): 6 Chair/Yuq-ej-Cpgwf Xfer(QC): 6 Toilet Transfer (QC): 6 Car Transfer (QC): 6 Does the Patient Walk: Yes Walk 10 feet (QC): 6 Walk 50ft with 2 Turns (QC): 6 Walk 150 ft (QC): 6 Walking 10ft on Uneven Surface: 6 1 Step (curb) (QC): 5 4 Steps (QC): 5 12 Steps (QC): 88 Picking up an Object (QC): 6 Wheel 50 feet with 2 turns (QC: 9 Wheel 150 feet: 9 PT Plan Problem List Problem List: Activity Tolerance, Functional Strength, Safety, Balance, Gait, Transfer, Bed Mobility, ROM Treatment/Plan Treatment Plan: Continue Plan of Care Treatment Plan: Bed Mobility, Education, Functional Activity Yanni, Functional Strength, Group Therapy, Gait, Safety, Therapeutic Exercise, Transfers Treatment Duration: Sep 12, 2021 Frequency: At least 5 of 7 days/Wk (IRF) Estimated Hrs Per Day: 1.5 hours per day Patient and/or Family Agrees t: Yes Safety Risks/Education Patient Education: Gait Training, Transfer Techniques, Steps, Correct Positi oning, W/C Management, Safety Issues Teaching Recipient: Patient Teaching Methods: Demonstration, Discussion Response to Teaching: Reinforcement Needed Discharge Recommendations Plan Patient will perform bed mobility and transfer training, balance and endurance training, functional strengthening, stair training, gait training, and education to improve functional mobility and independence at home. Therapy Discharge Recommendati: Home & Family, Post Acute PT Time/GCodes Time In: 1100 Time Out: 1200 Total Billed Treatment Time: 60 Total Billed Treatment 1 visit EVM 30' FA 15' EX 15' LANDON BUTCHER PT Aug 22, 2021 12:00
--- NOTE | 2021-08-22 12:11 | Progress Note ---
SHARAD GILBERT 08/22/21 1211: Progress Note Subjective: CC: [id number] debility HPI: Kamille Miller is a 46 yo female with a history of COVID-19 PNA, ARDS, and hypercoagulable state, insulin dependent T2DM, DKA, hypothyroidism, and morbid obesity, who presents for evaluation and management of post-COVID syndrome and related debility. Kamille tested positive for COVID-19 on 06/15/21, and presented to the ER 10 days later for SOB (08/25/2021), which was unimproved from home oxygen. She was admitted the same day to the ICU for ARDS. Due to ongo ing hypoxic episodes and continued oxygen demands, Kamille was transferred to [facility]. Today (08/22/2021), Kamille presents to inpatient rehab and is alert and pleasant to talk to. Though, after conversing she became noticeably short of breath and desatted to 77%; this quickly improved to 90% with rest; she states she is used to this happening, and is in tune with when she needs to rest. She is currently on nasal cannula with 6 L/min of O2. Kamille denies any pain, and has a good appetite. She states she has not had a bowel movement today, but has had flatus, and says this may be normal for her. Kamille is motivated and states she will do what she needs to do in order to improve her lung function, overall strength, and endurance. Her accompanied her to day. 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 overlock PSH: Incision and drainage of abscess Allergies: Amoxicillin, clavulanic acid H/o morphine intolerance MEDS: Item Value Date Time Linagliptin 5 mg 08/23/21 0900 (Tradjenta DAILY/PO Tablet) Pantoprazole 40 mg 08/23/21 0900 Sodium DAILY/PO (Protonix Tablet) Duloxetine HCl 20 mg 08/23/21 0900 (Cymbalta DAILY/PO Capsule) Bumetanide 0.5 mg 08/23/21 0900 (Bumex Tablet) DAILY/PO Bisacodyl 10 mg 08/23/21 0900 (Dulcolax DAILY/RC Suppository) Levothyroxine 176 mcg 08/23/21 0600 Sodium 0600/PO (Synthroid Tablet) Insulin Detemir 37 unit 08/22/21 2100 (LeveMIR (PER BID/SQ UNIT)) Loratadine 10 mg 08/22/21 2100 (Claritin Tablet) HS/PO Docusate Sodium 100 mg 08/22/21 2100 (Colace Capsule) BID/PO Budesonide 0.5 mg 08/22/21 2100 (Pulmicort BID/IH Inalation Solution) Senna 1 ea 08/22/21 2100 (Senokot S BID/PO Tablet) Polyethylene 17 gm 08/22/21 2100 Glycol BID/PO (Miralax 17 Gm Packet) Docusate Sodium 100 mg 08/22/212099 (Colace Capsule) BID/PO Glipizide 10 mg 08/22/21 1800 (Glucotrol BID WITH MEALS/PO Tablet) Metformin HCl 500 mg 08/22/21 1800 (Glucophage BID WITH MEALS/PO Tablet) Insulin Aspart INSULIN SLIDING SCALE ... 08/22/21 1600 (NovoLOG (CHARGE ACHS/SC PER UNIT)) Albuterol/ 3 ml 08/22/21 1300 Ipratropium QID/IH (Duoneb Inhalation Solution) Acetaminophen/ 1 ea 08/22/21 1130 Hydrocodone Bitart Q6H PRN/PO (Lortab 5 Mg Tablet) Guaifenesin 600 mg 08/22/21 1130 (Mucinex Tablet) Q12H PRN/PO Clonazepam 0.5 mg 08/22/21 1130 (KlonoPIN TABLET) Q12H/PO Acetaminophen 650 mg 08/22/21 1115 (Tylenol Tablet) Q4H PRN/PO Ondansetron HCl 4 mg 08/22/21 1015 (Zofran Oral Q6H PRN/PO Dissolve Tablet) Melatonin 3 mg 08/22/21 1015 (Melatonin HS PRN/PO Tablet) Loperamide HCl 2 mg 08/22/21 1015 (Imodium Tablet) PRN PRN/PO Guaifenesin/ 10 ml 08/22/21 1015 Codeine Phosphate Q4H PRN/PO (Robitussin Ac (Codeine) Syrup) Sodium 1 ea 08/22/21 1015 Biphosphate/ BID PRN/VA Sodium Phosphate (Fleet Enema Adult) Lactulose 10 gm 08/22/21 1015 (Enulose Oral BID PRN/PO Solution) Bisacodyl 10 mg 08/22/21 1015 (Dulcolax DAILY PRN/VA Suppository) Docusate Sodium 100 mg 08/22/21 1015 (Colace Capsule) BID PRN/PO Diphenhydramine 25 mg 08/22/21 1015 HCl Q6H PRN/PO (Benadryl Tablet) Calcium Carbonate 500 mg 08/22/21 1015 (Antacid TID PRN/PO Chewable Tablet) Alprazolam 0.25 mg 08/22/21 1015 (Xanax Tablet) Q8H PRN/PO SH: 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 She has been for 25 years. She enjoys to read. FH: Father: . T2DM, poorly managed ROS: Constitutional: Denies any FERNANDO or dizziness CV: Denies any chest pain Resp: Has some SOB, has cough Objective: Vitals: 08/22/21 14:31 O2 Delivery High Flow N/C O2 Flow Rate 6.00 PE: General: WD/WN, A&O x3, appropriate affect, and conversational CV: RRR, no MRG Resp: Rales are present bilaterally in the lower lungs. Congested with cough. SOB. Assessment and Plan: 1. Post-Covid Syndrome and debility, with episodes of hypoxia: PT and OT to evaluate and manage Pulmonology has been consulted, and will see Kamille tomorrow (08/23/21) Continue high flow NC 2. Type 2 Diabetes Mellitus, insulin dependent Continue current regimen Plans to get a DEXCOM device for continuous monitoring 3. Hypothyroidism Continue synthroid regimen PAULETTE JENSEN DO 08/22/212041: Supervisory-Addendum Brief Verification & Attestation Participated in pt care: history, MDM, physical Personally performed: exam, history, MDM, supervision of care Care discussed with: Medical Student Procedures: n/a Results interpretation: Verified all documentation Verification and Attestation of Medical Student E/M Service A medical student performed and documented this service in my presence. I re viewed and verified all information documented by the medical student and made modifications to such information, when appropriate. I personally performed the physical exam and medical decision making. Paulette Jensen, Aug 22, 2021,20:41 SHARAD GILBERT Aug 22, 2021 12:11 PAULETTE JENSEN DO Aug 22, 2021 20:42
--- NOTE | 2021-08-22 12:18 | Occupational Therapy Eval ---
OT Evaluation-General/PLF Medical Diagnosis Admission Date Aug 22, 2021 at 10:50 Medical Diagnosis: post covid debility Onset Date: Jul 26, 2021 Therapy Diagnosis Therapy Diagnosis: Impaired endurance, O2, activity tolerance, adls Precautions Precautions/Isolations: Contact Isolation, Fall Prevention, Standard Precautions Referral Physician: Paulette Apple DO Referral Reason: Evaluation/Treatment Medical History Pertinent Medical History: DM, Hypothroidism Additional Medical History acute resp failure, depression, anxiety, hyperglycemia, hypothyroidism, obesity Current History Pt initially admitted to [facility] 06/25/21 with diarrhea, fatigue, sob. She was tested positive for covid 19 1 1/2 weeks prior to admission. She was tr ansferred to [place] for further oxygen weaning and therapies. Prior to admission, she was living in a multilevel home with her spouse and 2 teenagers (16, 15). Bath/bed located on 2nd level. She was indep with adls and iadls prior to admission. No assistive device and still drove. Reviewed History: Yes Social History Home: Multilevel Current Living Status: Spouse Entry Into Home: Stairs With Railing Steps Into Home: 2 Steps Inside Home: 13 ADL-Prior Level of Function SCALE: Activities may be completed with or without assistive devices. 8-Bzaasdxllj-bnteloh completes the activity by him/herself with no assistance from a helper. 5-Set-up or Clean-up Assistance-helper sets up or cleans up; patient completes activity. [place] assists only prior to or following the activity. 4-Supervision or Touching Assistance-helper provides verbal cues and/or touching/steadying and/or contact guard assistance as patient completes activity. Assistance may be provided throughout the activity or intermittently. 3-Partial/Moderate Assistance-helper does LESS THAN HALF the effort. [place] lifts, holds or supports trunk or limbs, but provides less than half the effort. 2-Substantial/Maximal Assistance-helper does MORE THAN HALF the effort. [place] lifts or holds trunk or limbs and provides more than half the effort. 2-Fdezerpiz-xwtkps does ALL the effort. Patient does none of the effort to complete the activity. Or, the assistance of 2 or more helpers is required for the patient to complete the activity. If activity was not attempted, code reason: 7-Patient Refused. 9-Not Applicable-not attempted and the patient did not perform the activity before the current illness, exacerbation or injury. 10-Not Attempted due to Environmental Limitations-(lack of equipment, weather restraints, etc.). 88-Not Attempted due to Medical Conditions or Safety Concerns. Self Care: Independent Functional Cognition: Independent DME/Equipment: Tub/Shower Drive Self: Yes OT Current Status Subjective Pt denies pain, agreeable to eval. Will be co-treating with PT for part of tx due to poor patient mobility, strength, endurance, drop in O2 with activity, coordinate UE and LE with activity, safety and reduce risk of falls. Appearance Pt left sitting in w/c, all needs within reach. RN notified. Mental Status/Objective Patient Orientation: Person, Place, Time, Situation Attachments: IV, Oxygen Current Glasses/Contacts: Yes Hearing Aids: No Dentures/Partials: No Hand Dominance: Left Upper Extremity ROM WNL Upper Extremity Strength 4/5 grossly ADL-Treatment Eating (QC): 5 Oral Hygiene (QC): 4 Shower/Bathe Self (QC): 7 Upper Body Dressing (QC): 4 Lower Body Dressing (QC): 4 On/Off Footwear (QC): 2 Toileting Hygiene (QC): 4 At OT arrival, pt is reclined in bed, 6L NC, O2 94%. Able to sit EOB without assist, desat to low 80's. Unable to recover within 1 min. O2 increased to 8 and then 10L. Sit<>stand SBA, good safety awareness. She ambulated ~70 feet with use of walker and CGA. Slow but steady gait. Pt exhibits SOA, desats again to mid- low 80's. Able to recover within 45 seconds on 10L. Cues for PLB and relaxation. She participated in standing activity focusing on endurance, balance, and breathing strategies. Pt only able to tolerate ~1-2 min of activity before r equiring a lengthy sitting rest break for recovery. 3-4 mild losses of balance during activity; min a needed for recovery. Cues to step towards object and for widening BETO for improved balance. Dressing tasks performed sitting in w/c. Extra time to don/doff shirt but no assist needed. Extra effort to thread LE's into LB clothing but no assist required. Close sba-cga when standing to manage clothing over hips. Pt desats with tasks and requires lengthy rests breaks after each clothing item is donned. Pt will benefit from instruction/education on compensatory strategies and to reduce bending as much as possible. Pt on 10L with all activity due to desating with exertion. Education OT Patient Education: Correct positioning, Disease process, Energy conservation, Modified ADL techniques, Progress toward Goal/Update tx plan, Purpose of tx/functional activities, Reviewed precautions, Rehab process, Safety issues, Transfer techniques, Use of adapted equipment, W/C management Teaching Recipient: Patient Teaching Methods: Demonstration, Discussion Response to Teaching: Verbalize Understanding, Return Demonstration OT Short Term Goals Short Term Goals Time Frame: Aug 30, 2021 Eatin Oral hygiene: 6 Toileting hygiene: 6 Shower/bathe self: 3 Upper body dressin Lower body dressin Putting on/taking off footwear: 5 OT Alf Goals Alf Goals Time Frame: Sep 11, 2021 Eating (QC): 6 Oral Hygiene (QC): 6 Toileting Hygiene (QC): 6 Shower/Bathe Self (QC): 6 Upper Body Dressing (QC): 6 Lower Body Dressing (QC): 6 On/Off Footwear (QC): 6 1=Demonstrate adherence to instructed precautions during ADL tasks. 2=Patient will verbalize/demonstrate understanding of assistive devices/modifications for ADL. 3=Patient will improve strength/tolerance for activity to enable patient to perform ADL's. OT Education/Plan Problem List/Assessment Assessment: Decreased Activ Tolerance, Impaired Funct Balance, Impaired I ADL's, Impaired Self-Care Skills Discharge Recommendations Plan/Recommendations: Continue POC Equpiment Recommendations-D/C: Bath Chair, Extended Shower Sprayer, Nutrition Internship, Sock Aide Target Placement home with home health Treatment Plan/Plan of Care Treatment,Training & Education: Yes Patient would benefit from OT for education, treatment and training to promote independence in ADL's, mobility, safety and/or upper extremity function for ADL's. Plan of Care: ADL Retraining, Functional Mobility, Group Exercise/Act as Ind, UE Funct Exercise/Act Treatment Duration: Sep 11, 2021 Frequency: At least 5 of 7 days/Wk (IRF) Estimated Hrs Per Day: 1.5 hours per day Agreement: Yes Rehab Potential: Fair Time/GCodes Start Time: 10:50 Stop Time: 12:00 Total Time Billed (hr/min): 60 Billed Treatment Time 1 visit, EVL (10 min) ADL x2 (30 min) FA (20 min) OT eval ([id number]) PT eval ([id number]) Co-treat ([id number]) Sylvie Fuller OT Aug 22, 2021 12:18
[2021-08-22] MEDS: clonazePAM 0.5 MG (KlonoPIN) TAB PO SCH ×2 (12:57→23:32)
[2021-08-22] MEDS ORDERED: RT-ALBUTEROL/IPRATROPIUM 3 ML (DUONEB) VIAL IH SCH (13:00)
--- NOTE | 2021-08-22 14:40 | Therapy Group Daily Note ---
Therapy Daily Group Note Patient Education Topic Other List Below (exercise, nutrition, medication) Exercises LE Seated Exercise, UE Exercise Session Ratio (pt:therapist): 4:1 Goal of Session: Education on ARU Expectations, Home Safety Strategies, UE/LE Strengthing Goal Met for this Session: Yes Pt Benefit of Group: Contributions to Others, F/U Use of Strategies @Home, Increased Functional Safety, Increased Functional Strength, Improved Cognition, Recognition of Peers, Socialization Other/Notes Pt propelled w[facility]PT group. Group consisted of introductions (name, place living, favorite fall therapy), socialization, seated UE/LE exercises, and educational topics involving nutrition, exercise. Pt introduced self appropriately, actively listened to peers. Pt able to complete B UE/LE seated exercises, tolerated well. Pt acknowledged understanding by verbalizing understanding and giving personal stories. Pt participated in a multiple choice question/answer session about educational topics. After session, pt sitting in recliner. Call light/phone in reach. All needs met in room. Start Time: 13:00 Stop Time: 14:00 Total Billed Treatment Time: 60 Total Billed Treatment 1-GRP KARIN BIGGS Aug 22, 2021 14:40
[2021-08-22] MEDS: inSUlin ASPART (NovoLOG) 1 UNIT/0.01 ML (CHARGE PER UNIT) SC SCH ×2 (16:17→21:12)
--- NOTE | 2021-08-22 16:54 | ST Cognitive Linguistic Eval ---
Speech Evaluation-General Medical Diagnosis post covid debility Onset Date: Jul 26, 2021 Therapy Diagnosis Therapy Diagnosis: WNL cognitive-communication Referral Referring Physician: Paulette Apple Reason for Referral: Evaluation/Treatment Medical History Pertinent Medical History: DM, Hypothroidism Hypothyroidism, DM Current History post covid debility Reviewed History: Yes Social History Current Living Status: Spouse Speech PLF-Current Status Prior Level of Function Independent with ADLs; Live with and 2 teenage children Subjective Pt was sitting upright in chair in room. Pt was alert and pleasant. She was cooperative during speech therapy evaluation Language Eval: Auditory Comprehends Simple Yes/No Ques: Functional Indent/Objects Multiple Dominguez: Functional Ident/Pics in Multiple Doming[place]: Functional Follows 1-Step Commands: Functional Follows Complex Directions: Functional Follows General Conversations: Functional Language Eval: Verbal Language Completes Spontaneous Greeting: Functional Produces Auto, Serial Info: Functional Imitates Simple Words/Phrases: Functional Word Finding: Functional Requests Basic Needs: Functional States Basic Personal Info: Functional Expresses Complex Ideas: Functional Cognitive Patient Orientation Oriented x4 Objective Cognitive Domain Attention: WNL Memory: WNL Problem Solving: Functional Executive Functions: WNL Visuospatial Skills: WNL Composite Severity Rating: WNL Clock Drawing Severity Rating: WNL Score: 29/30 Range: Normal Objective Formal/Standardized Tests [facility] Mental Status ([facility]) Examination Results Pt scored in the normal range for cognition with the [facility] examination. Pt's cognitive skills are WFL. Oral Motor/Speech Production Pt was able to participate in complex conversation. Utterance length WNL with 100% intelligibility Impression Pt demonstrates average cognitive-communication skills and there are no concerns at this time for speech, language, or cognitive skills Speech Patient Assess Expression of Ideas/Wants: Expression (4) Understanding Verbal Content: Understands (4) Brief Interview-Mental Status: Yes Repetition of Three Words: Three (3) Temporal Orientation: Year: Correct (3) Temporal Orientation: Month: Accurate within 5 days(2) Temporal Orientation: Day: Correct (1) Recall : Wear to say "Sock": Yes, no cue required (2) Recall : Color: Yes, no cue required (2) Recall : Bed: Yes, no cue required (2) Memory/Recall Ability: Current season, Location of own room, That he or she is in a hsp/hsp unit Speech-Plan Patient/Family Goals Patient/Family Goals: Return to home with family Treatment Plan Speech Therapy Treatment Plan: Discontinue ST Frequency: 1 time per month Estimated Hrs Per Day: Other Rehab Potential: Good Pt/Family Agrees to Plan: Yes Safety Risks/Education Teaching Recipient: Patient Teaching Methods: Discussion Response to Teaching: Verbalize Understanding Education Topics Provided: Results of Evaluation Time Speech Therapy Time In: 16:05 Speech Therapy Time Out: 16:20 Total Billed Time: 15 Billed Treatment Time 1, SONIA Cobb Aug 22, 2021 16:54
[2021-08-22] MEDS: metFORMIN 500 MG (GLUCOPHAGE) TAB PO SCH (17:54)
[2021-08-22] MEDS: glipiZIDE 5 MG (GLUCOTROL) TAB PO SCH (17:54)
[2021-08-22] MEDS ORDERED: RT-BUDESONIDE NEBS 0.5 MG/2ML (PULMICORT) AMP ONE (18:36)
[2021-08-22] MEDS: BISACODYL 10 MG SUPP (DULCOLAX) RC SCH (19:28)
--- NOTE | 2021-08-22 20:17 | Individualized Plan of Care ---
Individualized Plan of Care Rehab Nursing IPOC Order Admission Date Aug 22, 2021 at 10:50 Current Orders Orders Admission Order(Inpt,Obs,Sdc) (08/22/21 10:13) Vital Signs: Per Unit Policy ( ,16,00 (08/22/21 10:13) Nathaniel Sami (08/22/21 10:13) Sequential Compression Device .admit (08/22/21 10:13) Manufacturing Maintenance Technician-Inpt Rehab Con (08/22/21 10:13) Rehab Nursing Orders-Ipoc (08/22/21 10:13) Physical Therapy Rehab Orders (08/22/21 10:13) Occupational Therapy Rehab Ord (08/22/21 10:13) Speech Therapy Rehab Orders (08/22/21 10:13) Cbc With Automated Diff (08/23/21 06:00) Comprehensive Metabolic Panel (08/23/21 06:00) Precautions (Aru) (08/22/21 10:13) Initiate Admission Nursing Pro .admission (08/22/21 10:13) Alprazolam Tablet (Xanax Tablet) (08/22/21 10:15) Calcium Carbonate Chew Tablet (Antacid C (08/22/21 10:15) Diphenhydramine Tablet (Benadryl Tablet) (08/22/21 10:15) Docusate Sodium Capsule (Colace Capsule) (08/22/21 21:00) Docusate Sodium Capsule (Colace Capsule) (08/22/21 10:15) Bisacodyl Suppository (Dulcolax Supposit (08/22/21 10:15) Lactulose Oral Solution (Enulose Oral So (08/22/21 10:15) Na Phos/Na Biphos Enema (Fleet Enema Nathaniel (08/22/21 10:15) Guaifenesin/Codeine Syrup (Robitussin Ac (08/22/21 10:15) Loperamide Tablet (Imodium Tablet) (08/22/21 10:15) Melatonin Tablet (Melatonin Tablet) (08/22/21 10:15) Polyethylene Glycol Powder Pkt (Miralax (08/22/21 21:00) Ondansetron Oral Dissolve Tab (Zofran (08/22/21 10:15) Senna S Tablet (Senokot S Tablet) (08/22/21 21:00) Transfer - Bed/Room/Location (08/22/21 10:50) Acetaminophen Tablet/Caplet (Tylenol T (08/22/21 11:15) Bisacodyl Suppository (Dulcolax Supposit (08/23/21 09:00) Budesonide Inhalation Solution (Pulmicor (08/22/21 21:00) Bumetanide Tablet (Bumex Tablet) (08/23/21 09:00) Clonazepam Tablet (Klonopin Tablet) (08/22/21 11:30) Docusate Sodium Capsule (Colace Capsule) (08/22/21 21:00) Duloxetine Capsule (Cymbalta Capsule) (08/23/21 09:00) Guaifenesin Tablet (Mucinex Tablet) (08/22/21 11:30) Hydrocodone/Apap 5/325 Tablet (Lortab 5 (08/22/21 11:30) Albuterol/Ipra Inhalation Soln (Duoneb I (08/22/21 13:00) Levothyroxine Tablet (Synthroid Tablet) (08/23/21 06:00) Loratadine Tablet (Claritin Tablet) (08/22/21 21:00) Metformin Tablet (Glucophage Tablet) (08/22/21 18:00) Pantoprazole Tablet (Protonix Tablet) (08/23/21 09:00) Glipizide Tablet (Glucotrol Tablet) (08/22/21 18:00) Insulin Determir (Per Unit) (Levemir (Pe (08/22/21 21:00) Consult Pulmonology (08/22/21 11:32) Accucheck Achs ACHS (08/22/21 11:32) Insulin Aspart (Novolog) (Novolog (Charg (08/22/21 16:00) Rehab-Intensity Of Therapy (08/22/21 11:40) General/Regular (08/22/21 Lunch) Linagliptin Tablet (Tradjenta Tablet) (08/23/21 09:00) Patient Visit (08/22/21 ) Pt Eval Moderate Complexity (08/22/21 ) Exercise Therap, Ea 15 Min (08/22/21 ) Functional Activities, Ea 15 (08/22/21 ) Patient Visit (08/22/21 ) Albuterol/Ipra Inhalation Soln (Duoneb I (08/22/21 19:00) Budesonide Inhalation Solution (Pulmicor (08/22/21 18:36) Chest 1 View, Ap/Pa Only (08/23/21 07:00) Rehab Nursing Orders: Ongoing Assess. of Cognitive Status, Ongoing Assess. of Function Status, Bladder Management, Bladder Scan, Bladder Training, Bowel Management, Bowel Training, Disease Management & Educaiton, DVT Prophylaxis, Fall Prevention, Fluid/Electrolyte/Nutrition Mgmt, Infection Prevention, Medication Management & Education, Management of Risks & Complications, Nutrition Management, Pain Management, Patient/Family Support, Safety Management Intensity of Therapy to be met Patient to be seen: Min.3h per day/5 of 7d PT IPOC Problem List: Activity Tolerance, Functional Strength, Safety, Balance, Gait, Transfer, Bed Mobility, ROM Treatment Plan: Continue Plan of Care Bed Mobility, Education, Functional Activity Yanni, Functional Strength, Group T herapy, Gait, Safety, Therapeutic Exercise, Transfers Treatment Duration: Sep 12, 2021 Frequency: At least 5 of 7 days/Wk (IRF) Estimated Hrs Per Day: 1.5 hours per day OT IPOC Problems: Decreased Activ Tolerance, Impaired Funct Balance, Impaired I ADL's, Impaired Self-Care Skills OT Treatment, Training and Edu: Yes Plan of Care: ADL Retraining, Functional Mobility, Group Exercise/Act as Ind, UE Funct Exercise/Act Treatment Duration: Sep 11, 2021 Frequency: At least 5 of 7 days/Wk (IRF) Estimated Hrs Per Day: 1.[address] IPOC Speech Therapy Treatment Plan: Discontinue ST Treatment Duration: Aug 22, 2021 Frequency: Modified Program (IRF) Estimated Hrs Per Day: Other Manufacturing Maintenance Technician/Case Mgmt Manufacturing Maintenance Technician/Case Managemen: Discharge Planning Dietitian/Beauty Director Dietitian/Beauty Director to monitor nutritional status and make changes and/or recommendations as needed and work with speech pathology on dietary upgrades as the occur. Physician IPOC Medical Issues being managed closely and that require the 24 hour availability of a physician: Recent Covid with continued hypoxia severe in nature high risk for respiratory failure will require close monitoring Medical Issues: Bowel/Bladder Function, DVT Prophylaxis, Falls Precautions, Fluid/Electrolyte/Nutrition Balance, Infection Protection, Pain Management Brief Synthesis of Preadmission Screen, Post-Admission Evaluation, and Therapy Evaluations: PT and OT will focus on increasing stamina while supporting the severe hypoxia with oxygen supplementation in order to wean oxygen and improve lung function Medical Prognosis: Good Anticipated Length of Stay: 14 days VALARIE JENSEN DO Aug 22, 2021 20:17
[2021-08-22 20:31] VITALS: BP 114/70
[2021-08-22] MEDS: DOCUSATE SODIUM 100 MG (COLACE) CAP PO SCH ×2 (21:01→21:17)
[2021-08-22] MEDS: LORATADINE (CLARITIN) 10 MG TAB PO SCH (21:01)
[2021-08-22] MEDS: SENNA W/DOCUSATE (SENOKOT S) TABLET PO SCH (21:02)
[2021-08-22] MEDS: polyethylene glycoL POWDER 17 GM (MIRALAX) PACK PO SCH (21:17)
[2021-08-23 05:49] LABS: BASOPHILS # (AUTO) 0.1 10^3/uL (0.0-0.1); BASOPHILS % (AUTO) 1 % (0-10); EOSINOPHILS # (AUTO) 0.3 10^3/uL (0.0-0.3); EOSINOPHILS % (AUTO) 3 % (0-10); HEMATOCRIT 29 % (35-52); HEMOGLOBIN 9.2 g/dL (11.5-16.0); LYMPHOCYTES # (AUTO) 1.6 10^3/uL (1.0-4.0); LYMPHOCYTES % (AUTO) 17 % (12-44); MEAN CORPUSCULAR HEMOGLOBIN 30 pg (25-34); MEAN CORPUSCULAR HGB CONC 32 g/dL (32-36); MEAN CORPUSCULAR VOLUME 91 fL (80-99); MEAN PLATELET VOLUME 11.3 fL (9.0-12.2); MONOCYTES # (AUTO) 0.7 10^3/uL (0.0-1.0); MONOCYTES % (AUTO) 8 % (0-12); NEUTROPHILS # (AUTO) 6.7 10^3/uL (1.8-7.8); NEUTROPHILS % (AUTO) 71 % (42-75); PLATELET COUNT 230 10^3/uL (130-400); WHITE BLOOD COUNT 9.4 10^3/uL (4.3-11.0)
[2021-08-23 06:06] LABS: ALBUMIN 3.6 GM/DL (3.2-4.5); BILIRUBIN,TOTAL 0.3 MG/DL (0.1-1.0); CALCIUM 9.6 MG/DL (8.5-10.1); CREATININE SERUM 1.31 MG/DL (0.60-1.30)
[2021-08-23] MEDS: inSUlin ASPART (NovoLOG) 1 UNIT/0.01 ML (CHARGE PER UNIT) SC SCH ×4 (06:22→21:46)
[2021-08-23] MEDS: LEVOTHYROXINE 88 MCG (LEVOTHORID) TAB PO SCH (06:22)
[2021-08-23] MEDS: RT-BUDESONIDE NEBS 0.5 MG/2ML (PULMICORT) AMP IH SCH ×2 (07:03→19:18)
[2021-08-23] MEDS: RT-ALBUTEROL/IPRATROPIUM 3 ML (DUONEB) VIAL IH SCH ×4 (07:03→19:18)
--- NOTE | 2021-08-23 07:49 | Diagnostic Imaging Report ---
EXAMINATION: Chest 1 view HISTORY: Pneumonia COMPARISON: 07/16/2021 FINDINGS: Heart size and pulmonary vasculature are normal. There are diffuse interstitial and airspace opacities seen throughout both lungs. No pleural effusion or pneumothorax. The osseous structures are intact. IMPRESSION: 1. Diffuse interstitial and airspace opacities throughout both lungs which do not appear significantly changed from 07/16/2021. Dictated by: Dictated on workstation # [id number]
[2021-08-23 08:00] VITALS: BP 112/58
[2021-08-23] MEDS: DOCUSATE SODIUM 100 MG (COLACE) CAP PO SCH ×4 (08:39→21:45)
[2021-08-23] MEDS: BUMETANIDE 1 MG (BUMEX) TAB PO SCH (08:39)
[2021-08-23] MEDS: metFORMIN 500 MG (GLUCOPHAGE) TAB PO SCH ×2 (08:39→17:03)
[2021-08-23] MEDS: DULoxetine 20 MG (CYMBALTA) CAP PO SCH (08:39)
[2021-08-23] MEDS: polyethylene glycoL POWDER 17 GM (MIRALAX) PACK PO SCH ×2 (08:39→20:10)
[2021-08-23] MEDS: SENNA W/DOCUSATE (SENOKOT S) TABLET PO SCH ×2 (08:39→21:45)
[2021-08-23] MEDS: PANTOPRAZOLE 40 MG (PROTONIX) TAB PO SCH (08:40)
[2021-08-23] MEDS: glipiZIDE 5 MG (GLUCOTROL) TAB PO SCH ×2 (08:40→17:03)
--- NOTE | 2021-08-23 11:03 | Physical Therapy Daily Note ---
PT Daily Note-Current Subjective Pt in WC w/ OT as they were finishing tx upon arrival. Pt has no c/o pain. Pt states she doesn't feel weakness anywhere except her lungs. Mental Status Patient Orientation: Person, Place, Time, Situation Attachments: Oxygen (10L w/ activity) Transfers SCALE: Activities may be completed with or without assistive devices. 4-Rgtgpuurgc-rzvicov completes the activity by him/herself with no assistance from a helper. 5-Set-up or Clean-up Assistance-helper sets up or cleans up; patient completes activity. [place] assists only prior to or following the activity. 4-Supervision or Touching Assistance-helper provides verbal cues and/or touching/steadying and/or contact guard assistance as patient completes activity. Assistance may be provided throughout the activity or intermittently. 3-Partial/Moderate Assistance-helper does LESS THAN HALF the effort. [place] lifts, holds or supports trunk or limbs, but provides less than half the effort. 2-Substantial/Maximal Assistance-helper does MORE THAN HALF the effort. [place] lifts or holds trunk or limbs and provides more than half the effort. 4-Pyhofbpcf-pkjogp does ALL the effort. Patient does none of the effort to complete the activity. Or, the assistance of 2 or more helpers is required for the patient to complete the activity. If activity was not attempted, code reason: 7-Patient Refused. 9-Not Applicable-not attempted and the patient did not perform the activity before the current illness, exacerbation or injury. 10-Not Attempted due to Environmental Limitations-(lack of equipment, weather restraints, etc.). 88-Not Attempted due to Medical Conditions or Safety Concerns. Sit to Stand (QC): 5 Gait Training Does the Patient Walk?: Yes Distance: 150', 75' x2 Walk 10 feet (QC): 4 Walk 50 ft with 2 Turns(QC): 4 Walk 150 ft (QC): 4 Gait Persons Needed: 1 Gait Assistive Device: FWW CGA/SBA dependent on pt fatigue. Pt O2 checked post each amb bout, reading 92% after 150', 94% after 70' on 10L of O2. Pt has slow, steady gait Exercises Seated Therapy Exercises: Sit to stand, Long arc quads Seated Reps: 5 LAQ 3 mins Treatments Pt sit to stand from SBA and amb 150' on ARU. Pt then amb 75' to therapy gym and completes balance activities. Pt first hold static standing unsupported from UE, able to hold 1 min SBA, then closes eyes and holds for 30 seconds CGA. Pt then attempts SLS on B LE x2 with CGA/Belle but pt only able to hold approx 15 sec each set per LE. Pt then attempts tandem stance x3, longest stance for 35 seconds with CGA/Belle. Pt amb another 75' back to recliner in room and completes seated ex. Pt remains in recliner, monitored by PT until O2 returns to 97% on 6L. Pt remains in recliner w/ all needs met, call light in hand. Assessment Current Status: Good Progress O2 stayed above 90% throughout most of tx, post balance activity O2 dropped to 87% but recovered to 95% quickly with a seated rest break. Pt increasing in endurance and strength. PT Short Term Goals Short Term Goals Time Frame: Aug 29, 2021 Roll Left & Right: 6 Sit to lyin Lying to sitting on side of be: 6 Sit to stand: 4 (SBA) Chair/icr-et-nyzgk transfer: 4 (SBA) Walk 10 feet: 4 (SBA) Walk 50 feet with two turns: 4 (SBA) PT Director Of Workforce Development Goals Director Of Workforce Development Goals PT Alf Goals Time Frame: Sep 12, 2021 Roll Left & Right (QC): 6 Sit to Lying (QC): 6 Lying-Sitting on Side/Bed(QC): 6 Sit to Stand (QC): 6 Chair/Xft-ck-Ozeyc Xfer(QC): 6 Toilet Transfer (QC): 6 Car Transfer (QC): 6 Does the Patient Walk: Yes Walk 10 feet (QC): 6 Walk 50ft with 2 Turns (QC): 6 Walk 150 ft (QC): 6 Walking 10ft on Uneven Surface: 6 1 Step (curb) (QC): 5 4 Steps (QC): 5 12 Steps (QC): 88 Picking up an Object (QC): 6 Wheel 50 feet with 2 turns (QC: 9 Wheel 150 feet: 9 PT Plan Treatment/Plan Treatment Plan: Continue Plan of Care Treatment Plan: Bed Mobility, Education, Functional Activity Yanni, Functional Strength, Group Therapy, Gait, Safety, Therapeutic Exercise, Transfers Treatment Duration: Sep 12, 2021 Frequency: At least 5 of 7 days/Wk (IRF) Estimated Hrs Per Day: 1.5 hours per day Patient and/or Family Agrees t: Yes Time/GCodes Time In: 1000 Time Out: 1100 Total Billed Treatment Time: 60 Total Billed Treatment 1, GT x2, NM, Ex CAROLYN,ALEXI 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
--- NOTE | 2021-08-23 11:04 | Occupational Ther Daily Note ---
OT Current Status-Daily Note Subjective Pt alert, sitting in recliner when therapy entered. Pt agreed to therapy. No c/o pain reported. Mental Status/Objective Patient Orientation: Person, Place, Time, Situation Attachments: IV, Oxygen ADL-Treatment Pt agreed to shower. Pt sitting at recliner 6L NC, O2 94%. O2 increased to 10 with activity. Pt sit-stand from EOB to FWW with SBA. Pt ambulated to bathroom and transferred to toilet using FWW with supervision. O2 dropped to low 80's but with pursed lip breathing, quickly recovered to 94%. Pt sit-stand from toilet to FWW and hiked LB dressing with CGA. Pt ambulated to shower using FWW and transferred to shower bench. Throughout shower, pt's O2 maintained 90%-95%. Pt required resting breaks throughout shower and dressing due to fatigue. Pt doffed UB dressing while seated at shower bench. Sit-stand from shower bench using grab bars to doff LB dressing. Pt then threaded off LB dressing while seated. Pt cleansed/dried UB, LB, chest, abdomen, chest, jadon parts with supervision. Pt introduced to long handled sponge for energy conservation, pt was able to cleanse LE using figure four technique. Pt sit-stand from shower chair using grab bars to cleanse buttocks with SBA. Pt required shower bench, hand held shower, and grab bars to complete shower. Pt donned UB dressing with supervision. Pt threaded BLE into LB dressing with supervision. Pt sit-stand from chair to FWW with SBA. Pt required min A to hike LB dressing due to fatigue. After set up, pt completed oral hygiene while sitting in w/c at bathroom sink. Pt required assist to don radha hose. After session, all needs met and pt left with PT in room to begin PT session. Therapy Code Descriptions/Definitions Functional [place] Measure: 0=Not Assessed/NA 4=Minimal Assistance 1=Total Assistance 5=Supervision or Setup 2=Maximal Assistance 6=Modified [place] 3=Moderate Assistance 7=Complete IndependenceSCALE: Activities may be completed with or without assistive devices. 2-Hzmpalhamy-tndrxqc completes the activity by him/herself with no assistance from a helper. 5-Set-up or Clean-up Assistance-helper sets up or cleans up; patient completes activity. [place] assists only prior to or following the activity. 4-Supervision or Touching Assistance-helper provides verbal cues and/or touching/steadying and/or contact guard assistance as patient completes activity. Assistance may be provided throughout the activity or intermittently. 3-Partial/Moderate Assistance-helper does LESS THAN HALF the effort. [place] lifts, holds or supports trunk or limbs, but provides less than half the effort. 2-Substantial/Maximal Assistance-helper does MORE THAN HALF the effort. [place] lifts or holds trunk or limbs and provides more than half the effort. 9-Rekwuryrc-fxkgyz does ALL the effort. Patient does none of the effort to complete the activity. Or, the assistance of 2 or more helpers is required for the patient to complete the activity. If activity was not attempted, code reason: 7-Patient Refused. 9-Not Applicable-not attempted and the patient did not perform the activity b efore the current illness, exacerbation or injury. 10-Not Attempted due to Environmental Limitations-(lack of equipment, weather restraints, etc.). 88-Not Attempted due to Medical Conditions or Safety Concerns. Oral Hygiene (QC): 5 Shower/Bathe Self (QC): 4 Upper Body Dressing (QC): 4 Lower Body Dressing (QC): 3 (Min A to hike LB dressing due to fatigue.) Toileting Hygiene (QC): 4 Toilet Transfer (QC): 4 Pt required verbal cues for where oxygen tubing was when donning LB dressing and ambulating using FWW. Education OT Patient Education: Correct positioning, Energy conservation, Modified ADL techniques, Purpose of tx/functional activities, Use of adapted equipment Teaching Recipient: Patient Teaching Methods: Demonstration, Discussion Response to Teaching: Verbalize Understanding, Return Demonstration OT Short Term Goals Short Term Goals Time Frame: Aug 30, 2021 Eatin Oral hygiene: 6 Toileting hygiene: 6 Shower/bathe self: 3 Upper body dressin Lower body dressin Putting on/taking off footwear: 5 OT Skilled Nursing Goals Skilled Nursing Goals Time Frame: Sep 11, 2021 Eating (QC): 6 Oral Hygiene (QC): 6 Toileting Hygiene (QC): 6 Shower/Bathe Self (QC): 6 Upper Body Dressing (QC): 6 Lower Body Dressing (QC): 6 On/Off Footwear (QC): 6 1=Demonstrate adherence to instructed precautions during ADL tasks. 2=Patient will verbalize/demonstrate understanding of assistive devices/modifications for ADL. 3=Patient will improve strength/tolerance for activity to enable patient to perform ADL's. OT Education/Plan Problem List/Assessment Assessment: Decreased Activ Tolerance, Impaired Self-Care Skills Discharge Recommendations Plan/Recommendations: Continue POC Treatment Plan/Plan of Care Patient would benefit from OT for education, treatment and training to promote independence in ADL's, mobility, safety and/or upper extremity function for ADL's. Plan of Care: ADL Retraining, Functional Mobility, Group Exercise/Act as Ind, UE Funct Exercise/Act Treatment Duration: Sep 11, 2021 Frequency: At least 5 of 7 days/Wk (IRF) Estimated Hrs Per Day: 1.5 hours per day Agreement: Yes Rehab Potential: Good Time/GCodes Start Time: 09:00 Stop Time: 10:00 Total Time Billed (hr/min): 60 Billed Treatment Time 1 visit- ADL 4 (60 mins) LEEANNE GLEASON Aug 23, 2021 11:04
--- NOTE | 2021-08-23 11:08 | Pulmonary Consultation ---
History of Present Illness History of Present Illness Date Seen by Provider: Aug 23, 2021 Time Seen by Provider: 11:08 History of Present Illness She is a 46-year-old female with in order to obesity who was diagnosed with oil Covid pneumonia with ARDS in June 2021 for which she is hospitalized today and also admitted to the intensive care unit and she is subsequently discharged after about 3 weeks of treatment to an LTAC facility. Upon there she had about a month of rehab and subsequently she is admitted in this hospital inpatient rehabilitation unit. She is currently requiring about 6-10 L of oxygen. Today she is able to walk 150 feet with 10 L of oxygen afterwards she got tired. She has a minimal cough. No fever present. Chest x-ray showed bilateral extensive infiltrates versus scarring. She also has a history of fall hypercoagulable state and type 2 diabetes mellitus, hypothyroidism. A pulmonary consultation is requested to assist in the evaluation of this patient. Allergies and Home Medications Allergies Coded Allergies: amoxicillin (Verified Allergy, Unknown, 06/25/21) clavulanic acid (Verified Allergy, Unknown, 06/25/21) Home Medications Bisacodyl 10 Mg Supp.rect, 10 MG RC DAILY, (Reported) Budesonide 0.5 Mg/2 Ml Ampul.neb, 0.5 MG IH BID, (Reported) Bumetanide 1 Mg Tablet, 0.5 MG PO DAILY, (Reported) HOLD FOR SYSTOLIC BP LESS THAN 100 TAKES OF A 1MG TAB Clonazepam 0.5 Mg Tablet, 0.5 MG PO Q12H, (Reported) Docusate Sodium 100 Mg Capsule, 100 MG PO BID, (Reported) HOLD FOR DIARRHEA Duloxetine HCl 20 Mg Capsule.dr, 20 MG PO DAILY, (Reported) Glipizide 10 Mg Tablet, 10 MG PO BID WITH MEALS, (Reported) Guaifenesin 600 Mg Tab.er.12h, 600 MG PO Q12H PRN for COUGH, (Reported) Hydrocodone/Acetaminophen 1 Each Tablet, 1 TAB PO Q6H PRN for PAIN-MODERATE (5- 7), (Reported) Insulin Glargine,Hum.rec.anlog 100 Unit/1 Ml Insuln.pen, 37 UNITS SC BID, (Reported) Insulin Lispro 100 Unit/1 Ml Vial, 0-14 UNIT SQ TIDAC, (Reported) 70-140=0 UNITS 141-180= 2 UNITS 181-220= 4 UNITS 221-260= 6 UNITS 261-300= 8 UNITS 301-340= 10 UNITS 341-380= 12 UNITS 381-400= 14 UNITS CONTACT PROVIDER IF OVER 400 Ipratropium/Albuterol Sulfate 3 Ml Ampul.neb, 3 ML IH QID, (Reported) Levothyroxine Sodium 88 Mcg Tablet, 176 MCG PO 0600, (Reported) TAKES 2 (88MCG) TABS Loratadine 10 Mg Tablet, 10 MG PO HS, (Reported) Metformin HCl 500 Mg Tablet, 500 MG PO BID WITH MEALS, (Reported) Pantoprazole Sodium 40 Mg Tablet.dr, 40 MG PO DAILY, (Reported) Sitagliptin Phosphate 50 Mg Tablet, 50 MG PO BID WITH MEALS, (Reported) Past Medical/Social/Family Hx Patient Social History Marrital Status: Employed/Student: unemployed Tobacco Use?: No Smoking Status: Never a Smoker Smokeless Tobacco Frequency: Never a User E-Cig and/or Vaping Freq: Never a User Substance use?: No Alcohol Use?: No Pt stated abuse/neglect: No Immunizations Up To Date Influenza Vaccine Up-to-Date: No; Not Current Tetanus Booster (TDap): Less Than 5 Years Hepatitis A: No Hepatitis B: No TB Skin Test: None Current Status status: No status: No Advance Directives: No Advance Directive Location: Home Communicates: Verbally Primary Language: Czech Preferred Spoken Language: Czech Is interpretation needed?: No Past Medical History Obesity DM Hypothyroidism Review of Systems Constitutional: see HPI EENTM: see HPI Respiratory: no symptoms reported, see HPI, dyspnea on exertion, short of breath, other Sepsis Event Evaluation Height, Weight, BMI Height: '" Weight: lbs. oz. kg; 34.51 BMI Method: Exam Exam Patient acknowledged, consented, and participated in this virtual visit which was conducted using real time audio/video Vital Signs Date Time Temp Pulse Resp B/P (MAP) Pulse Ox O2 Delivery O2 Flow Rate FiO2 08/23/21 09:04 High Flow N/C 6.00 08/23/21 08:00 36.6 129 24 112/58 (76) 90 High Flow N/C 6.00 08/23/21 07:04 92 7.00 08/22/21 21:15 High Flow N/C 6.00 08/22/21 20:31 37.0 121 24 114/70 (85) 92 High Flow N/C 6.00 08/22/21 19:10 93 Nasal Cannula 6.00 08/22/21 14:31 High Flow N/C 6.00 Height & Weight Height: '" Weight: lbs. oz. kg; 34.51 BMI Method: General Appearance: No Apparent Distress, WD/WN, Anxious, Chronically ill HEENT: PERRL/EOMI, Normal ENT Inspection, Pharynx Normal Neck: Full Range of Motion, Normal Inspection, Non Tender, Supple, Carotid Bruit Respiratory: Chest Non Tender, Lungs Clear, No Accessory Muscle Use, No Respiratory Distress, Crackles (few mariusz. 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 Exertional dyspnea secondary to underlying pulmonary fibrosis which is due to covid-19 related ARDS sequelae 2. Acute on chronic respiratory failure requiring supplemental oxygen 3. Morbid obesity 4. Diabetes type 2. 5. History of hypothyroidism. Recommendations 1. Continue supplemental oxygen and wean oxygen as tolerated. 2. Physical therapy and Occupational Therapy 3. The extent of pulmonary fibrosis resolution may take up to 6 months time at that time we will know how much it is permanent and how much it will resolve by that time. The same I have discussed with the patient. 4. Diabetes management and other medical issues per primary care physician. Video visit made and discussed with the patient and the RN. Thank you for this consultation. Critical Care: Critically Ill Patient Time spent with patient (mins): 55 GISELLE CATES MD Aug 23, 2021 11:08
[2021-08-23] MEDS: clonazePAM 0.5 MG (KlonoPIN) TAB PO SCH ×2 (11:28→23:41)
--- NOTE | 2021-08-23 11:28 | PM&R Progress Note ---
Subjective HPI/CC On Admission Date Seen by Provider: Aug 23, 2021 Time Seen by Provider: 11:00 Subjective/Events-last exam 08/23/2021: Patient doing really well Moving around much better Desaturation noted at any exertion Increasing her stamina Blood sugars managed No other concerns Review of Systems General: Fatigue Pulmonary: Dyspnea Objective Exam Vital Signs Vital Signs Date Time Temp Pulse Resp B/P (MAP) Pulse Ox O2 Delivery O2 Flow Rate FiO2 08/23/21 21:00 High Flow N/C 10.00 08/23/21 20:00 36.9 110 24 103/59 (74) 99 Capillary Refill : General Appearance: No Apparent Distress, WD/WN, Anxious, Chronically ill HEENT: PERRL/EOMI, Normal ENT Inspection, Pharynx Normal Neck: Full Range of Motion, Normal Inspection, Non Tender, Supple, Carotid Bruit Respiratory: Chest Non Tender, Lungs Clear, No Accessory Muscle Use, No Respiratory Distress, Decreased Breath Sounds Cardiovascular: Regular Rate, Rhythm, No Edema, No Gallop, No JVD, No Murmur, Normal Peripheral Pulses Gastrointestinal: Normal Bowel Sounds, No Organomegaly, No Pulsatile Mass, Non Tender, Soft Back: Normal Inspection, No CVA Tenderness, No Vertebral Tenderness Extremity: Normal Capillary Refill, Normal Inspection, Normal Range of Motion, Non Tender, No Calf Tenderness, No Pedal Edema Neurologic/Psychiatric: Alert, Oriented x3, No Motor/Sensory Deficits, Normal Mood/Affect, a&p mechanic II-XII Norm as Tested, Motor Weakness (Generalized 4/5 all extremities) Skin: Normal Color, Warm/Dry Lymphatic: No Adenopathy Results/Procedures Lab Laboratory Tests 08/23/21 05:38 Patient resulted labs reviewed. FIM Transfers Therapy Code Descriptions/Definitions Functional [place] Measure: 0=Not Assessed/NA 4=Minimal Assistance 1=Total Assistance 5=Supervision or Setup 2=Maximal Assistance 6=Modified [place] 3=Moderate Assistance 7=Complete IndependenceSCALE: Activities may be completed with or without assistive devices. 8-Utiaiedajf-nffpeti completes the activity by him/herself with no assistance from a helper. 5-Set-up or Clean-up Assistance-helper sets up or cleans up; patient completes activity. [place] assists only prior to or following the activity. 4-Supervision or Touching Assistance-helper provides verbal cues and/or touching/steadying and/or contact guard assistance as patient completes activity. Assistance may be provided throughout the activity or intermittently. 3-Partial/Moderate Assistance-helper does LESS THAN HALF the effort. [place] lifts, holds or supports trunk or limbs, but provides less than half the effort. 2-Substantial/Maximal Assistance-helper does MORE THAN HALF the effort. [place] lifts or holds trunk or limbs and provides more than half the effort. 6-Okvkcbvuh-xgfpqu does ALL the effort. Patient does none of the effort to complete the activity. Or, the assistance of 2 or more helpers is required for the patient to complete the activity. If activity was not attempted, code reason: 7-Patient Refused. 9-Not Applicable-not attempted and the patient did not perform the activity before the current illness, exacerbation or injury. 10-Not Attempted due to Environmental Limitations-(lack of equipment, weather restraints, etc.). 88-Not Attempted due to Medical Conditions or Safety Concerns. Roll Left to Right (QC): 6 Sit to Lying (QC): 6 Sit to Stand (QC): 5 Chair/Stg-zx-Hpaqk Xfer(QC): 4 Car Transfer (QC): 4 Gait Training Does the Patient Walk?: Yes Distance: 150', 75' x2 Walk 10 feet (QC): 4 Walk 50 ft with 2 Turns(QC): 4 Walk 150 ft (QC): 4 Walking 10ft/uneven surface-QC: 4 Gait Persons Needed: 1 Gait Assistive Device: FWW Wheelchair Training Does the Pt Use a Wheelchair?: Yes Distance: 150' Wheel 50 ft with 2 turns (QC): 4 Wheel 150 ft (QC): 4 Type of Wheelchair: Manual Stair Training #of Steps: 1 1 Step (curb) (QC): 4 4 Steps (QC): 88 12 Steps (QC): 88 Balance Picking up an Object (QC): 88 ADL-Treatment Eating (QC): 5 Oral Hygiene (QC): 4 Shower/Bathe Self (QC): 7 Upper Body Dressing (QC): 4 Lower Body Dressing (QC): 4 On/Off Footwear (QC): 2 Toileting Hygiene (QC): 4 Assessment/Plan Assessment and Plan Assess & Plan/Chief Complaint Assessment: Post Covid syndrome Severe hypoxia with exertion Diabetes Anemia Hypothyroidism Recent weight loss Constipation Plan: Oxygen supplementation Rehab protocol 23/05 due to hypoxia Home meds Monitor sugar Pulmonary consult 08/23/2021: Pulmonary consult appreciated Supportive care PT and OT (1) Anemia (2) Hypothyroidism (3) Weight loss (4) Hypoxemia (5) Oxygen dependent (6) Anxiety (7) Post-COVID syndrome (8) T2DM (type 2 diabetes mellitus) Status: Acute VALARIE JENSEN DO Aug 23, 2021 11:28
--- NOTE | 2021-08-23 13:35 | Physical Therapy Daily Note ---
PT Daily Note-Current Subjective Pt in recliner upon arrival and agrees to tx. Pt has no c/o pain. Pt states she wants to attempt to lower Oxygen when doing activity, SURVEYING TEACHER told pt she would need to discuss w/ DR and respiratory. Mental Status Patient Orientation: Person, Place, Time, Situation Transfers SCALE: Activities may be completed with or without assistive devices. 4-Yepgxregdn-kyfhdad completes the activity by him/herself with no assistance from a helper. 5-Set-up or Clean-up Assistance-helper sets up or cleans up; patient completes activity. [place] assists only prior to or following the activity. 4-Supervision or Touching Assistance-helper provides verbal cues and/or touching/steadying and/or contact guard assistance as patient completes activity. Assistance may be provided throughout the activity or intermittently. 3-Partial/Moderate Assistance-helper does LESS THAN HALF the effort. [place] lifts, holds or supports trunk or limbs, but provides less than half the effort. 2-Substantial/Maximal Assistance-helper does MORE THAN HALF the effort. [place] lifts or holds trunk or limbs and provides more than half the effort. 6-Pawdqdxzn-nygcxp does ALL the effort. Patient does none of the effort to complete the activity. Or, the assistance of 2 or more helpers is required for the patient to complete the activity. If activity was not attempted, code reason: 7-Patient Refused. 9-Not Applicable-not attempted and the patient did not perform the activity before the current illness, exacerbation or injury. 10-Not Attempted due to Environmental Limitations-(lack of equipment, weather restraints, etc.). 88-Not Attempted due to Medical Conditions or Safety Concerns. Sit to Stand (QC): 5 Gait Training Does the Patient Walk?: Yes Distance: 150' Walk 10 feet (QC): 5 Walk 50 ft with 2 Turns(QC): 5 Walk 150 ft (QC): 5 Gait Persons Needed: 1 Gait Assistive Device: FWW Pt has slow, steady gait w/ FWW and SBA. Pt required 1 standing rest break Exercises Supine Ex: Quad Set, Heel Slides, Short Arc Quads, Straight leg raise, Hip abd/add Supine Reps: 10 Seated Therapy Exercises: Ankle pumps, Long arc quads, Hip flexion Seated Reps: 10 Treatments Pt given HEP for seated/supine ex, pt completes supine ex followed by seated ex with rest breaks as needed. O2 checked throughout. Pt then sit to stand SBA and amb 150' on ARU and returns to recliner. Pt O2 checked, PT remained in room until O2 returned to 96% on 6L. Pt remains in recliner w/ all needs met, call light in hand. Assessment Current Status: Good Progress O2 checked throughout tx, reading above 92%. During ex, O2 remained at 6L, with amb raised to 10L. PT Short Term Goals Short Term Goals Time Frame: Aug 29, 2021 Roll Left & Right: 6 Sit to lyin Lying to sitting on side of be: 6 Sit to stand: 4 (SBA) Chair/hus-hw-papsr transfer: 4 (SBA) Walk 10 feet: 4 (SBA) Walk 50 feet with two turns: 4 (SBA) PT Prison Goals Prison Goals PT Senior C Software Engineer Goals Time Frame: Sep 12, 2021 Roll Left & Right (QC): 6 Sit to Lying (QC): 6 Lying-Sitting on Side/Bed(QC): 6 Sit to Stand (QC): 6 Chair/Igc-bw-Eblxp Xfer(QC): 6 Toilet Transfer (QC): 6 Car Transfer (QC): 6 Does the Patient Walk: Yes Walk 10 feet (QC): 6 Walk 50ft with 2 Turns (QC): 6 Walk 150 ft (QC): 6 Walking 10ft on Uneven Surface: 6 1 Step (curb) (QC): 5 4 Steps (QC): 5 12 Steps (QC): 88 Picking up an Object (QC): 6 Wheel 50 feet with 2 turns (QC: 9 Wheel 150 feet: 9 PT Plan Treatment/Plan Treatment Plan: Continue Plan of Care Treatment Plan: Bed Mobility, Education, Functional Activity Yanni, Functional Strength, Group Therapy, Gait, Safety, Therapeutic Exercise, Transfers Treatment Duration: Sep 12, 2021 Frequency: At least 5 of 7 days/Wk (IRF) Estimated Hrs Per Day: 1.5 hours per day Patient and/or Family Agrees t: Yes Time/GCodes Time In: 1300 Time Out: 1330 Total Billed Treatment 1, Ex, GT CAROLYN,ALEXI SURVEYING TEACHER Aug 23, 2021 13:35
--- NOTE | 2021-08-23 14:18 | Occupational Ther Daily Note ---
OT Current Status-Daily Note Subjective Pt alert, sitting in recliner when therapy entered. Pt agreed to therapy. No c/o pain reported. Mental Status/Objective Patient Orientation: Person, Place, Time, Situation Attachments: Oxygen ADL-Treatment Therapy Code Descriptions/Definitions Functional [place] Measure: 0=Not Assessed/NA 4=Minimal Assistance 1=Total Assistance 5=Supervision or Setup 2=Maximal Assistance 6=Modified [place] 3=Moderate Assistance 7=Complete IndependenceSCALE: Activities may be completed with or without assistive devices. 4-Vvrwdawgyx-aqrjmqs completes the activity by him/herself with no assistance from a helper. 5-Set-up or Clean-up Assistance-helper sets up or cleans up; patient completes activity. [place] assists only prior to or following the activity. 4-Supervision or Touching Assistance-helper provides verbal cues and/or touching/steadying and/or contact guard assistance as patient completes activ ity. Assistance may be provided throughout the activity or intermittently. 3-Partial/Moderate Assistance-helper does LESS THAN HALF the effort. [place] lifts, holds or supports trunk or limbs, but provides less than half the effort. 2-Substantial/Maximal Assistance-helper does MORE THAN HALF the effort. [place] lifts or holds trunk or limbs and provides more than half the effort. 5-Nckhcpzzx-iuahxk does ALL the effort. Patient does none of the effort to complete the activity. Or, the assistance of 2 or more helpers is required for the patient to complete the activity. If activity was not attempted, code reason: 7-Patient Refused. 9-Not Applicable-not attempted and the patient did not perform the activity before the current illness, exacerbation or injury. 10-Not Attempted due to Environmental Limitations-(lack of equipment, weather restraints, etc.). 88-Not Attempted due to Medical Conditions or Safety Concerns. Other Treatment Skilled instruction required of red BUE theraband exercises. O2 raised to 10L during activity and maintained 96% throughout exercises. Pt completed x2 sets of 10 reps of red BUE exercises in all planes while seated in recliner to increase activity tolerance for improved independence in daily task without fatigue. Pt required resting break due to fatigue and decrease BUE strength. O2 lowered back to 6L after activity and at 96%. After session, pt sitting in recliner. All needs met and call light in reach. Education OT Patient Education: Energy conservation, Exercise program Teaching Recipient: Patient Teaching Methods: Demonstration, Discussion Response to Teaching: Verbalize Understanding, Return Demonstration OT Short Term Goals Short Term Goals Time Frame: Aug 30, 2021 Eatin Oral hygiene: 6 Toileting hygiene: 6 Shower/bathe self: 3 Upper body dressin Lower body dressin Putting on/taking off footwear: 5 OT Fpc Goals Local Government Legislator Goals Time Frame: Sep 11, 2021 Eating (QC): 6 Oral Hygiene (QC): 6 Toileting Hygiene (QC): 6 Shower/Bathe Self (QC): 6 Upper Body Dressing (QC): 6 Lower Body Dressing (QC): 6 On/Off Footwear (QC): 6 1=Demonstrate adherence to instructed precautions during ADL tasks. 2=Patient will verbalize/demonstrate understanding of assistive devices/modifications for ADL. 3=Patient will improve strength/tolerance for activity to enable patient to perform ADL's. OT Education/Plan Problem List/Assessment Assessment: Decreased Activ Tolerance, Impaired Self-Care Skills Discharge Recommendations Plan/Recommendations: Continue POC Treatment Plan/Plan of Care Patient would benefit from OT for education, treatment and training to promote independence in ADL's, mobility, safety and/or upper extremity function for ADL's. Plan of Care: ADL Retraining, Functional Mobility, Group Exercise/Act as Ind, UE Funct Exercise/Act Treatment Duration: Sep 11, 2021 Frequency: At least 5 of 7 days/Wk (IRF) Estimated Hrs Per Day: 1.5 hours per day Agreement: Yes Rehab Potential: Good Time/GCodes Start Time: 13:30 Stop Time: 14:00 Total Time Billed (hr/min): 30 Billed Treatment Time 1 visit- EX 2 (30 mins) LEEANNE GLEASON Aug 23, 2021 14:18
[2021-08-23 20:00] VITALS: BP 103/59
[2021-08-23] MEDS: MELATONIN 3 MG TABLET PO PRN (21:45)
[2021-08-23] MEDS: LORATADINE (CLARITIN) 10 MG TAB PO SCH (21:45)
[2021-08-24] MEDS: inSUlin ASPART (NovoLOG) 1 UNIT/0.01 ML (CHARGE PER UNIT) SC SCH ×4 (06:27→22:03)
[2021-08-24] MEDS: LEVOTHYROXINE 88 MCG (LEVOTHORID) TAB PO SCH (06:27)
[2021-08-24] MEDS: RT-BUDESONIDE NEBS 0.5 MG/2ML (PULMICORT) AMP IH SCH ×3 (07:10→19:02)
[2021-08-24] MEDS: RT-ALBUTEROL/IPRATROPIUM 3 ML (DUONEB) VIAL IH SCH ×4 (07:10→19:02)
[2021-08-24 08:13] VITALS: BP 119/66
[2021-08-24] MEDS: DULoxetine 20 MG (CYMBALTA) CAP PO SCH (08:18)
[2021-08-24] MEDS: PANTOPRAZOLE 40 MG (PROTONIX) TAB PO SCH (08:18)
[2021-08-24] MEDS: metFORMIN 500 MG (GLUCOPHAGE) TAB PO SCH ×2 (08:19→17:39)
[2021-08-24] MEDS: BUMETANIDE 1 MG (BUMEX) TAB PO SCH (08:19)
[2021-08-24] MEDS: DOCUSATE SODIUM 100 MG (COLACE) CAP PO SCH ×4 (08:19→22:06)
[2021-08-24] MEDS: glipiZIDE 5 MG (GLUCOTROL) TAB PO SCH ×2 (08:19→17:39)
[2021-08-24] MEDS: SENNA W/DOCUSATE (SENOKOT S) TABLET PO SCH ×2 (08:19→22:04)
[2021-08-24] MEDS: polyethylene glycoL POWDER 17 GM (MIRALAX) PACK PO SCH ×2 (08:25→22:06)
[2021-08-24] MEDS: BISACODYL 10 MG SUPP (DULCOLAX) RC SCH (09:40)
--- NOTE | 2021-08-24 10:21 | PM&R Progress Note ---
Subjective HPI/CC On Admission Date Seen by Provider: Aug 24, 2021 Time Seen by Provider: 13:00 Subjective/Events-last exam 08/24/2021: Patient doing well Insulin managed blood sugars Oxygen maintained Using incentive spirometer 08/23/2021: Patient doing really well Moving around much better Desaturation noted at any exertion Increasing her stamina Blood sugars managed No other concerns Review of Systems Pulmonary: Dyspnea Objective Exam Vital Signs Vital Signs Date Time Temp Pulse Resp B/P (MAP) Pulse Ox O2 Delivery O2 Flow Rate FiO2 08/24/21 21:00 High Flow N/C 6.00 08/24/21 20:00 36.6 110 24 102/62 (75) 94 Capillary Refill : General Appearance: No Apparent Distress, WD/WN, Anxious, Chronically ill HEENT: PERRL/EOMI, Normal ENT Inspection, Pharynx Normal Neck: Full Range of Motion, Normal Inspection, Non Tender, Supple, Carotid Bruit Respiratory: Chest Non Tender, Lungs Clear, No Accessory Muscle Use, No Respiratory Distress, Decreased Breath Sounds Cardiovascular: Regular Rate, Rhythm, No Edema, No Gallop, No JVD, No Murmur, Normal Peripheral Pulses Gastrointestinal: Normal Bowel Sounds, No Organomegaly, No Pulsatile Mass, Non Tender, Soft Back: Normal Inspection, No CVA Tenderness, No Vertebral Tenderness Extremity: Normal Capillary Refill, Normal Inspection, Normal Range of Motion, Non Tender, No Calf Tenderness, No Pedal Edema Neurologic/Psychiatric: Alert, Oriented x3, No Motor/Sensory Deficits, Normal Mood/Affect, federal district law clerk II-XII Norm as Tested, Motor Weakness (Generalized 4/5 all extremities) Skin: Normal Color, Warm/Dry Lymphatic: No Adenopathy Results/Procedures Lab Patient resulted labs reviewed. FIM Transfers Therapy Code Descriptions/Definitions Functional [place] Measure: 0=Not Assessed/NA 4=Minimal Assistance 1=Total Assistance 5=Supervision or Setup 2=Maximal Assistance 6=Modified [place] 3=Moderate Assistance 7=Complete IndependenceSCALE: Activities may be completed with or without assistive devices. 5-Gczpnnvuam-aaslfxp completes the activity by him/herself with no assistance from a helper. 5-Set-up or Clean-up Assistance-helper sets up or cleans up; patient completes activity. [place] assists only prior to or following the activity. 4-Supervision or Touching Assistance-helper provides verbal cues and/or touching/steadying and/or contact guard assistance as patient completes activity. Assistance may be provided throughout the activity or intermittently. 3-Partial/Moderate Assistance-helper does LESS THAN HALF the effort. [place] lifts, holds or supports trunk or limbs, but provides less than half the effort. 2-Substantial/Maximal Assistance-helper does MORE THAN HALF the effort. [place] lifts or holds trunk or limbs and provides more than half the effort. 9-Nldawyhhw-jnzedb does ALL the effort. Patient does none of the effort to complete the activity. Or, the assistance of 2 or more helpers is required for the patient to complete the activity. If activity was not attempted, code reason: 7-Patient Refused. 9-Not Applicable-not attempted and the patient did not perform the activity before the current illness, exacerbation or injury. 10-Not Attempted due to Environmental Limitations-(lack of equipment, weather restraints, etc.). 88-Not Attempted due to Medical Conditions or Safety Concerns. Roll Left to Right (QC): 6 Sit to Lying (QC): 6 Sit to Stand (QC): 5 Chair/Zel-ur-Byddx Xfer(QC): 4 Car Transfer (QC): 4 Gait Training Does the Patient Walk?: Yes Distance: 150' Walk 10 feet (QC): 5 Walk 50 ft with 2 Turns(QC): 5 Walk 150 ft (QC): 5 Walking 10ft/uneven surface-QC: 4 Gait Persons Needed: 1 Gait Assistive Device: FWW Wheelchair Training Does the Pt Use a Wheelchair?: Yes Distance: 150' Wheel 50 ft with 2 turns (QC): 4 Wheel 150 ft (QC): 4 Type of Wheelchair: Manual Stair Training #of Steps: 1 1 Step (curb) (QC): 4 4 Steps (QC): 88 12 Steps (QC): 88 Balance Picking up an Object (QC): 88 ADL-Treatment Eating (QC): 5 Oral Hygiene (QC): 5 Shower/Bathe Self (QC): 4 Upper Body Dressing (QC): 4 Lower Body Dressing (QC): 3 (Min A to hike LB dressing due to fatigue.) On/Off Footwear (QC): 2 Toileting Hygiene (QC): 4 Toilet Transfer (QC): 4 Assessment/Plan Assessment and Plan Assess & Plan/Chief Complaint Assessment: Post Covid syndrome Severe hypoxia with exertion Diabetes Anemia Hypothyroidism Recent weight loss Constipation Plan: Oxygen supplementation Rehab protocol 23/05 due to hypoxia Home meds Monitor sugar Pulmonary consult 08/23/2021: Pulmonary consult appreciated Supportive care PT and OT 08/24/2021: Patient doing well Supportive care to continue (1) Anemia (2) Hypothyroidism (3) Weight loss (4) Hypoxemia (5) Oxygen dependent (6) Anxiety (7) Post-COVID syndrome (8) T2DM (type 2 diabetes mellitus) Status: Acute Critical Care Critical Care: Critically Ill Patient VALARIE JENSEN DO Aug 24, 2021 10:21
--- NOTE | 2021-08-24 10:32 | Physical Therapy Daily Note ---
PT Daily Note-Current Subjective Patient in bed pre tx, agrees to PT, has no complaints of pain. Appearance Patient in bed post tx with nurse call, phone, tray, all needs met. Mental Status Patient Orientation: Person, Place, Situation Attachments: Oxygen Transfers SCALE: Activities may be completed with or without assistive devices. 7-Bshaalcscy-gmjdmdy completes the activity by him/herself with no assistance from a helper. 5-Set-up or Clean-up Assistance-helper sets up or cleans up; patient completes activity. [place] assists only prior to or following the activity. 4-Supervision or Touching Assistance-helper provides verbal cues and/or touching/steadying and/or contact guard assistance as patient completes activity. Assistance may be provided throughout the activity or intermittently. 3-Partial/Moderate Assistance-helper does LESS THAN HALF the effort. [place] lifts, holds or supports trunk or limbs, but provides less than half the effort. 2-Substantial/Maximal Assistance-helper does MORE THAN HALF the effort. [place] lifts or holds trunk or limbs and provides more than half the effort. 9-Nmgtffzuu-aevhgi does ALL the effort. Patient does none of the effort to complete the activity. Or, the assistance of 2 or more helpers is required for the patient to complete the activity. If activity was not attempted, code reason: 7-Patient Refused. 9-Not Applicable-not attempted and the patient did not perform the activity before the current illness, exacerbation or injury. 10-Not Attempted due to Environmental Limitations-(lack of equipment, weather restraints, etc.). 88-Not Attempted due to Medical Conditions or Safety Concerns. Roll Left & Right (QC): 6 Sit to Lying (QC): 6 Lying to Sitting/Side of Bed(Q: 6 Sit to Stand (QC): 6 Chair/Crv-hg-Gkqpx Xfer(QC): 6 Gait Training Distance: 150'x2 Walk 10 feet (QC): 6 Walk 50 ft with 2 Turns(QC): 6 Walk 150 ft (QC): 6 Gait Assistive Device: FWW steady ambulation, O2 stayed at 90% after the first bout of ambulation but went down to 80% after the second, patient recovers fairly quickly with rest and purse lip breathing Exercises NuStep Minutes: 10 NuStep Workload: 5 Treatments bed mobility and transfers, ambulation, functional strengthening Assessment Current Status: Fair Progress improving endurance but O2 still drops with activity PT Short Term Goals Short Term Goals Time Frame: Aug 29, 2021 Roll Left & Right: 6 Sit to lyin Lying to sitting on side of be: 6 Sit to stand: 4 (SBA) Chair/oik-yz-wtfex transfer: 4 (SBA) Walk 10 feet: 4 (SBA) Walk 50 feet with two turns: 4 (SBA) PT Senior Living Goals Nuts And Bolts Assembler Goals PT Nuts And Bolts Assembler Goals Time Frame: Sep 12, 2021 Roll Left & Right (QC): 6 Sit to Lying (QC): 6 Lying-Sitting on Side/Bed(QC): 6 Sit to Stand (QC): 6 Chair/Wfi-ir-Hriea Xfer(QC): 6 Toilet Transfer (QC): 6 Car Transfer (QC): 6 Does the Patient Walk: Yes Walk 10 feet (QC): 6 Walk 50ft with 2 Turns (QC): 6 Walk 150 ft (QC): 6 Walking 10ft on Uneven Surface: 6 1 Step (curb) (QC): 5 4 Steps (QC): 5 12 Steps (QC): 88 Picking up an Object (QC): 6 Wheel 50 feet with 2 turns (QC: 9 Wheel 150 feet: 9 PT Plan Problem List Problem List: Activity Tolerance, Functional Strength, Safety, Balance, Gait, Transfer, ROM Treatment/Plan Treatment Plan: Continue Plan of Care Treatment Plan: Bed Mobility, Education, Functional Activity Yanni, Functional Strength, Group Therapy, Gait, Safety, Therapeutic Exercise, Transfers Treatment Duration: Sep 12, 2021 Frequency: At least 5 of 7 days/Wk (IRF) Estimated Hrs Per Day: 1.5 hours per day Patient and/or Family Agrees t: Yes Safety Risks/Education Patient Education: Gait Training, Transfer Techniques, Correct Positioning, Safety Issues Teaching Recipient: Patient Teaching Methods: Demonstration, Discussion Response to Teaching: Reinforcement Needed Time/GCodes Time In: 1000 Time Out: 1023 Total Billed Treatment Time: 23 Total Billed Treatment 1 visit EX 10' FA 13' LANDON BUTCHER PT Aug 24, 2021 10:32
[2021-08-24] MEDS: clonazePAM 0.5 MG (KlonoPIN) TAB PO SCH ×2 (12:19→22:04)
[2021-08-24 20:00] VITALS: BP 102/62
[2021-08-24] MEDS: MELATONIN 3 MG TABLET PO PRN (22:03)
[2021-08-24] MEDS: LORATADINE (CLARITIN) 10 MG TAB PO SCH (22:04)
--- NOTE | 2021-08-25 06:42 | PM&R Progress Note ---
Subjective HPI/CC On Admission Date Seen by Provider: Aug 25, 2021 Time Seen by Provider: 13:00 Subjective/Events-last exam 08/25/21: Patient doing well Refuses suppository We will give her a half bottle of mag citrate Check meds and labs We will follow up on VRE with infection control tomorrow 08/24/2021: Patient doing well Insulin managed blood sugars Oxygen maintained Using incentive spirometer 08/23/2021: Patient doing really well Moving around much better Desaturation noted at any exertion Increasing her stamina Blood sugars managed No other concerns Review of Systems General: Fatigue, Malaise Neurological: Weakness Objective Exam Vital Signs Vital Signs Date Time Temp Pulse Resp B/P (MAP) Pulse Ox O2 Delivery O2 Flow Rate FiO2 08/25/21 21:00 High Flow N/C 6.00 08/25/21 20:36 90 08/25/21 19:40 36.6 108 18 123/77 (92) Capillary Refill : General Appearance: No Apparent Distress, WD/WN, Anxious, Chronically ill HEENT: PERRL/EOMI, Normal ENT Inspection, Pharynx Normal Neck: Full Range of Motion, Normal Inspection, Non Tender, Supple, Carotid Bruit Respiratory: Chest Non Tender, Lungs Clear, No Accessory Muscle Use, No Respiratory Distress, Decreased Breath Sounds Cardiovascular: Regular Rate, Rhythm, No Edema, No Gallop, No JVD, No Murmur, Normal Peripheral Pulses Gastrointestinal: Normal Bowel Sounds, No Organomegaly, No Pulsatile Mass, Non Tender, Soft Back: Normal Inspection, No CVA Tenderness, No Vertebral Tenderness Extremity: Normal Capillary Refill, Normal Inspection, Normal Range of Motion, Non Tender, No Calf Tenderness, No Pedal Edema Neurologic/Psychiatric: Alert, Oriented x3, No Motor/Sensory Deficits, Normal Mood/Affect, shipping associate II-XII Norm as Tested, Motor Weakness (Generalized 4/5 all extremities) Skin: Normal Color, Warm/Dry Lymphatic: No Adenopathy Results/Procedures Lab Patient resulted labs reviewed. FIM Transfers Therapy Code Descriptions/Definitions Functional [place] Measure: 0=Not Assessed/NA 4=Minimal Assistance 1=Total Assistance 5=Supervision or Setup 2=Maximal Assistance 6=Modified [place] 3=Moderate Assistance 7=Complete IndependenceSCALE: Activities may be completed with or without assistive devices. 4-Dnyelosgbh-qgiwqsl completes the activity by him/herself with no assistance from a helper. 5-Set-up or Clean-up Assistance-helper sets up or cleans up; patient completes activity. [place] assists only prior to or following the activity. 4-Supervision or Touching Assistance-helper provides verbal cues and/or touching/steadying and/or contact guard assistance as patient completes ac tivity. Assistance may be provided throughout the activity or intermittently. 3-Partial/Moderate Assistance-helper does LESS THAN HALF the effort. [place] lifts, holds or supports trunk or limbs, but provides less than half the effort. 2-Substantial/Maximal Assistance-helper does MORE THAN HALF the effort. [place] lifts or holds trunk or limbs and provides more than half the effort. 5-Xsjimfggj-umsnfu does ALL the effort. Patient does none of the effort to complete the activity. Or, the assistance of 2 or more helpers is required for the patient to complete the activity. If activity was not attempted, code reason: 7-Patient Refused. 9-Not Applicable-not attempted and the patient did not perform the activity before the current illness, exacerbation or injury. 10-Not Attempted due to Environmental Limitations-(lack of equipment, weather restraints, etc.). 88-Not Attempted due to Medical Conditions or Safety Concerns. Roll Left to Right (QC): 6 Sit to Lying (QC): 6 Sit to Stand (QC): 6 Chair/Lvg-va-Zpntz Xfer(QC): 6 Car Transfer (QC): 4 Gait Training Does the Patient Walk?: Yes Distance: 150'x2 Walk 10 feet (QC): 6 Walk 50 ft with 2 Turns(QC): 6 Walk 150 ft (QC): 6 Walking 10ft/uneven surface-QC: 4 Gait Persons Needed: 1 Gait Assistive Device: FWW Wheelchair Training Does the Pt Use a Wheelchair?: Yes Distance: 150' Wheel 50 ft with 2 turns (QC): 4 Wheel 150 ft (QC): 4 Type of Wheelchair: Manual Stair Training #of Steps: 1 1 Step (curb) (QC): 4 4 Steps (QC): 88 12 Steps (QC): 88 Balance Picking up an Object (QC): 88 ADL-Treatment Eating (QC): 5 Oral Hygiene (QC): 5 Shower/Bathe Self (QC): 4 Upper Body Dressing (QC): 4 Lower Body Dressing (QC): 3 (Min A to hike LB dressing due to fatigue.) On/Off Footwear (QC): 2 Toileting Hygiene (QC): 4 Toilet Transfer (QC): 4 Assessment/Plan Assessment and Plan Assess & Plan/Chief Complaint Assessment: Post Covid syndrome Severe hypoxia with exertion Diabetes Anemia Hypothyroidism Recent weight loss Constipation Plan: Oxygen supplementation Rehab protocol 23/05 due to hypoxia Home meds Monitor sugar Pulmonary consult 08/23/2021: Pulmonary consult appreciated Supportive care PT and OT 08/24/2021: Patient doing well Supportive care to continue 08/25/21: Supportive care VRE isolation so will inquire with infection control about how to DC that tomorrow BM regimen (1) Anemia (2) Hypothyroidism (3) Weight loss (4) Hypoxemia (5) Oxygen dependent (6) Anxiety (7) Post-COVID syndrome (8) T2DM (type 2 diabetes mellitus) Status: Acute Critical Care Critical Care: Critically Ill Patient VALARIE JENSEN DO Aug 25, 2021 06:42
[2021-08-25] MEDS: LEVOTHYROXINE 88 MCG (LEVOTHORID) TAB PO SCH (06:58)
[2021-08-25] MEDS: inSUlin ASPART (NovoLOG) 1 UNIT/0.01 ML (CHARGE PER UNIT) SC SCH ×4 (06:58→20:59)
[2021-08-25 07:25] VITALS: BP 115/72
[2021-08-25] MEDS: glipiZIDE 5 MG (GLUCOTROL) TAB PO SCH ×2 (08:18→17:39)
[2021-08-25] MEDS: polyethylene glycoL POWDER 17 GM (MIRALAX) PACK PO SCH ×2 (08:18→20:59)
[2021-08-25] MEDS: PANTOPRAZOLE 40 MG (PROTONIX) TAB PO SCH (08:18)
[2021-08-25] MEDS: metFORMIN 500 MG (GLUCOPHAGE) TAB PO SCH ×2 (08:18→17:39)
[2021-08-25] MEDS: SENNA W/DOCUSATE (SENOKOT S) TABLET PO SCH ×2 (08:18→20:58)
[2021-08-25] MEDS: DOCUSATE SODIUM 100 MG (COLACE) CAP PO SCH ×4 (08:19→20:59)
[2021-08-25] MEDS: DULoxetine 20 MG (CYMBALTA) CAP PO SCH (08:19)
[2021-08-25] MEDS: BUMETANIDE 1 MG (BUMEX) TAB PO SCH (08:19)
[2021-08-25] MEDS: RT-ALBUTEROL/IPRATROPIUM 3 ML (DUONEB) VIAL IH SCH ×4 (08:48→20:36)
[2021-08-25] MEDS: RT-BUDESONIDE NEBS 0.5 MG/2ML (PULMICORT) AMP IH SCH ×2 (08:48→20:35)
[2021-08-25] MEDS: clonazePAM 0.5 MG (KlonoPIN) TAB PO SCH ×2 (11:24→23:17)
[2021-08-25] MEDS ORDERED: MAGNESIUM CITRATE 300 ML BTL PO ONE (12:45)
[2021-08-25] MEDS: BISACODYL 10 MG SUPP (DULCOLAX) RC SCH (16:24)
[2021-08-25 19:40] VITALS: BP 123/77
[2021-08-25] MEDS: LORATADINE (CLARITIN) 10 MG TAB PO SCH (20:58)
[2021-08-25] MEDS: MELATONIN 3 MG TABLET PO PRN (20:58)
[2021-08-26 05:55] LABS: BASOPHILS # (AUTO) 0.1 10^3/uL (0.0-0.1); BASOPHILS % (AUTO) 1 % (0-10); EOSINOPHILS # (AUTO) 0.5 10^3/uL (0.0-0.3); EOSINOPHILS % (AUTO) 6 % (0-10); HEMATOCRIT 29 % (35-52); HEMOGLOBIN 9.2 g/dL (11.5-16.0); LYMPHOCYTES # (AUTO) 1.8 10^3/uL (1.0-4.0); LYMPHOCYTES % (AUTO) 23 % (12-44); MEAN CORPUSCULAR HEMOGLOBIN 29 pg (25-34); MEAN CORPUSCULAR HGB CONC 32 g/dL (32-36); MEAN CORPUSCULAR VOLUME 92 fL (80-99); MEAN PLATELET VOLUME 11.6 fL (9.0-12.2); MONOCYTES # (AUTO) 0.7 10^3/uL (0.0-1.0); MONOCYTES % (AUTO) 8 % (0-12); NEUTROPHILS # (AUTO) 4.9 10^3/uL (1.8-7.8); NEUTROPHILS % (AUTO) 61 % (42-75); PLATELET COUNT 257 10^3/uL (130-400)
[2021-08-26 06:06] LABS: ALBUMIN 3.7 GM/DL (3.2-4.5); POTASSIUM 4.2 MMOL/L (3.6-5.0)
[2021-08-26 06:07] LABS: CALCIUM 9.8 MG/DL (8.5-10.1)
[2021-08-26 06:08] LABS: TOTAL PROTEIN 6.1 GM/DL (6.4-8.2)
[2021-08-26 06:10] LABS: BILIRUBIN,TOTAL 0.3 MG/DL (0.1-1.0)
[2021-08-26 06:12] LABS: CREATININE SERUM 1.11 MG/DL (0.60-1.30)
[2021-08-26] MEDS: LEVOTHYROXINE 88 MCG (LEVOTHORID) TAB PO SCH (06:30)
[2021-08-26] MEDS: inSUlin ASPART (NovoLOG) 1 UNIT/0.01 ML (CHARGE PER UNIT) SC SCH ×4 (06:30→22:04)
[2021-08-26 07:24] VITALS: BP 128/74
[2021-08-26] MEDS: PANTOPRAZOLE 40 MG (PROTONIX) TAB PO SCH (07:35)
[2021-08-26] MEDS: glipiZIDE 5 MG (GLUCOTROL) TAB PO SCH ×2 (07:35→18:36)
[2021-08-26] MEDS: metFORMIN 500 MG (GLUCOPHAGE) TAB PO SCH ×2 (07:36→18:36)
[2021-08-26] MEDS: DOCUSATE SODIUM 100 MG (COLACE) CAP PO SCH ×4 (07:36→22:04)
[2021-08-26] MEDS: BUMETANIDE 1 MG (BUMEX) TAB PO SCH (07:36)
[2021-08-26] MEDS: DULoxetine 20 MG (CYMBALTA) CAP PO SCH (07:37)
[2021-08-26] MEDS: SENNA W/DOCUSATE (SENOKOT S) TABLET PO SCH ×2 (07:37→22:03)
[2021-08-26] MEDS: RT-BUDESONIDE NEBS 0.5 MG/2ML (PULMICORT) AMP IH SCH ×2 (07:50→19:33)
[2021-08-26] MEDS: RT-ALBUTEROL/IPRATROPIUM 3 ML (DUONEB) VIAL IH SCH ×2 (07:50→19:33)
[2021-08-26] MEDS: polyethylene glycoL POWDER 17 GM (MIRALAX) PACK PO SCH ×2 (08:40→22:11)
[2021-08-26] MEDS: BISACODYL 10 MG SUPP (DULCOLAX) RC SCH (08:40)
--- NOTE | 2021-08-26 08:59 | PM&R Progress Note ---
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 6L/min O2 at rest and 10L/min activity 08/25/21: Patient doing well Refuses suppository We will give her a half bottle of mag citrate Check meds and labs We will follow up on VRE with infection control tomorrow 08/24/2021: Patient doing well Insulin managed blood sugars Oxygen maintained Using incentive spirometer 08/23/2021: Patient doing really well Moving around much better Desaturation noted at any exertion Increasing her stamina Blood sugars managed No other concerns Review of Systems General: Fatigue, Malaise Pulmonary: Dyspnea Gastrointestinal: Constipation Objective Exam Vital Signs Vital Signs Date Time Temp Pulse Resp B/P (MAP) Pulse Ox O2 Delivery O2 Flow Rate FiO2 08/26/21 21:00 High Flow N/C 6.00 08/26/21 20:06 36.6 102 18 131/72 (91) 98 Capillary Refill : General Appearance: No Apparent Distress, WD/WN, Anxious, Chronically ill HEENT: PERRL/EOMI, Normal ENT Inspection, Pharynx Normal Neck: Full Range of Motion, Normal Inspection, Non Tender, Supple, Carotid Bruit Respiratory: Chest Non Tender, Lungs Clear, No Accessory Muscle Use, No Respiratory Distress, Decreased Breath Sounds Cardiovascular: Regular Rate, Rhythm, No Edema, No Gallop, No JVD, No Murmur, Normal Peripheral Pulses Gastrointestinal: Normal Bowel Sounds, No Organomegaly, No Pulsatile Mass, Non Tender, Soft Back: Normal Inspection, No CVA Tenderness, No Vertebral Tenderness Extremity: Normal Capillary Refill, Normal Inspection, Normal Range of Motion, Non Tender, No Calf Tenderness, No Pedal Edema Neurologic/Psychiatric: Alert, Oriented x3, No Motor/Sensory Deficits, Normal Mood/Affect, marker hand II-XII Norm as Tested, Motor Weakness (Generalized 4/5 all extremities) Skin: Normal Color, Warm/Dry Lymphatic: No Adenopathy Results/Procedures Lab Laboratory Tests 08/26/21 05:45 Patient resulted labs reviewed. FIM Transfers Therapy Code Descriptions/Definitions Functional [place] Measure: 0=Not Assessed/NA 4=Minimal Assistance 1=Total Assistance 5=Supervision or Setup 2=Maximal Assistance 6=Modified [place] 3=Moderate Assistance 7=Complete IndependenceSCALE: Activities may be completed with or without assistive devices. 7-Lqovbrkiux-qweoxhz completes the activity by him/herself with no assistance from a helper. 5-Set-up or Clean-up Assistance-helper sets up or cleans up; patient completes activity. [place] assists only prior to or following the activity. 4-Supervision or Touching Assistance-helper provides verbal cues and/or touching/steadying and/or contact guard assistance as patient completes activity. Assistance may be provided throughout the activity or intermittently. 3-Partial/Moderate Assistance-helper does LESS THAN HALF the effort. [place] lifts, holds or supports trunk or limbs, but provides less than half the effort. 2-Substantial/Maximal Assistance-helper does MORE THAN HALF the effort. [place] lifts or holds trunk or limbs and provides more than half the effort. 9-Ywlwwlibd-bstknx does ALL the effort. Patient does none of the effort to complete the activity. Or, the assistance of 2 or more helpers is required for the patient to complete the activity. If activity was not attempted, code reason: 7-Patient Refused. 9-Not Applicable-not attempted and the patient did not perform the activity before the current illness, exacerbation or injury. 10-Not Attempted due to Environmental Limitations-(lack of equipment, weather restraints, etc.). 88-Not Attempted due to Medical Conditions or Safety Concerns. Roll Left to Right (QC): 6 Sit to Lying (QC): 6 Sit to Stand (QC): 6 Chair/Paf-ve-Bvrdy Xfer(QC): 6 Car Transfer (QC): 4 Gait Training Does the Patient Walk?: Yes Distance: 150'x2 Walk 10 feet (QC): 6 Walk 50 ft with 2 Turns(QC): 6 Walk 150 ft (QC): 6 Walking 10ft/uneven surface-QC: 4 Gait Persons Needed: 1 Gait Assistive Device: FWW Wheelchair Training Does the Pt Use a Wheelchair?: Yes Distance: 150' Wheel 50 ft with 2 turns (QC): 4 Wheel 150 ft (QC): 4 Type of Wheelchair: Manual Stair Training #of Steps: 1 1 Step (curb) (QC): 4 4 Steps (QC): 88 12 Steps (QC): 88 Balance Picking up an Object (QC): 88 ADL-Treatment Eating (QC): 5 Oral Hygiene (QC): 5 Shower/Bathe Self (QC): 4 Upper Body Dressing (QC): 4 Lower Body Dressing (QC): 3 (Min A to hike LB dressing due to fatigue.) On/Off Footwear (QC): 2 Toileting Hygiene (QC): 4 Toilet Transfer (QC): 4 Assessment/Plan Assessment and Plan Assess & Plan/Chief Complaint Assessment: Post Covid syndrome Severe hypoxia with exertion Diabetes Anemia Hypothyroidism Recent weight loss Constipation Plan: Oxygen supplementation Rehab protocol 23/05 due to hypoxia Home meds Monitor sugar Pulmonary consult 08/23/2021: Pulmonary consult appreciated Supportive care PT and OT 08/24/2021: Patient doing well Supportive care to continue 08/25/21: Supportive care VRE isolation so will inquire with infection control about how to DC that tomorrow BM regimen 08/26/21: VRE isolation skilled nursing but will verify with infection control Monitor closely BM regimen (1) Anemia (2) Hypothyroidism (3) Weight loss (4) Hypoxemia (5) Oxygen dependent (6) Anxiety (7) Post-COVID syndrome (8) T2DM (type 2 diabetes mellitus) Status: Acute Critical Care Critical Care: Critically Ill Patient VALARIE JENSEN DO Aug 26, 2021 08:59
--- NOTE | 2021-08-26 09:14 | Occupational Ther Daily Note ---
OT Current Status-Daily Note Subjective Pt alert, laying in bed when therapy entered. Pt agreed to therapy. No c/o pain reported. Mental Status/Objective Patient Orientation: Person, Place, Time, Situation Attachments: IV, Oxygen ADL-Treatment Pt agreed to shower. Pt at 6L of O2 at 95%. Increased O2 to 10L with activity. Pt transferred supine to EOB independently. Pt transferred from EOB to FWW with supervision. Pt ambulated to bathroom using FWW and transferred to toilet with supervision. Pt O2 at low 80's but quickly recovered to 94%. Pt completed toilet hygiene with supervision. Pt ambulated to shower bench using FWW with supervision. Pt doffed UB dressing independently. Pt sit-stand from shower bench using grab bars to doff LB dressing. Throughout shower and dressing, pt's O2 dropped to low 80%, with resting breaks pt was able to recover quickly to 95%. 'Pt cleansed/dried UB, LB using long handled sponge, chest, and abdomen with supervision. Pt sit-stand from shower bench using grab bars to cleanse jadon area and buttocks with SBA. Pt required shower bench, long handled sponge, and hand held shower head to complete shower. After set up, pt donned shirt. Pt threaded B LE through LB dressing while seated in w/c. Sit-stand from w/c to FWW to hike LB dressing with SBA. Pt required assist to don radha hose. Pt sit-stand from w/c to FWW and ambulated to recliner with supervision. After therapy, pt sitting in recliner. All needs met and call light in reach. Therapy Code Descriptions/Definitions Functional [place] Measure: 0=Not Assessed/NA 4=Minimal Assistance 1=Total Assistance 5=Supervision or Setup 2=Maximal Assistance 6=Modified [place] 3=Moderate Assistance 7=Complete IndependenceSCALE: Activities may be completed with or without assistive devices. 0-Hgtughlsny-bytmwjt completes the activity by him/herself with no assistance from a helper. 5-Set-up or Clean-up Assistance-helper sets up or cleans up; patient completes activity. [place] assists only prior to or following the activity. 4-Supervision or Touching Assistance-helper provides verbal cues and/or touching/steadying and/or contact guard assistance as patient completes activity. Assistance may be provided throughout the activity or intermittently. 3-Partial/Moderate Assistance-helper does LESS THAN HALF the effort. [place] lifts, holds or supports trunk or limbs, but provides less than half the effort. 2-Substantial/Maximal Assistance-helper does MORE THAN HALF the effort. [place] lifts or holds trunk or limbs and provides more than half the effort. 4-Jpqwcetdn-gthize does ALL the effort. Patient does none of the effort to complete the activity. Or, the assistance of 2 or more helpers is required for the patient to complete the activity. If activity was not attempted, code reason: 7-Patient Refused. 9-Not Applicable-not attempted and the patient did not perform the activity before the current illness, exacerbation or injury. 10-Not Attempted due to Environmental Limitations-(lack of equipment, weather restraints, etc.). 88-Not Attempted due to Medical Conditions or Safety Concerns. Education OT Patient Education: Energy conservation Teaching Recipient: Patient Teaching Methods: Discussion Response to Teaching: Verbalize Understanding, Return Demonstration OT Short Term Goals Short Term Goals Time Frame: Aug 30, 2021 Eatin Oral hygiene: 6 Toileting hygiene: 6 Shower/bathe self: 3 Upper body dressin Lower body dressin Putting on/taking off footwear: 5 OT Snf Goals [employer] Weapons Assembly Officer Goals Time Frame: Sep 11, 2021 Eating (QC): 6 Oral Hygiene (QC): 6 Toileting Hygiene (QC): 6 Shower/Bathe Self (QC): 6 Upper Body Dressing (QC): 6 Lower Body Dressing (QC): 6 On/Off Footwear (QC): 6 1=Demonstrate adherence to instructed precautions during ADL tasks. 2=Patient will verbalize/demonstrate understanding of assistive devices/modifications for ADL. 3=Patient will improve strength/tolerance for activity to enable patient to perform ADL's. OT Education/Plan Problem List/Assessment Assessment: Decreased Activ Tolerance, Impaired Self-Care Skills Discharge Recommendations Plan/Recommendations: Continue POC Treatment Plan/Plan of Care Patient would benefit from OT for education, treatment and training to promote independence in ADL's, mobility, safety and/or upper extremity function for ADL's. Plan of Care: ADL Retraining, Functional Mobility, Group Exercise/Act as Ind, UE Funct Exercise/Act Treatment Duration: Sep 11, 2021 Frequency: At least 5 of 7 days/Wk (IRF) Estimated Hrs Per Day: 1.5 hours per day Agreement: Yes Rehab Potential: Good Time/GCodes Start Time: 08:00 Stop Time: 09:00 Total Time Billed (hr/min): 60 Billed Treatment Time 1 visit- ADL 4 (60 mins) LEEANNE GLEASON Aug 26, 2021 09:14
--- NOTE | 2021-08-26 11:03 | Physical Therapy Daily Note ---
PT Daily Note-Current Subjective Pt in recliner upon arrival and agrees to tx. Pt has no c/o pain at this time. Mental Status Patient Orientation: Person, Place, Time, Situation Attachments: Oxygen (10L with activity) Transfers SCALE: Activities may be completed with or without assistive devices. 4-Csyabkmqzt-qvnfani completes the activity by him/herself with no assistance from a helper. 5-Set-up or Clean-up Assistance-helper sets up or cleans up; patient completes activity. [place] assists only prior to or following the activity. 4-Supervision or Touching Assistance-helper provides verbal cues and/or touching/steadying and/or contact guard assistance as patient completes activity. Assistance may be provided throughout the activity or intermittently. 3-Partial/Moderate Assistance-helper does LESS THAN HALF the effort. [place] lifts, holds or supports trunk or limbs, but provides less than half the effort. 2-Substantial/Maximal Assistance-helper does MORE THAN HALF the effort. [place] lifts or holds trunk or limbs and provides more than half the effort. 7-Loqshpipg-zuslpx does ALL the effort. Patient does none of the effort to com plete the activity. Or, the assistance of 2 or more helpers is required for the patient to complete the activity. If activity was not attempted, code reason: 7-Patient Refused. 9-Not Applicable-not attempted and the patient did not perform the activity before the current illness, exacerbation or injury. 10-Not Attempted due to Environmental Limitations-(lack of equipment, weather restraints, etc.). 88-Not Attempted due to Medical Conditions or Safety Concerns. Sit to Stand (QC): 5 Gait Training Does the Patient Walk?: Yes Distance: 200', 100' x4 Gait Assistive Device: FWW Pt has slow, steady gait. Pt fatigues quickly and requires frequent rest breaks. O2 checked during each RB Exercises Seated Therapy Exercises: Ankle pumps, Sit to stand, Long arc quads, Hip abd/add, Glut set Seated Reps: 10 Standing: Hamstring curls, Mini squats, Retro gait, Stepping over objects, Weight shifts Standing Reps: 10 Treatments Pt sit to stand from recliner SBA and amb 200' on ARU, then another 100' to therapy gym. Pt completes standing ex in // bars with rest breaks between each ex. During seated rest breaks pt would complete seated ex once O2 recovered above 95%. Pt completes retrogait in // bars x3, pt performs toe touches on step x10 for BLE. Pt O2 checked during each RB, reading above 90% during ex on 10L of O2. Pt then amb 100' x3 and returns to room. Pt request to use BR at this time, pt able to doff/don pants and clean self SBA. Pt amb to recliner, O2 at 85%. With rest O2 raised to 90% quickly, then to 98%. Once at 98%, pt put back on 6L and remained at 98%. Pt remains in recliner with all needs met, call light in hand. Assessment Current Status: Good Progress O2 checked throughout tx, reading above 90% most of the time. Pt dropped to 85% once at end of tx, with more rest pt returned to 98% at 10L. Pt increasing endurance and strength, fatigues quickly and requires rest breaks often. PT Short Term Goals Short Term Goals Time Frame: Aug 29, 2021 Roll Left & Right: 6 Sit to lyin Lying to sitting on side of be: 6 Sit to stand: 4 (SBA) Chair/wwb-gn-hezow transfer: 4 (SBA) Walk 10 feet: 4 (SBA) Walk 50 feet with two turns: 4 (SBA) PT Longterm Goals Supplier Development Manager Goals PT Longterm Goals Time Frame: Sep 12, 2021 Roll Left & Right (QC): 6 Sit to Lying (QC): 6 Lying-Sitting on Side/Bed(QC): 6 Sit to Stand (QC): 6 Chair/Czp-ap-Qbzzm Xfer(QC): 6 Toilet Transfer (QC): 6 Car Transfer (QC): 6 Does the Patient Walk: Yes Walk 10 feet (QC): 6 Walk 50ft with 2 Turns (QC): 6 Walk 150 ft (QC): 6 Walking 10ft on Uneven Surface: 6 1 Step (curb) (QC): 5 4 Steps (QC): 5 12 Steps (QC): 88 Picking up an Object (QC): 6 Wheel 50 feet with 2 turns (QC: 9 Wheel 150 feet: 9 PT Plan Treatment/Plan Treatment Plan: Continue Plan of Care Treatment Plan: Bed Mobility, Education, Functional Activity Yanni, Functional Strength, Group Therapy, Gait, Safety, Therapeutic Exercise, Transfers Treatment Duration: Sep 12, 2021 Frequency: At least 5 of 7 days/Wk (IRF) Estimated Hrs Per Day: 1.5 hours per day Patient and/or Family Agrees t: Yes Time/GCodes Time In: 1000 Time Out: 1100 Total Billed Treatment Time: 60 Total Billed Treatment 1, GT x2, Ex x2 ALEXI LEON WIRE DRAWING DIE MAKER Aug 26, 2021 11:03
[2021-08-26] MEDS: clonazePAM 0.5 MG (KlonoPIN) TAB PO SCH (11:16)
[2021-08-26] MEDS ORDERED: CYAN500T8 PO (12:59)
[2021-08-26] MEDS ORDERED: PARO30TA3 PO (12:59)
[2021-08-26] MEDS ORDERED: SITA1TAB2 PO (12:59)
[2021-08-26] MEDS ORDERED: MAGN400T39 PO (12:59)
[2021-08-26] MEDS ORDERED: LEVO175C PO (12:59)
[2021-08-26] MEDS ORDERED: ACET-2267 PO (12:59)
[2021-08-26] MEDS ORDERED: CHOL10007 PO (12:59)
[2021-08-26] MEDS ORDERED: ZINC50TA58 PO (12:59)
--- NOTE | 2021-08-26 13:30 | Physical Therapy Daily Note ---
PT Daily Note-Current Subjective Pt in recliner upon arrival and agrees to tx. Pt has no c/o pain Mental Status Patient Orientation: Person, Place, Time, Situation Transfers SCALE: Activities may be completed with or without assistive devices. 0-Orsgzakayu-xvswxeg completes the activity by him/herself with no assistance from a helper. 5-Set-up or Clean-up Assistance-helper sets up or cleans up; patient completes activity. [place] assists only prior to or following the activity. 4-Supervision or Touching Assistance-helper provides verbal cues and/or touching/steadying and/or contact guard assistance as patient completes activity. Assistance may be provided throughout the activity or intermittently. 3-Partial/Moderate Assistance-helper does LESS THAN HALF the effort. [place] lifts, holds or supports trunk or limbs, but provides less than half the effort. 2-Substantial/Maximal Assistance-helper does MORE THAN HALF the effort. [place] lifts or holds trunk or limbs and provides more than half the effort. 4-Dyylkbqyq-cfdpxj does ALL the effort. Patient does none of the effort to complete the activity. Or, the assistance of 2 or more helpers is required for the patient to complete the activity. If activity was not attempted, code reason: 7-Patient Refused. 9-Not Applicable-not attempted and the patient did not perform the activity before the current illness, exacerbation or injury. 10-Not Attempted due to Environmental Limitations-(lack of equipment, weather restraints, etc.). 88-Not Attempted due to Medical Conditions or Safety Concerns. Sit to Stand (QC): 5 Gait Training Does the Patient Walk?: Yes Distance: 250', 100' Walk 10 feet (QC): 4 Walk 50 ft with 2 Turns(QC): 4 Walk 150 ft (QC): 4 Gait Persons Needed: 1 Gait Assistive Device: FWW Treatments Pt sit to stand from recliner and amb to // bars in therapy gym. Pt completes dynamic standing balance activity while standing on Air[employer]. Pt tossed dunlap bags w/ L UE followed by R UE w/o any UE support. Pt holds static standing 10 minutes, post activity O2 at 93%. Pt amb 250' and returns to room, O2 dropped to 86% but recovered quickly. Once at 98%, O2 brought down to 6L. Pt remains in recliner with all needs met, call light in hand. Assessment Current Status: Good Progress O2 monitored during tx, reading above 93% throughout. Post 250' amb, O2 at 86%, recovered above 90% quickly. Pt increasing endurance and strength PT Short Term Goals Short Term Goals Time Frame: Aug 29, 2021 Roll Left & Right: 6 Sit to lyin Lying to sitting on side of be: 6 Sit to stand: 4 (SBA) Chair/uqc-mm-nlsxx transfer: 4 (SBA) Walk 10 feet: 4 (SBA) Walk 50 feet with two turns: 4 (SBA) PT Business Analysis Professional Goals Intermediate Goals PT Business Analysis Professional Goals Time Frame: Sep 12, 2021 Roll Left & Right (QC): 6 Sit to Lying (QC): 6 Lying-Sitting on Side/Bed(QC): 6 Sit to Stand (QC): 6 Chair/Wmq-xz-Wikmj Xfer(QC): 6 Toilet Transfer (QC): 6 Car Transfer (QC): 6 Does the Patient Walk: Yes Walk 10 feet (QC): 6 Walk 50ft with 2 Turns (QC): 6 Walk 150 ft (QC): 6 Walking 10ft on Uneven Surface: 6 1 Step (curb) (QC): 5 4 Steps (QC): 5 12 Steps (QC): 88 Picking up an Object (QC): 6 Wheel 50 feet with 2 turns (QC: 9 Wheel 150 feet: 9 PT Plan Treatment/Plan Treatment Plan: Continue Plan of Care Treatment Plan: Bed Mobility, Education, Functional Activity Yanni, Functional Strength, Group Therapy, Gait, Safety, Therapeutic Exercise, Transfers Treatment Duration: Sep 12, 2021 Frequency: At least 5 of 7 days/Wk (IRF) Estimated Hrs Per Day: 1.5 hours per day Patient and/or Family Agrees t: Yes Time/GCodes Time In: 1300 Time Out: 1330 Total Billed Treatment Time: 30 Total Billed Treatment 1, GT, NM ALEXI LEON KNOCKDOWN MAN Aug 26, 2021 13:30
--- NOTE | 2021-08-26 14:17 | Occupational Ther Daily Note ---
OT Current Status-Daily Note Subjective Pt alert, sitting in recliner when OT entered. Pt agreed to therapy. No c/o pain reported. Mental Status/Objective Patient Orientation: Person, Place, Time, Situation Attachments: IV, Oxygen ADL-Treatment Pt requested to complete oral hygiene. Pt at 6L of O2 at 96%. Increased to 10L with activity. Pt sit-stand from recliner to FWW with supervision. Pt ambulated to bathroom sink using FWW with SBA. Pt completed oral hygiene while standing at bathroom sink independently. Pt required resting break due to fatigue, O2 at 95%. Pt ambulated to gym using FWW with SBA. Therapy Code Descriptions/Definitions Functional [place] Measure: 0=Not Assessed/NA 4=Minimal Assistance 1=Total Assistance 5=Supervision or Setup 2=Maximal Assistance 6=Modified [place] 3=Moderate Assistance 7=Complete IndependenceSCALE: Activities may be completed with or without assistive devices. 1-Nhlibazjsg-vkltzuo completes the activity by him/herself with no assistance from a helper. 5-Set-up or Clean-up Assistance-helper sets up or cleans up; patient completes activity. [place] assists only prior to or following the activity. 4-Supervision or Touching Assistance-helper provides verbal cues and/or touching/steadying and/or contact guard assistance as patient completes activity. Assistance may be provided throughout the activity or intermittently. 3-Partial/Moderate Assistance-helper does LESS THAN HALF the effort. [place] lifts, holds or supports trunk or limbs, but provides less than half the effort. 2-Substantial/Maximal Assistance-helper does MORE THAN HALF the effort. [place] lifts or holds trunk or limbs and provides more than half the effort. 6-Tocwpwcac-bjqpnz does ALL the effort. Patient does none of the effort to complete the activity. Or, the assistance of 2 or more helpers is required for the patient to complete the activity. If activity was not attempted, code reason: 7-Patient Refused. 9-Not Applicable-not attempted and the patient did not perform the activity before the current illness, exacerbation or injury. 10-Not Attempted due to Environmental Limitations-(lack of equipment, weather restraints, etc.). 88-Not Attempted due to Medical Conditions or Safety Concerns. Other Treatment Once in gym, pt required resting break before beginning exercise. Pt's O2 at 85% but was able to recover quickly to 95%. Pt participated in 10 mins at min resistance of arm bike exercise to increase activity tolerance for improved independence with ADLs. Pt completed exercise well. Pt's O2 at 96% after exercise. Pt ambulated back to room using FWW with CGA. Once in pt requested to use restroom. Pt transferred to toilet with SBA. After therapy, nursing notified of pt's position. Call light within reach and all needs met. Education OT Patient Education: Energy conservation, Exercise program Teaching Recipient: Patient Teaching Methods: Demonstration, Discussion Response to Teaching: Verbalize Understanding, Return Demonstration OT Short Term Goals Short Term Goals Time Frame: Aug 30, 2021 Eatin Oral hygiene: 6 Toileting hygiene: 6 Shower/bathe self: 3 Upper body dressin Lower body dressin Putting on/taking off footwear: 5 OT Fpc Goals Fpc Goals Time Frame: Sep 11, 2021 Eating (QC): 6 Oral Hygiene (QC): 6 Toileting Hygiene (QC): 6 Shower/Bathe Self (QC): 6 Upper Body Dressing (QC): 6 Lower Body Dressing (QC): 6 On/Off Footwear (QC): 6 1=Demonstrate adherence to instructed precautions during ADL tasks. 2=Patient will verbalize/demonstrate understanding of assistive devices/modifications for ADL. 3=Patient will improve strength/tolerance for activity to enable patient to perform ADL's. OT Education/Plan Problem List/Assessment Assessment: Decreased Activ Tolerance, Decreased UE Strength, Impaired Self- Care Skills Discharge Recommendations Plan/Recommendations: Continue POC Treatment Plan/Plan of Care Patient would benefit from OT for education, treatment and training to promote independence in ADL's, mobility, safety and/or upper extremity function for ADL's. Plan of Care: ADL Retraining, Functional Mobility, Group Exercise/Act as Ind, UE Funct Exercise/Act Treatment Duration: Sep 11, 2021 Frequency: At least 5 of 7 days/Wk (IRF) Estimated Hrs Per Day: 1.5 hours per day Agreement: Yes Rehab Potential: Good Time/GCodes Start Time: 13:30 Stop Time: 14:00 Total Time Billed (hr/min): 30 Billed Treatment Time 1 visit- ADL 1 (17 mins) EX 1 (13 mins) LEEANNE GLEASON Aug 26, 2021 14:17
[2021-08-26 20:06] VITALS: BP 131/72
[2021-08-26] MEDS: LORATADINE (CLARITIN) 10 MG TAB PO SCH (22:03)
[2021-08-27] MEDS: clonazePAM 0.5 MG (KlonoPIN) TAB PO SCH ×3 (00:04→21:55)
[2021-08-27] MEDS: inSUlin ASPART (NovoLOG) 1 UNIT/0.01 ML (CHARGE PER UNIT) SC SCH ×4 (06:35→21:54)
[2021-08-27] MEDS: LEVOTHYROXINE 88 MCG (LEVOTHORID) TAB PO SCH (06:38)
[2021-08-27] MEDS: RT-BUDESONIDE NEBS 0.5 MG/2ML (PULMICORT) AMP IH SCH ×2 (07:50→19:59)
[2021-08-27] MEDS: RT-ALBUTEROL/IPRATROPIUM 3 ML (DUONEB) VIAL IH SCH ×2 (07:51→19:59)
[2021-08-27 07:52] VITALS: BP 124/82
--- NOTE | 2021-08-27 09:04 | PM&R Progress Note ---
Subjective HPI/CC On Admission Date Seen by Provider: Aug 27, 2021 Time Seen by Provider: 09:15 Subjective/Events-last exam 08/27/21: Patient doing well Had desaturation through the night when oxygen tubing was somehow blocked? No BM yet Monitoring oxygen closely 08/26/21: Patient doing well No BM yet and refuses suppository [facility] 6L/min O2 at rest and 10L/min activity 08/25/21: Patient doing well Refuses suppository We will give her a half bottle of mag citrate Check meds and labs We will follow up on VRE with infection control tomorrow 08/24/2021: Patient doing well Insulin managed blood sugars Oxygen maintained Using incentive spirometer 08/23/2021: Patient doing really well Moving around much better Desaturation noted at any exertion Increasing her stamina Blood sugars managed No other concerns Review of Systems General: Fatigue, Malaise Pulmonary: Dyspnea Objective Exam Vital Signs Vital Signs Date Time Temp Pulse Resp B/P (MAP) Pulse Ox O2 Delivery O2 Flow Rate FiO2 08/27/21 21:00 High Flow N/C 6.00 08/27/21 20:24 37.2 100 20 116/64 (81) 95 Capillary Refill : General Appearance: No Apparent Distress, WD/WN, Anxious, Chronically ill HEENT: PERRL/EOMI, Normal ENT Inspection, Pharynx Normal Neck: Full Range of Motion, Normal Inspection, Non Tender, Supple, Carotid Bruit Respiratory: Chest Non Tender, Lungs Clear, No Accessory Muscle Use, No Respiratory Distress, Decreased Breath Sounds Cardiovascular: Regular Rate, Rhythm, No Edema, No Gallop, No JVD, No Murmur, Normal Peripheral Pulses Gastrointestinal: Normal Bowel Sounds, No Organomegaly, No Pulsatile Mass, Non Tender, Soft Back: Normal Inspection, No CVA Tenderness, No Vertebral Tenderness Extremity: Normal Capillary Refill, Normal Inspection, Normal Range of Motion, Non Tender, No Calf Tenderness, No Pedal Edema Neurologic/Psychiatric: Alert, Oriented x3, No Motor/Sensory Deficits, Normal Mood/Affect, subscription 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 FIM Transfers Therapy Code Descriptions/Definitions Functional [place] Measure: 0=Not Assessed/NA 4=Minimal Assistance 1=Total Assistance 5=Supervision or Setup 2=Maximal Assistance 6=Modified [place] 3=Moderate Assistance 7=Complete IndependenceSCALE: Activities may be completed with or without assistive devices. 9-Rzaadviejk-xfftfkr completes the activity by him/herself with no assistance from a helper. 5-Set-up or Clean-up Assistance-helper sets up or cleans up; patient completes activity. [place] assists only prior to or following the activity. 4-Supervision or Touching Assistance-helper provides verbal cues and/or touching/steadying and/or contact guard assistance as patient completes activity. Assistance may be provided throughout the activity or intermittently. 3-Partial/Moderate Assistance-helper does LESS THAN HALF the effort. [place] lifts, holds or supports trunk or limbs, but provides less than half the effort. 2-Substantial/Maximal Assistance-helper does MORE THAN HALF the effort. [place] lifts or holds trunk or limbs and provides more than half the effort. 7-Fzttlciqo-fcuoit does ALL the effort. Patient does none of the effort to complete the activity. Or, the assistance of 2 or more helpers is required for the patient to complete the activity. If activity was not attempted, code reason: 7-Patient Refused. 9-Not Applicable-not attempted and the patient did not perform the activity before the current illness, exacerbation or injury. 10-Not Attempted due to Environmental Limitations-(lack of equipment, weather restraints, etc.). 88-Not Attempted due to Medical Conditions or Safety Concerns. Roll Left to Right (QC): 6 Sit to Lying (QC): 6 Sit to Stand (QC): 5 Chair/Cef-el-Popll Xfer(QC): 6 Car Transfer (QC): 4 Gait Training Does the Patient Walk?: Yes Distance: 250', 100' Walk 10 feet (QC): 4 Walk 50 ft with 2 Turns(QC): 4 Walk 150 ft (QC): 4 Walking 10ft/uneven surface-QC: 4 Gait Persons Needed: 1 Gait Assistive Device: FWW Wheelchair Training Does the Pt Use a Wheelchair?: Yes Distance: 150' Wheel 50 ft with 2 turns (QC): 4 Wheel 150 ft (QC): 4 Type of Wheelchair: Manual Stair Training #of Steps: 1 1 Step (curb) (QC): 4 4 Steps (QC): 88 12 Steps (QC): 88 Balance Picking up an Object (QC): 88 ADL-Treatment Eating (QC): 5 Oral Hygiene (QC): 5 Shower/Bathe Self (QC): 4 Upper Body Dressing (QC): 4 Lower Body Dressing (QC): 3 (Min A to hike LB dressing due to fatigue.) On/Off Footwear (QC): 2 Toileting Hygiene (QC): 4 Toilet Transfer (QC): 4 Assessment/Plan Assessment and Plan Assess & Plan/Chief Complaint Assessment: Post Covid syndrome Severe hypoxia with exertion Diabetes Anemia Hypothyroidism Recent weight loss Constipation Plan: Oxygen supplementation Rehab protocol 23/05 due to hypoxia Home meds Monitor sugar Pulmonary consult 08/23/2021: Pulmonary consult appreciated Supportive care PT and OT 08/24/2021: Patient doing well Supportive care to continue 08/25/21: Supportive care VRE isolation so will inquire with infection control about how to DC that tomorrow BM regimen 08/26/21: [facility] but will verify with infection control Monitor closely BM regimen 08/27/21: Monitor oxygen closely BM regimen (1) Anemia (2) Hypothyroidism (3) Weight loss (4) Hypoxemia (5) Oxygen dependent (6) Anxiety (7) Post-COVID syndrome (8) T2DM (type 2 diabetes mellitus) Status: Acute Critical Care Critical Care: Critically Ill Patient VALARIE JENSEN DO Aug 27, 2021 09:04
--- NOTE | 2021-08-27 09:33 | Occupational Ther Daily Note ---
OT Current Status-Daily Note Subjective Pt alert, laying in bed with HOB raised when OT entered. Pt agreed to therapy. No c/o pain reported. Pt stated " I had a rough morning. " Mental Status/Objective Patient Orientation: Person, Place, Time, Situation Attachments: IV, Oxygen ADL-Treatment Pt agreed to complete oral hygiene. Pt at 6L of O2 at 96%. Raised to 10L with activity. Pt transferred to EOB independently. Pt transferred from EOB to FWW with supervision. Pt ambulated to bathroom sink using FWW with supervision. Pt t ransferred to w/c with supervision due to increase fatigue. Pt's O2 at 85%, required 1 min rest break to recover to 95%. Pt completed oral hygiene independently while seated in w/c. Once back in room, pt requested to use the bathroom. Pt ambulated to bathroom using FWW with supervision. Pt transferred to toilet and completed toilet hygiene with supervision. Pt sit-stand from toilet using grab bars to hike LB dressing with supervision. Pt ambulated to room and transferred to recliner using FWW with supervision. Pt's O2 at 10L at 97%. Decreased to 6L at 95%. After therapy, pt sitting in recliner. Call light in reach and all needs met. Therapy Code Descriptions/Definitions Functional [place] Measure: 0=Not Assessed/NA 4=Minimal Assistance 1=Total Assistance 5=Supervision or Setup 2=Maximal Assistance 6=Modified [place] 3=Moderate Assistance 7=Complete IndependenceSCALE: Activities may be completed with or without assistive devices. 7-Wfolpaesjj-tmzsdtd completes the activity by him/herself with no assistance from a helper. 5-Set-up or Clean-up Assistance-helper sets up or cleans up; patient completes activity. [place] assists only prior to or following the activity. 4-Supervision or Touching Assistance-helper provides verbal cues and/or touching/steadying and/or contact guard assistance as patient completes activity. Assistance may be provided throughout the activity or intermittently. 3-Partial/Moderate Assistance-helper does LESS THAN HALF the effort. [place] lifts, holds or supports trunk or limbs, but provides less than half the effort. 2-Substantial/Maximal Assistance-helper does MORE THAN HALF the effort. [place] lifts or holds trunk or limbs and provides more than half the effort. 7-Wslwyqlss-upbtou does ALL the effort. Patient does none of the effort to complete the activity. Or, the assistance of 2 or more helpers is required for the patient to complete the activity. If activity was not attempted, code reason: 7-Patient Refused. 9-Not Applicable-not attempted and the patient did not perform the activity before the current illness, exacerbation or injury. 10-Not Attempted due to Environmental Limitations-(lack of equipment, weather restraints, etc.). 88-Not Attempted due to Medical Conditions or Safety Concerns. Other Treatment Pt ambulated from room to gym using FWW with supervision. Pt's O2 at low 80%, required 1 min rest break to recover to high 90% before beginning exercise. During exercise pt's O2 maintained high 90%. Skilled instruction required of BUE exercises using 2lb weight. Pt completed x2 sets of 10 reps of 2lb BUE exercises while seated to increase activity tolerance for improved independence in daily task. Pt completed B shlder flexion, shoulder extension, shoulder abd/adduction, and elbow flexion. Pt required resting break in between sets due to fatigue and low endurance. Education OT Patient Education: Energy conservation, Exercise program, Home exercise program, Modified ADL techniques Teaching Recipient: Patient Teaching Methods: Demonstration, Discussion Response to Teaching: Verbalize Understanding, Return Demonstration OT Short Term Goals Short Term Goals Time Frame: Aug 30, 2021 Eatin Oral hygiene: 6 Toileting hygiene: 6 Shower/bathe self: 3 Upper body dressin Lower body dressin Putting on/taking off footwear: 5 OT Doctor Of Podiatric Medicine Goals [facility] Goals Time Frame: Sep 11, 2021 Eating (QC): 6 Oral Hygiene (QC): 6 Toileting Hygiene (QC): 6 Shower/Bathe Self (QC): 6 Upper Body Dressing (QC): 6 Lower Body Dressing (QC): 6 On/Off Footwear (QC): 6 1=Demonstrate adherence to instructed precautions during ADL tasks. 2=Patient will verbalize/demonstrate understanding of assistive devices/modifications for ADL. 3=Patient will improve strength/tolerance for activity to enable patient to perform ADL's. OT Education/Plan Problem List/Assessment Assessment: Decreased Activ Tolerance, Decreased UE Strength, Impaired Self-Car e Skills Discharge Recommendations Plan/Recommendations: Continue POC Treatment Plan/Plan of Care Patient would benefit from OT for education, treatment and training to promote independence in ADL's, mobility, safety and/or upper extremity function for ADL's. Plan of Care: ADL Retraining, Functional Mobility, Group Exercise/Act as Ind, UE Funct Exercise/Act Treatment Duration: Sep 11, 2021 Frequency: At least 5 of 7 days/Wk (IRF) Estimated Hrs Per Day: 1.5 hours per day Agreement: Yes Rehab Potential: Good Time/GCodes Start Time: 08:30 Stop Time: 09:30 Total Time Billed (hr/min): 60 Billed Treatment Time 1 visit- ADL 2 (27 mins) EX 2 (33 mins) 60 mins LEEANNE GLEASON Aug 27, 2021 09:32
[2021-08-27] MEDS: metFORMIN 500 MG (GLUCOPHAGE) TAB PO SCH ×2 (09:34→17:11)
[2021-08-27] MEDS: DULoxetine 20 MG (CYMBALTA) CAP PO SCH (09:34)
[2021-08-27] MEDS: glipiZIDE 5 MG (GLUCOTROL) TAB PO SCH ×2 (09:34→17:11)
[2021-08-27] MEDS: DOCUSATE SODIUM 100 MG (COLACE) CAP PO SCH ×4 (09:35→21:55)
[2021-08-27] MEDS: SENNA W/DOCUSATE (SENOKOT S) TABLET PO SCH ×2 (09:35→21:55)
[2021-08-27] MEDS: PANTOPRAZOLE 40 MG (PROTONIX) TAB PO SCH (09:35)
[2021-08-27] MEDS: BUMETANIDE 1 MG (BUMEX) TAB PO SCH (09:36)
[2021-08-27] MEDS: polyethylene glycoL POWDER 17 GM (MIRALAX) PACK PO SCH ×2 (09:37→22:00)
[2021-08-27] MEDS: BISACODYL 10 MG SUPP (DULCOLAX) RC SCH (09:39)
--- NOTE | 2021-08-27 11:57 | Physical Therapy Daily Note ---
PT Daily Note-Current Subjective Pt sitting in recliner upon arrival. Pt agrees to PT and reports wanting to push to get stronger for home. Pain Location: No Pain Reported Mental Status Patient Orientation: Person, Place, Time, Situation Attachments: Oxygen (10L with Exercise & 6L at rest) Transfers SCALE: Activities may be completed with or without assistive devices. 0-Vkigylebpq-lcydukn completes the activity by him/herself with no assistance from a helper. 5-Set-up or Clean-up Assistance-helper sets up or cleans up; patient completes activity. [place] assists only prior to or following the activity. 4-Supervision or Touching Assistance-helper provides verbal cues and/or touching/steadying and/or contact guard assistance as patient completes activity. Assistance may be provided throughout the activity or intermittently. 3-Partial/Moderate Assistance-helper does LESS THAN HALF the effort. [place] lifts, holds or supports trunk or limbs, but provides less than half the effort. 2-Substantial/Maximal Assistance-helper does MORE THAN HALF the effort. [place] lifts or holds trunk or limbs and provides more than half the effort. 4-Sspwwmial-kscejc does ALL the effort. Patient does none of the effort to complete the activity. Or, the assistance of 2 or more helpers is required for the patient to complete the activity. If activity was not attempted, code reason: 7-Patient Refused. 9-Not Applicable-not attempted and the patient did not perform the activity bef ore the current illness, exacerbation or injury. 10-Not Attempted due to Environmental Limitations-(lack of equipment, weather r estraints, etc.). 88-Not Attempted due to Medical Conditions or Safety Concerns. Sit to Stand (QC): 5 Toilet Transfer (QC): 5 Weight Bearing Full Weight Bearing Full Weight Bearing Gait Training Does the Patient Walk?: Yes Distance: 150' x2 Walk 10 feet (QC): 5 Walk 50 ft with 2 Turns(QC): 5 Walk 150 ft (QC): 5 Gait Persons Needed: 1 Gait Assistive Device: FWW Wheelchair Training Does the Pt Use a Wheelchair?: No Exercises Standing: Hamstring curls, Marching, Mini squats Standing Reps: 15 (2 sets of each) NuStep Minutes: 15 NuStep Workload: 5 Treatments TF to standing, declining need for BR. Pt amb. in hallway then uses NuStep. After short RB, Pt completes Standing EX in //bars then amb. back to room. Pt uses BR then returns to recliner to rest at end of tx. All needs met, call light in hand. Assessment Current Status: Good Progress Pt continues to push self when she can. O2 is monitored during tx and sometimes drops into 80's w/extensive activity, low was 84 & get back to 95 after short break. Pt uses 10L of O2 during Exercise and 6L at rest. PT Short Term Goals Short Term Goals Time Frame: Aug 29, 2021 Roll Left & Right: 6 Sit to lyin Lying to sitting on side of be: 6 Sit to stand: 4 (SBA) Chair/sgx-eh-kkazn transfer: 4 (SBA) Walk 10 feet: 4 (SBA) Walk 50 feet with two turns: 4 (SBA) PT Veneer Clipper Goals Detention Goals PT Veneer Clipper Goals Time Frame: Sep 12, 2021 Roll Left & Right (QC): 6 Sit to Lying (QC): 6 Lying-Sitting on Side/Bed(QC): 6 Sit to Stand (QC): 6 Chair/Wkd-vd-Ukatf Xfer(QC): 6 Toilet Transfer (QC): 6 Car Transfer (QC): 6 Does the Patient Walk: Yes Walk 10 feet (QC): 6 Walk 50ft with 2 Turns (QC): 6 Walk 150 ft (QC): 6 Walking 10ft on Uneven Surface: 6 1 Step (curb) (QC): 5 4 Steps (QC): 5 12 Steps (QC): 88 Picking up an Object (QC): 6 Wheel 50 feet with 2 turns (QC: 9 Wheel 150 feet: 9 PT Plan Problem List Problem List: Activity Tolerance, Functional Strength Treatment/Plan Treatment Plan: Continue Plan of Care Treatment Plan: Bed Mobility, Education, Functional Activity Yanni, Functional Strength, Group Therapy, Gait, Safety, Therapeutic Exercise, Transfers Treatment Duration: Sep 12, 2021 Frequency: At least 5 of 7 days/Wk (IRF) Estimated Hrs Per Day: 1.5 hours per day Patient and/or Family Agrees t: Yes Time/GCodes Time In: 1100 Time Out: 1200 Total Billed Treatment Time: 60 Total Billed Treatment 1, GT (15m), EX x2 (30m) & FA (15m) VIRGEN WALTER COMPOSITION INSTRUCTOR Aug 27, 2021 11:57
[2021-08-27] MEDS ORDERED: FLU QUADRIvalent (3YOA+) 60 mcg/0.5 ml 2021-22(AFLURIA) IM ONE (13:00)
--- NOTE | 2021-08-27 14:05 | Occupational Ther Daily Note ---
OT Current Status-Daily Note Subjective Pt alert, sitting in recliner when OT entered. Pt agreed to therapy. No c/o pain reported. ADL-Treatment Therapy Code Descriptions/Definitions Functional [place] Measure: 0=Not Assessed/NA 4=Minimal Assistance 1=Total Assistance 5=Supervision or Setup 2=Maximal Assistance 6=Modified [place] 3=Moderate Assistance 7=Complete IndependenceSCALE: Activities may be completed with or without assistive devices. 4-Ycedvfvzwf-wpadoiv completes the activity by him/herself with no assistance from a helper. 5-Set-up or Clean-up Assistance-helper sets up or cleans up; patient completes activity. [place] assists only prior to or following the activity. 4-Supervision or Touching Assistance-helper provides verbal cues and/or touching/steadying and/or contact guard assistance as patient completes activity. Assistance may be provided throughout the activity or intermittently. 3-Partial/Moderate Assistance-helper does LESS THAN HALF the effort. [place] lifts, holds or supports trunk or limbs, but provides less than half the effort. 2-Substantial/Maximal Assistance-helper does MORE THAN HALF the effort. [place] lifts or holds trunk or limbs and provides more than half the effort. 0-Mdrmoipsf-ozibql does ALL the effort. Patient does none of the effort to complete the activity. Or, the assistance of 2 or more helpers is required for the patient to complete the activity. If activity was not attempted, code reason: 7-Patient Refused. 9-Not Applicable-not attempted and the patient did not perform the activity before the current illness, exacerbation or injury. 10-Not Attempted due to Environmental Limitations-(lack of equipment, weather restraints, etc.). 88-Not Attempted due to Medical Conditions or Safety Concerns. Other Treatment Pt increase to 10L with activity at 96%. Pt sit-stand from recliner to FWW with supervision. Pt ambulated from room to gym using FWW with supervision. Once in gym, pt's O2 at 85%. Pt required resting break and quickly recovered to 95% before beginning activity. During task, pt's O2 maintained at 95%. Pt participated in FM task of grasping clothespin from light-hard resistance and placing them along rack while standing to increase quality lead strength and standing tolerance for improved independence with daily task. Pt completed task x2 sets with BUE. Pt required rest break in between set due to fatigue and decreased standing tolerance. After session, pt left in therapy gym with therapist to began PT treatment. PT notified of position. All needs met. Education OT Patient Education: Energy conservation, Exercise program, Purpose of tx/functional activities Teaching Recipient: Patient Teaching Methods: Demonstration, Discussion Response to Teaching: Verbalize Understanding, Return Demonstration OT Short Term Goals Short Term Goals Time Frame: Aug 30, 2021 Eatin Oral hygiene: 6 Toileting hygiene: 6 Shower/bathe self: 3 Upper body dressin Lower body dressin Putting on/taking off footwear: 5 OT Chemical Project Engineer Goals Shelter Goals Time Frame: Sep 11, 2021 Eating (QC): 6 Oral Hygiene (QC): 6 Toileting Hygiene (QC): 6 Shower/Bathe Self (QC): 6 Upper Body Dressing (QC): 6 Lower Body Dressing (QC): 6 On/Off Footwear (QC): 6 1=Demonstrate adherence to instructed precautions during ADL tasks. 2=Patient will verbalize/demonstrate understanding of assistive devices/modifications for ADL. 3=Patient will improve strength/tolerance for activity to enable patient to perform ADL's. OT Education/Plan Problem List/Assessment Assessment: Decreased Activ Tolerance, Decreased UE Strength, Impaired Self- Care Skills Discharge Recommendations Plan/Recommendations: Continue POC Treatment Plan/Plan of Care Patient would benefit from OT for education, treatment and training to promote independence in ADL's, mobility, safety and/or upper extremity function for ADL's. Plan of Care: ADL Retraining, Functional Mobility, Group Exercise/Act as Ind, UE Funct Exercise/Act Treatment Duration: Sep 11, 2021 Frequency: At least 5 of 7 days/Wk (IRF) Estimated Hrs Per Day: 1.5 hours per day Agreement: Yes Rehab Potential: Good Time/GCodes Start Time: 13:30 Stop Time: 14:00 Total Time Billed (hr/min): 30 Billed Treatment Time 1 visit- FA 2 (30 mins) LEEANNE GLEASON Aug 27, 2021 14:05
--- NOTE | 2021-08-27 14:56 | Physical Therapy Daily Note ---
PT Daily Note-Current Subjective Pt sitting in Therapy Gym upon arrival. Pt agrees to PT. Pain Location: No Pain Reported Mental Status Patient Orientation: Person, Place, Time, Situation Attachments: Oxygen (10L for Exercise & 6L for resting) Transfers SCALE: Activities may be completed with or without assistive devices. 1-Vodxhyfjsf-sqrcptu completes the activity by him/herself with no assistance from a helper. 5-Set-up or Clean-up Assistance-helper sets up or cleans up; patient completes activity. [place] assists only prior to or following the activity. 4-Supervision or Touching Assistance-helper provides verbal cues and/or touching/steadying and/or contact guard assistance as patient completes activity. Assistance may be provided throughout the activity or intermittently. 3-Partial/Moderate Assistance-helper does LESS THAN HALF the effort. [place] lifts, holds or supports trunk or limbs, but provides less than half the effort. 2-Substantial/Maximal Assistance-helper does MORE THAN HALF the effort. [place] lifts or holds trunk or limbs and provides more than half the effort. 0-Mcjzkwuph-fbdxkb does ALL the effort. Patient does none of the effort to complete the activity. Or, the assistance of 2 or more helpers is required for the patient to complete the activity. If activity was not attempted, code reason: 7-Patient Refused. 9-Not Applicable-not attempted and the patient did not perform the activity before the current illness, exacerbation or injury. 10-Not Attempted due to Environmental Limitations-(lack of equipment, weather restraints, etc.). 88-Not Attempted due to Medical Conditions or Safety Concerns. Sit to Stand (QC): 5 Toilet Transfer (QC): 5 Weight Bearing Full Weight Bearing Full Weight Bearing Gait Training Does the Patient Walk?: Yes Distance: 150' x2 Walk 10 feet (QC): 5 Walk 50 ft with 2 Turns(QC): 5 Walk 150 ft (QC): 5 Gait Persons Needed: 1 Gait Assistive Device: FWW Wheelchair Training Does the Pt Use a Wheelchair?: No Stair Training Stair Training: Handrails/: 2 handrails Treatments After instruction of sequencing for stairs, Pt ambulates 2 sets of 4 steps with RB in between for SOA recovery. Pt monitors O2 during tx. Pt ambulates in hallway before returning to room to use BR and rest in recliner. All needs met, call light in hand. Assessment Current Status: Good Progress Pt is motivated and works hard to push self for progress every tx. Pt's O2 is monitored during tx. O2 drops to 84% after extensive walk and use of BR. O2 recovers quickly to 95%. PT Short Term Goals Short Term Goals Time Frame: Aug 29, 2021 Roll Left & Right: 6 Sit to lyin Lying to sitting on side of be: 6 Sit to stand: 4 (SBA) Chair/prp-wg-mohlm transfer: 4 (SBA) Walk 10 feet: 4 (SBA) Walk 50 feet with two turns: 4 (SBA) PT Prison Goals Manager Epic Goals PT Prison Goals Time Frame: Sep 12, 2021 Roll Left & Right (QC): 6 Sit to Lying (QC): 6 Lying-Sitting on Side/Bed(QC): 6 Sit to Stand (QC): 6 Chair/Ohp-fx-Wxfrq Xfer(QC): 6 Toilet Transfer (QC): 6 Car Transfer (QC): 6 Does the Patient Walk: Yes Walk 10 feet (QC): 6 Walk 50ft with 2 Turns (QC): 6 Walk 150 ft (QC): 6 Walking 10ft on Uneven Surface: 6 1 Step (curb) (QC): 5 4 Steps (QC): 5 12 Steps (QC): 88 Picking up an Object (QC): 6 Wheel 50 feet with 2 turns (QC: 9 Wheel 150 feet: 9 PT Plan Problem List Problem List: Activity Tolerance, Functional Strength Treatment/Plan Treatment Plan: Continue Plan of Care Treatment Plan: Bed Mobility, Education, Functional Activity Yanni, Functional Strength, Group Therapy, Gait, Safety, Therapeutic Exercise, Transfers Treatment Duration: Sep 12, 2021 Frequency: At least 5 of 7 days/Wk (IRF) Estimated Hrs Per Day: 1.5 hours per day Patient and/or Family Agrees t: Yes Safety Risks/Education Patient Education: Steps, Correct Positioning, Safety Issues Teaching Recipient: Patient Teaching Methods: Demonstration, Discussion Response to Teaching: Verbalize Understanding, Return Demonstration Time/GCodes Time In: 1410 Time Out: 1440 Total Billed Treatment Time: 30 Total Billed Treatment 1, GT (15m) & FA (15m) VIRGEN WALTER RAIL FILLER Aug 27, 2021 14:56
[2021-08-27] MEDS ORDERED: CATHETER FLUSH 10 ML SYR IV PRN (19:15)
[2021-08-27 20:24] VITALS: BP 116/64
[2021-08-27] MEDS: SALINE NASAL SPRAY (OCEAN) 45 ML BTL PRN (20:30)
[2021-08-27] MEDS: LORATADINE (CLARITIN) 10 MG TAB PO SCH (21:55)
[2021-08-27] MEDS: CATHETER FLUSH 10 ML SYR IV SCH (21:55)
[2021-08-28] MEDS: inSUlin ASPART (NovoLOG) 1 UNIT/0.01 ML (CHARGE PER UNIT) SC SCH ×4 (06:17→21:21)
[2021-08-28] MEDS: LEVOTHYROXINE 88 MCG (LEVOTHORID) TAB PO SCH (06:34)
[2021-08-28 07:53] VITALS: BP 112/62
[2021-08-28] MEDS: polyethylene glycoL POWDER 17 GM (MIRALAX) PACK PO SCH ×2 (08:46→21:20)
[2021-08-28] MEDS: RT-ALBUTEROL/IPRATROPIUM 3 ML (DUONEB) VIAL IH SCH ×2 (08:57→20:38)
[2021-08-28] MEDS: RT-BUDESONIDE NEBS 0.5 MG/2ML (PULMICORT) AMP IH SCH ×2 (08:57→20:38)
--- NOTE | 2021-08-28 09:02 | PM&R Progress Note ---
Subjective HPI/CC On Admission Date Seen by Provider: Aug 28, 2021 Time Seen by Provider: 09:10 Subjective/Events-last exam 08/28/2021: Patient doing well Down to 5 L of oxygen at rest Nauseated so recommended suppository and fleets Home oxygen study will be done Discharge plan for Thursday08/27/21: Patient doing well Had desaturation through the night when oxygen tubing was somehow blocked? No BM yet Monitoring oxygen closely 08/26/21: Patient doing well No BM yet and refuses suppository VRE isolation in place intermediate apparently 6L/min O2 at rest and 10L/min activity 08/25/21: Patient doing well Refuses suppository We will give her a half bottle of mag citrate Check meds and labs We will follow up on VRE with infection control tomorrow 08/24/2021: Patient doing well Insulin managed blood sugars Oxygen maintained Using incentive spirometer 08/23/2021: Patient doing really well Moving around much better Desaturation noted at any exertion Increasing her stamina Blood sugars managed No other concerns Review of Systems General: Fatigue, Malaise Objective Exam Vital Signs Vital Signs Date Time Temp Pulse Resp B/P (MAP) Pulse Ox O2 Delivery O2 Flow Rate FiO2 08/28/21 21:00 Nasal Cannula 5.00 08/28/21 20:38 98 08/28/21 20:00 36.8 104 20 124/69 (87) Capillary Refill : General Appearance: No Apparent Distress, WD/WN, Anxious, Chronically ill HEENT: PERRL/EOMI, Normal ENT Inspection, Pharynx Normal Neck: Full Range of Motion, Normal Inspection, Non Tender, Supple, Carotid Bruit Respiratory: Chest Non Tender, Lungs Clear, No Accessory Muscle Use, No Respiratory Distress, Decreased Breath Sounds Cardiovascular: Regular Rate, Rhythm, No Edema, No Gallop, No JVD, No Murmur, Normal Peripheral Pulses Gastrointestinal: Normal Bowel Sounds, No Organomegaly, No Pulsatile Mass, Non Tender, Soft Back: Normal Inspection, No CVA Tenderness, No Vertebral Tenderness Extremity: Normal Capillary Refill, Normal Inspection, Normal Range of Motion, Non Tender, No Calf Tenderness, No Pedal Edema Neurologic/Psychiatric: Alert, Oriented x3, No Motor/Sensory Deficits, Normal Mood/Affect, marble finisher II-XII Norm as Tested, Motor Weakness (Generalized 4/5 all extremities) Skin: Normal Color, Warm/Dry Lymphatic: No Adenopathy Results/Procedures Lab Patient resulted labs reviewed. FIM Transfers Therapy Code Descriptions/Definitions Functional [place] Measure: 0=Not Assessed/NA 4=Minimal Assistance 1=Total Assistance 5=Supervision or Setup 2=Maximal Assistance 6=Modified [place] 3=Moderate Assistance 7=Complete IndependenceSCALE: Activities may be completed with or without assistive devices. 5-Itopophing-utojzzh completes the activity by him/herself with no assistance from a helper. 5-Set-up or Clean-up Assistance-helper sets up or cleans up; patient completes activity. [place] assists only prior to or following the activity. 4-Supervision or Touching Assistance-helper provides verbal cues and/or touching/steadying and/or contact guard assistance as patient completes activity. Assistance may be provided throughout the activity or intermittently. 3-Partial/Moderate Assistance-helper does LESS THAN HALF the effort. [place] lifts, holds or supports trunk or limbs, but provides less than half the effort. 2-Substantial/Maximal Assistance-helper does MORE THAN HALF the effort. [place] lifts or holds trunk or limbs and provides more than half the effort. 3-Plnaobdsx-pjnfab does ALL the effort. Patient does none of the effort to complete the activity. Or, the assistance of 2 or more helpers is required for the patient to complete the activity. If activity was not attempted, code reason: 7-Patient Refused. 9-Not Applicable-not attempted and the patient did not perform the activity before the current illness, exacerbation or injury. 10-Not Attempted due to Environmental Limitations-(lack of equipment, weather restraints, etc.). 88-Not Attempted due to Medical Conditions or Safety Concerns. Roll Left to Right (QC): 6 Sit to Lying (QC): 6 Sit to Stand (QC): 5 Chair/Uij-iz-Iqymx Xfer(QC): 6 Car Transfer (QC): 4 Gait Training Does the Patient Walk?: Yes Distance: 150' x2 Walk 10 feet (QC): 5 Walk 50 ft with 2 Turns(QC): 5 Walk 150 ft (QC): 5 Walking 10ft/uneven surface-QC: 4 Gait Persons Needed: 1 Gait Assistive Device: FWW Wheelchair Training Does the Pt Use a Wheelchair?: Yes Distance: 150' Wheel 50 ft with 2 turns (QC): 4 Wheel 150 ft (QC): 4 Type of Wheelchair: Manual Stair Training Stair Training: Handrails/: 2 handrails #of Steps: 1 1 Step (curb) (QC): 4 4 Steps (QC): 88 12 Steps (QC): 88 Balance Picking up an Object (QC): 88 ADL-Treatment Eating (QC): 5 Oral Hygiene (QC): 5 Shower/Bathe Self (QC): 4 Upper Body Dressing (QC): 4 Lower Body Dressing (QC): 3 (Min A to hike LB dressing due to fatigue.) On/Off Footwear (QC): 2 Toileting Hygiene (QC): 4 Toilet Transfer (QC): 4 Assessment/Plan Assessment and Plan Assess & Plan/Chief Complaint Assessment: Post Covid syndrome Severe hypoxia with exertion Diabetes Anemia Hypothyroidism Recent weight loss Constipation Plan: Oxygen supplementation Rehab protocol 23/05 due to hypoxia Home meds Monitor sugar Pulmonary consult 08/23/2021: Pulmonary consult appreciated Supportive care PT and OT 08/24/2021: Patient doing well Supportive care to continue 08/25/21: Supportive care VRE isolation so will inquire with infection control about how to DC that tomorrow BM regimen 08/26/21: VRE isolation terminal carman but will verify with infection control Monitor closely BM regimen 08/27/21: Monitor oxygen closely BM regimen 08/28/2021: Discharge plan for Thursday Oxygen supplementation maintained Home O2 study (1) Anemia (2) Hypothyroidism (3) Weight loss (4) Hypoxemia (5) Oxygen dependent (6) Anxiety (7) Post-COVID syndrome (8) T2DM (type 2 diabetes mellitus) Status: Acute Critical Care Critical Care: Critically Ill Patient JENSEN,VALARIE KU Aug 28, 2021 09:02
[2021-08-28] MEDS: BUMETANIDE 1 MG (BUMEX) TAB PO SCH (09:41)
[2021-08-28] MEDS: DOCUSATE SODIUM 100 MG (COLACE) CAP PO SCH ×4 (09:41→21:20)
[2021-08-28] MEDS: metFORMIN 500 MG (GLUCOPHAGE) TAB PO SCH ×2 (09:41→17:48)
[2021-08-28] MEDS: glipiZIDE 5 MG (GLUCOTROL) TAB PO SCH ×2 (09:42→17:48)
[2021-08-28] MEDS: PANTOPRAZOLE 40 MG (PROTONIX) TAB PO SCH (09:42)
[2021-08-28] MEDS: DULoxetine 20 MG (CYMBALTA) CAP PO SCH (09:42)
[2021-08-28] MEDS: SENNA W/DOCUSATE (SENOKOT S) TABLET PO SCH ×2 (09:42→21:20)
[2021-08-28] MEDS: SALINE NASAL SPRAY (OCEAN) 45 ML BTL PRN (09:42)
[2021-08-28] MEDS: CATHETER FLUSH 10 ML SYR IV SCH ×2 (10:02→21:21)
--- NOTE | 2021-08-28 10:56 | Occupational Ther Daily Note ---
OT Current Status-Daily Note ADL-Treatment Therapy Code Descriptions/Definitions Functional [place] Measure: 0=Not Assessed/NA 4=Minimal Assistance 1=Total Assistance 5=Supervision or Setup 2=Maximal Assistance 6=Modified [place] 3=Moderate Assistance 7=Complete IndependenceSCALE: Activities may be completed with or without assistive devices. 5-Chpxygrsga-bmsxuar completes the activity by him/herself with no assistance from a helper. 5-Set-up or Clean-up Assistance-helper sets up or cleans up; patient completes activity. [place] assists only prior to or following the activity. 4-Supervision or Touching Assistance-helper provides verbal cues and/or touching/steadying and/or contact guard assistance as patient completes activity. Assistance may be provided throughout the activity or intermittently. 3-Partial/Moderate Assistance-helper does LESS THAN HALF the effort. [place] lifts, holds or supports trunk or limbs, but provides less than half the effort. 2-Substantial/Maximal Assistance-helper does MORE THAN HALF the effort. [place] lifts or holds trunk or limbs and provides more than half the effort. 3-Snoxqzvko-vceonm does ALL the effort. Patient does none of the effort to complete the activity. Or, the assistance of 2 or more helpers is required for the patient to complete the activity. If activity was not attempted, code reason: 7-Patient Refused. 9-Not Applicable-not attempted and the patient did not perform the activity before the current illness, exacerbation or injury. 10-Not Attempted due to Environmental Limitations-(lack of equipment, weather restraints, etc.). 88-Not Attempted due to Medical Conditions or Safety Concerns. OT Short Term Goals Short Term Goals Time Frame: Aug 30, 2021 Eatin Oral hygiene: 6 Toileting hygiene: 6 Shower/bathe self: 3 Upper body dressin Lower body dressin Putting on/taking off footwear: 5 OT Drafting Layout Man Goals Drafting Layout Man Goals Time Frame: Sep 11, 2021 Eating (QC): 6 Oral Hygiene (QC): 6 Toileting Hygiene (QC): 6 Shower/Bathe Self (QC): 6 Upper Body Dressing (QC): 6 Lower Body Dressing (QC): 6 On/Off Footwear (QC): 6 1=Demonstrate adherence to instructed precautions during ADL tasks. 2=Patient will verbalize/demonstrate understanding of assistive devices/modifications for ADL. 3=Patient will improve strength/tolerance for activity to enable patient to perform ADL's. OT Education/Plan Treatment Plan/Plan of Care Patient would benefit from OT for education, treatment and training to promote independence in ADL's, mobility, safety and/or upper extremity function for ADL's. Plan of Care: ADL Retraining, Functional Mobility, Group Exercise/Act as Ind, UE Funct Exercise/Act Treatment Duration: Sep 11, 2021 Frequency: At least 5 of 7 days/Wk (IRF) Estimated Hrs Per Day: 1.5 hours per day Agreement: Yes Rehab Potential: LEEANNE Leiva Aug 28, 2021 10:56
--- NOTE | 2021-08-28 11:05 | Occupational Ther Daily Note ---
OT Current Status-Daily Note Subjective Pt alert, sitting in recliner with nursing present in room when OT entered. No c/o pain reported. Pt reported earlier this morning feeling nauseous and for therapy to come back at a later time. Nursing notified. Later in morning checked on pt, reported feeling better and agreed to therapy. Mental Status/Objective Patient Orientation: Person, Place, Time, Situation Attachments: IV, Oxygen ADL-Treatment Pt requested sponge bath today due to feeling nauseous earlier in the morning. Pt at 6L O2 at 96%. Increased to 10L with activity and maintained 93%-96%. Pt sit-stand from recliner to FWW with supervision. Pt ambulated to shower and transferred to shower bench using [facility] with supervision. Pt doffed UB dressing while seated in shower bench. Pt sit-stand from shower bench to doff LB dressing. Pt used figure four technique to thread BLE out of LB dressing and to doff socks. Pt cleansed UB, chest, and abdomen while seated at shower bench. Pt sit-stand from shower bench to cleanse jadon area and buttocks with supervision. Pt fatigued quickly and required resting break. O2 at 83% but was able to recover to 96%. Pt transferred to / with supervision. After set up, pt donned shirt. Pt threaded BLE into LB dressing. Sit-stand from w/ to FWW and hiked LB dressing with CGA. PT donned socks using figure 4 technique. Pt completed oral hygiene and grooming while standing at sink with SBA. O2 levels remaining at 95% throughout standing task. Pt ambulated to room and transferred to recliner using [facility] with supervision. After therapy, pt sitting in recliner O2 at 6L 97%. All needs met and call light in reach. Therapy Code Descriptions/Definitions Functional [place] Measure: 0=Not Assessed/NA 4=Minimal Assistance 1=Total Assistance 5=Supervision or Setup 2=Maximal Assistance 6=Modified [place] 3=Moderate Assistance 7=Complete IndependenceSCALE: Activities may be completed with or without assistive devices. 5-Jdtsnwuums-lhnwsze completes the activity by him/herself with no assistance from a helper. 5-Set-up or Clean-up Assistance-helper sets up or cleans up; patient completes activity. [place] assists only prior to or following the activity. 4-Supervision or Touching Assistance-helper provides verbal cues and/or touching/steadying and/or contact guard assistance as patient completes activity. Assistance may be provided throughout the activity or intermittently. 3-Partial/Moderate Assistance-helper does LESS THAN HALF the effort. [place] lifts, holds or supports trunk or limbs, but provides less than half the effort. 2-Substantial/Maximal Assistance-helper does MORE THAN HALF the effort. [place] lifts or holds trunk or limbs and provides more than half the effort. 6-Czaichujj-zikvvx does ALL the effort. Patient does none of the effort to complete the activity. Or, the assistance of 2 or more helpers is required for the patient to complete the activity. If activity was not attempted, code reason: 7-Patient Refused. 9-Not Applicable-not attempted and the patient did not perform the activity before the current illness, exacerbation or injury. 10-Not Attempted due to Environmental Limitations-(lack of equipment, weather restraints, etc.). 88-Not Attempted due to Medical Conditions or Safety Concerns. Education OT Patient Education: Energy conservation, Modified ADL techniques, Progress toward Goal/Update tx plan, Transfer techniques Teaching Recipient: Patient Teaching Methods: Demonstration, Discussion Response to Teaching: Verbalize Understanding, Return Demonstration OT Short Term Goals Short Term Goals Time Frame: Aug 30, 2021 Eatin Oral hygiene: 6 Toileting hygiene: 6 Shower/bathe self: 3 Upper body dressin Lower body dressin Putting on/taking off footwear: 5 OT Civil Rights Representative Goals Custodial Goals Time Frame: Sep 11, 2021 Eating (QC): 6 Oral Hygiene (QC): 6 Toileting Hygiene (QC): 6 Shower/Bathe Self (QC): 6 Upper Body Dressing (QC): 6 Lower Body Dressing (QC): 6 On/Off Footwear (QC): 6 1=Demonstrate adherence to instructed precautions during ADL tasks. 2=Patient will verbalize/demonstrate understanding of assistive devices/mod ifications for ADL. 3=Patient will improve strength/tolerance for activity to enable patient to perform ADL's. OT Education/Plan Problem List/Assessment Assessment: Decreased Activ Tolerance, Decreased UE Strength, Impaired Self- Care Skills Discharge Recommendations Plan/Recommendations: Continue POC Treatment Plan/Plan of Care Patient would benefit from OT for education, treatment and training to promote i ndependence in ADL's, mobility, safety and/or upper extremity function for ADL's. Plan of Care: ADL Retraining, Functional Mobility, Group Exercise/Act as Ind, UE Funct Exercise/Act Treatment Duration: Sep 11, 2021 Frequency: At least 5 of 7 days/Wk (IRF) Estimated Hrs Per Day: 1.5 hours per day Agreement: Yes Rehab Potential: Good Time/GCodes Start Time: 10:00 Stop Time: 11:00 Total Time Billed (hr/min): 60 Billed Treatment Time 1 visit- ADL 4 (60 mins) LEEANNE GLEASON Aug 28, 2021 11:05
--- NOTE | 2021-08-28 12:13 | Physical Therapy Daily Note ---
PT Daily Note-Current Subjective Pt sitting in recliner upon arrival. Pt reported that RT had downgraded needed O2 from 6L to 5L at rest but still 10L during exercise. Pt agrees to PT. Pain Location: No Pain Reported Mental Status Patient Orientation: Person, Place, Time, Situation Attachments: Oxygen (10L during exercise & 5L now at rest) Transfers SCALE: Activities may be completed with or without assistive devices. 5-Gxnuynwrzu-alristz completes the activity by him/herself with no assistance from a helper. 5-Set-up or Clean-up Assistance-helper sets up or cleans up; patient completes a ctivity. [place] assists only prior to or following the activity. 4-Supervision or Touching Assistance-helper provides verbal cues and/or touching/steadying and/or contact guard assistance as patient completes activity. Assistance may be provided throughout the activity or intermittently. 3-Partial/Moderate Assistance-helper does LESS THAN HALF the effort. [place] lifts, holds or supports trunk or limbs, but provides less than half the effort. 2-Substantial/Maximal Assistance-helper does MORE THAN HALF the effort. [place] lifts or holds trunk or limbs and provides more than half the effort. 9-Lbcrtncan-happcw does ALL the effort. Patient does none of the effort to complete the activity. Or, the assistance of 2 or more helpers is required for the patient to complete the activity. If activity was not attempted, code reason: 7-Patient Refused. 9-Not Applicable-not attempted and the patient did not perform the activity before the current illness, exacerbation or injury. 10-Not Attempted due to Environmental Limitations-(lack of equipment, weather restraints, etc.). 88-Not Attempted due to Medical Conditions or Safety Concerns. Sit to Stand (QC): 5 Toilet Transfer (QC): 5 Weight Bearing Full Weight Bearing Full Weight Bearing Gait Training Does the Patient Walk?: Yes Distance: 250', 75', 150' Walk 10 feet (QC): 5 Walk 50 ft with 2 Turns(QC): 5 Walk 150 ft (QC): 5 Gait Persons Needed: 1 Gait Assistive Device: FWW Wheelchair Training Does the Pt Use a Wheelchair?: No Exercises NuStep Minutes: 17 NuStep Workload: 5 Treatments [id number]: TF to standing and amb. in hallway. Pt uses NuStep for 17m at WL 5. Pt also completes Seated Ex then RB. Pt amb. in hallway and returns to room to use BR and rest in recliner. All needs met, call light in hand. [id number]: TF to standing, declines need for BR. Pt transfers to EOB then supine. Pt completes Supine EX in bed before resting. All needs met, call light in hand. Nurse is notified at end of tx that pt is ready for Suppository. Assessment Current Status: Good Progress O2 is monitored during tx. Pt is still 10L during tx and 5L at rest. O2 remains 95% and higher during ambulation and use of NuStep in morning tx. PT Short Term Goals Short Term Goals Time Frame: Aug 29, 2021 Roll Left & Right: 6 Sit to lyin Lying to sitting on side of be: 6 Sit to stand: 4 (SBA) Chair/xlp-kh-eislx transfer: 4 (SBA) Walk 10 feet: 4 (SBA) Walk 50 feet with two turns: 4 (SBA) PT Saddle Stitching Machine Operator Goals Saddle Stitching Machine Operator Goals PT Saddle Stitching Machine Operator Goals Time Frame: Sep 12, 2021 Roll Left & Right (QC): 6 Sit to Lying (QC): 6 Lying-Sitting on Side/Bed(QC): 6 Sit to Stand (QC): 6 Chair/Msj-zt-[place] Xfer(QC): 6 Toilet Transfer (QC): 6 Car Transfer (QC): 6 Does the Patient Walk: Yes Walk 10 feet (QC): 6 Walk 50ft with 2 Turns (QC): 6 Walk 150 ft (QC): 6 Walking 10ft on Uneven Surface: 6 1 Step (curb) (QC): 5 4 Steps (QC): 5 12 Steps (QC): 88 Picking up an Object (QC): 6 Wheel 50 feet with 2 turns (QC: 9 Wheel 150 feet: 9 PT Plan Problem List Problem List: Activity Tolerance Treatment/Plan Treatment Plan: Continue Plan of Care Treatment Plan: Bed Mobility, Education, Functional Activity Yanni, Functional Strength, Group Therapy, Gait, Safety, Therapeutic Exercise, Transfers Treatment Duration: Sep 12, 2021 Frequency: At least 5 of 7 days/Wk (IRF) Estimated Hrs Per Day: 1.5 hours per day Patient and/or Family Agrees t: Yes Time/GCodes Time In: 1100 Time Out: 1200 Total Billed Treatment Time: 60 Total Billed Treatment [id number]: 1, GT x2 (30m) & EX x2 (30m) [id number]: 1, EX (20m) & GT (10m) VIRGEN WALTER IMCU SPECIALIST Aug 28, 2021 12:13
[2021-08-28] MEDS: clonazePAM 0.5 MG (KlonoPIN) TAB PO SCH ×2 (12:27→23:18)
--- NOTE | 2021-08-28 14:04 | Occupational Ther Daily Note ---
OT Current Status-Daily Note Subjective Pt alert, sitting at recliner when OT entered. Pt agreed to therapy. No c/o pain reported. Mental Status/Objective Patient Orientation: Person, Place, Time, Situation Attachments: Oxygen ADL-Treatment Once in room, pt requested to use bathroom. Pt ambulated to bathroom and transferred to toilet with supervision. Pt completed toilet hygine with supervision. Pt sit-stand from toilet to FWW with supervision. Pt ambulated to room and transferred to recliner. Pt O2 at 85% but was able to quickly recover to 96% with pursed lip breathing technique. After session, O2 at 5L at 96%. All needs met and call light in reach. Therapy Code Descriptions/Definitions Functional [place] Measure: 0=Not Assessed/NA 4=Minimal Assistance 1=Total Assistance 5=Supervision or Setup 2=Maximal Assistance 6=Modified [place] 3=Moderate Assistance 7=Complete IndependenceSCALE: Activities may be completed with or without assistive devices. 9-Onkecjfssv-vfewmpv completes the activity by him/herself with no assistance from a helper. 5-Set-up or Clean-up Assistance-helper sets up or cleans up; patient completes activity. [place] assists only prior to or following the activity. 4-Supervision or Touching Assistance-helper provides verbal cues and/or touching/steadying and/or contact guard assistance as patient completes activity. Assistance may be provided throughout the activity or intermittently. 3-Partial/Moderate Assistance-helper does LESS THAN HALF the effort. [place] lifts, holds or supports trunk or limbs, but provides less than half the effort. 2-Substantial/Maximal Assistance-helper does MORE THAN HALF the effort. [place] lifts or holds trunk or limbs and provides more than half the effort. 7-Luwrtutcn-qlfevb does ALL the effort. Patient does none of the effort to complete the activity. Or, the assistance of 2 or more helpers is required for the patient to complete the activity. If activity was not attempted, code reason: 7-Patient Refused. 9-Not Applicable-not attempted and the patient did not perform the activity befo re the current illness, exacerbation or injury. 10-Not Attempted due to Environmental Limitations-(lack of equipment, weather re straints, etc.). 88-Not Attempted due to Medical Conditions or Safety Concerns. Other Treatment Pt at 5L O2 at 94%. Pt increased to 10L with activity. Pt sit-stand from recliner to FWW with supervision. Pt ambulated to gym using FWW with supervision. Pt at 94% when seated at chair before beginning exercise. Pt participated in 10 min arm bike at min resistance to increase activity tolerance for improved safety when completing ADLs. Pt required 1 resting break during exercise and O2 maintained at 96%. Pt sit-stand from chair to FWW with supervision. Pt ambulated to room using FWW with supervision. Education OT Patient Education: Energy conservation, Exercise program, Purpose of tx/functional activities Teaching Recipient: Patient Teaching Methods: Demonstration, Discussion Response to Teaching: Verbalize Understanding, Return Demonstration OT Short Term Goals Short Term Goals Time Frame: Aug 30, 2021 Eatin Oral hygiene: 6 Toileting hygiene: 6 Shower/bathe self: 3 Upper body dressin Lower body dressin Putting on/taking off footwear: 5 OT Starcher And Tenter Range Feeder Goals Starcher And Tenter Range Feeder Goals Time Frame: Sep 11, 2021 Eating (QC): 6 Oral Hygiene (QC): 6 Toileting Hygiene (QC): 6 Shower/Bathe Self (QC): 6 Upper Body Dressing (QC): 6 Lower Body Dressing (QC): 6 On/Off Footwear (QC): 6 1=Demonstrate adherence to instructed precautions during ADL tasks. 2=Patient will verbalize/demonstrate understanding of assistive devices/modifications for ADL. 3=Patient will improve strength/tolerance for activity to enable patient to perform ADL's. OT Education/Plan Problem List/Assessment Assessment: Decreased Activ Tolerance, Decreased UE Strength, Impaired Self- Care Skills Discharge Recommendations Plan/Recommendations: Continue POC Treatment Plan/Plan of Care Patient would benefit from OT for education, treatment and training to promote independence in ADL's, mobility, safety and/or upper extremity function for ADL's. Plan of Care: ADL Retraining, Functional Mobility, Group Exercise/Act as Ind, UE Funct Exercise/Act Treatment Duration: Sep 11, 2021 Frequency: At least 5 of 7 days/Wk (IRF) Estimated Hrs Per Day: 1.5 hours per day Agreement: Yes Rehab Potential: Good Time/GCodes Start Time: 13:05 Stop Time: 13:35 Total Time Billed (hr/min): 30 Billed Treatment Time 1 visit - EX 1 (17 mins) ADL 1 (13 mins) 30 mins LEEANNE GLEASON Aug 28, 2021 14:04
[2021-08-28] MEDS: BISACODYL 10 MG SUPP (DULCOLAX) RC SCH (14:59)
[2021-08-28 20:00] VITALS: BP 124/69
[2021-08-28] MEDS: LORATADINE (CLARITIN) 10 MG TAB PO SCH (21:19)
[2021-08-29] MEDS: inSUlin ASPART (NovoLOG) 1 UNIT/0.01 ML (CHARGE PER UNIT) SC SCH ×4 (05:48→20:41)
[2021-08-29] MEDS: LEVOTHYROXINE 88 MCG (LEVOTHORID) TAB PO SCH (06:18)
[2021-08-29] MEDS: RT-ALBUTEROL/IPRATROPIUM 3 ML (DUONEB) VIAL IH SCH ×2 (07:51→19:54)
[2021-08-29 08:00] VITALS: BP 118/67
[2021-08-29] MEDS: DOCUSATE SODIUM 100 MG (COLACE) CAP PO SCH ×4 (08:37→19:46)
--- NOTE | 2021-08-29 08:52 | Occupational Ther Daily Note ---
OT Current Status-Daily Note Subjective Pt alert, sitting with HOB raised when OT entered. Pt agreed to therapy. No c/o pain reported. Mental Status/Objective Patient Orientation: Person, Place, Time, Situation ADL-Treatment Pt agreed to shower. Pt at 5L of 02 at 95%. Increased to 10L with activity. Pt sit-stand from EOB to FWW with supervision. Pt ambulated from room to shower and transferred to shower bench using FWW with supervision. Pt's O2 maintained 94% throughout shower when sitting. Pt fatigued quickly when standing and decreased to 84% but was able to quickly recover to 94%. Pt donned UB dressing independently. Pt sit-stand from shower bench using grab bars to doff LB dressing. Pt doffed socks using figure 4 technique. Pt cleansed/dried UB, chest, abdomen while seating in shower with supervision. Pt sit-stand from shower bench using grab bars to cleanse jadon area and buttocks with supervision. Pt required shower bench, long handled sponge, grab bars, and hand held shower head to complete shower safely. Pt transferred to / for dressing. After set up, pt donned UB dressing. Pt threaded BLE into LB dressing while seated. Pt sit-stand from / to FWW to hike LB dressing with supervision. Pt then completed oral hygiene and grooming independently while seated in / due to fatigue. Pt then wheeled self to recliner and SPT from / to recliner with supervision. After therapy pt sitting in recliner and O2 at 5L 95%. All needs met and call light in reach. Therapy Code Descriptions/Definitions Functional [place] Measure: 0=Not Assessed/NA 4=Minimal Assistance 1=Total Assistance 5=Supervision or Setup 2=Maximal Assistance 6=Modified [place] 3=Moderate Assistance 7=Complete IndependenceSCALE: Activities may be completed with or without assistive devices. 2-Fcwredzjor-aqobefo completes the activity by him/herself with no assistance from a helper. 5-Set-up or Clean-up Assistance-helper sets up or cleans up; patient completes activity. [place] assists only prior to or following the activity. 4-Supervision or Touching Assistance-helper provides verbal cues and/or touch ing/steadying and/or contact guard assistance as patient completes activity. Assistance may be provided throughout the activity or intermittently. 3-Partial/Moderate Assistance-helper does LESS THAN HALF the effort. [place] lifts, holds or supports trunk or limbs, but provides less than half the effort. 2-Substantial/Maximal Assistance-helper does MORE THAN HALF the effort. [place] lifts or holds trunk or limbs and provides more than half the effort. 4-Fhoefyeke-mfbafc does ALL the effort. Patient does none of the effort to complete the activity. Or, the assistance of 2 or more helpers is required for the patient to complete the activity. If activity was not attempted, code reason: 7-Patient Refused. 9-Not Applicable-not attempted and the patient did not perform the activity before the current illness, exacerbation or injury. 10-Not Attempted due to Environmental Limitations-(lack of equipment, weather restraints, etc.). 88-Not Attempted due to Medical Conditions or Safety Concerns. Education OT Patient Education: Correct positioning, Energy conservation, Transfer techniques Teaching Recipient: Patient Teaching Methods: Demonstration, Discussion Response to Teaching: Verbalize Understanding, Return Demonstration OT Short Term Goals Short Term Goals Time Frame: Aug 30, 2021 Eatin Oral hygiene: 6 Toileting hygiene: 6 Shower/bathe self: 3 Upper body dressin Lower body dressin Putting on/taking off footwear: 5 OT Longterm Goals Longterm Goals Time Frame: Sep 11, 2021 Eating (QC): 6 Oral Hygiene (QC): 6 Toileting Hygiene (QC): 6 Shower/Bathe Self (QC): 6 Upper Body Dressing (QC): 6 Lower Body Dressing (QC): 6 On/Off Footwear (QC): 6 1=Demonstrate adherence to instructed precautions during ADL tasks. 2=Patient will verbalize/demonstrate understanding of assistive devices/modifications for ADL. 3=Patient will improve strength/tolerance for activity to enable patient to perform ADL's. OT Education/Plan Problem List/Assessment Assessment: Decreased Activ Tolerance, Decreased UE Strength, Impaired Self- Care Skills Discharge Recommendations Plan/Recommendations: Continue POC Treatment Plan/Plan of Care Patient would benefit from OT for education, treatment and training to promote independence in ADL's, mobility, safety and/or upper extremity function for ADL's. Plan of Care: ADL Retraining, Functional Mobility, Group Exercise/Act as Ind, UE Funct Exercise/Act Treatment Duration: Sep 11, 2021 Frequency: At least 5 of 7 days/Wk (IRF) Estimated Hrs Per Day: 1.5 hours per day Agreement: Yes Rehab Potential: Good Time/GCodes Start Time: 08:00 Stop Time: 09:00 Total Time Billed (hr/min): 60 Billed Treatment Time 1 visit - ADL 4 (60 mins) LEEANNE GLEASON Aug 29, 2021 08:52
[2021-08-29] MEDS: metFORMIN 500 MG (GLUCOPHAGE) TAB PO SCH ×2 (08:57→18:23)
[2021-08-29] MEDS: PANTOPRAZOLE 40 MG (PROTONIX) TAB PO SCH (08:57)
[2021-08-29] MEDS: DULoxetine 20 MG (CYMBALTA) CAP PO SCH (08:57)
[2021-08-29] MEDS: glipiZIDE 5 MG (GLUCOTROL) TAB PO SCH ×2 (08:58→18:23)
[2021-08-29] MEDS: BISACODYL 10 MG SUPP (DULCOLAX) RC SCH (08:58)
[2021-08-29] MEDS: polyethylene glycoL POWDER 17 GM (MIRALAX) PACK PO SCH ×2 (08:58→19:54)
[2021-08-29] MEDS: SENNA W/DOCUSATE (SENOKOT S) TABLET PO SCH ×2 (08:58→19:46)
[2021-08-29] MEDS: BUMETANIDE 1 MG (BUMEX) TAB PO SCH (09:03)
[2021-08-29] MEDS: CATHETER FLUSH 10 ML SYR IV SCH ×2 (09:05→20:43)
--- NOTE | 2021-08-29 10:11 | PM&R Progress Note ---
Subjective HPI/CC On Admission Date Seen by Provider: Aug 29, 2021 Time Seen by Provider: 11:00 Subjective/Events-last exam 08/29/2021: Patient doing well Oxygen study will be done in preparation of discharge on Thursday morning Check meds and labs Bowels are moving now No significant pain reported Remains on 5 L of oxygen at rest. 08/28/2021: Patient doing well Down to 5 L of oxygen at rest Nauseated so recommended suppository and fleets Home oxygen study will be done Discharge plan for Thursday08/27/21: Patient doing well Had desaturation through the night when oxygen tubing was somehow blocked? No BM yet Monitoring oxygen closely 08/26/21: Patient doing well No BM yet and refuses suppository VRE isolation in place buttermaker apparently 6L/min O2 at rest and 10L/min activity 08/25/21: Patient doing well Refuses suppository We will give her a half bottle of mag citrate Check meds and labs We will follow up on VRE with infection control tomorrow 08/24/2021: Patient doing well Insulin managed blood sugars Oxygen maintained Using incentive spirometer 08/23/2021: Patient doing really well Moving around much better Desaturation noted at any exertion Increasing her stamina Blood sugars managed No other concerns Review of Systems General: Fatigue, Malaise Pulmonary: Dyspnea Objective Exam Vital Signs Vital Signs Date Time Temp Pulse Resp B/P (MAP) Pulse Ox O2 Delivery O2 Flow Rate FiO2 08/29/21 09:18 High Flow N/C 5.00 08/29/21 08:00 36.5 92 14 118/67 (84) 94 Capillary Refill : General Appearance: No Apparent Distress, WD/WN, Anxious, Chronically ill HEENT: PERRL/EOMI, Normal ENT Inspection, Pharynx Normal Neck: Full Range of Motion, Normal Inspection, Non Tender, Supple, Carotid Bruit Respiratory: Chest Non Tender, Lungs Clear, No Accessory Muscle Use, No Respiratory Distress, Decreased Breath Sounds Cardiovascular: Regular Rate, Rhythm, No Edema, No Gallop, No JVD, No Murmur, Normal Peripheral Pulses Gastrointestinal: Normal Bowel Sounds, No Organomegaly, No Pulsatile Mass, Non Tender, Soft Back: Normal Inspection, No CVA Tenderness, No Vertebral Tenderness Extremity: Normal Capillary Refill, Normal Inspection, Normal Range of Motion, Non Tender, No Calf Tenderness, No Pedal Edema Neurologic/Psychiatric: Alert, Oriented x3, No Motor/Sensory Deficits, Normal Mood/Affect, moth proofer II-XII Norm as Tested, Motor Weakness (Generalized 4/5 all extremities) Skin: Normal Color, Warm/Dry Lymphatic: No Adenopathy Results/Procedures Lab Patient resulted labs reviewed. FIM Transfers Therapy Code Descriptions/Definitions Functional [place] Measure: 0=Not Assessed/NA 4=Minimal Assistance 1=Total Assistance 5=Supervision or Setup 2=Maximal Assistance 6=Modified [place] 3=Moderate Assistance 7=Complete IndependenceSCALE: Activities may be completed with or without assistive devices. 5-Kogdytrkkp-cmfiimy completes the activity by him/herself with no assistance from a helper. 5-Set-up or Clean-up Assistance-helper sets up or cleans up; patient completes activity. [place] assists only prior to or following the activity. 4-Supervision or Touching Assistance-helper provides verbal cues and/or touching/steadying and/or contact guard assistance as patient completes activity. Assistance may be provided throughout the activity or intermittently. 3-Partial/Moderate Assistance-helper does LESS THAN HALF the effort. [place] lifts, holds or supports trunk or limbs, but provides less than half the effort. 2-Substantial/Maximal Assistance-helper does MORE THAN HALF the effort. [place] lifts or holds trunk or limbs and provides more than half the effort. 4-Pxktmduwh-dzdwob does ALL the effort. Patient does none of the effort to complete the activity. Or, the assistance of 2 or more helpers is required for the patient to complete the activity. If activity was not attempted, code reason: 7-Patient Refused. 9-Not Applicable-not attempted and the patient did not perform the activity before the current illness, exacerbation or injury. 10-Not Attempted due to Environmental Limitations-(lack of equipment, weather restraints, etc.). 88-Not Attempted due to Medical Conditions or Safety Concerns. Roll Left to Right (QC): 6 Sit to Lying (QC): 6 Sit to Stand (QC): 5 Chair/Aan-pa-Nlovt Xfer(QC): 6 Car Transfer (QC): 4 Gait Training Does the Patient Walk?: Yes Distance: 250', 75', 150' Walk 10 feet (QC): 5 Walk 50 ft with 2 Turns(QC): 5 Walk 150 ft (QC): 5 Walking 10ft/uneven surface-QC: 4 Gait Persons Needed: 1 Gait Assistive Device: FWW Wheelchair Training Does the Pt Use a Wheelchair?: Yes Distance: 150' Wheel 50 ft with 2 turns (QC): 4 Wheel 150 ft (QC): 4 Type of Wheelchair: Manual Stair Training Stair Training: Handrails/: 2 handrails #of Steps: 1 1 Step (curb) (QC): 4 4 Steps (QC): 88 12 Steps (QC): 88 Balance Picking up an Object (QC): 88 ADL-Treatment Eating (QC): 5 Oral Hygiene (QC): 5 Shower/Bathe Self (QC): 4 Upper Body Dressing (QC): 4 Lower Body Dressing (QC): 3 (Min A to hike LB dressing due to fatigue.) On/Off Footwear (QC): 2 Toileting Hygiene (QC): 4 Toilet Transfer (QC): 4 Assessment/Plan Assessment and Plan Assess & Plan/Chief Complaint Assessment: Post Covid syndrome Severe hypoxia with exertion Diabetes Anemia Hypothyroidism Recent weight loss Constipation Plan: Oxygen supplementation Rehab protocol 23/05 due to hypoxia Home meds Monitor sugar Pulmonary consult 08/23/2021: Pulmonary consult appreciated Supportive care PT and OT 08/24/2021: Patient doing well Supportive care to continue 08/25/21: Supportive care VRE isolation so will inquire with infection control about how to DC that tomorrow BM regimen 08/26/21: [facility] but will verify with infection control Monitor closely BM regimen 08/27/21: Monitor oxygen closely BM regimen 08/28/2021: Discharge plan for Thursday Oxygen supplementation maintained Home O2 study 08/29/2021: Home O2 study Discharge home on Thursday (1) Anemia (2) Hypothyroidism (3) Weight loss (4) Hypoxemia (5) Oxygen dependent (6) Anxiety (7) Post-COVID syndrome (8) T2DM (type 2 diabetes mellitus) Status: Acute Critical Care Critical Care: Critically Ill Patient VALARIE JENSEN DO Aug 29, 2021 10:11
--- NOTE | 2021-08-29 11:49 | Physical Therapy Daily Note ---
PT Daily Note-Current Subjective Patient in recliner agrees to PT, has no complaints of pain. Appearance Patient in recliner post tx with nurse call, phone, tray, all needs met. Mental Status Patient Orientation: Person, Place, Situation, Normal For Age Attachments: Oxygen (5L at rest, 10L with activity) Transfers SCALE: Activities may be completed with or without assistive devices. 6-Gakhxsjkne-dyoaoag completes the activity by him/herself with no assistance from a helper. 5-Set-up or Clean-up Assistance-helper sets up or cleans up; patient completes activity. [place] assists only prior to or following the activity. 4-Supervision or Touching Assistance-helper provides verbal cues and/or touching/steadying and/or contact guard assistance as patient completes activity. Assistance may be provided throughout the activity or intermittently. 3-Partial/Moderate Assistance-helper does LESS THAN HALF the effort. [place] lifts, holds or supports trunk or limbs, but provides less than half the effort. 2-Substantial/Maximal Assistance-helper does MORE THAN HALF the effort. [place] lifts or holds trunk or limbs and provides more than half the effort. 6-Yepamjjhb-edsugh does ALL the effort. Patient does none of the effort to complete the activity. Or, the assistance of 2 or more helpers is required for the patient to complete the activity. If activity was not attempted, code reason: 7-Patient Refused. 9-Not Applicable-not attempted and the patient did not perform the activity before the current illness, exacerbation or injury. 10-Not Attempted due to Environmental Limitations-(lack of equipment, weather restraints, etc.). 88-Not Attempted due to Medical Conditions or Safety Concerns. Sit to Stand (QC): 6 Chair/Pwl-fh-Mvsji Xfer(QC): 6 Weight Bearing Full Weight Bearing Full Weight Bearing Gait Training Distance: 200'x4 Walk 10 feet (QC): 6 Walk 50 ft with 2 Turns(QC): 6 Walk 150 ft (QC): 6 Gait Assistive Device: Cane Single Point Patient ambulated once with a rolling walker and then with a single point cane the next 3 times. She is independent with ambulation using a single point cane. Slow but steady ambulation, O2 drops to 86% with ambulation but comes back up quickly with rest. Exercises NuStep Minutes: 15 NuStep Workload: 4 Treatments ambulation, transfers, strength and endurance training Assessment Current Status: Fair Progress improving endurance but still needs frequent rest breaks due to drop in O2 with activity PT Short Term Goals Short Term Goals Time Frame: Aug 29, 2021 Roll Left & Right: 6 Sit to lyin Lying to sitting on side of be: 6 Sit to stand: 4 (SBA) Chair/tyz-dm-gqnyl transfer: 4 (SBA) Walk 10 feet: 4 (SBA) Walk 50 feet with two turns: 4 (SBA) PT Education Site Manager Goals Education Site Manager Goals PT Half-Way Goals Time Frame: Sep 12, 2021 Roll Left & Right (QC): 6 Sit to Lying (QC): 6 Lying-Sitting on Side/Bed(QC): 6 Sit to Stand (QC): 6 Chair/Fhm-ww-Jkygz Xfer(QC): 6 Toilet Transfer (QC): 6 Car Transfer (QC): 6 Does the Patient Walk: Yes Walk 10 feet (QC): 6 Walk 50ft with 2 Turns (QC): 6 Walk 150 ft (QC): 6 Walking 10ft on Uneven Surface: 6 1 Step (curb) (QC): 5 4 Steps (QC): 5 12 Steps (QC): 88 Picking up an Object (QC): 6 Wheel 50 feet with 2 turns (QC: 9 Wheel 150 feet: 9 PT Plan Problem List Problem List: Activity Tolerance, Functional Strength, Safety, Balance, Gait, Transfer, ROM Treatment/Plan Treatment Plan: Continue Plan of Care Treatment Plan: Bed Mobility, Education, Functional Activity Yanni, Functional Strength, Group Therapy, Gait, Safety, Therapeutic Exercise, Transfers Treatment Duration: Sep 12, 2021 Frequency: At least 5 of 7 days/Wk (IRF) Estimated Hrs Per Day: 1.5 hours per day Patient and/or Family Agrees t: Yes Safety Risks/Education Patient Education: Gait Training, Transfer Techniques, Correct Positioning, Safety Issues Teaching Recipient: Patient Teaching Methods: Demonstration, Discussion Response to Teaching: Reinforcement Needed Time/GCodes Time In: 1100 Time Out: 1200 Total Billed Treatment Time: 60 Total Billed Treatment 1 visit EX 15' FA 45' LANDON BUTCHER PT Aug 29, 2021 11:49
[2021-08-29] MEDS: clonazePAM 0.5 MG (KlonoPIN) TAB PO SCH ×2 (11:50→23:17)
--- NOTE | 2021-08-29 13:58 | Occupational Ther Daily Note ---
OT Current Status-Daily Note Subjective Pt alert, sitting at recliner when OT entered. Pt agreed to therapy. No c/o pain reported. Mental Status/Objective Patient Orientation: Person, Place, Time, Situation ADL-Treatment Therapy Code Descriptions/Definitions Functional [place] Measure: 0=Not Assessed/NA 4=Minimal Assistance 1=Total Assistance 5=Supervision or Setup 2=Maximal Assistance 6=Modified [place] 3=Moderate Assistance 7=Complete IndependenceSCALE: Activities may be completed with or without assistive devices. 9-Mpudombdjn-gwqxqtr completes the activity by him/herself with no assistance from a helper. 5-Set-up or Clean-up Assistance-helper sets up or cleans up; patient completes activity. [place] assists only prior to or following the activity. 4-Supervision or Touching Assistance-helper provides verbal cues and/or touching/steadying and/or contact guard assistance as patient completes activity. Assistance may be provided throughout the activity or intermittently. 3-Partial/Moderate Assistance-helper does LESS THAN HALF the effort. [place] lifts, holds or supports trunk or limbs, but provides less than half the effort. 2-Substantial/Maximal Assistance-helper does MORE THAN HALF the effort. [place] lifts or holds trunk or limbs and provides more than half the effort. 5-Mzkxnehox-nfhqiw does ALL the effort. Patient does none of the effort to complete the activity. Or, the assistance of 2 or more helpers is required for the patient to complete the activity. If activity was not attempted, code reason: 7-Patient Refused. 9-Not Applicable-not attempted and the patient did not perform the activity before the current illness, exacerbation or injury. 10-Not Attempted due to Environmental Limitations-(lack of equipment, weather restraints, etc.). 88-Not Attempted due to Medical Conditions or Safety Concerns. Other Treatment Pt sit-stand from recliner to cane independently. Pt participated in functional mobility task from room to gym using cane with independence. Once seated in chair pt at 85% but was able to recover quickly with pursed lip breathing. Skilled instruction required of 3lb BUE exercises. Pt completed x2 sets of 10 reps of 3lb BUE exercises while seated to increase BUE strength for improved independence and safety with ADLs. Pt at 10L O2 at 99%. Decreased to 8L O2 and maintained 94%-96%. Pt required resting break throughout exercises due to decreased BUE strength and activity tolerance. After therapy, pt left in gym with PT to began treatment. All needs met. Education OT Patient Education: Energy conservation, Exercise program, Home exercise program, Progress toward Goal/Update tx plan Teaching Recipient: Patient Teaching Methods: Demonstration, Discussion Response to Teaching: Verbalize Understanding, Return Demonstration OT Short Term Goals Short Term Goals Time Frame: Aug 30, 2021 Eatin Oral hygiene: 6 Toileting hygiene: 6 Shower/bathe self: 3 Upper body dressin Lower body dressin Putting on/taking off footwear: 5 OT Detention Goals Egyptologist Goals Time Frame: Sep 11, 2021 Eating (QC): 6 Oral Hygiene (QC): 6 Toileting Hygiene (QC): 6 Shower/Bathe Self (QC): 6 Upper Body Dressing (QC): 6 Lower Body Dressing (QC): 6 On/Off Footwear (QC): 6 1=Demonstrate adherence to instructed precautions during ADL tasks. 2=Patient will verbalize/demonstrate understanding of assistive devices/modifications for ADL. 3=Patient will improve strength/tolerance for activity to enable patient to perform ADL's. OT Education/Plan Problem List/Assessment Assessment: Decreased Activ Tolerance, Decreased UE Strength, Impaired Self- Care Skills Discharge Recommendations Plan/Recommendations: Continue POC Treatment Plan/Plan of Care Patient would benefit from OT for education, treatment and training to promote independence in ADL's, mobility, safety and/or upper extremity function for ADL's. Plan of Care: ADL Retraining, Functional Mobility, Group Exercise/Act as Ind, UE Funct Exercise/Act Treatment Duration: Sep 11, 2021 Frequency: At least 5 of 7 days/Wk (IRF) Estimated Hrs Per Day: 1.5 hours per day Agreement: Yes Rehab Potential: Good Time/GCodes Start Time: 13:00 Stop Time: 13:30 Total Time Billed (hr/min): 30 Billed Treatment Time 1 visit- FA 1 (9 mins) EX 1 (21 mins) 30 mins LEEANNE GLEASON Aug 29, 2021 13:58
--- NOTE | 2021-08-29 13:58 | Physical Therapy Daily Note ---
PT Daily Note-Current Subjective Patient in therapy gym pre tx, just got done with OT, agrees to PT, has no complaints of pain. Appearance Patient in recliner post tx with nurse call, phone, tray, all needs met. Mental Status Patient Orientation: Normal For Age Attachments: Oxygen (5L at rest, 8L with activity) Transfers SCALE: Activities may be completed with or without assistive devices. 3-Seswesfwba-ijiycqd completes the activity by him/herself with no assistance from a helper. 5-Set-up or Clean-up Assistance-helper sets up or cleans up; patient completes activity. [place] assists only prior to or following the activity. 4-Supervision or Touching Assistance-helper provides verbal cues and/or touching/steadying and/or contact guard assistance as patient completes activity. Assistance may be provided throughout the activity or intermittently. 3-Partial/Moderate Assistance-helper does LESS THAN HALF the effort. [place] lifts, holds or supports trunk or limbs, but provides less than half the effort. 2-Substantial/Maximal Assistance-helper does MORE THAN HALF the effort. [place] lifts or holds trunk or limbs and provides more than half the effort. 6-Invatewyz-idvren does ALL the effort. Patient does none of the effort to complete the activity. Or, the assistance of 2 or more helpers is required for the patient to complete the activity. If activity was not attempted, code reason: 7-Patient Refused. 9-Not Applicable-not attempted and the patient did not perform the activity before the current illness, exacerbation or injury. 10-Not Attempted due to Environmental Limitations-(lack of equipment, weather restraints, etc.). 88-Not Attempted due to Medical Conditions or Safety Concerns. Sit to Stand (QC): 6 Chair/Ljn-nm-[place]ly[place] Xfer(QC): 6 Weight Bearing Full Weight Bearing Full Weight Bearing Gait Training Distance: 200'x2, 120' Walk 10 feet (QC): 6 Walk 50 ft with 2 Turns(QC): 6 Walk 150 ft (QC): 6 Gait Assistive Device: Cane Single Point slow but steady ambulation, O2 still drops to mid 80's with activity but is on slightly less O2 with activity Exercises LAQ alternating for 5 min with 2# ankle weights Treatments transfers, ambulation, functional strengthening Assessment Current Status: Fair Progress improving endurance PT Short Term Goals Short Term Goals Time Frame: Aug 29, 2021 Roll Left & Right: 6 Sit to lyin Lying to sitting on side of be: 6 Sit to stand: 4 (SBA) Chair/elg-fp-mywye transfer: 4 (SBA) Walk 10 feet: 4 (SBA) Walk 50 feet with two turns: 4 (SBA) PT Group Home Goals [employer] Specialist Goals PT Group Home Goals Time Frame: Sep 12, 2021 Roll Left & Right (QC): 6 Sit to Lying (QC): 6 Lying-Sitting on Side/Bed(QC): 6 Sit to Stand (QC): 6 Chair/Kpz-ud-Dcptv Xfer(QC): 6 Toilet Transfer (QC): 6 Car Transfer (QC): 6 Does the Patient Walk: Yes Walk 10 feet (QC): 6 Walk 50ft with 2 Turns (QC): 6 Walk 150 ft (QC): 6 Walking 10ft on Uneven Surface: 6 1 Step (curb) (QC): 5 4 Steps (QC): 5 12 Steps (QC): 88 Picking up an Object (QC): 6 Wheel 50 feet with 2 turns (QC: 9 Wheel 150 feet: 9 PT Plan Problem List Problem List: Activity Tolerance, Functional Strength, Safety, Balance, Gait, Transfer, Bed Mobility, ROM Treatment/Plan Treatment Plan: Continue Plan of Care Treatment Plan: Bed Mobility, Education, Functional Activity Yanni, Functional Strength, Group Therapy, Gait, Safety, Therapeutic Exercise, Transfers Treatment Duration: Sep 12, 2021 Frequency: At least 5 of 7 days/Wk (IRF) Estimated Hrs Per Day: 1.5 hours per day Patient and/or Family Agrees t: Yes Safety Risks/Education Patient Education: Gait Training, Transfer Techniques, Correct Positioning, Safety Issues Teaching Recipient: Patient Teaching Methods: Demonstration, Discussion Response to Teaching: Reinforcement Needed Time/GCodes Time In: 1330 Time Out: 1400 Total Billed Treatment Time: 30 Total Billed Treatment 1 visit GT 30' LANDON BUTCHER PT Aug 29, 2021 13:58
[2021-08-29 19:47] VITALS: BP 117/61
[2021-08-29] MEDS: RT-BUDESONIDE NEBS 0.5 MG/2ML (PULMICORT) AMP IH SCH (19:54)
[2021-08-29] MEDS: LORATADINE (CLARITIN) 10 MG TAB PO SCH (20:43)
[2021-08-30] MEDS: inSUlin ASPART (NovoLOG) 1 UNIT/0.01 ML (CHARGE PER UNIT) SC SCH ×4 (05:43→20:57)
[2021-08-30] MEDS: LEVOTHYROXINE 88 MCG (LEVOTHORID) TAB PO SCH (05:49)
--- NOTE | 2021-08-30 06:10 | PM&R Progress Note ---
Subjective HPI/CC On Admission Date Seen by Provider: Aug 30, 2021 Time Seen by Provider: 06:00 Subjective/Events-last exam 08/30/21: Pt doing well Sleeping soundly Needs 5 liters of oxygen at rest and 10 on exertion and those ordered were placed Discharge planned for Thursday08/29/2021: Patient doing well Oxygen study will be done in preparation of discharge on Thursday morning Check meds and labs Bowels are moving now No significant pain reported Remains on 5 L of oxygen at rest. 08/28/2021: Patient doing well Down to 5 L of oxygen at rest Nauseated so recommended suppository and fleets Home oxygen study will be done Discharge plan for Thursday08/27/21: Patient doing well Had desaturation through the night when oxygen tubing was somehow blocked? No BM yet Monitoring oxygen closely 08/26/21: Patient doing well No BM yet and refuses suppository VRE isolation in place shelter apparently 6L/min O2 at rest and 10L/min activity 08/25/21: Patient doing well Refuses suppository We will give her a half bottle of mag citrate Check meds and labs We will follow up on VRE with infection control tomorrow 08/24/2021: Patient doing well Insulin managed blood sugars Oxygen maintained Using incentive spirometer 08/23/2021: Patient doing really well Moving around much better Desaturation noted at any exertion Increasing her stamina Blood sugars managed No other concerns Review of Systems Pulmonary: Dyspnea Objective Exam Vital Signs Vital Signs Date Time Temp Pulse Resp B/P (MAP) Pulse Ox O2 Delivery O2 Flow Rate FiO2 08/30/21 19:57 36.6 99 20 132/63 (86) 94 Nasal Cannula 5.00 Capillary Refill : General Appearance: No Apparent Distress, WD/WN, Anxious, Chronically ill HEENT: PERRL/EOMI, Normal ENT Inspection, Pharynx Normal Neck: Full Range of Motion, Normal Inspection, Non Tender, Supple, Carotid Bruit Respiratory: Chest Non Tender, Lungs Clear, No Accessory Muscle Use, No Respiratory Distress, Decreased Breath Sounds Cardiovascular: Regular Rate, Rhythm, No Edema, No Gallop, No JVD, No Murmur, Normal Peripheral Pulses Gastrointestinal: Normal Bowel Sounds, No Organomegaly, No Pulsatile Mass, Non Tender, Soft Back: Normal Inspection, No CVA Tenderness, No Vertebral Tenderness Extremity: Normal Capillary Refill, Normal Inspection, Normal Range of Motion, Non Tender, No Calf Tenderness, No Pedal Edema Neurologic/Psychiatric: Alert, Oriented x3, No Motor/Sensory Deficits, Normal Mood/Affect, international 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 FIM Transfers Therapy Code Descriptions/Definitions Functional [place] Measure: 0=Not Assessed/NA 4=Minimal Assistance 1=Total Assistance 5=Supervision or Setup 2=Maximal Assistance 6=Modified [place] 3=Moderate Assistance 7=Complete IndependenceSCALE: Activities may be completed with or without assistive devices. 4-Qlimexospo-rfzrael completes the activity by him/herself with no assistance from a helper. 5-Set-up or Clean-up Assistance-helper sets up or cleans up; patient completes activity. [place] assists only prior to or following the activity. 4-Supervision or Touching Assistance-helper provides verbal cues and/or touching/steadying and/or contact guard assistance as patient completes activity. Assistance may be provided throughout the activity or intermittently. 3-Partial/Moderate Assistance-helper does LESS THAN HALF the effort. [place] lifts, holds or supports trunk or limbs, but provides less than half the effort. 2-Substantial/Maximal Assistance-helper does MORE THAN HALF the effort. [place] lifts or holds trunk or limbs and provides more than half the effort. 2-Svfjngaxi-sqzsfw does ALL the effort. Patient does none of the effort to complete the activity. Or, the assistance of 2 or more helpers is required for the patient to complete the activity. If activity was not attempted, code reason: 7-Patient Refused. 9-Not Applicable-not attempted and the patient did not perform the activity before the current illness, exacerbation or injury. 10-Not Attempted due to Environmental Limitations-(lack of equipment, weather restraints, etc.). 88-Not Attempted due to Medical Conditions or Safety Concerns. Roll Left to Right (QC): 6 Sit to Lying (QC): 6 Sit to Stand (QC): 6 Chair/Tvc-tm-Wrbvo Xfer(QC): 6 Car Transfer (QC): 4 Gait Training Does the Patient Walk?: Yes Distance: 200'x2, 120' Walk 10 feet (QC): 6 Walk 50 ft with 2 Turns(QC): 6 Walk 150 ft (QC): 6 Walking 10ft/uneven surface-QC: 4 Gait Persons Needed: 1 Gait Assistive Device: Cane Single Point Wheelchair Training Does the Pt Use a Wheelchair?: Yes Distance: 150' Wheel 50 ft with 2 turns (QC): 4 Wheel 150 ft (QC): 4 Type of Wheelchair: Manual Stair Training Stair Training: Handrails/: 2 handrails #of Steps: 1 1 Step (curb) (QC): 4 4 Steps (QC): 88 12 Steps (QC): 88 Balance Picking up an Object (QC): 88 ADL-Treatment Eating (QC): 5 Oral Hygiene (QC): 5 Shower/Bathe Self (QC): 4 Upper Body Dressing (QC): 4 Lower Body Dressing (QC): 3 (Min A to hike LB dressing due to fatigue.) On/Off Footwear (QC): 2 Toileting Hygiene (QC): 4 Toilet Transfer (QC): 4 Assessment/Plan Assessment and Plan Assess & Plan/Chief Complaint Assessment: Post Covid syndrome Severe hypoxia with exertion Diabetes Anemia Hypothyroidism Recent weight loss Constipation Plan: Oxygen supplementation Rehab protocol 23/05 due to hypoxia Home meds Monitor sugar Pulmonary consult 08/23/2021: Pulmonary consult appreciated Supportive care PT and OT 08/24/2021: Patient doing well Supportive care to continue 08/25/21: Supportive care VRE isolation so will inquire with infection control about how to DC that tomorrow BM regimen 08/26/21: VRE isolation shelter but will verify with infection control Monitor closely BM regimen 08/27/21: Monitor oxygen closely BM regimen 08/28/2021: Discharge plan for Thursday Oxygen supplementation maintained Home O2 study 08/29/2021: Home O2 study Discharge home on Thursday08/30/21: DC tomorrow (1) Anemia (2) Hypothyroidism (3) Weight loss (4) Hypoxemia (5) Oxygen dependent (6) Anxiety (7) Post-COVID syndrome (8) T2DM (type 2 diabetes mellitus) Status: Acute Critical Care Critical Care: Critically Ill Patient VALARIE JENSEN DO Aug 30, 2021 06:10
[2021-08-30 07:34] VITALS: BP 118/68
[2021-08-30] MEDS: RT-BUDESONIDE NEBS 0.5 MG/2ML (PULMICORT) AMP IH SCH ×2 (07:36→22:03)
[2021-08-30] MEDS: RT-ALBUTEROL/IPRATROPIUM 3 ML (DUONEB) VIAL IH SCH ×2 (07:36→22:03)
--- NOTE | 2021-08-30 08:51 | Physical Therapy Daily Note ---
PT Daily Note-Current Subjective Patient in bed pre tx, agrees to PT, has no complaints of pain, she is having a slightly harder time breathing during activity today. Appearance Patient in recliner post tx with nurse call, phone, tray, all needs met. Mental Status Patient Orientation: Normal For Age Attachments: Oxygen 5L at rest, 8-10L with activity Transfers SCALE: Activities may be completed with or without assistive devices. 3-Mrtrmpnlsr-ugtrgov completes the activity by him/herself with no assistance from a helper. 5-Set-up or Clean-up Assistance-helper sets up or cleans up; patient completes activity. Bud assists only prior to or following the activity. 4-Supervision or Touching Assistance-helper provides verbal cues and/or to uching/steadying and/or contact guard assistance as patient completes activity. Assistance may be provided throughout the activity or intermittently. 3-Partial/Moderate Assistance-helper does LESS THAN HALF the effort. Bud lifts, holds or supports trunk or limbs, but provides less than half the effort. 2-Substantial/Maximal Assistance-helper does MORE THAN HALF the effort. Bud lifts or holds trunk or limbs and provides more than half the effort. 3-Whthoxqao-ryoakl does ALL the effort. Patient does none of the effort to complete the activity. Or, the assistance of 2 or more helpers is required for the patient to complete the activity. If activity was not attempted, code reason: 7-Patient Refused. 9-Not Applicable-not attempted and the patient did not perform the activity before the current illness, exacerbation or injury. 10-Not Attempted due to Environmental Limitations-(lack of equipment, weather restraints, etc.). 88-Not Attempted due to Medical Conditions or Safety Concerns. Roll Left & Right (QC): 6 Sit to Lying (QC): 6 Lying to Sitting/Side of Bed(Q: 6 Sit to Stand (QC): 6 Chair/Cfz-ua-Qtchc Xfer(QC): 6 Toilet Transfer (QC): 6 Car Transfer (QC): 6 Patient performs bed mobility and transfers with independence, car transfer independent. Nurse will be notified that patient can be independent in her room and use the restroom by herself. Weight Bearing Full Weight Bearing Full Weight Bearing Gait Training Distance: 150', 200' Walk 10 feet (QC): 6 Walk 50 ft with 2 Turns(QC): 6 Walk 150 ft (QC): 6 Walking 10ft/uneven surface-QC: 4 Gait Assistive Device: Cane Single Point Patient can ambulate 200' with a single point cane with independence (including 50' with at least 2 turns of 90 degrees but needs SBA to ambulate 10' over an uneven surface). Patient ambulates slowly, her O2 drops to mid 80's with ambulation. Wheelchair Training Wheel 50 ft with 2 turns (QC): 9 Wheel 150 ft (QC): 9 Stair Training Stair Training: Handrails/: 2 handrails 1 Step (curb) (QC): 4 4 Steps (QC): 4 12 Steps (QC): 4 Stairs: Pattern: Reciprocal Patient can go up and down 12 steps using 2 handrails with SBA, SOB afterward Balance Picking up an Object (QC): 4 Exercises NuStep Minutes: 15 NuStep Workload: 5 Treatments bed mobility and transfers, ambulation, stair training, functional strengthening Assessment Current Status: Fair Progress overall good progress but patient was more SOB today, yesterday she could perform activity on 8L of O2 but today she needed 10L PT Short Term Goals Short Term Goals Time Frame: Aug 29, 2021 Roll Left & Right: 6 Sit to lyin Lying to sitting on side of be: 6 Sit to stand: 4 (SBA) Chair/azx-be-wputq transfer: 4 (SBA) Walk 10 feet: 4 (SBA) Walk 50 feet with two turns: 4 (SBA) PT Care Home Goals Care Home Goals PT Care Home Goals Time Frame: Sep 12, 2021 Roll Left & Right (QC): 6 Sit to Lying (QC): 6 Lying-Sitting on Side/Bed(QC): 6 Sit to Stand (QC): 6 Chair/Kab-oi-Plosq Xfer(QC): 6 Toilet Transfer (QC): 6 Car Transfer (QC): 6 Does the Patient Walk: Yes Walk 10 feet (QC): 6 Walk 50ft with 2 Turns (QC): 6 Walk 150 ft (QC): 6 Walking 10ft on Uneven Surface: 6 1 Step (curb) (QC): 5 4 Steps (QC): 5 12 Steps (QC): 88 Picking up an Object (QC): 6 Wheel 50 feet with 2 turns (QC: 9 Wheel 150 feet: 9 PT Plan Problem List Problem List: Activity Tolerance, Functional Strength, Safety, Balance, Gait, Transfer, Bed Mobility, ROM Treatment/Plan Treatment Plan: Continue Plan of Care Treatment Plan: Bed Mobility, Education, Functional Activity Yanni, Functional Strength, Group Therapy, Gait, Safety, Therapeutic Exercise, Transfers Treatment Duration: Sep 12, 2021 Frequency: At least 5 of 7 days/Wk (IRF) Estimated Hrs Per Day: 1.5 hours per day Patient and/or Family Agrees t: Yes Safety Risks/Education Patient Education: Gait Training, Transfer Techniques, Steps, Correct Positioning, Safety Issues Teaching Recipient: Patient Teaching Methods: Demonstration, Discussion Response to Teaching: Reinforcement Needed Time/GCodes Time In: 0800 Time Out: 0900 Total Billed Treatment Time: 60 Total Billed Treatment 1 visit EX 15' FA 45' LANDON BUTCHER PT Aug 30, 2021 08:51
[2021-08-30] MEDS: PANTOPRAZOLE 40 MG (PROTONIX) TAB PO SCH (09:07)
[2021-08-30] MEDS: glipiZIDE 5 MG (GLUCOTROL) TAB PO SCH ×2 (09:07→18:52)
[2021-08-30] MEDS: metFORMIN 500 MG (GLUCOPHAGE) TAB PO SCH ×2 (09:07→18:52)
[2021-08-30] MEDS: BUMETANIDE 1 MG (BUMEX) TAB PO SCH (09:07)
[2021-08-30] MEDS: DOCUSATE SODIUM 100 MG (COLACE) CAP PO SCH ×4 (09:09→18:56)
[2021-08-30] MEDS: polyethylene glycoL POWDER 17 GM (MIRALAX) PACK PO SCH ×2 (09:10→18:57)
[2021-08-30] MEDS: SENNA W/DOCUSATE (SENOKOT S) TABLET PO SCH ×2 (09:10→18:57)
[2021-08-30] MEDS: BISACODYL 10 MG SUPP (DULCOLAX) RC SCH (09:11)
[2021-08-30] MEDS: CATHETER FLUSH 10 ML SYR IV SCH ×2 (09:13→20:58)
[2021-08-30] MEDS: DULoxetine 20 MG (CYMBALTA) CAP PO SCH (09:19)
[2021-08-30] MEDS: SALINE NASAL SPRAY (OCEAN) 45 ML BTL PRN (09:19)
[2021-08-30] MEDS ORDERED: CLON0.5T4 PO (11:18)
[2021-08-30] MEDS ORDERED: DULO20CA PO (11:18)
[2021-08-30] MEDS ORDERED: INSU100I10 SC (11:18)
[2021-08-30] MEDS ORDERED: BUME1TAB8 PO (11:18)
[2021-08-30] MEDS ORDERED: PANT40TA52 PO (11:18)
[2021-08-30] MEDS ORDERED: IPRA3AMP31 IH (11:18)
[2021-08-30] MEDS ORDERED: ACHD5005 PO (11:18)
[2021-08-30] MEDS ORDERED: METF-397 PO (11:18)
[2021-08-30] MEDS ORDERED: BUDE0.5A IH (11:18)
--- NOTE | 2021-08-30 11:20 | D/C HH Face to Face Order ---
D/C Face to Face Orders Reconcile Patient Problems Problems Reviewed?: Yes Instructions for Patient [facility], Patient Instructions/FollowUp: PCP 1 week Physician to follow Patient: PCP Discharge Diet for Home: ADA Diet Patient Problems: Post COVID Patient Data-Allergies,Ht & Wt Patient Allergies: Coded Allergies: amoxicillin (Verified Allergy, Unknown, 06/25/21) clavulanic acid (Verified Allergy, Unknown, 06/25/21) Home Health Need/Face to Face Date of Face to Face: Aug 30, 2021 Clinical Findings: Muscle weakness, Shortness of breath I have seen Pt hwvj-bl-hacw: Yes Discharged To: Home Diagnosis/Conditions: post COVID Patient is Homebound due to: Shortness of breath/distress Homebound Status Due to the above stated illness, injury or surgical procedure (medical condition or diagnosis) and associated clinical findings, the patient is homebound because of his/her inability to leave home except with aid of a supportive device and/or person AND leaving the home requires a considerable and taxing effort or is medically contraindicated. Pt req the following assistanc: [facility] Nursing Orders Home Health Services Order: Nursing Services, Physical Therapy-Evaluate & Treat Certify Stmt I certify that this patient is under my care and that I, a nurse practitioner or a physician; a respiratory therapy assistant working with me, had a face to face encounter that - meets the physician face to face encounter requirements with this patient as dated. VALARIE JENSEN DO Aug 30, 2021 11:20
--- NOTE | 2021-08-30 12:06 | Occupational Ther Daily Note ---
OT Current Status-Daily Note Subjective Pt alert sitting in recliner when therapy entered. Pt agreed to therapy. No c/o pain reported. Mental Status/Objective Patient Orientation: Person, Place, Time, Situation ADL-Treatment Pt increased to 10L at 96%.Pt sit-stand from recliner to cane independently. Pt ambulated to closet to retrieve UB/LB dressing using cane independently. Pt required resting break due to fatigue and low activity tolerance. Pt ambulated to bathroom, transferred to toilet and completed toilet hygiene independently. Pt ambulated shower and transferred to shower bench. Pt doffed UB/LB dressing and socks independently. Pt O2 maintained at 92-96% throughout shower/dressing task. Pt required increased time to complete task due to resting breaks. Pt cleansed/dried UB, LB, chest, abdomen, jadon area, and buttocks independently. Pt SPT from shower bench to w/c independently. Pt donned UB dressing independently. Pt threaded BLE through LB dressing using figure 4 technique. Pt sit-stand using grab bars to hike LB dressing independently. Pt donned socks using figure 4 technique. Pt sit-stand from w/c using cane and completed oral hygiene/grooming while standing at sink independently . Pt then ambulated to room and transferred to recliner using cane independently. Pt at 5L of O2 at 95%. After session, pt sitting in recliner. All needs met and call light in reach. Therapy Code Descriptions/Definitions Functional [place] Measure: 0=Not Assessed/NA 4=Minimal Assistance 1=Total Assistance 5=Supervision or Setup 2=Maximal Assistance 6=Modified [place] 3=Moderate Assistance 7=Complete IndependenceSCALE: Activities may be completed with or without assistive devices. 1-Gqpmbixced-yfugdal completes the activity by him/herself with no assistance from a helper. 5-Set-up or Clean-up Assistance-helper sets up or cleans up; patient completes activity. [place] assists only prior to or following the activity. 4-Supervision or Touching Assistance-helper provides verbal cues and/or touching/steadying and/or contact guard assistance as patient completes activity. Assistance may be provided throughout the activity or intermittently. 3-Partial/Moderate Assistance-helper does LESS THAN HALF the effort. [place] lifts, holds or supports trunk or limbs, but provides less than half the effort. 2-Substantial/Maximal Assistance-helper does MORE THAN HALF the effort. [place] lifts or holds trunk or limbs and provides more than half the effort. 2-Prfjckyfg-gnvhix does ALL the effort. Patient does none of the effort to complete the activity. Or, the assistance of 2 or more helpers is required for the patient to complete the activity. If activity was not attempted, code reason: 7-Patient Refused. 9-Not Applicable-not attempted and the patient did not perform the activity before the current illness, exacerbation or injury. 10-Not Attempted due to Environmental Limitations-(lack of equipment, weather restraints, etc.). 88-Not Attempted due to Medical Conditions or Safety Concerns. Eating (QC): 6 (Per clinical judgment) Oral Hygiene (QC): 6 Shower/Bathe Self (QC): 6 Upper Body Dressing (QC): 6 Lower Body Dressing (QC): 6 On/Off Footwear: 6 Toileting Hygiene (QC): 6 Toilet Transfer (QC): 6 Pt required verbal cues throughout treatment of handling O2 tubing. Education OT Patient Education: Energy conservation, Safety issues, Transfer techniques Teaching Recipient: Patient Teaching Methods: Demonstration, Discussion Response to Teaching: Verbalize Understanding, Return Demonstration OT Short Term Goals Short Term Goals Time Frame: Aug 30, 2021 Eatin Oral hygiene: 6 Toileting hygiene: 6 Shower/bathe self: 3 Upper body dressin Lower body dressin Putting on/taking off footwear: 5 OT Snf Goals Snf Goals Time Frame: Sep 11, 2021 Eating (QC): 6 (Met per clincal judgement) Oral Hygiene (QC): 6 (Met) Toileting Hygiene (QC): 6 (Met) Shower/Bathe Self (QC): 6 (Met) Upper Body Dressing (QC): 6 (Met) Lower Body Dressing (QC): 6 (Met) On/Off Footwear (QC): 6 (Met) 1=Demonstrate adherence to instructed precautions during ADL tasks. 2=Patient will verbalize/demonstrate understanding of assistive devices/modifications for ADL. 3=Patient will improve strength/tolerance for activity to enable patient to perform ADL's. OT Education/Plan Problem List/Assessment Assessment: Decreased Activ Tolerance, Decreased UE Strength, Impaired Self- Care Skills Discharge Recommendations Plan/Recommendations: Continue POC Treatment Plan/Plan of Care Patient would benefit from OT for education, treatment and training to promote independence in ADL's, mobility, safety and/or upper extremity function for ADL's. Plan of Care: ADL Retraining, Functional Mobility, Group Exercise/Act as Ind, UE Funct Exercise/Act Treatment Duration: Sep 11, 2021 Frequency: At least 5 of 7 days/Wk (IRF) Estimated Hrs Per Day: 1.5 hours per day Agreement: Yes Rehab Potential: Good Time/GCodes Start Time: 10:00 Stop Time: 11:00 Total Time Billed (hr/min): 60 Billed Treatment Time 1 visit- ADL 4 (60 mins) LEEANNE GLEASON Aug 30, 2021 12:06
[2021-08-30] MEDS: clonazePAM 0.5 MG (KlonoPIN) TAB PO SCH ×2 (12:10→22:53)
--- NOTE | 2021-08-30 14:34 | Therapy Group Daily Note ---
LEEANNE GLEASON Aug 30, 2021 14:34
--- NOTE | 2021-08-30 14:42 | Therapy Group Daily Note ---
Therapy Daily Group Note Patient Education Topic Home Safety, Fall Prevention, Other List Below (Education on floor transfer after fall.) Exercises LE Seated Exercise, UE Exercise Session Ratio (pt:therapist): 3:1 Goal of Session: Education on ARU Expectations, Home Safety Strategies, UE/LE Strengthing Goal Met for this Session: Yes Pt Benefit of Group: Contributions to Others, F/U Use of Strategies @Home, Increased Functional Safety, Increased Functional Strength, Improved Cognition, Recognition of Peers, Socialization Other/Notes Pt ambulated to [facility] for OT/PT group. Group consisted of introductions (name, place living, memory from childhood), socialization, seated UE/LE exercises, and educational topics consisting of fall risk/prevention, floor transfer after a fall, and home safety. Pt introduced self appropriately, actively listened to peers. Pt able to complete B UE/LE seated exercises, tolerated well. Pt acknowledged understanding of educational topics by verbalizing understanding and giving personal stories. Pt participated in a cognitive word activity. After session, pt sitting in recliner. Call light/phone in reach. All needs met in room. Start Time: 13:00 Stop Time: 14:15 Total Billed Treatment Time: 75 Total Billed Treatment 1 GRP (75 mins) LEEANNE GLEASON Aug 30, 2021 14:42
[2021-08-30 19:57] VITALS: BP 132/63
[2021-08-30] MEDS: LORATADINE (CLARITIN) 10 MG TAB PO SCH (20:58)
[2021-08-31] MEDS: inSUlin ASPART (NovoLOG) 1 UNIT/0.01 ML (CHARGE PER UNIT) SC SCH ×2 (05:49→10:58)
[2021-08-31] MEDS: LEVOTHYROXINE 88 MCG (LEVOTHORID) TAB PO SCH (05:49)
--- NOTE | 2021-08-31 06:19 | Discharge Summary ---
Diagnosis/Chief Complaint Date of Admission Aug 22, 2021 at 10:50 Date of Discharge Discharge Date: Aug 31, 2021 Discharge Diagnosis Assessment: Post Covid syndrome Severe hypoxia with exertion Diabetes Anemia Hypothyroidism Recent weight loss Constipation Plan: Oxygen supplementation Rehab protocol 23/05 due to hypoxia Home meds Monitor sugar Pulmonary consult 08/23/2021: Pulmonary consult appreciated Supportive care PT and OT 08/24/2021: Patient doing well Supportive care to continue 08/25/21: Supportive care VRE isolation so will inquire with infection control about how to DC that tomorrow BM regimen 08/26/21: VRE isolation emt intermediate but will verify with infection control Monitor closely BM regimen 08/27/21: Monitor oxygen closely BM regimen 08/28/2021: Discharge plan for Thursday Oxygen supplementation maintained Home O2 study 08/29/2021: Home O2 study Discharge home on Thursday08/30/21: DC tomorrow (1) Anemia (2) Hypothyroidism (3) Weight loss (4) Hypoxemia (5) Oxygen dependent (6) Anxiety (7) Post-COVID syndrome (8) T2DM (type 2 diabetes mellitus) Discharge Summary Discharge Physical Examination Allergies: Coded Allergies: amoxicillin (Verified Allergy, Unknown, 06/25/21) clavulanic acid (Verified Allergy, Unknown, 06/25/21) Vitals & I&Os Vital Signs Date Time Temp Pulse Resp B/P (MAP) Pulse Ox O2 Delivery O2 Flow Rate FiO2 08/31/21 11:21 36.2 105 18 111/71 95 High Flow N/C 5.00 General Appearance: Alert, Oriented X3, Cooperative Respiratory: Clear to Auscultation Cardiovascular: Regular Rate Neuro: Normal Gait, Normal Speech, Strength at 5/5 X4 Ext Psych/Mental Status: Mental Status NL Hospital Course Was the Problem List Reviewed?: Yes Hospital course: Patient had a standard hospital course for post Covid pneumonia syndrome with continued hypoxia and requiring 5 L at rest and 10 L during activity that did not change much from the time she came in. Pulmonology was consulted. Diabetes was under control with insulin. Bowels returned back to her normal after laxatives. No major changes or decompensation occurred during hospital stay. She was deemed stable for discharge. Labs (last 24 hrs) Laboratory Tests 08/22/21 15:55: Glucometer 150H 08/22/21 21:00: Glucometer 227H 08/23/21 05:38: White Blood Count 9.4, Red Blood Count 3.12L, Hemoglobin 9.2L, Hematocrit 29L, Mean Corpuscular Volume 91, Mean Corpuscular Hemoglobin 30, Mean Corpuscular Hemoglobin Concent 32, Red Cell Distribution Width 15.5H, Platelet Count 230, Mean Platelet Volume 11.3, Immature Granulocyte % (Auto) 0, Neutrophils (%) (Auto) 71, Lymphocytes (%) (Auto) 17, Monocytes (%) (Auto) 8, Eosinophils (%) (Auto) 3, Basophils (%) (Auto) 1, Neutrophils # (Auto) 6.7, Lymphocytes # (Auto) 1.6, Monocytes # (Auto) 0.7, Eosinophils # (Auto) 0.3, Basophils # (Auto) 0.1, Immature Granulocyte # (Auto) 0.0, Sodium Level 138, Potassium Level 4.0, Chloride Level 105, Carbon Dioxide Level 20L, Anion Gap 13, Blood Urea Nitrogen 19H, Creatinine 1.31H, Estimat Glomerular Filtration Rate 43, BUN/Creatinine Ratio 15, Glucose Level 186H, Calcium Level 9.6, Corrected Calcium 9.9, Total Bilirubin 0.3, Aspartate Amino Transf (AST/SGOT) 12, Alanine Aminotransferase (ALT/SGPT) 19, Alkaline Phosphatase 49, Total Protein 6.0L, Albumin 3.6 08/23/21 11:11: Glucometer 183H 08/23/21 16:07: Glucometer 99 08/23/21 21:06: Glucometer 192H 08/24/21 06:25: Glucometer 85 08/24/21 11:53: Glucometer 125H 08/24/21 16:11: Glucometer 101 08/24/21 21:58: Glucometer 185H 08/25/21 06:57: Glucometer 118H 08/25/21 10:52: Glucometer 198H 08/25/21 15:17: Glucometer 167H 08/25/21 20:21: Glucometer 156H 08/26/21 05:45: White Blood Count 8.0, Red Blood Count 3.13L, Hemoglobin 9.2L, Hematocrit 29L, Mean Corpuscular Volume 92, Mean Corpuscular Hemoglobin 29, Mean Corpuscular Hemoglobin Concent 32, Red Cell Distribution Width 15.1H, Platelet Count 257, Mean Platelet Volume 11.6, Immature Granulocyte % (Auto) 0, Neutrophils (%) (Auto) 61, Lymphocytes (%) (Auto) 23, Monocytes (%) (Auto) 8, Eosinophils (%) (Auto) 6, Basophils (%) (Auto) 1, Neutrophils # (Auto) 4.9, Lymphocytes # (Auto) 1.8, Monocytes # (Auto) 0.7, Eosinophils # (Auto) 0.5H, Basophils # (Auto) 0.1, Immature Granulocyte # (Auto) 0.0, Sodium Level 138, Potassium Level 4.2, Chloride Level 102, Carbon Dioxide Level 24, Anion Gap 12, Blood Urea Nitrogen 19H, Creatinine 1.11, Estimat Glomerular Filtration Rate 52, BUN/Creatinine Ratio 17, Glucose Level 130H, Calcium Level 9.8, Corrected Calcium 10.0, Total Bilirubin 0.3, Aspartate Amino Transf (AST/SGOT) 14, Alanine Aminotransferase (ALT/SGPT) 19, Alkaline Phosphatase 46, Total Protein 6.1L, Albumin 3.7 08/26/21 05:58: Glucometer 124H 08/26/21 10:52: Glucometer 244H 08/26/21 16:10: Glucometer 124H 08/26/21 21:27: Glucometer 236H 08/27/21 06:28: Glucometer 165H 08/27/21 10:49: Glucometer 297H 08/27/21 15:22: Glucometer 164H 08/27/21 21:33: Glucometer 197H 08/28/21 05:20: Glucometer 99 08/28/21 10:54: Glucometer 195H 08/28/21 16:01: Glucometer 153H 08/28/21 21:18: Glucometer 137H 08/29/21 05:45: Glucometer 90 08/29/21 10:43: Glucometer 206H 08/29/21 16:05: Glucometer 155H 08/29/21 20:40: Glucometer 178H 08/30/21 05:41: Glucometer 104 08/30/21 10:55: Glucometer 208H 08/30/21 16:39: Glucometer 170H 08/30/21 20:50: Glucometer 220H 08/31/21 05:45: Glucometer 255H 08/31/21 10:55: Glucometer 193H Pending Labs Laboratory Tests 08/22/21 15:55: Glucometer 150 08/22/21 21:00: Glucometer 227 08/23/21 05:38: White Blood Count 9.4, Red Blood Count 3.12, Hemoglobin 9.2, Hematocrit 29, Mean Corpuscular Volume 91, Mean Corpuscular Hemoglobin 30, Mean Corpuscular Hemoglobin Concent 32, Red Cell Distribution Width 15.5, Platelet Count 230, M bucky Platelet Volume 11.3, Immature Granulocyte % (Auto) 0, Neutrophils (%) (Auto) 71, Lymphocytes (%) (Auto) 17, Monocytes (%) (Auto) 8, Eosinophils (%) (Auto) 3, Basophils (%) (Auto) 1, Neutrophils # (Auto) 6.7, Lymphocytes # (Auto) 1.6, Monocytes # (Auto) 0.7, Eosinophils # (Auto) 0.3, Basophils # (Auto) 0.1, Immature Granulocyte # (Auto) 0.0, Sodium Level 138, Potassium Level 4.0, Chloride Level 105, Carbon Dioxide Level 20, Anion Gap 13, Blood Urea Nitrogen 19, Creatinine 1.31, Estimat Glomerular Filtration Rate 43, BUN/Creatinine Ratio 15, Glucose Level 186, Calcium Level 9.6, Corrected Calcium 9.9, Total Bilirubin 0.3, Aspartate Amino Transf (AST/SGOT) 12, Alanine Aminotransferase (ALT/SGPT) 19, Alkaline Phosphatase 49, Total Protein 6.0, Albumin 3.6 08/23/21 11:11: Glucometer 183 08/23/21 16:07: Glucometer 99 08/23/21 21:06: Glucometer 192 08/24/21 06:25: Glucometer 85 08/24/21 11:53: Glucometer 125 08/24/21 16:11: Glucometer 101 08/24/21 21:58: Glucometer 185 08/25/21 06:57: Glucometer 118 08/25/21 10:52: Glucometer 198 08/25/21 15:17: Glucometer 167 08/25/21 20:21: Glucometer 156 08/26/21 05:45: White Blood Count 8.0, Red Blood Count 3.13, Hemoglobin 9.2, Hematocrit 29, Mean Corpuscular Volume 92, Mean Corpuscular Hemoglobin 29, Mean Corpuscular Hemoglob in Concent 32, Red Cell Distribution Width 15.1, Platelet Count 257, Mean Platelet Volume 11.6, Immature Granulocyte % (Auto) 0, Neutrophils (%) (Auto) 61, Lymphocytes (%) (Auto) 23, Monocytes (%) (Auto) 8, Eosinophils (%) (Auto) 6, Basophils (%) (Auto) 1, Neutrophils # (Auto) 4.9, Lymphocytes # (Auto) 1.8, Monocytes # (Auto) 0.7, Eosinophils # (Auto) 0.5, Basophils # (Auto) 0.1, I mmature Granulocyte # (Auto) 0.0, Sodium Level 138, Potassium Level 4.2, Chloride Level 102, Carbon Dioxide Level 24, Anion Gap 12, Blood Urea Nitrogen 19, Creatinine 1.11, Estimat Glomerular Filtration Rate 52, BUN/Creatinine Ratio 17, Glucose Level 130, Calcium Level 9.8, Corrected Calcium 10.0, Total Bilirubin 0.3, Aspartate Amino Transf (AST/SGOT) 14, Alanine Aminotransferase ( ALT/SGPT) 19, Alkaline Phosphatase 46, Total Protein 6.1, Albumin 3.7 08/26/21 05:58: Glucometer 124 08/26/21 10:52: Glucometer 244 08/26/21 16:10: Glucometer 124 08/26/21 21:27: Glucometer 236 08/27/21 06:28: Glucometer 165 08/27/21 10:49: Glucometer 297 08/27/21 15:22: Glucometer 164 08/27/21 21:33: Glucometer 197 08/28/21 05:20: Glucometer 99 08/28/21 10:54: Glucometer 195 08/28/21 16:01: Glucometer 153 08/28/21 21:18: Glucometer 137 08/29/21 05:45: Glucometer 90 08/29/21 10:43: Glucometer 206 08/29/21 16:05: Glucometer 155 08/29/21 20:40: Glucometer 178 08/30/21 05:41: Glucometer 104 08/30/21 10:55: Glucometer 208 08/30/21 16:39: Glucometer 170 08/30/21 20:50: Glucometer 220 08/31/21 05:45: Glucometer 255 08/31/21 10:55: Glucometer 193 Discharge Home Medications: Active Scripts Active Metformin HCl 500 Mg Tablet 500 Mg PO BID WITH MEALS Pantoprazole Sodium 40 Mg Tablet.dr 40 Mg PO DAILY Budesonide 0.5 Mg/2 Ml Ampul.neb 0.5 Mg IH BID Bumetanide 1 Mg Tablet 0.5 Mg PO DAILY Cymbalta (Duloxetine HCl) 20 Mg Cap 20 Mg PO DAILY Clonazepam 0.5 Mg Tablet 0.5 Mg PO Q12H HYDROcodone/APAP 5 MG/325 MG TAB (Acetaminophen/Hydrocodone Bitart) 1 Tab Tab 1 Ea PO Q6H PRN Iprat-Albut 0.5-3(2.5) mg/3 ml (Ipratropium/Albuterol Sulfate) 3 Ml Ampul.neb 3 Ml IH RTBID Lantus Solostar (Insulin Glargine,Hum.rec.anlog) 100 Unit/1 Ml Insuln.pen 37 Units SC Q12H 30 Days Reported Tylenol Extra Strength (Acetaminophen) 500 Mg Tablet 500-1,000 Mg PO Q8H PRN Magnesium (Magnesium Oxide) 400 Mg Tablet 400 Mg PO DAILY Zinc 50 Mg Tablet 50 Mg PO DAILY Vitamin B-12 (Cyanocobalamin (Vitamin B-12)) 500 Mcg Tablet 500 Mcg PO DAILY Vitamin D3 (Cholecalciferol (Vitamin D3)) 25 Mcg Capsule 25 Mcg PO DAILY Tirosint (Levothyroxine Sodium) 175 Mcg Capsule 175 Mcg PO DAILY Janumet 50-500 mg Tablet (Sitagliptin Phos/Metformin HCl) 1 Tab Tablet 1 Tab PO BID Loratadine 10 Mg Tablet 10 Mg PO HS PRN Glipizide 10 Mg Tablet 10 Mg PO BID WITH MEALS Instructions to patient/family Please see electronic discharge instructions given to patient. Diagnosis/Problems Diagnosis/Problems (1) Anemia (2) Hypothyroidism (3) Weight loss (4) Hypoxemia (5) Oxygen dependent (6) Anxiety (7) Post-COVID syndrome (8) T2DM (type 2 diabetes mellitus) Status: VALARIE Arvizu DO Aug 31, 2021 06:19
[2021-08-31] MEDS: RT-ALBUTEROL/IPRATROPIUM 3 ML (DUONEB) VIAL IH SCH (07:48)
[2021-08-31] MEDS: RT-BUDESONIDE NEBS 0.5 MG/2ML (PULMICORT) AMP IH SCH (07:52)
[2021-08-31 08:38] VITALS: BP 111/71
[2021-08-31] MEDS: BUMETANIDE 1 MG (BUMEX) TAB PO SCH (08:40)
[2021-08-31] MEDS: PANTOPRAZOLE 40 MG (PROTONIX) TAB PO SCH (08:41)
[2021-08-31] MEDS: DULoxetine 20 MG (CYMBALTA) CAP PO SCH (08:41)
[2021-08-31] MEDS: glipiZIDE 5 MG (GLUCOTROL) TAB PO SCH (08:41)
[2021-08-31] MEDS: metFORMIN 500 MG (GLUCOPHAGE) TAB PO SCH (08:41)
[2021-08-31] MEDS: CATHETER FLUSH 10 ML SYR IV SCH (08:42)
[2021-08-31] MEDS: BISACODYL 10 MG SUPP (DULCOLAX) RC SCH (08:43)
[2021-08-31] MEDS: DOCUSATE SODIUM 100 MG (COLACE) CAP PO SCH ×2 (08:43)
[2021-08-31] MEDS: SENNA W/DOCUSATE (SENOKOT S) TABLET PO SCH (08:43)
[2021-08-31] MEDS: polyethylene glycoL POWDER 17 GM (MIRALAX) PACK PO SCH (08:43)
[2021-08-31] MEDS: clonazePAM 0.5 MG (KlonoPIN) TAB PO SCH (10:54)
[2021-08-31 11:21] VITALS: BP 111/71
--- NOTE | 2021-09-02 08:29 | Therapy Team Discharge Summary ---
Therapy Discharge Summary Discharge Recommendations Date of Discharge Aug 31, 2021 at 11:20 Occupational Therapy Pt admitted to ARU with post COVID debility. At OF, she was independent with I/ADLs and functional mobility, no AD. Upon initial evaluation, pt required set up assistance with eating, SBA oral care and showering, supervision UE dressing, min A LE dressing, max A footwear and CGA toileting. OT txs focused on increasing BUE strength and activity tolerance, and increasing independence with ADLs and functional mobility. At discharge, pt was independent with all ADLs, meeting all LTGs. OT recommends shower chair for energy conservation. Pt discharged from facility, d/c from OT. Decreased Activ Tolerance, Decreased UE Strength, Impaired Self-Care Skills PT Pulp Press Tender Goals Pulp Press Tender Goals PT [facility] Goals Time Frame: Sep 12, 2021 Roll Left to Right (QC): 6 Sit to Lying (QC): 6 Lying-Sitting on Side/Bed(QC): 6 Sit to Stand (QC): 6 Chair/Xqp-tl-Fizry Xfer(QC): 6 Car Transfer (QC): 6 Does the Patient Walk: Yes Walk 10 feet (QC): 6 Walk 10ft-Uneven Surface(QC): 6 Walk 50ft with 2 Turns (QC): 6 Walk 150 ft (QC): 6 Wheel 50 feet with 2 turns (QC: 9 1 Step (curb) (QC): 5 4 Steps (QC): 5 12 Steps (QC): 88 Picking up an Object (QC): 6 OT Pulp Press Tender Goals Pulp Press Tender Goals Time Frame: Sep 11, 2021 Eating (QC): 6 (Met per clincal judgement) Oral Hygiene (QC): 6 (Met) Shower/Bathe Self (QC): 6 (Met) Upper Body Dressing (QC): 6 (Met) Lower Body Dressing (QC): 6 (Met) On/Off Footwear (QC): 6 (Met) Toileting Hygiene (QC): 6 (Met) Toilet/Commode Transfer (QC): 6 1=Demonstrate adherence to instructed precautions during ADL tasks. 2=Patient will verbalize/demonstrate understanding of assistive devices/modifications for ADL. 3=Patient will improve strength/tolerance for activity to enable patient to perform ADL's. ARAM COLLAZO OT Sep 02, 2021 08:29
== END 2021-08-31 11:20 | disposition home health service (06) | DRG 189 ==
PROVIDERS: ADMIT Internal Medicine; ATTEND Internal Medicine
DX: J96.21 Acute and chronic respiratory failure with hypoxia (principal); J84.10 Pulmonary fibrosis, unspecified; U09.9 Post COVID-19 condition, unspecified; E11.9 Type 2 diabetes mellitus without complications; F41.9 Anxiety disorder, unspecified; E66.01 Morbid (severe) obesity due to excess calories; E03.9 Hypothyroidism, unspecified; H54.8 Legal blindness, as defined in USA; F32.A Depression, unspecified; K59.00 Constipation, unspecified; M54.9 Dorsalgia, unspecified; D64.9 Anemia, unspecified; Z87.01 Personal history of pneumonia (recurrent); Z68.34 Body mass index [BMI] 34.0-34.9, adult; Z79.4 Long term (current) use of insulin; Z88.1 Allergy status to other antibiotic agents; Z88.8 Allergy status to other drugs, medicaments and biological substances; Z79.84 Long term (current) use of oral hypoglycemic drugs; Z23 Encounter for immunization
CPT/HCPCS: 36415; 71045; 80053; 82947; 85025; 94640; 94760; 94761

== ENCOUNTER 2022-03-23 13:23 | Inpatient (IN) | payer OTHER ==
[~2022-03-23] VITALS: Ht 157.4 cm; Wt 91.8 kg
[~2022-03-23 13:23] MED LIST changes: -ALPRAZolam 0.25 MG (XANAX) TAB PO PRN; -BISACODYL 10 MG SUPP (DULCOLAX) PR PRN; +BUDE0.5A IH; -CALCIUM CARBONATE 500 MG (TUMS) TAB.CHEW PO PRN; +CHOL10007 PO; +CYAN500T8 PO; -DOCUSATE SODIUM 100 MG (COLACE) CAP PO PRN; +DULO20CA PO; -FLEET ENEMA ADULT 1 EA BTL PR PRN; -GUAI600T28 PO; +GUAI600T99 PO; -LACTULOSE SYRUP 10GM/15ML (ENULOSE) 30ML UDC PO PRN; -LOPERAMIDE 2 MG (IMODIUM) TABLET PO PRN; +MAGN400T39 PO; -ONDANSETRON 4 MG (ZOFRAN) ORAL DISSOLVE TAB PO PRN; -diphenhydrAMINE 25 MG TAB (BENADRYL) PO PRN; -guaiFENesin/CODEINE (ROBITUSSIN AC) 10ML UDC PO PRN
[2022-03-23] MEDS ORDERED: methylPREDNISolone 125 MG (Solu-MEDROL) VIAL IV STA (13:34)
[2022-03-23] MEDS ORDERED: FAMOTIDINE 20MG/2ML IV (PEPCID) IVP ONE (13:45)
[2022-03-23] MEDS ORDERED: NS IV 1000 ML 1,000 ML IV SCH (13:45)
--- NOTE | 2022-03-23 14:25 | ED General ---
General Chief Complaint: Allergic Reaction Stated Complaint: FACE/LIPS SWELLING Nursing Triage Note: Patient presents to the ED with c/o of lip and facial swelling. She reports generalized hives for several weeks. Lip started swelling 1 hour ago and then facial swelling began. Reports throat tightness. She reports no known exposure to drug or food allergies. Denies any shortness of breath at this time. History of Present Illness Date Seen by Provider: March 23, 2022 Time Seen by Provider: 13:26 Initial Comments 46-year-old female with PMH of diabetes mellitus, is here with complaints of swelling to her face and lips which for started last night but today became progressively worse. Patient took ibuprofen today morning. Patient is unsure if she is allergic to something. Denies shortness of breath, nausea and vomiting, abdominal pain, chest pain. Patient is able to speak in complete sentences without any difficulty. Allergies and Home Medications Allergies Coded Allergies: amoxicillin (Verified Allergy, Unknown, 06/25/21) clavulanic acid (Verified Allergy, Unknown, 06/25/21) Patient Home Medication List Home Medication List Reviewed: Yes Acetaminophen (Tylenol Extra Strength) 500 Mg Tablet, 500-1,000 MG PO Q8H PRN for PAIN-MILD (1-4), (Reported) Entered as Reported by: LIOR ORR on 08/26/21 1259 Budesonide (Budesonide) 0.5 Mg/2 Ml Ampul.neb, 0.5 MG IH BID Prescribed by: VALARIE JENSEN on 08/30/21 111 Bumetanide (Bumetanide) 1 Mg Tablet, 0.5 MG PO DAILY Prescribed by: VALARIE JENSEN on 08/30/21 1118 Cholecalciferol (Vitamin D3) (Vitamin D3) 25 Mcg Capsule, 25 MCG PO DAILY, (Reported) Entered as Reported by: LIOR ORR on 08/26/21 1259 Clonazepam (Clonazepam) 0.5 Mg Tablet, 0.5 MG PO Q12H Prescribed by: VALARIE JENSEN on 08/30/21 1119 Cyanocobalamin (Vitamin B-12) (Vitamin B-12) 500 Mcg Tablet, 500 MCG PO DAILY, (Reported) Entered as Reported by: LOIR ORR on 08/26/21 1259 Duloxetine HCl (Cymbalta) 20 Mg Cap, 20 MG PO DAILY Prescribed by: VALARIE JENSEN on 08/30/21 1118 Glipizide (Glipizide) 10 Mg Tablet, 10 MG PO BID WITH MEALS, (Reported) Entered as Reported by: LIOR ORR on 06/26/21 1524 Hydrocodone Bit/Acetaminophen (HYDROcodone/APAP 5 MG/325 MG TAB) 1 Tab Tab, 1 EA PO Q6H PRN for PAIN-MODERATE (5-7) Prescribed by: VALARIE JENSEN on 08/30/21 111 Insulin Glargine,Hum.rec.anlog (Lantus Solostar) 100 Unit/1 Ml Insuln.pen, 37 UNITS SC Q12H Prescribed by: VALARIE JENSEN on 08/30/21 111 Ipratropium/Albuterol Sulfate (Iprat-Albut 0.5-3(2.5) mg/3 ml) 3 Ml Ampul.neb, 3 ML IH RTBID Prescribed by: VALARIE JENSEN on 08/30/21 111 Levothyroxine Sodium (Tirosint) 175 Mcg Capsule, 175 MCG PO DAILY, (Reported) Entered as Reported by: LIOR ORR on 08/26/21 1259 Loratadine (Loratadine) 10 Mg Tablet, 10 MG PO HS PRN for ALLERGY SYMPTOMS, (Reported) Entered as Reported by: LIOR ORR on 08/22/21 1032 Magnesium Oxide (Magnesium) 400 Mg Tablet, 400 MG PO DAILY, (Reported) Entered as Reported by: LIOR ORR on 08/26/21 1259 Metformin HCl (Metformin HCl) 500 Mg Tablet, 500 MG PO BID WITH MEALS Prescribed by: VALARIE JENSEN on 08/30/21 111 Pantoprazole Sodium (Pantoprazole Sodium) 40 Mg Tablet.dr, 40 MG PO DAILY Prescribed by: VALARIE JENSEN on 08/30/21 111 Sitagliptin Phos/Metformin HCl (Janumet 50-500 mg Tablet) 1 Tab Tablet, 1 TAB PO BID, (Reported) Entered as Reported by: LIOR ORR on 08/26/21 1259 Zinc (Zinc) 50 Mg Tablet, 50 MG PO DAILY, (Reported) Entered as Reported by: LIOR ORR on 08/26/21 1259 Review of Systems Review of Systems Constitutional: no symptoms reported EENTM: mouth swelling Respiratory: no symptoms reported Cardiovascular: no symptoms reported Gastrointestinal: no symptoms reported Skin: no symptoms reported Psychiatric/Neurological: No Symptoms Reported Hematologic/Lymphatic: No Symptoms Reported Immunological/Allergic: no symptoms reported Past Drtszhg-Ufhuyk-Jhlcxy Hx Patient Social History Tobacco Use?: No Use of E-Cig and/or Vaping dev: No Substance use?: No Alcohol Use?: No Pt feels they are or have been: No Immunizations Up To Date First/Initial COVID19 Vaccinat: Not currently vaccinated Past Medical History Surgery/Hospitalization HX: DM; Anxiety; Depression; Hypothyroidism; Cyst removal Diabetes, Insulin dep, Hypothyroidsim Anxiety, Depression Family Medical History No Pertinent Family Hx Physical Exam Vital Signs Vital Signs - First Documented 03/23/22 13:30 Temp 36.9 Pulse 88 Resp 16 B/P (MAP) 165/96 (119) Pulse Ox 96 O2 Delivery Room Air Capillary Refill : Less Than 3 Seconds Height, Weight, BMI Height: '" Weight: lbs. oz. kg; 37.00 BMI Method: General Appearance: No Apparent Distress HEENT: PERRL/EOMI, Pharynx Normal Neck: Full Range of Motion, Normal Inspection, Non Tender Respiratory: Chest Non Tender, Lungs Clear, Normal Breath Sounds, No Accessory Muscle Use, No Respiratory Distress Cardiovascular: Regular Rate, Rhythm Gastrointestinal: Normal Bowel Sounds, Non Tender, Soft Extremity: Normal Capillary Refill Neurologic/Psychiatric: Alert, Oriented x3, No Motor/Sensory Deficits, Normal Mood/Affect Skin: Normal Color Progress/Results/Core Measures Suspected Sepsis SIRS Temperature: Pulse: 88 Respiratory Rate: 16 Blood Pressure 165 /96 Mean: 119 Results/Orders My Orders Orders - NONI REYNAGA MD Ed Iv/Invasive Line Start (03/23/22 13:34) Ns Iv 1000 Ml (Sodium Chloride 0.9%) (03/23/22 13:45) Methylprednisolone Sod Succ (Solu-Medrol (03/23/22 13:34) Famotidine Injection (Pepcid Injection) (03/23/22 13:45) Medications Given in ED Current Medications Medications Dose Ordered Sig/Joanne Route Start Time Stop Time Status Last Admin Dose Admin Famotidine 20 mg ONCE ONCE IVP 03/23/22 13:45 03/23/22 13:46 DC 03/23/22 13:44 20 MG Vital Signs/I&O 03/23/22 13:30 Temp 36.9 Pulse 88 Resp 16 B/P (MAP) 165/96 (119) Pulse Ox 96 O2 Delivery Room Air Capillary Refill : Less Than 3 Seconds Blood Pressure Mean: 119 Progress Note : Progress Note 1. ANGIOEDEMA: UNCERTAIN CAUSE - Possible trigger may be NSAID which she took today - Solu-medrol 125mg iv / Benadryl 25mg iv / Pepcid 20mg iv/ NS IVF Bolus STAT in ER - Pt's swelling improved but face and eyes still puffy. Oral swelling and tongue swelling improved but still swollen - [facility] transfer to [facility] for E-ICU consult. Acccepted by hospitalist. Departure Impression Primary Impression: Angioedema Qualified Codes: T78.3XXA - Angioneurotic edema, initial encounter Disposition: XF SHT-TRM HOSP Condition: Improved Admissions Decision to Admit/Date: March 23, 2022 Time/Decision to Admit Time: 12:18 Transfer Transfer Reason: Exceeds level of care Time Spoke to Accepting Phy: 14:37 Departure-Patient Inst. Referrals: JOYCE CASTELLON MD (PCP/Family) Primary Care Physician Patient Instructions: Angioedema (DC) NONI REYNAGA MD March 23, 2022 14:25
[2022-03-23] MEDS ORDERED: MELATONIN 3 MG TABLET PO PRN (16:15)
[2022-03-23] MEDS ORDERED: ACETAMINOPHEN 325 MG TABLET PO PRN (16:15)
[2022-03-23] MEDS ORDERED: ANTACID SUSP 30 ML UDC (MYLANTA) PO PRN (16:15)
[2022-03-23] MEDS ORDERED: ENOXAPARIN 40 MG/0.4 ML (LOVENOX) SYR SC SCH (16:15)
[2022-03-23] MEDS ORDERED: ONDANSETRON 4 MG/2 ML (SDV) Z0FRAN IV PRN (16:15)
[2022-03-23] MEDS ORDERED: ONDANSETRON 4 MG (ZOFRAN) ORAL DISSOLVE TAB PO PRN (16:15)
[2022-03-23] MEDS ORDERED: polyethylene glycoL POWDER 17 GM (MIRALAX) PACK PO PRN (16:15)
[2022-03-23] MEDS ORDERED: diphenhydrAMINE 25 MG TAB (BENADRYL) PO PRN (16:15)
[2022-03-23] MEDS ORDERED: INSU100I10 SC (16:30)
[2022-03-23] MEDS ORDERED: PARO30TA3 PO (16:30)
[2022-03-23] MEDS: NS IV 1000 ML 1,000 ML IV SCH ×2 (16:39→23:28)
[2022-03-23 17:03] VITALS: BP 142/77
[2022-03-23] MEDS ORDERED: RT-ALBUTEROL/IPRATROPIUM 3 ML (DUONEB) VIAL INH PRN (17:15)
[2022-03-23 17:19] LABS: BASOPHILS % (AUTO) 0 % (0-10); EOSINOPHILS % (AUTO) 0 % (0-10); HEMATOCRIT 43 % (35-52); HEMOGLOBIN 14.5 g/dL (11.5-16.0); LYMPHOCYTES # (AUTO) 1.1 10^3/uL (1.0-4.0); LYMPHOCYTES % (AUTO) 7 % (12-44); MEAN CORPUSCULAR HEMOGLOBIN 30 pg (25-34); MEAN CORPUSCULAR HGB CONC 34 g/dL (32-36); MEAN CORPUSCULAR VOLUME 90 fL (80-99); MEAN PLATELET VOLUME 12.5 fL (9.0-12.2); MONOCYTES # (AUTO) 0.2 10^3/uL (0.0-1.0); MONOCYTES % (AUTO) 1 % (0-12); NEUTROPHILS # (AUTO) 13.3 10^3/uL (1.8-7.8); NEUTROPHILS % (AUTO) 91 % (42-75); PLATELET COUNT 213 10^3/uL (130-400); WHITE BLOOD COUNT 14.7 10^3/uL (4.3-11.0)
--- NOTE | 2022-03-23 17:19 | Tele-ICU Consult ---
History of Present Illness History of Present Illness Date Seen by Provider: March 23, 2022 Time Seen by Provider: 17:10 Date of Admission 03/23/22 History of Present Illness She is a 46-year-old female with past medical history of obesity, COVID19 infection, diabetes mellitus hypothyroidism with chronic pain syndrome on [place] presented with a complaint of 2-3 weeks worth of hives generalized. She has been taking Benadryl on and off. She has been on several supplements including vitamin B complex vitamin EA, vitamin D, vitamin C etc. She held these supplements for now with as her primary care told her to hold it. Today she came with a complaint of lip swelling throat swelling without shortness of breath. She was able to talk full sentences in the emergency room. She is a transferred from [place] emergency room to [facility] ICU for higher level of care. She is known to be allergic to Augmentin. After treatment with Benadryl, Solu-Medrol in the emergency room she is feeling somewhat better but not completely. She was admitted in the SICU before for COVID19 pneumonia and hypoxic respiratory failure. She required home oxygen as well as a rehab treatment for deconditioning. I have video visited the patient and discussed with the patient as well as the ELECTRICAL DEVELOPMENT ENGINEER. Allergies and Home Medications Allergies Coded Allergies: amoxicillin (Verified Allergy, Unknown, 06/25/21) clavulanic acid (Verified Allergy, Unknown, 06/25/21) Home Medications Acetaminophen 500 Mg Tablet, 500-1,000 MG PO Q8H PRN for PAIN-MILD (1-4), (Reported) Cholecalciferol (Vitamin D3) 25 Mcg Capsule, 25 MCG PO DAILY, (Reported) Cyanocobalamin (Vitamin B-12) 500 Mcg Tablet, 500 MCG PO DAILY, (Reported) Glipizide 10 Mg Tablet, 10 MG PO BID WITH MEALS, (Reported) Hydrocodone Bit/Acetaminophen 1 Tab Tab, 1 EA PO Q6H PRN for PAIN-MODERATE (5-7) Prescribed by: VALARIE JENSEN on 08/30/21 1119 Insulin Glargine,Hum.rec.anlog 100 Unit/1 Ml Insuln.pen, 60 UNITS SC Q12H Prescribed by: VIRGEN CASTILLO on 03/23/22 1630 Levothyroxine Sodium 175 Mcg Capsule, 175 MCG PO DAILY, (Reported) Magnesium Oxide 400 Mg Tablet, 400 MG PO DAILY, (Reported) Paroxetine HCl 30 Mg Tablet, 30 MG PO HS, (Reported) Sitagliptin Phos/Metformin HCl 1 Tab Tablet, 1 TAB PO BID, (Reported) Zinc 50 Mg Tablet, 50 MG PO DAILY, (Reported) Past Medical/Social/Family Hx Patient Social History Tobacco Use?: No Use of E-Cig and/or Vaping dev: No Substance use?: No Alcohol Use?: No Pt stated abuse/neglect: No Immunizations Up To Date First/Initial COVID19 Vaccinat: Not currently vaccinated Tetanus Booster (TDap): Less Than 5 Years Hepatitis A: No Hepatitis B: No TB Skin Test: None Current Status status: No Advance Directives: No Primary Language: Bahraini Preferred Spoken Language: Bahraini Past Medical History Obesity DM Hypothyroidism Review of Systems Constitutional: see HPI Other ROS PER RN Focused Exam Height, Weight, BMI Height: '" Weight: lbs. oz. kg; 37.00 BMI Method: Exam Exam Patient acknowledged, consented, and participated in this virtual visit which was conducted using real time audio/video Vital Signs Date Time Temp Pulse Resp B/P (MAP) Pulse Ox O2 Delivery O2 Flow Rate FiO2 03/23/22 17:03 36.9 87 98 21 03/23/22 17:00 85 9 138/85 96 Room Air 03/23/22 16:20 87 03/23/22 16:15 Room Air 03/23/22 16:00 36.3 87 20 161/94 96 Room Air 03/23/22 15:18 36.9 87 16 142/77 98 Room Air 03/23/22 13:30 36.9 88 16 165/96 (119) 96 Room Air Height & Weight Height: '" Weight: lbs. oz. kg; 37.00 BMI Method: General Appearance: No Apparent Distress, Anxious HEENT: PERRL/EOMI, Pharynx Normal Neck: Full Range of Motion, Normal Inspection, Non Tender Respiratory: Chest Non Tender, Lungs Clear, Normal Breath Sounds, No Accessory Muscle Use, No Respiratory Distress Cardiovascular: Regular Rate, Rhythm Capillary Refill: Less Than 3 Seconds Extremity: Normal Capillary Refill Neurologic/Psychiatric: Alert, Oriented x3, No Motor/Sensory Deficits, Normal Mood/Affect Skin: Normal Color Other comments PE PER RN Results Lab PENDING Assessment/Plan Assessment/Plan 1. Her generalized hives and lip swelling today probably due to codeine allergy based on his status takes. Even though she has been on it still patient can develop allergy like this. 2. History of diabetes mellitus poorly controlled 3. Obesity 4. Hypothyroidism 5. COVID19 pneumonia with pulmonary scarring. Recommendations 1. Suggest to hold off codeine containing medications and avoid penicillin. 2. Agree with IV Solu-Medrol and IV Pepcid. 3. As needed Benadryl 4. Agree with holding all the supplements for now. 5. Watch for respiratory status 6. DVT prophylaxis and ulcer prophylaxis. Critical Care: Critically Ill Patient Time spent with patient (mins): 35 GISELLE CATES MD March 23, 2022 17:19
[2022-03-23 17:35] LABS: CALCIUM 9.1 MG/DL (8.5-10.1); CREATININE SERUM 1.05 MG/DL (0.60-1.30); POTASSIUM 4.1 MMOL/L (3.6-5.0)
[2022-03-23] MEDS ORDERED: inSUlin ASPART (NovoLOG) 1 UNIT/0.01 ML (CHARGE PER UNIT) SC SCH (18:00)
[2022-03-23 18:18] LABS: LYMPHOCYTES % (MANUAL) 7 %; MONOCYTES % (MANUAL) 2 %; NEUTROPHILS % (MANUAL) 91 %; RBC MORPH NORMAL
[2022-03-23] MEDS ORDERED: inSUlin ASPART (NovoLOG) 1 UNIT/0.01 ML (CHARGE PER UNIT) ONE (20:43)
[2022-03-23] MEDS: inSUlin ASPART (NovoLOG) 1 UNIT/0.01 ML (CHARGE PER UNIT) SC SCH (20:44)
[2022-03-23] MEDS ORDERED: RT-ALBUTEROL/IPRATROPIUM 3 ML (DUONEB) VIAL INH SCH (21:00)
[2022-03-23] MEDS ORDERED: FAMOTIDINE 20MG/2ML IV (PEPCID) IV ONE (21:00)
[2022-03-23] MEDS ORDERED: RT-BUDESONIDE NEBS 0.5 MG/2ML (PULMICORT) AMP INH SCH (21:00)
[2022-03-23] MEDS: methylPREDNISolone 125 MG (Solu-MEDROL) VIAL IV SCH (21:12)
[2022-03-23 21:29] VITALS: BP 142/77
[2022-03-24 04:27] LABS: BASOPHILS % (AUTO) 0 % (0-10); EOSINOPHILS % (AUTO) 0 % (0-10); HEMATOCRIT 40 % (35-52); HEMOGLOBIN 13.5 g/dL (11.5-16.0); LYMPHOCYTES # (AUTO) 1.1 10^3/uL (1.0-4.0); LYMPHOCYTES % (AUTO) 7 % (12-44); MEAN CORPUSCULAR HEMOGLOBIN 30 pg (25-34); MEAN CORPUSCULAR HGB CONC 34 g/dL (32-36); MEAN CORPUSCULAR VOLUME 90 fL (80-99); MEAN PLATELET VOLUME 12.7 fL (9.0-12.2); MONOCYTES # (AUTO) 0.1 10^3/uL (0.0-1.0); MONOCYTES % (AUTO) 1 % (0-12); NEUTROPHILS # (AUTO) 14.7 10^3/uL (1.8-7.8); NEUTROPHILS % (AUTO) 92 % (42-75); PLATELET COUNT 199 10^3/uL (130-400)
[2022-03-24 04:50] LABS: POTASSIUM 3.9 MMOL/L (3.6-5.0)
[2022-03-24 04:55] LABS: CREATININE SERUM 1.11 MG/DL (0.60-1.30)
[2022-03-24 05:19] LABS: PHOSPHORUS 2.2 MG/DL (2.3-4.7)
[2022-03-24 05:21] LABS: MAGNESIUM 1.6 MG/DL (1.6-2.4)
[2022-03-24] MEDS: methylPREDNISolone 125 MG (Solu-MEDROL) VIAL IV SCH (05:37)
[2022-03-24] MEDS: NS IV 1000 ML 1,000 ML IV SCH (05:38)
[2022-03-24] MEDS: inSUlin ASPART (NovoLOG) 1 UNIT/0.01 ML (CHARGE PER UNIT) SC SCH (05:45)
[2022-03-24] MEDS ORDERED: LEVOTHYROXINE 50 MCG (LEVOTHROID) TAB PO SCH (06:30)
--- NOTE | 2022-03-24 06:39 | Short Stay Summary-Hospitalist ---
History of Present Illness HPI/Chief Complaint D6-year-old female with past medical history of insulin-dependent diabetes, hypertension, severe COVID-19 infection in June 2021 who presented to the emergency department due to lip swelling. She states for the past few weeks she has had hives intermittently for which she has seen her primary care doctor for an been taking Benadryl. 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 She also took Excedrin for headache. 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 She went home and put Abreva on it without any improvement in her lips continued to swell. She was monitoring her oxygen at home and was never hypoxic with sats around 95 but thought that her esophagus was hardening. She had no difficulty swallowing and in fact states that swallowing was compulsory. She also denied difficulty breathing. She denied any nausea or vomiting as well she was never hypotensive. Given involvement of her face she was admitted overnight for observation. She was given Solu-Medrol, Benadryl, and Pepcid in the emergency department. This morning she reports complete resolution of her symptoms. Source: patient Date Seen 03/24/22 Time Seen by a Provider: 06:34 Attending Physician Cintia Sam MD PCP Jonathan Mata MD Referring Physician Date of Admission March 23, 2022 at 16:00 Home Medications & Allergies Home Medications Reviewed patient Home Medication Reconciliation performed by pharmacy medication reconciliations radio tower technician and/or nursing. Patients Allergies have been reviewed. Allergies Allergies Coded Allergies amoxicillin (Verified Allergy, Unknown, 06/25/21) clavulanic acid (Verified Allergy, Unknown, 06/25/21) codeine (Verified Allergy, Unknown, 03/23/22) Past Kiocfnh-Ywrvkw-Gbglzi Hx Patient Social History Marrital Status: Tobacco Use?: No Smoking Status: Never a Smoker Use of E-Cig and/or Vaping dev: No Substance use?: No Alcohol Use?: No Pt feels they are or have been: No Immunizations Up To Date First/Initial COVID19 Vaccinat: Not currently vaccinated Tetanus Booster (TDap): Less Than 5 Years Hepatitis A: No Hepatitis B: No Current Status status: No Advance Directives: No Primary Language: Georgian Preferred Spoken Language: Georgian Past Medical History Diabetes, Insulin dep, Hypothyroidsim Anxiety, Depression Obesity DM Hypothyroidism COVID19- prolonged hospitalization 2020 Family Medical History Reviewed Nursing Family Hx No Pertinent Family Hx Review of Systems Constitutional: No chills, No fever EENTM: see HPI Respiratory: No cough, No dyspnea on exertion, No orthopnea, No phlegm, No short of breath, No wheezing Cardiovascular: No chest pain; edema; No palpitations Gastrointestinal: No abdominal pain, No nausea, No vomiting Genitourinary: no symptoms reported Musculoskeletal: no symptoms reported Skin: no symptoms reported Psychiatric/Neurological: No Symptoms Reported Physical Exam Physical Exam Vital Signs Vital Signs - First Documented 03/23/22 03/23/22 03/23/22 13:30 17:03 21:21 Temp 36.9 Pulse 88 Resp 16 B/P (MAP) 165/96 (119) Pulse Ox 96 O2 Delivery Room Air O2 Flow Rate 0.00 FiO2 21 Capillary Refill : Less Than 3 Seconds Height, Weight, BMI Height: '" Weight: lbs. oz. kg; 37.05 BMI Method: General Appearance: No Apparent Distress, Anxious, Obese HEENT: PERRL/EOMI, Pharynx Normal, Moist Mucous Membranes; No Scleral Icterus (L), No Scleral Icterus (R) Neck: Normal Inspection, Supple Respiratory: Lungs Clear, No Accessory Muscle Use, No Respiratory Distress Cardiovascular: Regular Rate, Rhythm, No Edema, No Murmur Gastrointestinal: Normal Bowel Sounds, Non Tender, Soft Extremity: Normal Capillary Refill, No Calf Tenderness, No Pedal Edema Neurologic/Psychiatric: Alert, Oriented x3, Normal Mood/Affect; No Aphasia, No Facial Droop Skin: Normal Color Results Results/Procedures Labs Laboratory Tests 03/23/22 17:07 03/24/22 03:51 Patient resulted labs reviewed. Short Stay Diagnosis Discharge Diagnosis-Short Stay Admission Diagnosis Angioedema Final Discharge Diagnosis Angioedema Conclusion Plan Angioedema Etiology unclear at this time but symptoms now copletely resolved Will monitor through this morning and if still doing well will DC home Continue oral steroids on DC home Needs close follow up with her PCP, Dr Mata Diagnosis/Problems Diagnosis/Problems (1) Angioedema Status: Acute Qualifiers: Qualified Codes: T78.3XXA - Angioneurotic edema, initial encounter (2) Obesity Qualifiers: Qualified Codes: E66.9 - Obesity, unspecified; Z68.37 - Body mass index [BMI] 37.0-37.9, adult (3) T2DM (type 2 diabetes mellitus) Status: Acute Qualifiers: Qualified Codes: E11.9 - Type 2 diabetes mellitus without complications; Z79.4 - heart surgeon (current) use of insulin (4) Hypothyroidism Status: Chronic Qualifiers: Qualified Codes: E03.9 - Hypothyroidism, unspecified (5) Anxiety Status: Chronic MARTIN HUNT MD March 24, 2022 06:39
[2022-03-24] MEDS ORDERED: PRED10TA22 PO (06:50)
--- NOTE | 2022-03-24 06:50 | Discharge Inst-Simple/Standard ---
Discharge Inst-Standard Discharge Medications New, Converted or Re-Newed RX: Transmitted to Pharmacy Patient Instructions/Follow Up Plan of Care/Instructions/FU: Please continue to take your medications as written. Please follow up with your primary care doctor to follow up this hospital stay. Please continue to hold your supplements until seen by your PCP. Activity as Tolerated: Yes Discharge Diet: ADA Diet Return to The Hospital For: Shortness of breath, recurrent swelling, chest pain, fever, if you feel you are getting worse. MARTIN HUNT MD March 24, 2022 06:50
[2022-03-24] MEDS ORDERED: MELA5TAB14 PO (10:08)
[2022-03-24] MEDS ORDERED: INSU100I10 SQ (10:08)
== END 2022-03-24 11:45 | disposition home or self-care (01) | DRG 916 ==
LOC: EDUNIT# 13:23 → ER FS 13:24 → ICU 16:00
PROVIDERS: ADMIT Internal Medicine; ATTEND Internal Medicine
DX: T78.3XXA Angioneurotic edema, initial encounter (principal); E66.9 Obesity, unspecified; E03.9 Hypothyroidism, unspecified; F41.9 Anxiety disorder, unspecified; E11.65 Type 2 diabetes mellitus with hyperglycemia; Z86.16 Personal history of COVID-19; Z68.37 Body mass index [BMI] 37.0-37.9, adult; Z79.4 Long term (current) use of insulin; G89.4 Chronic pain syndrome; Z79.899 Other long term (current) drug therapy; F32.A Depression, unspecified
CPT/HCPCS: 36415; 80048; 82947; 83735; 84100; 85007; 85025; 85027; 87081; G0378

== ENCOUNTER 2023-10-16 03:35 | Inpatient (IN) | payer OTHER ==
[~2023-10-16] VITALS: Ht 155 cm; Wt 99.1 kg
[2023-10-16] VITALS (7 sets, daily range): BP systolic 134–177; BP diastolic 68–99
[~2023-10-16 03:35] MED LIST changes: +GUAI-912 PO; -GUAI600T99 PO; +INSU100I10 SQ; -INSU100V39 SQ; +INSU100V45 SQ; +MELA5TAB14 PO; +PRED10TA22 PO; +SENN-271 PO; -SENN1TAB76 PO
--- NOTE | 2023-10-16 03:57 | ED General ---
General Chief Complaint: Respiratory Problems Stated Complaint: RESP DISTRESS Source of Information: Patient Exam Limitations: No Limitations History of Present Illness Date Seen by Provider: Oct 16, 2023 Time Seen by Provider: 03:43 Initial Comments Here with shortness of breath tonight. 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 She had upper respiratory symptoms including runny nose and sinus congestion that seems to have moved to her chest now. States that she woke up at 2 AM short of breath and realized her oxygen saturation was as low as 83%. She does wear CPAP at night. She did require oxygen previously but has been taken off oxygen over the last several months as she was doing better and has just been using CPAP at night. She has not had her COVID or flu vaccine this season. She did have COVID with lung problems afterwards earlier in the COVID pandemic. Denies vomiting or diarrhea. She has had fever and chills. She is drinking okay. Reports appetite decreased. Timing/Duration: 3-4 Days, Getting Worse Severity: Moderate Associated Systoms: No Chest Pain; Cough, Fever/Chills, Malaise; No Nausea/Vomiting; Shortness of Air Allergies and Home Medications Allergies Coded Allergies: amoxicillin (Verified Allergy, Unknown, 06/25/21) clavulanic acid (Verified Allergy, Unknown, 06/25/21) codeine (Verified Allergy, Unknown, 03/23/22) Patient Home Medication List Home Medication List Reviewed: Yes Glipizide (Glipizide) 10 Mg Tablet, 10 MG PO BID WITH MEALS, (Reported) Entered as Reported by: LIOR ORR on 06/26/21 1524 Last Action: Converted Insulin Glargine,Hum.rec.anlog (Lantus Solostar) 100 Unit/Ml (3 Ml) Insuln.pen, 100 UNIT SQ BID, (Reported) Entered as Reported by: LIOR ORR on 03/24/22 1008 Last Action: Edited Levothyroxine Sodium (Tirosint) 175 Mcg Capsule, 175 MCG PO DAILY, (Reported) Entered as Reported by: LIOR ORR on 08/26/21 1259 Last Action: Converted Melatonin (Melatonin) 5 Mg Tablet, 5 MG PO HS PRN for SLEEP, (Reported) Entered as Reported by: LIOR ORR on 03/24/22 1008 Last Action: Converted Paroxetine HCl (Paroxetine HCl) 30 Mg Tablet, 30 MG PO HS, (Reported) Entered as Reported by: VIRGEN CASTILLO on 03/23/22 1630 Last Action: Edited Sitagliptin Phos/Metformin HCl (Janumet 50-500 mg Tablet) 1 Tab Tablet, 1 TAB PO BID, (Reported) Entered as Reported by: LIOR ORR on 08/26/21 1259 Last Action: Converted Discontinued Medications Prednisone (Prednisone) 10 Mg Tab.ds.pk, 10 MG PO DAILY Discontinued Reason: No Longer Taking Prescribed by: MARTIN HUNT on 03/24/22 0650 Last Action: Discontinued Review of Systems Review of Systems Constitutional: see HPI, chills, fever EENTM: nose congestion; No throat pain Respiratory: cough, short of breath Cardiovascular: No chest pain, No edema Gastrointestinal: no symptoms reported Genitourinary: no symptoms reported Musculoskeletal: no symptoms reported Skin: no symptoms reported Past Qdnfpvz-Tjxugs-Ssudqi Hx Patient Social History Tobacco Use?: No Substance use?: No Alcohol Use?: No Immunizations Up To Date Influenza Vaccine Up-to-Date: No; Not Current First/Initial COVID19 Vaccinat: Not currently vaccinated Second COVID19 Vaccination Azeem: Not currently vaccinated Third COVID19 Vaccination Date: Not currently vaccinated Past Medical History Surgery/Hospitalization HX: DM; Anxiety; Depression; Hypothyroidism; Cyst removal Surgeries: Yes Respiratory: Yes COPD Neurological: No Genitourinary: No Gastrointestinal: No Musculoskeletal: No Endocrine: Yes Diabetes, Insulin dep, Hypothyroidsim Psychosocial: Yes Anxiety, Depression Family Medical History Reviewed Nursing Family Hx No Pertinent Family Hx Physical Exam-Suspected Sepsis Physical Exam Vital Signs Vital Signs - First Documented 10/16/23 10/16/23 10/16/23 03:40 03:42 06:03 Temp 37.1 Pulse 81 Resp 22 B/P (MAP) 142/82 (102) Pulse Ox 82 O2 Delivery Room Air O2 Flow Rate 2.00 FiO2 21 Capillary Refill : Height, Weight, BMI Height: '" Weight: lbs. oz. kg; 37.05 BMI Method: General Appearance: Anxious, Mild Distress (Respiratory), Obese HEENT: PERRL/EOMI, Pharynx Normal Neck: Non Tender, Supple Respiratory: Lungs Clear, Normal Breath Sounds Cardiovascular: Regular Rate, Rhythm, No Murmur Gastrointestinal: Non Tender, Soft Back: Normal Inspection, No CVA Tenderness, No Vertebral Tenderness Extremity: Normal Range of Motion, Non Tender Neurologic/Psychiatric: Alert, Oriented x3 Skin: normal color, warm/dry Focused Exam Lactate Level 10/16/23 03:51: Lactic Acid Level 0.95 Lactic Acid Level Progress/Results/Core Measures Suspected Sepsis SIRS Temperature: Pulse: Respiratory Rate: Laboratory Tests 10/16/23 03:51: White Blood Count 13.1H 10/17/23 04:40: White Blood Count 12.4H 10/18/23 04:53: White Blood Count 17.5H Blood Pressure / Mean: 10/16/23 03:51: Lactic Acid Level 0.95 Laboratory Tests 10/16/23 03:51: Creatinine 1.33H, INR Comment 1.1, Platelet Count 207, Total Bilirubin 0.5 10/17/23 04:40: Creatinine 1.50H, Platelet Count 181, Total Bilirubin 0.4 10/18/23 04:53: Creatinine 1.32H, Platelet Count 216, Total Bilirubin 0.3 Results/Orders Lab Results Laboratory Tests Test 10/16/23 16:24 10/16/23 20:46 10/17/23 04:40 10/17/23 10:21 Range/Units Glucometer 381 H 429 *H 404 *H 70-110 MG/DL White Blood Count 12.4 H 4.3-11.0 10^3/uL Red Blood Count 3.44 L 3.80-5.11 10^6/uL Hemoglobin 9.6 L 11.5-16.0 g/dL Hematocrit 30 L 35-52 % Mean Corpuscular Volume 88 80-99 fL Mean Corpuscular Hemoglobin 28 25-34 pg Mean Corpuscular Hemoglobin Concent 32 32-36 g/dL Red Cell Distribution Width 14.6 H 10.0-14.5 % Platelet Count 181 130-400 10^3/uL Mean Platelet Volume 12.7 H 9.0-12.2 fL Immature Granulocyte % (Auto) 1 % Neutrophils (%) (Auto) 86 H 42-75 % Lymphocytes (%) (Auto) 8 L 12-44 % Monocytes (%) (Auto) 6 0-12 % Eosinophils (%) (Auto) 0 0-10 % Basophils (%) (Auto) 0 0-10 % Neutrophils # (Auto) 10.7 H 1.8-7.8 10^3/uL Lymphocytes # (Auto) 1.0 1.0-4.0 10^3/uL Monocytes # (Auto) 0.7 0.0-1.0 10^3/uL Eosinophils # (Auto) 0.0 0.0-0.3 10^3/uL Basophils # (Auto) 0.0 0.0-0.1 10^3/uL Immature Granulocyte # (Auto) 0.1 0.0-0.1 10^3/uL Neutrophils % (Manual) 85 % Lymphocytes % (Manual) 11 % Monocytes % (Manual) 4 % Polychromasia SLIGHT Elliptocytes SLIGHT Sodium Level 134 L 135-145 MMOL/L Potassium Level 4.2 3.6-5.0 MMOL/L Chloride Level 107 98-107 MMOL/L Carbon Dioxide Level 16 L 21-32 MMOL/L Anion Gap 11 5-14 MMOL/L Blood Urea Nitrogen 26 H 7-18 MG/DL Creatinine 1.50 H 0.60-1.30 MG/DL Estimat Glomerular Filtration Rate 42 BUN/Creatinine Ratio 17 Glucose Level 415 *H 70-105 MG/DL Calcium Level 8.5 8.5-10.1 MG/DL Corrected Calcium 8.7 8.5-10.1 MG/DL Total Bilirubin 0.4 0.1-1.0 MG/DL Aspartate Amino Transf (AST/SGOT) 14 5-34 U/L Alanine Aminotransferase (ALT/SGPT) 19 0-55 U/L Alkaline Phosphatase 60 40-136 U/L Total Protein 6.1 L 6.4-8.2 GM/DL Albumin 3.7 3.2-4.5 GM/DL Test 10/17/23 16:01 10/17/23 20:53 10/18/23 04:53 10/18/23 04:58 Range/Units Glucometer 470 *H 340 H 228 H 70-110 MG/DL White Blood Count 17.5 H 4.3-11.0 10^3/uL Red Blood Count 3.62 L 3.80-5.11 10^6/uL Hemoglobin 10.1 L 11.5-16.0 g/dL Hematocrit 31 L 35-52 % Mean Corpuscular Volume 87 80-99 fL Mean Corpuscular Hemoglobin 28 25-34 pg Mean Corpuscular Hemoglobin Concent 32 32-36 g/dL Red Cell Distribution Width 14.7 H 10.0-14.5 % Platelet Count 216 130-400 10^3/uL Mean Platelet Volume 12.6 H 9.0-12.2 fL Immature Granulocyte % (Auto) 1 % Neutrophils (%) (Auto) 88 H 42-75 % Lymphocytes (%) (Auto) 6 L 12-44 % Monocytes (%) (Auto) 5 0-12 % Eosinophils (%) (Auto) 0 0-10 % Basophils (%) (Auto) 0 0-10 % Neutrophils # (Auto) 15.5 H 1.8-7.8 10^3/uL Lymphocytes # (Auto) 1.1 1.0-4.0 10^3/uL Monocytes # (Auto) 0.8 0.0-1.0 10^3/uL Eosinophils # (Auto) 0.0 0.0-0.3 10^3/uL Basophils # (Auto) 0.0 0.0-0.1 10^3/uL Immature Granulocyte # (Auto) 0.1 0.0-0.1 10^3/uL Sodium Level 135 135-145 MMOL/L Potassium Level 4.0 3.6-5.0 MMOL/L Chloride Level 108 H 98-107 MMOL/L Carbon Dioxide Level 16 L 21-32 MMOL/L Anion Gap 11 5-14 MMOL/L Blood Urea Nitrogen 30 H 7-18 MG/DL Creatinine 1.32 H 0.60-1.30 MG/DL Estimat Glomerular Filtration Rate 49 BUN/Creatinine Ratio 23 Glucose Level 249 H 70-105 MG/DL Calcium Level 9.0 8.5-10.1 MG/DL Corrected Calcium 9.0 8.5-10.1 MG/DL Total Bilirubin 0.3 0.1-1.0 MG/DL Aspartate Amino Transf (AST/SGOT) 15 5-34 U/L Alanine Aminotransferase (ALT/SGPT) 20 0-55 U/L Alkaline Phosphatase 61 40-136 U/L Total Protein 6.5 6.4-8.2 GM/DL Albumin 4.0 3.2-4.5 GM/DL Test 10/18/23 10:18 Range/Units Glucometer 291 H 70-110 MG/DL My Orders Medications Given in ED Vital Signs/I&O 10/18/23 10/18/23 10/18/23 10/18/23 02:50 07:18 07:38 07:38 Temp 36.8 Pulse 91 Resp 20 B/P (MAP) 130/60 (83) Pulse Ox 93 O2 Delivery Nasal Cannula Nasal Cannula Nasal Cannula Nasal Cannula O2 Flow Rate 2.00 2.00 2.00 2.00 10/18/23 10/18/23 08:00 11:25 O2 Delivery Nasal Cannula Nasal Cannula O2 Flow Rate 2.00 2.00 Capillary Refill : Progress Note : Progress Note Seen and evaluated. Patient had initial O2 sat of 83% on room air. This rapidly improved to 99% on 2 L. No obvious wheezes. She has reported fever and recent illness so we will do sepsis protocol minus the UA as she is not having any urinary symptoms. Labs include CBC, CMP, COVID and influenza screen, coags, blood cultures and lactic acid. Normal saline 500 mL bolus ordered. Chest x- ray ordered. Monitor patient. Differential diagnosis includes COPD exacerbation, pneumonia, COVID, influenza or other viral illness. 0455: CBC shows slightly elevated white count and slightly low hemoglobin. CMP is grossly normal electrolytes and negative lactic acid with slightly elevated serum creatinine and GFR of 49. Coags are normal. Influenza negative but COVID is positive. Chest x-ray reviewed by me shows bilateral multilobar infiltrates consistent with COVID-pneumonia on my interpretation. She is at 99% on 3 L via nasal cannula currently and more comfortable. I did discuss the case with Dr. Apple and we will admit the patient due to oxygen requirements and COVID- pneumonia. Decadron 6 mg IV ordered. She will write inpatient orders. Findings and concerns discussed with patient and family who agree with plan. Admit, inpatient status to cardiac stepdown. Departure Communication (Admissions) Time/Spoke to Admitting Phy: 04:55 Impression Primary Impression: Pneumonia due to COVID-19 virus Additional Impression: Hypoxia Disposition: ADMITTED INPATIENT Condition: Stable Admissions Decision to Admit Reason: Admit from ER (General) Decision to Admit/Date: Oct 16, 2023 Time/Decision to Admit Time: 04:55 Departure-Patient Inst. Referrals: JOYCE CASTELLON MD (PCP/Family) Primary Care Physician RAFAEL MARTIN MD Oct 16, 2023 03:57
[2023-10-16] MEDS ORDERED: NS IV 500 ML 500 ML IV ONE (04:00)
[2023-10-16 04:16] LABS: BASOPHILS % (AUTO) 0 % (0-10); EOSINOPHILS # (AUTO) 0.3 10^3/uL (0.0-0.3); EOSINOPHILS % (AUTO) 2 % (0-10); HEMATOCRIT 34 % (35-52); HEMOGLOBIN 10.7 g/dL (11.5-16.0); LYMPHOCYTES # (AUTO) 1.1 10^3/uL (1.0-4.0); LYMPHOCYTES % (AUTO) 9 % (12-44); MEAN CORPUSCULAR HEMOGLOBIN 28 pg (25-34); MEAN CORPUSCULAR HGB CONC 32 g/dL (32-36); MEAN CORPUSCULAR VOLUME 88 fL (80-99); MEAN PLATELET VOLUME 12.3 fL (9.0-12.2); MONOCYTES # (AUTO) 0.9 10^3/uL (0.0-1.0); MONOCYTES % (AUTO) 7 % (0-12); NEUTROPHILS # (AUTO) 10.8 10^3/uL (1.8-7.8); NEUTROPHILS % (AUTO) 82 % (42-75); PLATELET COUNT 207 10^3/uL (130-400); WHITE BLOOD COUNT 13.1 10^3/uL (4.3-11.0)
[2023-10-16 04:30] LABS: CALCIUM 8.7 MG/DL (8.5-10.1); INR 1.1 (0.8-1.4); PROTHROMBIN TIME PATIENT 14.3 SEC (12.2-14.7)
[2023-10-16 04:31] LABS: TOTAL PROTEIN 6.5 GM/DL (6.4-8.2)
[2023-10-16 04:33] LABS: BILIRUBIN,TOTAL 0.5 MG/DL (0.1-1.0)
[2023-10-16 04:34] LABS: CREATININE SERUM 1.33 MG/DL (0.60-1.30)
[2023-10-16] MEDS ORDERED: dexAMETHasone INJ 10 MG/ML 1 ML VIAL IV STA (04:50)
--- NOTE | 2023-10-16 05:27 | Diagnostic Imaging Report ---
INDICATION: Shortness of air. Cough and congestion. COMPARISON: 08/23/2021 FINDINGS: Single frontal radiographic view of the chest was obtained and demonstrates mild cardiomegaly and pulmonary vascular congestion. There is also mild diffuse prominence of the interstitium. No large effusion or pneumothorax is seen. Osseous structures show no gross acute abnormalities. IMPRESSION: 1. Cardiomegaly with sequela of CHF including probable interstitial pulmonary edema. Dictated by: Dictated on workstation # [id number]
[2023-10-16] MEDS ORDERED: oxyCODONE IMMEDIATE RELEASE 5 MG TABLET PO PRN (05:45)
[2023-10-16] MEDS ORDERED: MELATONIN 3 MG TABLET PO PRN (05:45)
[2023-10-16] MEDS ORDERED: LACTULOSE SYRUP 10GM/15ML 30ML UDC PO PRN (05:45)
[2023-10-16] MEDS ORDERED: NS IV 1000 ML 1,000 ML IV SCH (05:45)
[2023-10-16] MEDS ORDERED: diphenhydrAMINE INJ 50 MG/ML VIAL IVP PRN (05:45)
[2023-10-16] MEDS ORDERED: LORazepam 0.5 MG TABLET PO PRN (05:45)
[2023-10-16] MEDS ORDERED: ONDANSETRON 4 MG ORAL DISSOLVE TABLET PO PRN (05:45)
[2023-10-16] MEDS ORDERED: ONDANSETRON INJECTION 4 MG/2 ML (SDV) IV PRN (05:45)
[2023-10-16] MEDS ORDERED: CALCIUM CARBONATE 500 MG CHEW TABLET PO PRN (05:45)
[2023-10-16] MEDS ORDERED: MILK OF MAGNESIA 400 MG/5 ML 30 ML UDC PO PRN (05:45)
[2023-10-16] MEDS ORDERED: HYDROmorphone INJECTION 2 MG/ML VIAL IV PRN (05:45)
[2023-10-16] MEDS ORDERED: hydrALAZINE INJECTION 20 MG/ML VIAL IV PRN (05:45)
[2023-10-16] MEDS ORDERED: BISACODYL 10 MG SUPPOSITORY PR PRN (05:45)
[2023-10-16] MEDS ORDERED: ANTACID SUSPENSION 30 ML UDC PO PRN (05:45)
[2023-10-16] MEDS ORDERED: diphenhydrAMINE 25 MG TABLET PO PRN (05:45)
[2023-10-16] MEDS ORDERED: AZITHROMYCIN INJECTION 500 MG in NS (IVPB) 250 ML 250 ML IV SCH (06:00)
[2023-10-16] MEDS ORDERED: RT-ALBUTEROL HFA 8.5 GM INHALER IH PRN (06:15)
[2023-10-16] MEDS: CEFEPIME INJECTION 1,000 MG in NS (IVPB) 50 ML 50 ML IV SCH ×3 (06:37→18:02)
[2023-10-16] MEDS: inSUlin ASPART 1 UNIT/0.01 ML (PER UNIT) SC SCH ×4 (06:39→20:53)
[2023-10-16] MEDS ORDERED: FLU QUADRIvalent (6 months+) 60 mcg/0.5 ml 2023-2024 (FLUARIX) IM ONE (07:45)
[2023-10-16] MEDS: guaiFENesin 600 MG TABLET PO SCH ×2 (08:56→19:23)
[2023-10-16] MEDS: ENOXAPARIN 40 MG/0.4 ML SYRINGE SC SCH ×2 (08:56→19:23)
[2023-10-16] MEDS ORDERED: NIRMATRELVIR/RITONAVIR (PAXLOVID) TABLET PO SCH (09:00)
[2023-10-16] MEDS: DOCUSATE SODIUM 100 MG CAPSULE PO SCH ×2 (09:05→19:23)
[2023-10-16] MEDS: SENNOSIDES 8.6 MG TABLET PO SCH ×2 (09:05→19:23)
[2023-10-16] MEDS: NIRMATRELVIR/RITONAVIR (PAXLOVID) TABLET PO SCH ×2 (09:54→19:24)
--- NOTE | 2023-10-16 10:36 | History & Physical ---
History of Present Illness HPI/Chief Complaint Chief complaint: Acute hypoxic respiratory failure due to COVID-pneumonia HPI: This is a 48-year-old female who has history of long COVID who presented to the ER with shortness of breath and fever found to have COVID. Bacterial pneumonia with superimposed so placed on IV antibiotics. Due to the hypoxia she was started on Decadron. Currently she is doing much better and will move down to fourth floor. Source: patient Exam Limitations: no limitations Date Seen 10/16/23 Time Seen by a Provider: 12:30 Attending Physician Jonathan Mata MD PCP Admitting Physician: Paulette Apple DO Attending Physician: Paulette Apple DO Referring Physician Date of Admission Oct 16, 2023 at 05:24 Home Medications & Allergies Home Medications Reviewed patient Home Medication Reconciliation performed by pharmacy medication reconciliations process technician and/or nursing. Patients Allergies have been reviewed. Allergies Allergies Coded Allergies amoxicillin (Verified Allergy, Unknown, 06/25/21) clavulanic acid (Verified Allergy, Unknown, 06/25/21) codeine (Verified Allergy, Unknown, 03/23/22) Past Terzuha-Hkdtqf-Oiufmn Hx Past Med/Social Hx: Reviewed Nursing Past Med/Soc Hx, Reviewed and Corrections made Patient Social History Marrital Status: Employed/Student: unemployed Alcohol Use: Denies Use Smoking Status: Never a Smoker Past Medical History Respiratory: Pneumonia Endocrine: Diabetes, Insulin dep, Hypothyroidsim Psychosocial: Anxiety, Depression Family History Reviewed Nursing Family Hx No Pertinent Family Hx Review of Systems Constitutional: see HPI Respiratory: dyspnea on exertion, short of breath Physical Exam Physical Exam Vital Signs Vital Signs - First Documented 10/16/23 10/16/23 10/16/23 03:40 03:42 06:03 Temp 37.1 Pulse 81 Resp 22 B/P (MAP) 142/82 (102) Pulse Ox 82 O2 Delivery Room Air O2 Flow Rate 2.00 FiO2 21 Capillary Refill : Less Than 3 Seconds Height, Weight, BMI Height: '" Weight: lbs. oz. kg; 41.24 BMI Method: General Appearance: Anxious, Chronically ill, Mild Distress (Respiratory), Obese HEENT: PERRL/EOMI, Pharynx Normal Neck: Non Tender, Supple Respiratory: Lungs Clear, Normal Breath Sounds Cardiovascular: Regular Rate, Rhythm, No Murmur Gastrointestinal: Non Tender, Soft Back: Normal Inspection, No CVA Tenderness, No Vertebral Tenderness Extremity: Normal Range of Motion, Non Tender Neurologic/Psychiatric: Alert, Oriented x3 Results Results/Procedures Labs Laboratory Tests 10/16/23 03:51 10/17/23 04:40 Patient resulted labs reviewed. Assessment/Plan Admission Diagnosis Assessment: Acute hypoxic respiratory failure COVID-pneumonia Bacterial pneumonia Diabetes Hypothyroidism History of long COVID Obesity BMI of 41 Plan: Supportive care Monitor closely IV antibiotics IV Decadron Admission Status: Inpatient Order (span 2 midnights) Reason for Inpatient Admission: Respiratory failure due to PAULETTE LUNSFORD DO Oct 16, 2023 10:36
[2023-10-16] MEDS: FLUTICASONE/VILANTEROL 200/25 MCG (14 DOSES) IH SCH (10:37)
[2023-10-16] MEDS: RT-ALBUTEROL HFA 8.5 GM INHALER IH SCH ×4 (10:38→22:09)
[2023-10-16] MEDS ORDERED: NON-FORMULARY MEDICATION 1 EA EA (Melatonin 5 MG) PO PRN (11:30)
[2023-10-16] MEDS: metFORMIN 500 MG TABLET PO SCH (17:25)
[2023-10-16] MEDS: glipiZIDE 5 MG TABLET PO SCH (17:25)
[2023-10-16] MEDS ORDERED: NON-FORMULARY MEDICATION 1 EA EA (Glipizide 10 MG) PO SCH (18:00)
[2023-10-16] MEDS: MONTELUKAST 10 MG TABLET PO SCH (19:23)
[2023-10-16] MEDS ORDERED: NON-FORMULARY MEDICATION 1 EA EA (Sitagliptin Phos/Metformin HCl (Janumet 50-500 mg Tablet PO SCH (21:00)
[2023-10-17] MEDS: CEFEPIME INJECTION 1,000 MG in NS (IVPB) 50 ML 50 ML IV SCH ×5 (00:09→23:39)
[2023-10-17] MEDS: MELATONIN 10 MG TABLET PO PRN ×2 (00:14→19:28)
[2023-10-17] MEDS: ACETAMINOPHEN 325 MG TABLET PO PRN (00:14)
[2023-10-17 00:16] VITALS: BP 127/57
[2023-10-17] MEDS: RT-ALBUTEROL HFA 8.5 GM INHALER IH SCH ×6 (02:28→22:09)
[2023-10-17 04:18] VITALS: BP 131/68
[2023-10-17 05:01] LABS: BASOPHILS % (AUTO) 0 % (0-10); EOSINOPHILS % (AUTO) 0 % (0-10); HEMATOCRIT 30 % (35-52); HEMOGLOBIN 9.6 g/dL (11.5-16.0); LYMPHOCYTES % (AUTO) 8 % (12-44); MEAN CORPUSCULAR HEMOGLOBIN 28 pg (25-34); MEAN CORPUSCULAR HGB CONC 32 g/dL (32-36); MEAN CORPUSCULAR VOLUME 88 fL (80-99); MEAN PLATELET VOLUME 12.7 fL (9.0-12.2); MONOCYTES # (AUTO) 0.7 10^3/uL (0.0-1.0); MONOCYTES % (AUTO) 6 % (0-12); NEUTROPHILS # (AUTO) 10.7 10^3/uL (1.8-7.8); NEUTROPHILS % (AUTO) 86 % (42-75); PLATELET COUNT 181 10^3/uL (130-400); WHITE BLOOD COUNT 12.4 10^3/uL (4.3-11.0)
[2023-10-17 05:16] LABS: ALBUMIN 3.7 GM/DL (3.2-4.5); BILIRUBIN,TOTAL 0.4 MG/DL (0.1-1.0); CALCIUM 8.5 MG/DL (8.5-10.1); CREATININE SERUM 1.5 MG/DL (0.60-1.30); POTASSIUM 4.2 MMOL/L (3.6-5.0); TOTAL PROTEIN 6.1 GM/DL (6.4-8.2)
[2023-10-17] MEDS: inSUlin ASPART 1 UNIT/0.01 ML (PER UNIT) SC SCH ×4 (05:37→20:59)
[2023-10-17] MEDS: LEVOTHYROXINE 100 MCG TABLET PO SCH (05:37)
[2023-10-17] MEDS: LEVOTHYROXINE 75 MCG TABLET PO SCH (05:37)
[2023-10-17 06:02] LABS: ELLIPT/OVALOCYTES SLIGHT; LYMPHOCYTES % (MANUAL) 11 %; MONOCYTES % (MANUAL) 4 %; NEUTROPHILS % (MANUAL) 85 %; POLYCHROMASIA SLIGHT
[2023-10-17] MEDS: FLUTICASONE/VILANTEROL 200/25 MCG (14 DOSES) IH SCH (07:16)
[2023-10-17 08:13] VITALS: BP 125/69
--- NOTE | 2023-10-17 08:24 | Progress Note ---
Subjective Date Seen by a Provider: Oct 17, 2023 Time Seen by a Provider: 11:30 Subjective/Events-last exam Doing better No falls Improved dyspnea Remains on O2 Sugars are very high Review of Systems General: Fatigue, Malaise Focused Exam Lactate Level 10/16/23 03:51: Lactic Acid Level 0.95 Objective Exam Last Set of Vital Signs Vital Signs Date Time Temp Pulse Resp B/P (MAP) Pulse Ox O2 Delivery O2 Flow Rate FiO2 10/17/23 08:13 37.0 68 20 125/69 (87) 95 Nasal Cannula 2.50 10/16/23 06:03 21 Capillary Refill : Less Than 3 Seconds I&O Intake and Output 10/16/23 23:59 Intake Total 1365 ml Balance 1365 ml Intake Oral 1315 ml IV Total 50 ml # Voids 4 Daily Weight Change No General: Alert, Oriented X3, Cooperative, No Acute Distress Lungs: Clear to Auscultation, Normal Air Movement Heart: Regular Rate, Normal S1, Normal S2, No Murmurs Psych/Mental Status: Mental Status NL, Mood NL Results Lab Laboratory Tests 10/16/23 12:13: Glucometer 265H 10/16/23 16:24: Glucometer 381H 10/16/23 20:46: Glucometer 429*H 10/17/23 04:40: White Blood Count 12.4H, Red Blood Count 3.44L, Hemoglobin 9.6L, Hematocrit 30L, Mean Corpuscular Volume 88, Mean Corpuscular Hemoglobin 28, Mean Corpuscular Hemoglobin Concent 32, Red Cell Distribution Width 14.6H, Platelet Count 181, Mean Platelet Volume 12.7H, Immature Granulocyte % (Auto) 1, Neutrophils (%) (Auto) 86H, Lymphocytes (%) (Auto) 8L, Monocytes (%) (Auto) 6, Eosinophils (%) (Auto) 0, Basophils (%) (Auto) 0, Neutrophils # (Auto) 10.7H, Lymphocytes # (Auto) 1.0, Monocytes # (Auto) 0.7, Eosinophils # (Auto) 0.0, Basophils # (Auto) 0.0, Immature Granulocyte # (Auto) 0.1, Neutrophils % (Manual) 85, Lymphocytes % (Manual) 11, Monocytes % (Manual) 4, Polychromasia SLIGHT, Elliptocytes SLIGHT, Sodium Level 134L, Potassium Level 4.2, Chloride Level 107, Carbon Dioxide Level 16L, Anion Gap 11, Blood Urea Nitrogen 26H, Creatinine 1.50H, Estimat Glomerular Filtration Rate 42, BUN/Creatinine Ratio 17, Glucose Level 415*H, Calcium Level 8.5, Corrected Calcium 8.7, Total Bilirubin 0.4, Aspartate Amino Transf (AST/SGOT) 14, Alanine Aminotransferase (ALT/SGPT) 19, Alkaline Phosphatase 60, Total Protein 6.1L, Albumin 3.7 Assessment/Plan Assessment/Plan Assess & Plan/Chief Complaint Assessment: Acute hypoxic respiratory failure COVID-pneumonia Bacterial pneumonia Diabetes OOC due to steroids Hypothyroidism History of long COVID Obesity BMI of 41 CKD Plan: Supportive care Monitor closely IV antibiotics IV Decadron VALARIE JENSEN DO Oct 17, 2023 08:24
[2023-10-17] MEDS: LinaGLIPtin 5 MG TABLET PO SCH (08:38)
[2023-10-17] MEDS: AZITHROMYCIN 250 MG TABLET PO SCH (08:38)
[2023-10-17] MEDS: glipiZIDE 5 MG TABLET PO SCH ×2 (08:38→18:14)
[2023-10-17] MEDS: metFORMIN 500 MG TABLET PO SCH ×2 (08:39→18:14)
[2023-10-17] MEDS: dexAMETHasone INJ 10 MG/ML 1 ML VIAL IV SCH (08:40)
[2023-10-17] MEDS: guaiFENesin 600 MG TABLET PO SCH ×2 (08:40→19:27)
[2023-10-17] MEDS: NIRMATRELVIR/RITONAVIR (PAXLOVID) TABLET PO SCH ×2 (08:42→19:28)
[2023-10-17] MEDS: ENOXAPARIN 40 MG/0.4 ML SYRINGE SC SCH ×2 (08:42→19:28)
[2023-10-17] MEDS: DOCUSATE SODIUM 100 MG CAPSULE PO SCH ×2 (08:47→19:28)
[2023-10-17] MEDS: SENNOSIDES 8.6 MG TABLET PO SCH ×2 (08:47→19:28)
[2023-10-17] MEDS ORDERED: LEVOTHYROXINE SODIUM 175 MCG PO SCH (09:00)
[2023-10-17] MEDS ORDERED: inSUlin (REGULAR) HUMAN 1 UNIT/0.01 ML (CHARGE PER UNIT) SC ONE (10:30)
[2023-10-17 11:27] VITALS: BP 128/72
[2023-10-17] MEDS: inSUlin DETERMIR 1 UNIT/0.01 ML (CHARGE PER UNIT) SQ SCH ×2 (15:59→20:59)
[2023-10-17 16:04] VITALS: BP 135/65
[2023-10-17] MEDS: inSUlin (REGULAR) HUMAN 1 UNIT/0.01 ML (CHARGE PER UNIT) SC PRN (16:20)
[2023-10-17] MEDS: MONTELUKAST 10 MG TABLET PO SCH (19:27)
[2023-10-17 23:36] VITALS: BP 136/65
[2023-10-18] MEDS: RT-ALBUTEROL HFA 8.5 GM INHALER IH SCH ×6 (02:50→22:40)
[2023-10-18 05:29] LABS: BASOPHILS % (AUTO) 0 % (0-10); EOSINOPHILS % (AUTO) 0 % (0-10); HEMATOCRIT 31 % (35-52); HEMOGLOBIN 10.1 g/dL (11.5-16.0); LYMPHOCYTES # (AUTO) 1.1 10^3/uL (1.0-4.0); LYMPHOCYTES % (AUTO) 6 % (12-44); MEAN CORPUSCULAR HEMOGLOBIN 28 pg (25-34); MEAN CORPUSCULAR HGB CONC 32 g/dL (32-36); MEAN CORPUSCULAR VOLUME 87 fL (80-99); MEAN PLATELET VOLUME 12.6 fL (9.0-12.2); MONOCYTES # (AUTO) 0.8 10^3/uL (0.0-1.0); MONOCYTES % (AUTO) 5 % (0-12); NEUTROPHILS # (AUTO) 15.5 10^3/uL (1.8-7.8); NEUTROPHILS % (AUTO) 88 % (42-75); PLATELET COUNT 216 10^3/uL (130-400); WHITE BLOOD COUNT 17.5 10^3/uL (4.3-11.0)
[2023-10-18 05:45] LABS: BILIRUBIN,TOTAL 0.3 MG/DL (0.1-1.0); CREATININE SERUM 1.32 MG/DL (0.60-1.30); TOTAL PROTEIN 6.5 GM/DL (6.4-8.2)
[2023-10-18] MEDS: LEVOTHYROXINE 100 MCG TABLET PO SCH (05:49)
[2023-10-18] MEDS: inSUlin ASPART 1 UNIT/0.01 ML (PER UNIT) SC SCH ×4 (05:49→21:15)
[2023-10-18] MEDS: CEFEPIME INJECTION 1,000 MG in NS (IVPB) 50 ML 50 ML IV SCH ×4 (05:49→23:57)
[2023-10-18] MEDS: LEVOTHYROXINE 75 MCG TABLET PO SCH (05:49)
[2023-10-18 07:18] VITALS: BP 130/60
[2023-10-18] MEDS: FLUTICASONE/VILANTEROL 200/25 MCG (14 DOSES) IH SCH (07:37)
[2023-10-18] MEDS: guaiFENesin 600 MG TABLET PO SCH ×2 (08:20→21:15)
[2023-10-18] MEDS: metFORMIN 500 MG TABLET PO SCH ×2 (08:20→17:49)
[2023-10-18] MEDS: ENOXAPARIN 40 MG/0.4 ML SYRINGE SC SCH ×2 (08:20→21:14)
[2023-10-18] MEDS: glipiZIDE 5 MG TABLET PO SCH ×2 (08:20→17:49)
[2023-10-18] MEDS: AZITHROMYCIN 250 MG TABLET PO SCH (08:20)
[2023-10-18] MEDS: LinaGLIPtin 5 MG TABLET PO SCH (08:20)
[2023-10-18] MEDS: NIRMATRELVIR/RITONAVIR (PAXLOVID) TABLET PO SCH ×2 (08:22→21:16)
[2023-10-18] MEDS: dexAMETHasone INJ 10 MG/ML 1 ML VIAL IV SCH (08:23)
[2023-10-18] MEDS: inSUlin DETERMIR 1 UNIT/0.01 ML (CHARGE PER UNIT) SQ SCH ×2 (08:24→21:16)
--- NOTE | 2023-10-18 08:56 | Progress Note ---
Subjective Date Seen by a Provider: Oct 18, 2023 Time Seen by a Provider: 11:00 Subjective/Events-last exam Patient doing well Maintain on oxygen at 2 L Eating and drinking well Bowels are moving Blood sugars much improved with increased insulin Review of Systems General: Fatigue, Malaise Focused Exam Lactate Level 10/16/23 03:51: Lactic Acid Level 0.95 Objective Exam Last Set of Vital Signs Vital Signs Date Time Temp Pulse Resp B/P (MAP) Pulse Ox O2 Delivery O2 Flow Rate FiO2 10/18/23 08:00 Nasal Cannula 2.00 10/18/23 07:18 36.8 91 20 130/60 (83) 93 10/16/23 06:03 21 Capillary Refill : Less Than 3 Seconds I&O Intake and Output 10/17/23 23:59 Intake Total 1490 ml Output Total 1100 ml Balance 390 ml Intake Oral 1340 ml IV Total 150 ml Output Urine Total 1100 ml # Voids 2 General: Alert, Oriented X3, Cooperative, No Acute Distress Lungs: Clear to Auscultation, Normal Air Movement Heart: Regular Rate, Normal S1, Normal S2, No Murmurs Psych/Mental Status: Mental Status NL, Mood NL Results Lab Laboratory Tests 10/17/23 10:21: Glucometer 404*H 10/17/23 16:01: Glucometer 470*H 10/17/23 20:53: Glucometer 340H 10/18/23 04:53: White Blood Count 17.5H, Red Blood Count 3.62L, Hemoglobin 10.1L, Hematocrit 31L , Mean Corpuscular Volume 87, Mean Corpuscular Hemoglobin 28, Mean Corpuscular Hemoglobin Concent 32, Red Cell Distribution Width 14.7H, Platelet Count 216, Mean Platelet Volume 12.6H, Immature Granulocyte % (Auto) 1, Neutrophils (%) (Auto) 88H, Lymphocytes (%) (Auto) 6L, Monocytes (%) (Auto) 5, Eosinophils (%) (Auto) 0, Basophils (%) (Auto) 0, Neutrophils # (Auto) 15.5H, Lymphocytes # (Auto) 1.1, Monocytes # (Auto) 0.8, Eosinophils # (Auto) 0.0, Basophils # (Auto) 0.0, Immature Granulocyte # (Auto) 0.1, Sodium Level 135, Potassium Level 4.0, Chloride Level 108H, Carbon Dioxide Level 16L, Anion Gap 11, Blood Urea Nitrogen 30H, Creatinine 1.32H, Estimat Glomerular Filtration Rate 49, BUN/Creatinine Ratio 23, Glucose Level 249H, Calcium Level 9.0, Corrected Calcium 9.0, Total Bilirubin 0.3, Aspartate Amino Transf (AST/SGOT) 15, Alanine Aminotransferase (ALT/SGPT) 20, Alkaline Phosphatase 61, Total Protein 6.5, Albumin 4.0 10/18/23 04:58: Glucometer 228H Microbiology 10/16/23 Blood Culture - Preliminary, Resulted Assessment/Plan Assessment/Plan Assess & Plan/Chief Complaint Assessment: Acute hypoxic respiratory failure COVID-pneumonia Bacterial pneumonia Diabetes OOC due to steroids Hypothyroidism History of long COVID Obesity BMI of 41 CKD Plan: Supportive care Monitor closely IV antibiotics IV Decadron VALARIE JENSEN DO Oct 18, 2023 08:56
[2023-10-18] MEDS ORDERED: inSUlin DETERMIR 1 UNIT/0.01 ML (CHARGE PER UNIT) SQ ONE (09:00)
[2023-10-18] MEDS: SENNOSIDES 8.6 MG TABLET PO SCH ×2 (09:24→21:01)
[2023-10-18] MEDS: DOCUSATE SODIUM 100 MG CAPSULE PO SCH ×2 (09:24→21:01)
[2023-10-18] MEDS: inSUlin (REGULAR) HUMAN 1 UNIT/0.01 ML (CHARGE PER UNIT) SC PRN ×2 (11:20→21:15)
[2023-10-18 16:00] VITALS: BP 134/74
[2023-10-18] MEDS: MELATONIN 10 MG TABLET PO PRN (21:14)
[2023-10-18] MEDS: MONTELUKAST 10 MG TABLET PO SCH (21:15)
[2023-10-18] MEDS: ACETAMINOPHEN 325 MG TABLET PO PRN (21:15)
[2023-10-18 23:57] VITALS: BP 142/66
[2023-10-19] MEDS: RT-ALBUTEROL HFA 8.5 GM INHALER IH SCH ×4 (02:54→15:03)
[2023-10-19] MEDS: CEFEPIME INJECTION 1,000 MG in NS (IVPB) 50 ML 50 ML IV SCH ×2 (05:56→12:18)
[2023-10-19] MEDS: inSUlin ASPART 1 UNIT/0.01 ML (PER UNIT) SC SCH ×2 (05:56→12:18)
[2023-10-19] MEDS: LEVOTHYROXINE 75 MCG TABLET PO SCH (05:56)
[2023-10-19] MEDS: LEVOTHYROXINE 100 MCG TABLET PO SCH (05:56)
[2023-10-19 06:13] LABS: BASOPHILS % (AUTO) 0 % (0-10); EOSINOPHILS % (AUTO) 0 % (0-10); HEMATOCRIT 32 % (35-52); HEMOGLOBIN 10.1 g/dL (11.5-16.0); LYMPHOCYTES # (AUTO) 1.3 10^3/uL (1.0-4.0); LYMPHOCYTES % (AUTO) 8 % (12-44); MEAN CORPUSCULAR HEMOGLOBIN 27 pg (25-34); MEAN CORPUSCULAR HGB CONC 32 g/dL (32-36); MEAN CORPUSCULAR VOLUME 87 fL (80-99); MEAN PLATELET VOLUME 12.4 fL (9.0-12.2); MONOCYTES # (AUTO) 0.9 10^3/uL (0.0-1.0); MONOCYTES % (AUTO) 6 % (0-12); NEUTROPHILS # (AUTO) 13.5 10^3/uL (1.8-7.8); NEUTROPHILS % (AUTO) 86 % (42-75); PLATELET COUNT 232 10^3/uL (130-400); WHITE BLOOD COUNT 15.8 10^3/uL (4.3-11.0)
[2023-10-19 06:33] LABS: BILIRUBIN,TOTAL 0.2 MG/DL (0.1-1.0); CALCIUM 8.9 MG/DL (8.5-10.1); CREATININE SERUM 1.42 MG/DL (0.60-1.30); POTASSIUM 4.4 MMOL/L (3.6-5.0); TOTAL PROTEIN 6.2 GM/DL (6.4-8.2)
[2023-10-19] MEDS: FLUTICASONE/VILANTEROL 200/25 MCG (14 DOSES) IH SCH (07:14)
[2023-10-19 07:52] VITALS: BP 130/72
[2023-10-19] MEDS ORDERED: FAMO20TA5 PO (08:25)
[2023-10-19] MEDS ORDERED: MULT-1136 PO (08:25)
[2023-10-19] MEDS ORDERED: CETI10TA17 PO (08:25)
[2023-10-19] MEDS ORDERED: BACI1TAB24 PO (08:25)
[2023-10-19] MEDS ORDERED: INSU100V SQ (08:25)
[2023-10-19] MEDS ORDERED: IBUP-2473 PO (08:25)
[2023-10-19] MEDS ORDERED: ACET-2267 PO (08:26)
[2023-10-19] MEDS: glipiZIDE 5 MG TABLET PO SCH (08:31)
[2023-10-19] MEDS: metFORMIN 500 MG TABLET PO SCH (08:31)
[2023-10-19] MEDS: guaiFENesin 600 MG TABLET PO SCH (08:32)
[2023-10-19] MEDS: AZITHROMYCIN 250 MG TABLET PO SCH (08:32)
[2023-10-19] MEDS: LinaGLIPtin 5 MG TABLET PO SCH (08:32)
[2023-10-19] MEDS: inSUlin DETERMIR 1 UNIT/0.01 ML (CHARGE PER UNIT) SQ SCH (08:33)
[2023-10-19] MEDS: ENOXAPARIN 40 MG/0.4 ML SYRINGE SC SCH (08:33)
[2023-10-19] MEDS: NIRMATRELVIR/RITONAVIR (PAXLOVID) TABLET PO SCH (08:35)
[2023-10-19] MEDS: DOCUSATE SODIUM 100 MG CAPSULE PO SCH (08:35)
[2023-10-19] MEDS: SENNOSIDES 8.6 MG TABLET PO SCH (08:35)
[2023-10-19] MEDS ORDERED: dexAMETHasone 6 MG TABLET PO SCH (09:00)
[2023-10-19] MEDS ORDERED: GUAI600T43 PO (10:48)
[2023-10-19] MEDS ORDERED: MONT-40 PO (10:48)
[2023-10-19] MEDS ORDERED: DEXA4TAB PO (10:48)
[2023-10-19] MEDS ORDERED: NIRM1TAB PO (10:52)
--- NOTE | 2023-10-19 10:54 | Discharge Summary ---
Diagnosis/Chief Complaint Date of Admission Oct 16, 2023 at 05:24 Date of Discharge Discharge Date: Oct 19, 2023 Discharge Diagnosis Assessment: Acute hypoxic respiratory failure COVID-pneumonia Bacterial pneumonia Diabetes OOC due to steroids Hypothyroidism History of long COVID Obesity BMI of 41 CKD Plan: Supportive care Monitor closely IV antibiotics IV Decadron Discharge Summary Discharge Physical Examination Allergies: Coded Allergies: amoxicillin (Verified Allergy, Unknown, 06/25/21) clavulanic acid (Verified Allergy, Unknown, 06/25/21) codeine (Verified Allergy, Unknown, 03/23/22) Vitals & I&Os Vital Signs Date Time Temp Pulse Resp B/P (MAP) Pulse Ox O2 Delivery O2 Flow Rate FiO2 10/19/23 15:30 10/19/23 15:03 91 Room Air 10/19/23 08:00 2.00 10/19/23 07:52 36.0 81 18 10/16/23 06:03 21 General Appearance: Alert, Oriented X3, Cooperative Respiratory: Clear to Auscultation Cardiovascular: Regular Rate Psych/Mental Status: Mental Status NL Hospital Course Was the Problem List Reviewed?: Yes Patient had an uneventful hospital course after she was admitted for acute hypoxic respiratory failure due to COVID-pneumonia. Bacterial pneumonia responded to IV antibiotics. IV steroids caused severe hyperglycemia. High doses of insulin were required. Overall she did well although she ultimately required 3 L of oxygen on exertion. Patient was stable and discharged home. Labs (last 24 hrs) Laboratory Tests 10/16/23 03:45: Influenza Type A (RT-PCR) Not Detected, Influenza Type B (RT-PCR) Not Detected, SARS-CoV-2 RNA (RT-PCR) DetectedH 10/16/23 03:51: White Blood Count 13.1H, Red Blood Count 3.84, Hemoglobin 10.7L, Hematocrit 34L, Mean Corpuscular Volume 88, Mean Corpuscular Hemoglobin 28, Mean Corpuscular Hemoglobin Concent 32, Red Cell Distribution Width 14.7H, Platelet Count 207, Mean Platelet Volume 12.3H, Immature Granulocyte % (Auto) 1, Neutrophils (%) (Auto) 82H, Lymphocytes (%) (Auto) 9L, Monocytes (%) (Auto) 7, Eosinophils (%) (Auto) 2, Basophils (%) (Auto) 0, Neutrophils # (Auto) 10.8H, Lymphocytes # (Auto) 1.1, Monocytes # (Auto) 0.9, Eosinophils # (Auto) 0.3, Basophils # (Auto) 0.0, Immature Granulocyte # (Auto) 0.1, Prothrombin Time 14.3, INR Comment 1.1, Activated Partial Thromboplast Time 38H, Sodium Level 136, Potassium Level 4.0, Chloride Level 108H, Carbon Dioxide Level 18L, Anion Gap 10, Blood Urea Nitrogen 20H, Creatinine 1.33H, Estimat Glomerular Filtration Rate 49, BUN/Creatinine Ratio 15, Glucose Level 260H, Lactic Acid Level 0.95, Calcium Level 8.7, Corrected Calcium 8.7, Total Bilirubin 0.5, Aspartate Amino Transf (AST/SGOT) 19, Alanine Aminotransferase (ALT/SGPT) 20, Alkaline Phosphatase 74, Total Protein 6.5, Albumin 4.0 10/16/23 06:21: Glucometer 235H 10/16/23 12:13: Glucometer 265H 10/16/23 16:24: Glucometer 381H 10/16/23 20:46: Glucometer 429*H 10/17/23 04:40: White Blood Count 12.4H, Red Blood Count 3.44L, Hemoglobin 9.6L, Hematocrit 30L, Mean Corpuscular Volume 88, Mean Corpuscular Hemoglobin 28, Mean Corpuscular Hemoglobin Concent 32, Red Cell Distribution Width 14.6H, Platelet Count 181, Mean Platelet Volume 12.7H, Immature Granulocyte % (Auto) 1, Neutrophils (%) (Auto) 86H, Lymphocytes (%) (Auto) 8L, Monocytes (%) (Auto) 6, Eosinophils (%) (Auto) 0, Basophils (%) (Auto) 0, Neutrophils # (Auto) 10.7H, Lymphocytes # (Auto) 1.0, Monocytes # (Auto) 0.7, Eosinophils # (Auto) 0.0, Basophils # (Auto) 0.0, Immature Granulocyte # (Auto) 0.1, Neutrophils % (Manual) 85, Lymphocytes % (Manual) 11, Monocytes % (Manual) 4, Polychromasia SLIGHT, Elliptocytes SLIGHT, Sodium Level 134L, Potassium Level 4.2, Chloride Level 107, Carbon Dioxide Level 16L, Anion Gap 11, Blood Urea Nitrogen 26H, Creatinine 1.50H, Estimat Glomerular Filtration Rate 42, BUN/Creatinine Ratio 17, Glucose Level 415*H, Calcium Level 8.5, Corrected Calcium 8.7, Total Bilirubin 0.4, Aspartate Amino Transf (AST/SGOT) 14, Alanine Aminotransferase (ALT/SGPT) 19, Alkaline Phosphatase 60, Total Protein 6.1L, Albumin 3.7 10/17/23 10:21: Glucometer 404*H 10/17/23 16:01: Glucometer 470*H 10/17/23 20:53: Glucometer 340H 10/18/23 04:53: White Blood Count 17.5H, Red Blood Count 3.62L, Hemoglobin 10.1L, Hematocrit 31L , Mean Corpuscular Volume 87, Mean Corpuscular Hemoglobin 28, Mean Corpuscular Hemoglobin Concent 32, Red Cell Distribution Width 14.7H, Platelet Count 216, Mean Platelet Volume 12.6H, Immature Granulocyte % (Auto) 1, Neutrophils (%) (Auto) 88H, Lymphocytes (%) (Auto) 6L, Monocytes (%) (Auto) 5, Eosinophils (%) (Auto) 0, Basophils (%) (Auto) 0, Neutrophils # (Auto) 15.5H, Lymphocytes # (Auto) 1.1, Monocytes # (Auto) 0.8, Eosinophils # (Auto) 0.0, Basophils # (Auto) 0.0, Immature Granulocyte # (Auto) 0.1, Sodium Level 135, Potassium Level 4.0, Chloride Level 108H, Carbon Dioxide Level 16L, Anion Gap 11, Blood Urea Nitrogen 30H, Creatinine 1.32H, Estimat Glomerular Filtration Rate 49, BUN/Creatinine Ratio 23, Glucose Level 249H, Calcium Level 9.0, Corrected Calcium 9.0, Total Bilirubin 0.3, Aspartate Amino Transf (AST/SGOT) 15, Alanine Aminotransferase (ALT/SGPT) 20, Alkaline Phosphatase 61, Total Protein 6.5, Albumin 4.0 10/18/23 04:58: Glucometer 228H 10/18/23 10:18: Glucometer 291H 10/18/23 16:24: Glucometer 240H 10/18/23 21:02: Glucometer 272H 10/19/23 05:52: Glucometer 200H, White Blood Count 15.8H, Red Blood Count 3.70L, Hemoglobin 10.1L, Hematocrit 32L, Mean Corpuscular Volume 87, Mean Corpuscular Hemoglobin 27, Mean Corpuscular Hemoglobin Concent 32, Red Cell Distribution Width 15.0H, Platelet Count 232, Mean Platelet Volume 12.4H, Immature Granulocyte % (Auto) 1, Neutrophils (%) (Auto) 86H, Lymphocytes (%) (Auto) 8L, Monocytes (%) (Auto) 6, Eosinophils (%) (Auto) 0, Basophils (%) (Auto) 0, Neutrophils # (Auto) 13.5H, Lymphocytes # (Auto) 1.3, Monocytes # (Auto) 0.9, Eosinophils # (Auto) 0.0, Basophils # (Auto) 0.0, Immature Granulocyte # (Auto) 0.2H, Sodium Level 135, Potassium Level 4.4, Chloride Level 107, Carbon Dioxide Level 18L, Anion Gap 10, Blood Urea Nitrogen 28H, Creatinine 1.42H, Estimat Glomerular Filtration Rate 45, BUN/Creatinine Ratio 20, Glucose Level 206H, Calcium Level 8.9, Corrected Calcium 8.9, Total Bilirubin 0.2, Aspartate Amino Transf (AST/SGOT) 17, Alanine Aminotransferase (ALT/SGPT) 24, Alkaline Phosphatase 57, Total Protein 6.2L, Albumin 4.0 10/19/23 11:49: Glucometer 266H Microbiology 10/16/23 Blood Culture - Preliminary, Resulted Pending Labs Microbiology Date/Time Source Procedure Growth Status 10/16/23 04:18 Peripheral Lt Ac Blood Culture - Preliminary Resulted 10/16/23 03:51 Peripheral Rt Forearm Blood Culture - Preliminary Resulted Laboratory Tests 10/16/23 03:45: Influenza Type A (RT-PCR) Not Detected, Influenza Type B (RT-PCR) Not Detected, SARS-CoV-2 RNA (RT-PCR) Detected 10/16/23 03:51: White Blood Count 13.1, Red Blood Count 3.84, Hemoglobin 10.7, Hematocrit 34, Mean Corpuscular Volume 88, Mean Corpuscular Hemoglobin 28, Mean Corpuscular Hemoglobin Concent 32, Red Cell Distribution Width 14.7, Platelet Count 207, Mean Platelet Volume 12.3, Immature Granulocyte % (Auto) 1, Neutrophils (%) (Auto) 82, Lymphocytes (%) (Auto) 9, Monocytes (%) (Auto) 7, Eosinophils (%) (Auto) 2, Basophils (%) (Auto) 0, Neutrophils # (Auto) 10.8, Lymphocytes # (Auto) 1.1, Monocytes # (Auto) 0.9, Eosinophils # (Auto) 0.3, Basophils # (Auto) 0.0, Immature Granulocyte # (Auto) 0.1, Prothrombin Time 14.3, INR Comment 1.1, Activated Partial Thromboplast Time 38, Sodium Level 136, Potassium Level 4.0, Chloride Level 108, Carbon Dioxide Level 18, Anion Gap 10, Blood Urea Nitrogen 20, Creatinine 1.33, Estimat Glomerular Filtration Rate 49, BUN/Creatinine Ratio 15, Glucose Level 260, Lactic Acid Level 0.95, Calcium Level 8.7, Corrected Calcium 8.7, Total Bilirubin 0.5, Aspartate Amino Transf (AST/SGOT) 19, Alanine Aminotransferase (ALT/SGPT) 20, Alkaline Phosphatase 74, Total Protein 6.5, A lbumin 4.0 10/16/23 06:21: Glucometer 235 10/16/23 12:13: Glucometer 265 10/16/23 16:24: Glucometer 381 10/16/23 20:46: Glucometer 429 10/17/23 04:40: White Blood Count 12.4, Red Blood Count 3.44, Hemoglobin 9.6, Hematocrit 30, Mean Corpuscular Volume 88, Mean Corpuscular Hemoglobin 28, Mean Corpuscular Hemoglobin Concent 32, Red Cell Distribution Width 14.6, Platelet Count 181, Mean Platelet Volume 12.7, Immature Granulocyte % (Auto) 1, Neutrophils (%) (Auto) 86, Lymphocytes (%) (Auto) 8, Monocytes (%) (Auto) 6, Eosinophils (%) (Auto) 0, Basophils (%) (Auto) 0, Neutrophils # (Auto) 10.7, Lymphocytes # (Auto) 1.0, Monocytes # (Auto) 0.7, Eosinophils # (Auto) 0.0, Basophils # (Auto) 0.0, Immature Granulocyte # (Auto) 0.1, Neutrophils % (Manual) 85, Lymphocytes % (Manual) 11, Monocytes % (Manual) 4, Polychromasia SLIGHT, Elliptocytes SLIGHT, Sodium Level 134, Potassium Level 4.2, Chloride Level 107, Carbon Dioxide Level 16, Anion Gap 11, Blood Urea Nitrogen 26, Creatinine 1.50, Estimat Glomerular Filtration Rate 42, BUN/Creatinine Ratio 17, Glucose Level 415, Calcium Level 8.5, Corrected Calcium 8.7, Total Bilirubin 0.4, Aspartate Amino Transf (AST/SGOT) 14, Alanine Aminotransferase (ALT/SGPT) 19, Alkaline Phosphatase 60, Total Protein 6.1, Albumin 3.7 10/17/23 10:21: Glucometer 404 10/17/23 16:01: Glucometer 470 10/17/23 20:53: Glucometer 340 10/18/23 04:53: White Blood Count 17.5, Red Blood Count 3.62, Hemoglobin 10.1, Hematocrit 31, Mean Corpuscular Volume 87, Mean Corpuscular Hemoglobin 28, Mean Corpuscular Hemoglobin Concent 32, Red Cell Distribution Width 14.7, Platelet Count 216, Mean Platelet Volume 12.6, Immature Granulocyte % (Auto) 1, Neutrophils (%) (Auto) 88, Lymphocytes (%) (Auto) 6, Monocytes (%) (Auto) 5, Eosinophils (%) (Auto) 0, Basophils (%) (Auto) 0, Neutrophils # (Auto) 15.5, Lymphocytes # (Auto) 1.1, Monocytes # (Auto) 0.8, Eosinophils # (Auto) 0.0, Basophils # (Auto) 0.0, Immature Granulocyte # (Auto) 0.1, Sodium Level 135, Potassium Level 4.0, Chloride Level 108, Carbon Dioxide Level 16, Anion Gap 11, Blood Urea Nitrogen 30, Creatinine 1.32, Estimat Glomerular Filtration Rate 49, BUN/Creatinine Ratio 23, Glucose Level 249, Calcium Level 9.0, Corrected Calcium 9.0, Total Bilirubin 0.3, Aspartate Amino Transf (AST/SGOT) 15, Alanine Aminotransferase (ALT/SGPT) 20, Alkaline Phosphatase 61, Total Protein 6.5, Albumin 4.0 10/18/23 04:58: Glucometer 228 10/18/23 10:18: Glucometer 291 10/18/23 16:24: Glucometer 240 10/18/23 21:02: Glucometer 272 10/19/23 05:52: Glucometer 200, White Blood Count 15.8, Red Blood Count 3.70, Hemoglobin 10.1, Hematocrit 32, Mean Corpuscular Volume 87, Mean Corpuscular Hemoglobin 27, Mean Corpuscular Hemoglobin Concent 32, Red Cell Distribution Width 15.0, Platelet Count 232, Mean Platelet Volume 12.4, Immature Granulocyte % (Auto) 1, Neutrophils (%) (Auto) 86, Lymphocytes (%) (Auto) 8, Monocytes (%) (Auto) 6, Eosinophils (%) (Auto) 0, Basophils (%) (Auto) 0, Neutrophils # (Auto) 13.5, Lymphocytes # (Auto) 1.3, Monocytes # (Auto) 0.9, Eosinophils # (Auto) 0.0, Basophils # (Auto) 0.0, Immature Granulocyte # (Auto) 0.2, Sodium Level 135, Potassium Level 4.4, Chloride Level 107, Carbon Dioxide Level 18, Anion Gap 10, Blood Urea Nitrogen 28, Creatinine 1.42, Estimat Glomerular Filtration Rate 45, BUN/Creatinine Ratio 20, Glucose Level 206, Calcium Level 8.9, Corrected Calcium 8.9, Total Bilirubin 0.2, Aspartate Amino Transf (AST/SGOT) 17, Alanine Aminotransferase (ALT/SGPT) 24, Alkaline Phosphatase 57, Total Protein 6.2, Albumin 4.0 10/19/23 11:49: Glucometer 266 Discharge Home Medications: Active Scripts Active Paxlovid 300-100 mg Pack (Eua) (Nirmatrelvir/Ritonavir) 300 Mg (150 Mg X 2)-100 Mg Tab.ds.pk 0 Each PO BID 2 Days bid Dexamethasone 4 Mg Tablet 2 Mg PO DAILY Mucinex (Guaifenesin) 600 Mg Tab.er.12h 600 Mg PO BID Montelukast Sodium 10 Mg Tablet 10 Mg PO HS Reported Tylenol Extra Strength (Acetaminophen) 500 Mg Tablet 1,000 Mg PO Q6H PRN Ibuprofen 200 Mg Tablet 400 Mg PO Q6H PRN Probiotic (Bacillus Coagulans) 1 Billion Cell Tab.chew 1 Each PO DAILY Multivitamin 1 Each Tablet 1 Each PO DAILY Humalog (Insulin Lispro) 100 Unit/Ml Vial 10 Units SQ TIDWM PRN WHEN EZTING FAST FOOD, OR UNHEALTHY FOOD Cetirizine HCl 10 Mg Tablet 10 Mg PO DAILY PRN Famotidine 20 Mg Tablet 20 Mg PO BID PRN Lantus Solostar (Insulin Glargine,Hum.rec.anlog) 100 Unit/Ml (3 Ml) Insuln.pen 100 Unit SQ BID LAST FILLED 05-28-2023 90 DAY SUPPLY Paroxetine HCl 30 Mg Tablet 30 Mg PO HS LAST FILLED 02-10-2023 #90 Tirosint (Levothyroxine Sodium) 175 Mcg Capsule 175 Mcg PO DAILY LAST FILLED 05-18-2023 #90 Janumet 50-500 mg Tablet (Sitagliptin Phos/Metformin HCl) 50 Mg-500 Mg Tablet 1 Tab PO BID LAST FILLED 02-10-2023 #180 Glipizide 10 Mg Tablet 10 Mg PO BID WITH MEALS Instructions to patient/family Please see electronic discharge instructions given to patient. VALARIE JENSEN DO Oct 19, 2023 10:54
[2023-10-20] MEDS ORDERED: dexAMETHasone 4 MG TABLET PO SCH (09:00)
== END 2023-10-19 15:35 | disposition home or self-care (01) | DRG 177 ==
LOC: EDUNIT# 03:35 → ER 03:38 → ICU 05:24 → 4TH 14:23
PROVIDERS: ADMIT Internal Medicine; ATTEND Internal Medicine
PROC: 8E0ZXY6 Isolation (ICD-10-PCS; principal; 2023-10-16)
PROC: 3E0333Z Introduction of Anti-inflammatory into Peripheral Vein, Percutaneous Approach (ICD-10-PCS; 2023-10-16)
PROC: 5A09357 Assistance with Respiratory Ventilation, Less than 24 Consecutive Hours, Continuous Positive Airway Pressure (ICD-10-PCS; 2023-10-16)
DX: U07.1 COVID-19 (principal); J12.82 Pneumonia due to coronavirus disease 2019; J15.9 Unspecified bacterial pneumonia; J96.01 Acute respiratory failure with hypoxia; Z68.41 Body mass index [BMI] 40.0-44.9, adult; J44.0 Chronic obstructive pulmonary disease with (acute) lower respiratory infection; E66.9 Obesity, unspecified; E11.65 Type 2 diabetes mellitus with hyperglycemia; T38.0X5A Adverse effect of glucocorticoids and synthetic analogues, initial encounter; N18.9 Chronic kidney disease, unspecified; Z79.4 Long term (current) use of insulin; Z79.899 Other long term (current) drug therapy; F41.9 Anxiety disorder, unspecified; F32.A Depression, unspecified; E03.9 Hypothyroidism, unspecified; E11.22 Type 2 diabetes mellitus with diabetic chronic kidney disease
CPT/HCPCS: 36415; 71045; 80053; 82947; 83605; 85007; 85025; 85027; 85610; 85730; 87040; 87636; 90686; 94640; 94664; 94760; 94761